=== PATIENT | male | born 1995 | race Caucasian/White ===

== ENCOUNTER 2018-12-20 16:41 | Emergency (ER) | payer OTHER, MEDICAID, SELFPAY ==
[2018-12-20 16:52] VITALS: BP 101/62; PULSE 83; RESP 12; TEMP 37.2; O2SAT 99; BMI 23.1
--- NOTE | 2018-12-20 16:54 | DI.RAD.S_ITS ---
PROCEDURE: XR KNEE RT 3V INDICATIONS: unable to bearweight/pain TECHNIQUE: 3 views of the knee were acquired. COMPARISON: [facility], , KNEE 3V LEFT, 06/03/2010, 14:36. FINDINGS: Bones: No fractures or dislocations. No suspicious bony lesions. Soft tissues: Mild to moderate joint effusion. No suspicious soft tissue calcifications. IMPRESSION: Mild to moderate effusion. No visualized acute fracture or dislocation. However, if clinical concern and/or pain persist, short interval imaging followup in 7-10 days is recommended, as occult injury cannot be definitively excluded. Dictated by: Sydnee Decker M.D. on 12/20/2018 at 17:05 Approved by: Sydnee Decker M.D. on 12/20/2018 at 17:06
[2018-12-20 17:30] VITALS: BP 101/56; PULSE 68; RESP 17; O2SAT 100
--- NOTE | 2018-12-20 18:17 | ED.LOWEXIN ---
HPI - Extremity Injury (Lower) <DAY Barney - Last Filed: 12/20/18 22:33> General Chief Complaint: Extremity Injury, Lower Stated Complaint: POSSIBLE DISLOCATION OF RIGHT KNEE Time Seen by Provider: 12/20/18 17:53 Source: patient and family Mode of arrival: ambulatory Limitations: no limitations History of Present Illness HPI Narrative: This is a 23-year-old male, nonsmoker, presents with family member with right knee pain. Patient reports he was riding a skateboard and went up on a ramp and when he came down landed funny before arriving to ED. Patient was not wearing a helmet at this time. Patient denies other injuries to head, neck, hip, ankle, or foot. Patient reports there is swelling to the affected knee and difficulty bearing weight and extend and flex his affected knee due to pain. Patient reports he can move his foot and toes without problem. Patient denies tingling/numbness to right foot and toes. Related Data Home Medications Medication Instructions Recorded Confirmed acetaminophen-codeine 1 - 2 tab PO Q6H PRN 12/20/18 12/20/18 fluoxetine 40 mg PO DAILY 12/20/18 12/20/18 trazodone 50 - 100 mg PO BEDTIME PRN 12/20/18 12/20/18 Previous Rx's Medication Instructions Recorded gabapentin 600 mg tablet 600 mg PO TID #100 tab 11/29/18 acetaminophen-codeine 1 tab PO BID PRN #7 tab 12/20/18 [Tylenol-Codeine #3] Allergies Allergy/AdvReac Type Severity Reaction Status Date / Time metoclopramide AdvReac Mild LEG Unverified 12/20/18 16:54 PROBLEMS Review of Systems <DAY Barney - Last Filed: 12/20/18 22:33> Review of Systems ROS Unobtainable: All systems reviewed & are unremarkable except as noted in HPI and below PFSH <DAY Barney - Last Filed: 12/20/18 22:33> Medical History Depression (Acute) History of frequent headaches (Acute) Insomnia (Acute) Orbital tumor (Acute) Social History Smoking Status: Never smoker Social History Smoking Status: Never smoker Exam <DAY Barney - Last Filed: 12/20/18 22:33> Narrative Exam Narrative: General appearance: well developed, well nourished, in no acute distress. Head: normocephalic, atraumatic, no scalp lesions, non-tender. Eye: pupil equal, round. EOMI. Nose: nares patent. Oral: mucosa moist. Neck/Thyroid: neck supple, full range of motion, no visible masses. Skin: no suspicious rashes, lesions over visible areas. Warm and dry. Heart: no clubbing, no cyanosis, no edema. Lungs: Breathing even and unlabored. No stridor. No accessory muscles used. Chest: normal shape and expansion. Abdomen: non-obese, non-distended. Neurologic: alert and oriented. Cognitive exam, RECTIFYING ATTENDANT and PNS grossly intact on informal exam. Psych: good eye contact, normal affect. Initial Vital Signs Initial Vital Signs: Vital Signs Temperature 98.9 F 12/20/18 16:52 Pulse Rate 83 12/20/18 16:52 Respiratory Rate 12 12/20/18 16:52 Blood Pressure 101/62 12/20/18 16:52 Pulse Oximetry 99 12/20/18 16:52 Extrem Right upper extremity: normal to inspection and full ROM Left upper extremity: normal to inspection and full ROM Right lower extremity: knee Details: tenderness, swelling Location: of the patella, abnormal ROM Details: pain with active ROM during, pain with passive ROM during and with range as follows and knee ligament exam abnormal Details: anterior drawer test normal, posterior drawer test normal, valgus stress test normal, varus stress test normal, pain with axial loading and Janet's test normal Left lower extremity: normal to inspection and full ROM <Yanick Mays DO - Last Filed: 12/21/18 00:51> Initial Vital Signs Initial Vital Signs: Vital Signs Temperature 98.9 F 12/20/18 16:52 Pulse Rate 83 12/20/18 16:52 Respiratory Rate 12 12/20/18 16:52 Blood Pressure 101/62 12/20/18 16:52 Pulse Oximetry 99 12/20/18 16:52 Procedures <DAY Barney - Last Filed: 12/20/18 22:33> Orthopedic Splinting/Casting Injury #1: Side: right Lower Extremity Injury Location: knee Lower Extremity Immobilizer: knee immobilizer Other Orthopedic Equipment: crutches Post splinting neuro exam: intact Post splinting vascular exam: intact Placed by: Nursing Course <DAY Barney - Last Filed: 12/20/18 22:33> Orders Ordered: ED Orders 12/20/18 16:54 XR knee RT 3V Stat Discontinued Medications Ibuprofen (Advil) 800 mg PO NOW ONE Stop: 12/20/18 18:17 Last Admin: 12/20/18 18:20 Dose: 800 mg Vital Signs - 8 hr 12/20/18 16:52 12/20/18 17:30 Temperature 98.9 F Pulse Rate 83 68 Respiratory Rate 12 17 Blood Pressure 101/62 Blood Pressure [Left Arm] 101/56 L Pulse Oximetry 99 100 <Yanick Mays DO - Last Filed: 12/21/18 00:51> Orders Ordered: ED Orders 12/20/18 16:54 XR knee RT 3V Stat Discontinued Medications Ibuprofen (Advil) 800 mg PO NOW ONE Stop: 12/20/18 18:17 Last Admin: 12/20/18 18:20 Dose: 800 mg Vital Signs - 8 hr 12/20/18 16:52 12/20/18 17:30 Temperature 98.9 F Pulse Rate 83 68 Respiratory Rate 12 17 Blood Pressure 101/62 Blood Pressure [Left Arm] 101/56 L Pulse Oximetry 99 100 MDM - Extremity Injury (Lower) <DAY Barney - Last Filed: 12/20/18 22:33> Differential Diagnosis Likely other (knee sprain, knee dislocation, patella fracture) Medical Records Attestation: I reviewed the patient's medical records. Imaging Data CR-Knee RT: Radiologist's impression: [address] [address] XRay Report Signed Patient: Constantin Cage LMR#: [id number] : 1995Acct:[id number] Age/Sex: 23 / MDate of Service: 12/20/18 Loc: ED Accession Number: [id number] Procedure: XR knee RT 3V Ordering Provider: Esther Wilde MD PROCEDURE: XR KNEE RT 3V INDICATIONS: unable to bearweight/pain TECHNIQUE: 3 views of the knee were acquired. COMPARISON: [facility], , KNEE 3V LEFT, 06/03/2010, 14:36. FINDINGS: Bones: No fractures or dislocations. No suspicious bony lesions. Soft tissues: Mild to moderate joint effusion. No suspicious soft tissue calcifications. IMPRESSION: Mild to moderate effusion. No visualized acute fracture or dislocation. However, if clinical concern and/or pain persist, short interval imaging followup in 7-10 days is recommended, as occult injury cannot be definitively excluded. Dictated by: Sydnee Decker M.D. on 12/20/2018 at 17:05 Approved by: Sydnee Decker M.D. on 12/20/2018 at 17:06 [facility] Narrative Medical decision making narrative: Patient reports right knee pain after he injured the knee while riding skateboard and coming down the ramp and landed funny and states that it happened so fast that he cannot remember how he landed. Distal limb neuro vascular exam was intact. Patient reports little movements on his right knee and unable to fully flex, extend his affected leg due to pain. Per x-ray test, there was mild to moderate effusion without dislocation or fracture on his right knee. Knee immobilizer was applied to right knee for comfort and we discussed RICE therapy with patient and parents for swelling and comfort. Patient provided with crutches for ambulation and pain. Discussed narcotic pain medication precautions with patient and T3 has been prescribed for the patient. Return precautions were discussed with the patient and patient agrees with treatment plan. No further questions were expressed at it this time. Discharge Plan Departure Patient Disposition: Home Clinical Impression: Knee sprain Qualifiers: Encounter type: initial encounter Involved ligament of knee: unspecified ligament Laterality: right Qualified Code(s): S83.91XA - Sprain of unspecified site of right knee, initial encounter Discharge Date/Time: 12/20/18 18:37 Interventions: ED Discharge Assessment Last Done: 12/20/18 18:37 Instructions: DI for Knee Sprain Activity Restrictions/Additional Instructions: You have been diagnosed with [right knee sprain with mild to moderate joint effusion. There is no acute fracture or dislocation were seen today per x-ray test. ]. What to do: *Take your medications as directed. Please use [id number] Tylenol and or ibuprofen as needed for pain. I am prescribing a few taps of T3 that you usually take at home. This medication can cause drowsiness so please do not drive, drink alcohol or operate heavy equipments. Also, this can cause constipation so please take precaution. You're provided with knee immobilizer and crutches for comfort. *Follow up with your primary care provider in 2-3 days, call for an appointment. Let them know you were seen in the ED and that we asked you to be seen in follow up. *Return to ED if you have any new, worsening, or concerning symptoms, such as [tingling numbness to you're lower extremity, weakness to you're leg, or any acute concerns]. Prescriptions: New acetaminophen-codeine [Tylenol-Codeine #3] 300-30 mg tablet 1 tab PO BID PRN (Reason: pain) Qty: 7 RF: 0 No Action gabapentin [Neurontin] 600 mg tablet 600 mg PO TID Qty: 100 RF: 2 fluoxetine 20 mg capsule 40 mg PO DAILY RF: 0 trazodone 50 mg tablet 50 - 100 mg PO BEDTIME PRN (Reason: Sleep) RF: 0 acetaminophen-codeine 300-30 mg tablet 1 - 2 tab PO Q6H PRN (Reason: HEADACHES) RF: 0 Referrals: Demario Eric MD [Primary Care Provider] - <Yanick Mays DO - Last Filed: 12/21/18 00:51> [facility] ED Attending Reanna Attestation: I was immediately available in the department for consultation. Documentation has been reviewed. I agree with assessment and plan.
[2018-12-20] MEDS: IBUPROFEN 400 MG TABLET 800 MG PO (18:20)
== END 2018-12-20 18:37 | disposition home or self-care (01) ==
PROVIDERS: Emergency Provider Nurse Practitioner Family; Family Provider Family Medicine; PCP Family Medicine
DX: S83.91XA Sprain of unspecified site of right knee, initial encounter (principal)
CPT/HCPCS: 29505; 29530; 73562; 99282; 99283

== ENCOUNTER 2019-01-04 16:50 | Emergency (ER) | payer OTHER, MEDICAID, SELFPAY ==
[2019-01-04 16:52] VITALS: BP 107/68; PULSE 93; RESP 15; TEMP 37.6; O2SAT 96; BMI 22.3
--- NOTE | 2019-01-04 16:57 | DI.RAD.S_ITS ---
PROCEDURE: XR FINGER LT MIN 2V INDICATIONS: POSSIBLE DISLOCATION TECHNIQUE: AP hand, 2 views of the fifth finger(s) acquired. COMPARISON: [facility], CR, FINGER RT, 09/03/2006, 15:09. FINDINGS: Bones: No fractures or dislocations. No suspicious bony lesions. Soft tissues: No suspicious soft tissue calcifications. IMPRESSION: No visualized acute fracture or dislocation. However, if clinical concern and/or pain persist, short interval imaging followup in 7-10 days is recommended, as occult injury cannot be definitively excluded. Dictated by: Sydnee Decker M.D. on 01/04/2019 at 17:19 Approved by: Sydnee Decker M.D. on 01/04/2019 at 17:20
--- NOTE | 2019-01-04 17:22 | ED.UPPEXIN ---
HPI - Extremity Injury (Upper) General Chief Complaint: Extremity Injury, Upper Stated Complaint: Possible finger dislocated Time Seen by Provider: 01/04/19 16:53 Source: patient Mode of arrival: ambulatory Limitations: no limitations History of Present Illness HPI narrative: Patient is a 23-year-old male who presents with left pinky injury. [place] [employer] [place]. He feels like it might be dislocated but he is able to bend at all joints. No gross bony deformities. He denies any numbness or tingling. He denies any other injury. Related Data Home Medications Medication Instructions Recorded Confirmed acetaminophen-codeine 1 - 2 tab PO Q6H PRN 12/20/18 01/04/19 fluoxetine 40 mg PO DAILY 12/20/18 01/04/19 trazodone 50 - 100 mg PO BEDTIME PRN 12/20/18 01/04/19 Previous Rx's Medication Instructions Recorded gabapentin 600 mg tablet 600 mg PO TID #100 tab 11/29/18 Allergies Allergy/AdvReac Type Severity Reaction Status Date / Time metoclopramide AdvReac Mild LEG Verified 01/04/19 16:52 PROBLEMS Review of Systems Review of Systems Narrative: GENERAL: Denies chills,fever HEENT: Denies throat pain RESPIRATORY: Denies dyspnea, cough, wheezing CARDIOVASCULAR: Denies chest pain, palpitations GASTROINTESTINAL: Denies nausea, vomiting MUSCULOSKELETAL: See HPI SKIN: No rash, no laceration, no pruritus NEUROLOGIC: Denies weakness, dizziness, headache, numbness 8 point review of systems is negative except for those stated above and HPI PFSH Medical History Depression (Acute) History of frequent headaches (Acute) Insomnia (Acute) Orbital tumor (Acute) Social History Smoking Status: Never smoker Social History Smoking Status: Never smoker Exam Initial Vital Signs Initial Vital Signs: Vital Signs Temperature 99.6 F 01/04/19 16:52 Pulse Rate 93 H 01/04/19 16:52 Respiratory Rate 15 01/04/19 16:52 Blood Pressure 107/68 01/04/19 16:52 Pulse Oximetry 96 01/04/19 16:52 GENERAL: Well-appearing, well-nourished and in no acute distress. CARDIOVASCULAR: peripheral pulses in tact, cap refill <2 sec RESPIRATORY: No respiratory distress, speaks in full sentences without difficulty EXTREMITIES: Normal range of motion, no clubbing or edema. Neurovascularly intact Left pinky no gross bony deformities no erythema able to flex and extend at the DIP, PIP and MCP. Sensation intact. NEUROLOGICAL: Cranial nerves II through XII grossly intact. Normal gait and speech. SKIN: Warm, dry, no petechiae, no rashes or lesions. Course Orders Ordered: ED Orders 01/04/19 16:57 XR finger LT min 2V Stat Vital Signs Vital signs: Vital Signs - 8 hr 01/04/19 16:52 Temperature 99.6 F Pulse Rate 93 H Respiratory Rate 15 Blood Pressure 107/68 Pulse Oximetry 96 MDM - Extremity Injury (Upper) Imaging Data left pinky: Radiologist's impression: PROCEDURE: XR FINGER LT MIN 2V INDICATIONS: POSSIBLE DISLOCATION TECHNIQUE: AP hand, 2 views of the fifth finger(s) acquired. COMPARISON: [facility], , FINGER RT, 09/03/2006, 15:09. FINDINGS: Bones: No fractures or dislocations. No suspicious bony lesions. Soft tissues: No suspicious soft tissue calcifications. IMPRESSION: No visualized acute fracture or dislocation. However, if clinical concern and/or pain persist, short interval imaging followup in 7-10 days is recommended, as occult injury cannot be definitively excluded. Dictated by: Sydnee Decker M.D. on 01/04/2019 at 17:19 Discharge Plan Departure Patient Disposition: Home Clinical Impression: Other sprain of left little finger, initial encounter Instructions: DI for Finger Sprain Activity Restrictions/Additional Instructions: *You have been diagnosed with left pinky sprain *What to do: X-ray is negative. Increase activity as tolerated ice elevate *Continue to take medications as directed Ibuprofen 800 mg every 8 hours if needed for pain *Follow up with your primary care provider in 2-3 days *Return to ER if you should have numbness tingling redness or any new, worsening or concerning symptoms Prescriptions: No Action gabapentin [Neurontin] 600 mg tablet 600 mg PO TID Qty: 100 RF: 2 fluoxetine 20 mg capsule 40 mg PO DAILY RF: 0 trazodone 50 mg tablet 50 - 100 mg PO BEDTIME PRN (Reason: Sleep) RF: 0 acetaminophen-codeine 300-30 mg tablet 1 - 2 tab PO Q6H PRN (Reason: HEADACHES) RF: 0 Referrals: Demario Eric MD [Primary Care Provider] -
== END 2019-01-04 17:37 | disposition home or self-care (01) ==
LOC: ED 18:03
PROVIDERS: Emergency Provider Emergency Medicine; Family Provider Family Medicine; PCP Family Medicine
DX: S63.697A Other sprain of left little finger, initial encounter (principal); W18.30XA Fall on same level, unspecified, initial encounter
CPT/HCPCS: 73140; 99282; 99283

== ENCOUNTER → 2020-01-03 15:26 | Outpatient (CLI) | payer OTHER, MEDICAID, SELFPAY ==
[2020-01-04 07:58] LABS: COVID19 Sendout Not Detected (Not Detect)
== END ==
PROVIDERS: Family Provider Family Medicine; PCP Family Medicine; Visit Provider Nurse Practitioner
DX: Z11.59 Encounter for screening for other viral diseases (principal)
CPT/HCPCS: 87635

== ENCOUNTER → 2020-03-21 14:18 | Outpatient (CLI) | payer OTHER, MEDICAID, SELFPAY ==
[2020-03-21 15:15] LABS: Alanine Aminotransferase 16 IU/L (<50); Albumin 4.3 g/dL (3.5-5.0); Albumin Globulin Ratio 1.2 (1.0-2.8); Alkaline Phosphatase 82 U/L (38-126); Aspartate Aminotransferase 31 IU/L (17-59); BUN Creatinine Ratio 14.8 (6-22); Bilirubin Total 0.8 mg/dL (0.2-1.3); Blood Urea Nitrogen 12 mg/dL (9-20); Calcium 9.4 mg/dL (8.4-10.2); Carbon Dioxide 35 mmol/L (22-32); Chloride 98 mmol/L (98-107); Cholesterol 159 mg/dL (140-199); Estimated Glomerular Filt Rate > 60.0 mL/min (>60); Globulin 3.5 g/dL (1.7-4.1); Glucose 97 mg/dL (70-100); HDL Cholesterol 50 mg/dL (40-60); HEMOLYSIS < 15 (0-50); LDL Cholesterol Calculated 95 mg/dL (<100); Potassium 4.3 mmol/L (3.4-5.1); Sodium 136 mmol/L (137-145); Total Protein 7.8 g/dL (6.3-8.2); Triglycerides 72 mg/dL (35-150)
[2020-03-21 15:51] LABS: Vitamin D 25 Hydroxy (D3) 27.9 ng/mL (30.0-100.0)
== END ==
PROVIDERS: Family Provider Family Medicine; PCP Student in an Organized Health Care Education/Training Program; Referring Provider Student in an Organized Health Care Education/Training Program; Visit Provider Student in an Organized Health Care Education/Training Program
DX: E55.9 Vitamin D deficiency, unspecified (principal); F32.9 Major depressive disorder, single episode, unspecified; F55.8 Abuse of other non-psychoactive substances; R55 Syncope and collapse; Z13.220 Encounter for screening for lipoid disorders; R51.9 Headache, unspecified
CPT/HCPCS: 36415; 80053; 80061; 82306

== ENCOUNTER 2020-04-13 22:08 | Emergency (ER) | payer OTHER, MEDICAID, SELFPAY ==
--- NOTE | 2020-04-13 22:20 | DI.RAD.S_ITS ---
PROCEDURE: XR ACUTE ABDOMEN SERIES INDICATIONS: Abdominal pain, N/V/D TECHNIQUE: One view chest and two views of the abdomen were acquired. COMPARISON: None. FINDINGS: Surgical changes and devices: None. Chest: Lungs are clear. Heart size is normal. No pleural effusions. No pneumoperitoneum. Abdomen: Bowel gas pattern is normal. No suspicious calcifications. Visualized solid organ contours appear normal. Bones: No suspicious bony lesions. IMPRESSION: No acute cardiopulmonary abnormality Comment: Final report is concordant with preliminary interpretation by [facility] Dictated by: Tyrese Kerr M.D. on 04/14/2020 at 7:36 Approved by: Tyrese Kerr M.D. on 04/14/2020 at 7:37
[2020-04-13 22:22] VITALS: PULSE 91; O2SAT 100
[2020-04-13 22:30] VITALS: PULSE 99; O2SAT 100
[2020-04-13] MEDS: PANTOPRAZOLE 40 MG VIAL IV (22:35)
[2020-04-13] MEDS: SODIUM CHLORIDE 0.9% 1,000 ML 1000 ML IV (22:36)
[2020-04-13] MEDS: ONDANSETRON 4 MG/2 ML INJ IV (22:36)
[2020-04-13 22:46] LABS: Add Manual Diff / Slide Review NO; Basophils Absolute Auto 100 /uL (0-100); Basophils Percent Auto 0.9 % (0-2); Eosinophils Absolute Auto 0 /uL (0-450); Hematocrit 46.6 % (41-53); Hemoglobin 15.4 g/dL (13.5-17.5); Lymphocytes Absolute Auto 800 /uL (1100-4500); Lymphocytes Percent Auto 5.2 % (25-40); Mean Corpuscular HGB Conc 32.9 % (30-36); Mean Corpuscular Hemoglobin 28.8 PG (26-34); Mean Corpuscular Volume 87.4 fL (80-100); Monocytes Absolute Auto 400 /uL (0-900); Monocytes Percent Auto 2.2 % (3-14); Neutrophils Absolute Auto 14400 /uL (1500-7000); Neutrophils Percent Auto 91.7 % (50-75); Platelet Count 419 X10^3/uL (150-400); Red Blood Cell Count 5.33 X10^6/uL (4.5-5.9); Red Cell Distribution Width 13.3 % (11.6-14.8); White Blood Cell Count 15.7 X10^3/uL (4.5-11.0)
[2020-04-13 22:53] LABS: Albumin 5.1 g/dL (3.5-5.0); Albumin Globulin Ratio 1.2 (1.0-2.8); Alkaline Phosphatase 133 U/L (38-126); Aspartate Aminotransferase 45 IU/L (17-59); BUN Creatinine Ratio 21.4 (6-22); Bilirubin Total 1.3 mg/dL (0.2-1.3); Blood Urea Nitrogen 15 mg/dL (9-20); Calcium 10.4 mg/dL (8.4-10.2); Carbon Dioxide 26 mmol/L (22-32); Chloride 98 mmol/L (98-107); Estimated Glomerular Filt Rate > 60.0 mL/min (>60); Globulin 4.1 g/dL (1.7-4.1); Glucose 146 mg/dL (70-100); HEMOLYSIS < 15 (0-50); Lipase 121 U/L (23-300); Potassium 4.2 mmol/L (3.4-5.1); Sodium 136 mmol/L (137-145); Total Protein 9.2 g/dL (6.3-8.2)
[2020-04-13 23:00] VITALS: PULSE 81; O2SAT 99
[2020-04-13 23:00] LABS: Alanine Aminotransferase 35 IU/L (<50)
--- NOTE | 2020-04-13 23:19 | ED.NAVMDI ---
HPI - Nausea/Vomiting/Diarrhea General Chief complaint: Nausea/Vomiting/Diarrhea Stated complaint: vomiting/diarria Time Seen by Provider: 04/13/20 22:10 Source: family Mode of arrival: Ambulatory Limitations: no limitations History of Present Illness HPI Narrative: 24M nonsmoker, daily THC user without significant medical history presents with a friend and a chief complaint of nausea, vomiting and diarrhea for the past 24 hours. He states he ate a cheeseburger that had been outside for quite a long time yesterday and it tasted a bit funny. He woke this morning with the above-stated symptoms. After multiple episodes of nausea and vomiting he started having some epigastric pain and cramping. The pain would build in intensity until he had an episode of vomiting or diarrhea at which point he would improve. He denies any radiation of the pain. He states that it is most intense it is 10/10 and currently is an 8/10. He states the pain improves with vomiting and remaining still and seems to worsen with movement. He denies any recent travel or use of antibiotics. He denies any blood in his emesis or stool. He states the nausea, vomiting and diarrhea started a few hours before the pain MD complaint: nausea, vomiting, diarrhea and abdominal pain Onset (ago): hour(s) Description of Vomiting: food contents Description of Diarrhea: watery Associated Abdominal Pain: Yes Location of pain: diffuse Severity: severe Quality: cramping and stabbing Pain Consistency: intermittent Relieving factors: vomiting and rest Exacerbating factors: movement Context: possible food poisoning Associated symptoms: denies other symptoms Related Data Previous Rx's Medication Instructions Recorded fluoxetine 20 mg capsule 60 mg PO DAILY #90 cap 03/21/20 hydroxyzine HCl 25 mg tablet 25 mg PO TID PRN #30 tab 03/21/20 trazodone 50 mg tablet 50 - 100 mg PO BEDTIME #90 tab 03/21/20 hydrocodone 7.5 mg-acetaminophen 1 tab PO Q8H PRN #42 tab 04/09/20 325 mg tablet Allergies Allergy/AdvReac Type Severity Reaction Status Date / Time metoclopramide AdvReac Mild LEG Verified 03/21/20 13:31 PROBLEMS Review of Systems Constitutional Constitutional: Denies chills, Denies fatigue, Denies fever(s), Denies frequent falls, Denies lethargy and Denies weakness Eyes Eyes: Denies change in vision, Denies eye discharge, Denies irritation and Denies loss of vision ENT Ears, Nose, Mouth, and Throat: Denies change in voice, Denies dizziness, Denies neck pain, Denies sore throat and Denies throat swelling Cardiovascular Cardiovascular: Denies chest pain, Denies irregular heart rhythm, Denies lightheadedness, Denies palpitations, Denies dyspnea, Denies dyspnea on exertion and Denies orthopnea Respiratory Respiratory: Denies cough, Denies dyspnea, Denies dyspnea on exertion and Denies wheezing Gastrointestinal Gastrointestinal: Reports abdominal pain, Denies change in bowel habits, Reports diarrhea, Reports nausea and Reports vomiting Musculoskeletal Musculoskeletal: Denies neck pain and Denies numbness Integumentary/Breasts Skin/Breast: Denies pruritus, Denies erythema, Denies rash and Denies wounds Neurologic Neurologic: Denies behavioral changes, Denies confusion, Denies dizziness, Denies frequent falls, Denies loss of vision, Denies numbness and Denies weakness Psychiatric Psychiatric: Denies anxiety, Denies behavioral changes, Denies confusion, Denies depression, Denies homicidal ideation and Denies suicidal ideation Endocrine Endocrine: Denies fatigue, Denies flushing and Denies palpitations Hematologic/Lymphatic Hematologic/Lymphatic: Denies easy bruising Allergic/Immunologic Allergic/Immunologic: Denies urticaria, Denies throat swelling and Denies wheezing Patient History Medical History Accidental overdose Depression History of frequent headaches Insomnia Orbital tumor Social History Smoking Status: Current some day smoker second hand exposure: No alcohol intake: never substance use type: marijuana (DAILY) Smoking Status: Current some day smoker alcohol intake frequency: holidays/special occasions only Substance Use Type: marijuana Exam Narrative Exam Narrative: GENERAL: [24] year old patient appears stated age. Well-nourished, well-developed patient, in obvious distress. Holding an emesis bag, rubbing his abdomen HEAD: Atraumatic. Normocephalic. EYES: Pupils equal round and reactive. Extraocular motions intact. No scleral icterus. No injection or drainage. ENT: Nose without bleeding, purulent drainage. Throat without erythema, tonsillar hypertrophy or exudate. Airway patent. NECK: Trachea midline. Non tender CARDIOVASCULAR: Regular rate and rhythm without murmurs, gallops, or rubs. RESPIRATORY: Clear to auscultation. Breath sounds equal bilaterally. No wheezes, rales, or rhonchi. GASTROINTESTINAL: Abdomen soft, generalized tenderness, nondistended. Bowel sounds present in all 4 quadrants EXTREMITIES: No edema or joint tenderness. BACK: Nontender without deformity or crepitance. No flank tenderness. NEURO: AOx3. SKIN: No rash or erythema of visible areas Initial Vital Signs Initial Vital Signs: Vital Signs Pulse Rate 91 H 04/13/20 22:22 Pulse Oximetry 100 04/13/20 22:22 Course Orders Ordered: ED Orders 04/13/20 22:20 XR acute abdomen series Stat 04/13/20 22:35 Complete Blood Count AUTO DIFF Stat Comprehensive Metabolic Panel Stat Lipase Stat Ondansetron HCl (Ondansetron 4 Mg/2 Ml Inj) 4 mg IV Q4HR PRN PRN Reason: Nausea And Vomiting Last Admin: 04/13/20 22:36 Dose: 4 mg Documented by: NELSY Discontinued Medications Sodium Chloride (Normal Saline 0.9%) 1,000 mls @ 1,000 mls/hr IV BOLUS ONE Stop: 04/13/20 23:19 Last Admin: 04/13/20 22:36 Dose: 1,000 mls/hr Documented by: NELSY Ondansetron HCl (Ondansetron 4 Mg Odt Prepack) 1 bottle MISC SEEINSTR ONE Stop: 04/13/20 23:56 Last Admin: 04/14/20 00:06 Dose: 1 bottle Documented by: Pantoprazole Sodium (Pantoprazole 40 Mg Vial) 40 mg IV NOW ONE Stop: 04/13/20 22:21 Last Admin: 04/13/20 22:35 Dose: 40 mg Documented by: NELSY Reevaluation(s) Reevaluation #1: Near complete resolution of symptoms after the above-stated therapies. Vital Signs Vital signs: Vital Signs - 8 hr 04/13/20 22:22 04/13/20 22:30 04/13/20 23:00 Pulse Rate 91 H 99 H 81 Blood Pressure Pulse Oximetry 100 100 99 04/13/20 23:30 Pulse Rate 79 Blood Pressure 121/78 Pulse Oximetry 96 MDM - Nausea/Vomiting/Diarrhea Lab Data Result diagrams: 04/13/20 22:35 04/13/20 22:35 Labs: Lab Results 04/13/20 04/13/20 Range/Units 22:35 22:35 WBC 15.7 H (4.5-11.0) X10^3/uL RBC 5.33 (4.5-5.9) X10^6/uL Hgb 15.4 (13.5-17.5) g/dL Hct 46.6 (41-53) % MCV 87.4 (80-100) fL MCH 28.8 (26-34) PG MCHC 32.9 (30-36) % RDW 13.3 (11.6-14.8) % Plt Count 419 H (150-400) X10^3/uL Neut % (Auto) 91.7 H (50-75) % Lymph % (Auto) 5.2 L (25-40) % [place] % (Auto) 2.2 L (3-14) % Eos % (Auto) 0.0 L (2-4) % Baso % (Auto) 0.9 (0-2) % Neut # (Auto) 15842 H (6069-7564) /uL Lymph # (Auto) 800 L (3080-1050) /uL [place] # (Auto) 400 (0-900) /uL Eos # (Auto) 0 (0-450) /uL Baso # (Auto) 100 (0-100) /uL Sodium 136 L (137-145) mmol/L Potassium 4.2 (3.4-5.1) mmol/L Chloride 98 (98-107) mmol/L Carbon Dioxide 26 (22-32) mmol/L BUN 15 (9-20) mg/dL Creatinine 0.70 (0.66-1.25) mg/dL Estimated GFR > 60.0 (>60) mL/min BUN/Creatinine Ratio 21.4 (6-22) Glucose 146 H (70-100) mg/dL Calcium 10.4 H (8.4-10.2) mg/dL Total Bilirubin 1.3 (0.2-1.3) mg/dL AST 45 (17-59) IU/L ALT 35 (<50) IU/L Alkaline Phosphatase 133 H (38-126) U/L Total Protein 9.2 H (6.3-8.2) g/dL Albumin 5.1 H (3.5-5.0) g/dL Globulin 4.1 (1.7-4.1) g/dL Albumin/Globulin Ratio 1.2 (1.0-2.8) Lipase 121 (23-300) U/L Imaging Data Abdominal x-ray: Attestation: I personally reviewed and interpreted this imaging study as follows: My Impression: No obstruction Radiologist's Impression: No acute findings MDM Narrative Medical decision making narrative: 24M with N/V/D and abdominal pain. Symptoms started after exposure to bad food. No recent travel or recent antibiotics. Multiple diagnoses including gastroenteritis, bowel obstruction, gallbladder disease and others. Slight bump in white blood cells likely a stress response. X-ray demonstrates no obstruction. Gallbladder and pancreatitis unlikely given lack of classic exam or laboratory findings. Significant improvement after above-stated therapies. Return precautions given and questions answered to his apparent satisfaction. Discharge Plan Departure Patient Disposition: Home Clinical Impression: Gastroenteritis Instructions: DI for Viral Gastroenteritis -- Adult Activity Restrictions/Additional Instructions: *You have been diagnosed with [ nausea, vomiting, and diarrhea likely due to expusre to bad food. Labs and Xrays are very reassuring. ] *What to do: *Take medications as directed *Follow up with your primary care provider in 2-3 days, call for an appointment. Let them know you were seen in the Emergency Department and that we ask that you be seen in follow up *Return to ER if you should have any new, worsening or concerning symptoms, such as [increased vomiting, pain, fever >101F or other bothersome symptoms 1. Drink plenty of fluids with frequent small sips. 2. For the next 24 hours a clear liquid diet is advised. After that please employ a B.R.A.T. diet which would include bananas, rice, apples, toast and other mild food items 3. Please take medications as directed. Including an over the counter antacid such as Nexium or Pepcid. Prescriptions: No Action hydrocodone-acetaminophen 7.5-325 mg tablet 1 tab PO Q8H PRN (Reason: pain) Qty: 42 RF: 0 fluoxetine 20 mg capsule 60 mg PO DAILY Qty: 90 RF: 5 hydroxyzine HCl 25 mg tablet 25 mg PO TID PRN (Reason: anxiety) Qty: 30 RF: 0 trazodone 50 mg tablet 50 - 100 mg PO BEDTIME Qty: 90 RF: 3 Referrals: Ephraim Platt MD [Primary Care Provider] -
[2020-04-13 23:30] VITALS: BP 121/78; PULSE 79; O2SAT 96
[2020-04-13 23:37] VITALS: BP 121/78; PULSE 81; O2SAT 100
[2020-04-14] VITALS: BP 120/77; PULSE 86; O2SAT 100
[2020-04-14] MEDS: ONDANSETRON 4 MG ODT PREPACK 1 BOTTLE MISC (00:06)
== END 2020-04-14 00:41 | disposition home or self-care (01) ==
PROVIDERS: Emergency Provider Emergency Medicine; Family Provider Family Medicine; PCP Student in an Organized Health Care Education/Training Program
DX: K52.9 Noninfective gastroenteritis and colitis, unspecified (principal); R10.13 Epigastric pain; R11.2 Nausea with vomiting, unspecified
CPT/HCPCS: 36415; 74022; 80053; 83690; 85025; 96361; 96374; 96375; 99283; 99284; C9113; J2405

== ENCOUNTER → 2020-04-28 10:55 | Outpatient (CLI) | payer OTHER, MEDICAID, SELFPAY ==
--- NOTE | 2020-04-28 10:56 | DI.MRI.S_ITS ---
PROCEDURE: MR HEAD/BRAIN WO CON INDICATIONS: Eyeball pain TECHNIQUE: Noncontrast axial T1 spin echo, axial T2 fast spin echo, sagittal and axial FLAIR, coronal T2 fast spin echo, axial gradient echo, axial diffusion and ADC through the brain. COMPARISON: [facility], MR, BRAIN WITHOUT CONTRAST, 01/22/2016, 17:51. FINDINGS: Image quality: Excellent. CSF Spaces: Basal cisterns are patent. No extra-axial fluid collections. Ventricles are normal in size and shape. Brain: No intracranial masses or hemorrhage. Shetty/white matter interface is normal. Brainstem appears normal. Diffusion-weighted images demonstrate no acute ischemic insult. No chronic ischemic insults. Normal intravascular flow voids are present. Skull and face: Calvarium has normal marrow signal. Orbits appear normal. Divergent gaze incidentally noted, unchanged since 01/22/16. Sinuses: Sinuses and mastoids are clear. IMPRESSION: Divergent gaze incidentally noted, unchanged since 01/22/16. Recommend correlation to ophthalmological examination findings. Overall, grossly stable examination since 01/22/16. No evidence of acute ischemia. No acute intracranial signal abnormality. Dictated by: Tripp Mccoy M.D. on 04/30/2020 at 8:21 Approved by: Tripp Mccoy M.D. on 04/30/2020 at 8:28
== END ==
PROVIDERS: Family Provider Family Medicine; PCP Student in an Organized Health Care Education/Training Program; Referring Provider Student in an Organized Health Care Education/Training Program; Visit Provider Student in an Organized Health Care Education/Training Program
DX: D49.89 Neoplasm of unspecified behavior of other specified sites (principal); H57.10 Ocular pain, unspecified eye; H51.8 Other specified disorders of binocular movement
CPT/HCPCS: 70551

== ENCOUNTER → 2020-06-13 14:16 | Outpatient (CLI) | payer OTHER, MEDICAID, SELFPAY ==
--- NOTE | 2020-06-13 14:18 | DI.RAD.S_ITS ---
PROCEDURE: XR CERVICAL SPINE 2V OR 3V INDICATIONS: Cervical spine pain TECHNIQUE: 3 view(s) of the cervical spine were acquired. COMPARISON: None. FINDINGS: Bones: No fractures or dislocations to the C7-T1 level. The lateral masses of C1 appear intact on the odontoid view. No suspicious bony lesions. There is severe disc space narrowing at C6-7. Soft tissues: No prevertebral soft tissue swelling. IMPRESSION: Severe disc space narrowing at C6-7. Dictated by: Sydnee Decker M.D. on 06/13/2020 at 16:00 Approved by: Sydnee Decker M.D. on 06/13/2020 at 16:03
--- NOTE | 2020-06-13 14:18 | DI.RAD.S_ITS ---
PROCEDURE: XR LUMBAR SPINE 2-3V INDICATIONS: Lumbar spine pain TECHNIQUE: 2 views of the lumbar spine were acquired. COMPARISON: [facility], CT, ABDOMEN/PELVIS WITH CONTRAST, 06/12/2008, 12:32. FINDINGS: Bones: 5 [id number] vertebrae are present. There is trace retrolisthesis of L3 on L4, L4 on L5, L5 on S1. Moderate foraminal narrowing is present at L5-S1No vertebral body compression fractures. No suspicious bony lesions. Soft tissues: Overlying bowel gas pattern is normal. No suspicious soft tissue calcifications. IMPRESSION: Retrolisthesis at L5-S1 with foraminal narrowing. . Dictated by: Sydnee Decker M.D. on 06/13/2020 at 15:56 Approved by: Sydnee Decker M.D. on 06/13/2020 at 16:00
== END ==
PROVIDERS: Family Provider Family Medicine; PCP Student in an Organized Health Care Education/Training Program; Referring Provider Student in an Organized Health Care Education/Training Program; Visit Provider Student in an Organized Health Care Education/Training Program
DX: M54.5 Low back pain (principal); M43.17 Spondylolisthesis, lumbosacral region; M48.07 Spinal stenosis, lumbosacral region; M54.2 Cervicalgia; M48.02 Spinal stenosis, cervical region; G89.4 Chronic pain syndrome
CPT/HCPCS: 72040; 72100

== ENCOUNTER 2020-06-17 17:44 | Emergency (ER) | payer OTHER, MEDICAID, SELFPAY ==
[2020-06-17 17:48] VITALS: BP 114/66; PULSE 93; RESP 22; O2SAT 98
--- NOTE | 2020-06-17 18:47 | ED.BACK ---
HPI - Back Pain/Injury General Chief Complaint: Back Pain/Injury Stated Complaint: neck and back pain past month or two Time Seen by Provider: 06/17/20 18:47 Source: patient and other (fiance) Mode of arrival: Ambulatory Limitations: no limitations History of Present Illness HPI Narrative: This is a 24-year-old male comes with complaint of neck pain radiates down his spine and tore his lower back. Patient has had chronic symptoms. He has had an x-ray of his cervical spine as well as lower lumbar region and showed some changes. He states that he has been seeing his primary care physician. And states that he has had increase in the pain in the last 24 hours. Patient denies radiation down his arms. He denies any numbness, tingling or weakness in his extremities. 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 Patient denies dropping any objects but states picking up heavy objects increases his pain. He denies any fevers or chills. States he had some red spots on his back earlier this week. He denies any chest pain or shortness of breath no nausea, no vomiting. No bowel or bladder incontinence. No saddle anesthesia. Patient denies any other medical issues besides anxiety. He does take medication for anxiety as well as pain control. He denies any recent surgeries. 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 He has been following with Dr. Platt he received prescription for hydrocodone 7.5/325 he states he was supposed to take 1 tablet daily but has been taking 3 tablets daily after filling his prescriptions on the for 42 tablets. He states that he has run out since then. He has also been He taking a muscle relaxer with minimal improvement which was prescribed by Dr. Platt. also states that medication is actually for his eye and not for his back. He has taken [id number] pain medicine today but nothing in addition. Patient denies any tobacco use, rare EtOH, positive for THC but no other illicit. He is accompanied by his fiancee. He comes this evening requesting medication for pain control. He states that they are setting up an MRI they were supposed to have scheduled for Thursday but have not actually schedule the MRI yet. Related Data Previous Rx's Medication Instructions Recorded fluoxetine 20 mg capsule 60 mg PO DAILY #90 cap 03/21/20 trazodone 50 mg tablet 50 - 100 mg PO BEDTIME #90 tab 03/21/20 hydroxyzine HCl 25 mg tablet 25 mg PO TID PRN #90 tab 05/15/20 hydrocodone 7.5 mg-acetaminophen 1 tab PO Q8H PRN #42 tab 06/12/20 325 mg tablet cyclobenzaprine 10 mg tablet 10 mg PO TID PRN 10 Days #30 tab 06/13/20 Allergies Allergy/AdvReac Type Severity Reaction Status Date / Time metoclopramide AdvReac Mild LEG Verified 06/13/20 13:53 PROBLEMS Review of Systems Review of Systems ROS Unobtainable: All systems reviewed & are unremarkable except as noted in HPI and below Patient History Medical History (Updated 06/17/20 @ 19:43 by Lauren Sesay DO) Accidental overdose Acetaminophen abuse Acne Anxiety associated with depression (~2006) Depression History of frequent headaches Insomnia Migraines (~2004) Orbital tumor Psoriasis Surgical History (Updated 06/15/20 @ 21:34 by Indira Hernandez) Anesthesia History of eye surgery Family History (Updated 06/15/20 @ 21:36 by Indira Hernandez) Mother Diabetes mellitus History of heart disease Hypertension Hyperlipidemia Grandfather Kidney failure Grandfather Cancer Grandmother No problems noted. Social History Smoking Status: Current some day smoker second hand exposure: No alcohol intake: never substance use type: marijuana (DAILY) Smoking Status: Current some day smoker alcohol intake frequency: holidays/special occasions only Substance Use Type: marijuana Exam Narrative Exam Narrative: GENERAL: Alert and oriented x three, well-nourished male in mild distress. HEENT: Head normocephalic, atraumatic, EOMI intact on left, patient has a rightward gaze palsy with the right eye, pupils reactive, face symmetric, moist mucous membranes NECK: Supple, full range of motion CARDIOVASCULAR: Regular rate and rhythm without murmurs, rubs or gallops. RESPIRATORY: Breath sounds equal bilaterally, no wheezes rales or rhonchi. ABDOMEN: Soft, nontender. Normoactive bowel sounds all 4 quadrants. No guarding or rebound, rigidity, no mass : No CVA tenderness BACK: Mild C6-7 cervical, no other cervical thoracic or lumbar vertebral point tenderness. Patient has normal range of motion. Patient's gait is normal. Rectal exam is deferred. Muscle strength is 5/5 in upper and lower extremities, with equal ribs bilaterally and equal push pull bilaterally, DTRs are 2/4 and upper and lower, 2+ radial pulses bilaterally. Sensation is intact in the upper and lower extremities to light touch. EXTREMITIES: Normal range of motion, no clubbing or edema. Neurovascularly intact NEUROLOGICAL: Cranial nerves II through XII grossly intact. Moving all extremities SKIN: Warm, dry, no petechiae, no rashes or lesions, no skin changes on the back. Initial Vital Signs Initial Vital Signs: Vital Signs Pulse Rate 93 H 06/17/20 17:48 Respiratory Rate 22 06/17/20 17:48 Blood Pressure 114/66 06/17/20 17:48 Pulse Oximetry 98 06/17/20 17:48 Course Orders Ordered: Discontinued Medications Hydrocodone Bitart/Acetaminophen (Hydrocodone/Acet 5/325 Prepack) 1 bottle MISC SEEINSTR ONE Stop: 06/17/20 19:44 Last Admin: 06/17/20 19:48 Dose: 1 bottle Documented by: ROBERTA Ketorolac Tromethamine (Ketorolac 60 Mg/2 Ml Vial) 30 mg IM NOW ONE Stop: 06/17/20 19:23 Last Admin: 06/17/20 19:29 Dose: 30 mg Documented by: ROBERTA Vital Signs Vital signs: Vital Signs - 8 hr 06/17/20 17:48 06/17/20 19:50 Pulse Rate 93 H 75 Respiratory Rate 22 18 Blood Pressure 114/66 111/72 Pulse Oximetry 98 97 MDM - Back Pain/Injury Imaging Data Lumbar xray: Radiologist's Impression: [address] [id number] ReportSigned Patient: Constantin Vasquez LMR#: [id number]: 1995Acct:[id number]/Sex: 24 / MDate of Service: 06/13/20Loc: RADAccession Number: [id number] Procedure: XR lumbar spine 2-3V Ordering Provider: Ephraim Platt MD PROCEDURE: XR LUMBAR SPINE 2-3V INDICATIONS: Lumbar spine pain TECHNIQUE: 2 views of the lumbar spine were acquired. COMPARISON: [facility], CT, ABDOMEN/PELVIS WITH CONTRAST, 06/12/2008, 12:32. FINDINGS: Bones: 5 [id number] vertebrae are present. There is trace retrolisthesis of L3 on L4, L4 on L5, L5 on S1. Moderate foraminal narrowing is present at L5-S1No vertebral body compression fractures. No suspicious bony lesions. Soft tissues: Overlying bowel gas pattern is normal. No suspicious soft tissue calcifications. IMPRESSION: Retrolisthesis at L5-S1 with foraminal narrowing. . Dictated by: Sydnee Decker M.D. on 06/13/2020 at 15:56 Approved by: Sydnee Decker M.D. on 06/13/2020 at 16:00 cspine xray: Radiologist's Impression: [address] [id number] ReportSigned Patient: Constantin Vasquez LMR#: [id number]: 1995Acct:[id number]/Sex: 24 / MDate of Service: 06/13/20Loc: RADAccession Number: [id number] Procedure: XR cervical spine 2V or 3V Ordering Provider: Ephraim Platt MD PROCEDURE: XR CERVICAL SPINE 2V OR 3V INDICATIONS: Cervical spine pain TECHNIQUE: 3 view(s) of the cervical spine were acquired. COMPARISON: None. FINDINGS: Bones: No fractures or dislocations to the C7-T1 level. The lateral masses of C1 appear intact on the odontoid view. No suspicious bony lesions. There is severe disc space narrowing at C6-7. Soft tissues: No prevertebral soft tissue swelling. IMPRESSION: Severe disc space narrowing at C6-7. Dictated by: Sydnee Decker M.D. on 06/13/2020 at 16:00 Approved by: Sydnee Decker M.D. on 06/13/2020 at 16:03 [facility] Narrative Medical decision making narrative: This is a 24-year-old male [place] Prescription database shows patient has filled hydrocodone/senna benefit 7.5mg/325mg # 42 tabs on June 12, May 30, May 15 and May [address] Platt. Prior to this he had no other substances filled since January 04, 2020. Patient does have changes at C6-7 which is where his majority of his discomfort is. He does not have any red flag symptoms today on evaluation and I would not repeat imaging. He also has some changes in his lower lumbar spine on imaging. Patient is in the process of scheduling an MRI he has not set up the actual date but has been approved. This seems to be an appopriate course of action with his worsening back pain. Plan for dose of pain medication here in the form of Toradol. Prepack for pain medication and asked him to follow up with his primary care tomorrow for any additional pain medicine adjustments. His [place] [employer] indicates that he filled 42 tabs on the which would have been 11 tablets in 5 days. Return precautions discussed with patient. Discharge Plan Departure Patient Disposition: Home Clinical Impression: Acute neck pain Instructions: DI for Neck Pain Activity Restrictions/Additional Instructions: Follow up with Dr. Platt tomorrow for recheck and additional pain management options. Take medication as prescribed, this medication can make you sleepy do not drive, perform hazardous activities or make any major decisions while taking it. Return to the ER for fevers, rapidly worsening symptoms, loss of sensation, new weakness or inability to use her extremities, if her dropping objects, loss of bowel or bladder control, passing out, persistent vomiting or other new or concerning symptoms. Prescriptions: No Action hydrocodone-acetaminophen 7.5-325 mg tablet 1 tab PO Q8H PRN (Reason: pain) Qty: 42 RF: 0 hydroxyzine HCl 25 mg tablet 25 mg PO TID PRN (Reason: anxiety) Qty: 90 RF: 11 cyclobenzaprine 10 mg tablet 10 mg PO TID PRN (Reason: muscle spasm) 10 Days Qty: 30 RF: 0 fluoxetine 20 mg capsule 60 mg PO DAILY Qty: 90 RF: 5 trazodone 50 mg tablet 50 - 100 mg PO BEDTIME Qty: 90 RF: 3 Referrals: Ephraim Platt MD [Primary Care Provider] -
[2020-06-17] MEDS: KETOROLAC 60 MG/2 ML VIAL 30 MG IM (19:29)
[2020-06-17] MEDS: HYDROCODONE/ACET 5/325 PREPACK 1 BOTTLE MISC (19:48)
[2020-06-17 19:50] VITALS: BP 111/72; PULSE 75; RESP 18; O2SAT 97
== END 2020-06-17 19:51 | disposition home or self-care (01) ==
PROVIDERS: Emergency Provider Emergency Medicine; Family Provider Family Medicine; PCP Student in an Organized Health Care Education/Training Program
DX: M54.2 Cervicalgia (principal); M54.5 Low back pain
CPT/HCPCS: 96372; 99281; 99283; J1885

== ENCOUNTER 2020-08-11 14:04 | Emergency (ER) | payer OTHER, MEDICAID, SELFPAY ==
[2020-08-11] VITALS (8 sets, daily range): BP systolic 114–125; BP diastolic 67–78; PULSE 61–77; RESP 16–18; TEMP 36.7; O2SAT 95–97; BMI 25.7
--- NOTE | 2020-08-11 15:46 | ED.NECK ---
HPI - Neck Pain/Injury General Chief Complaint: Neck Pain/Injury Stated Complaint: neck shoulder pain Time Seen by Provider: 08/11/20 15:07 Source: patient Mode of arrival: Ambulatory Limitations: no limitations History of Present Illness HPI Narrative: Patient is a 24-year-old male who presented with chronic ongoing neck pain. He continues to have right-sided neck pain and spasm he has been seen by his primary care provider for he has been on multiple muscle relaxers he had an x-ray but is waiting for insurance to approve an MRI. He has been going to physical therapy for 8 weeks says it helpful he is there but as soon as he leaves it spasms again. Today he is unsure why but it hurts even more he thinks he may have tweaked it. He has no numbness tingling or weakness in his right hand. He has difficulty and pain turning his head to the right. 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 MD complaint: neck pain Onset (ago): hour(s) Radiation: right lateral Duration: constant Relieving factors: none Exacerbating factors: none Related Data Previous Rx's Medication Instructions Recorded fluoxetine 20 mg capsule 60 mg PO DAILY #90 cap 03/21/20 trazodone 50 mg tablet 50 - 100 mg PO BEDTIME #90 tab 03/21/20 hydroxyzine HCl 25 mg tablet 25 mg PO TID PRN #90 tab 05/15/20 hydrocodone 7.5 mg-acetaminophen 1 tab PO Q8H PRN #42 tab 08/06/20 325 mg tablet diazepam [Valium] 5 mg PO BID PRN #10 tab 08/11/20 Allergies Allergy/AdvReac Type Severity Reaction Status Date / Time metoclopramide AdvReac Mild LEG Verified 08/11/20 14:18 PROBLEMS Review of Systems Review of Systems Narrative: GENERAL: Denies chills, fatigue, malaise, fever, sweats, travel HEENT: see HPI RESPIRATORY: Denies dyspnea, cough, wheezing, hemoptysis, sputum. CARDIOVASCULAR: Denies chest pain, palpitations, orthopnea, edema GASTROINTESTINAL: Denies nausea, vomiting, abdominal pain, diarrhea, constipation, melena. : Denies dysuria, frequency, incontinence, hematuria, urinary retention, flank pain. MUSCULOSKELETAL see HPI SKIN: No rash, no erythema, no pruritus NEUROLOGIC: Denies weakness, dizziness, headache, numbness, change in speech, confusion PSYCHIATRIC: No concerning psychosocial issues. 12 point review of systems is negative except for those stated above and HPI Patient History Medical History Accidental overdose Acetaminophen abuse Acne Anxiety associated with depression (~2006) Depression History of frequent headaches Insomnia Migraines (~2004) Orbital tumor Psoriasis Surgical History Anesthesia History of eye surgery Family History Mother Diabetes mellitus History of heart disease Hypertension Hyperlipidemia Grandfather Kidney failure Grandfather Cancer Grandmother No problems noted. Social History Smoking Status: Current some day smoker second hand exposure: No alcohol intake: never substance use type: marijuana (DAILY) Smoking Status: Current some day smoker alcohol intake frequency: holidays/special occasions only Substance Use Type: marijuana Exam Initial Vital Signs Initial Vital Signs: Vital Signs Temperature 98.0 F 08/11/20 14:18 Pulse Rate 75 08/11/20 14:18 Respiratory Rate 18 08/11/20 14:18 Blood Pressure 119/72 08/11/20 14:18 Pulse Oximetry 95 08/11/20 14:18 GENERAL: [Well-appearing, well-nourished] and in [no acute] distress. HEENT: Head atraumatic,EOMI, pupils reactive, face symmetric, [moist] mucous membranes right eye palsy NECK: No vertebral tenderness or step-offs. He does have significant pain and muscle spasm on the right lateral side. Decreased range of motion to the right. CARDIOVASCULAR: Regular rate and rhythm without murmurs, rubs or gallops. RESPIRATORY: Breath sounds equal bilaterally, no wheezes rales or rhonchi. ABDOMEN: Soft, nontender. Normoactive bowel sounds all 4 quadrants. No guarding or rebound. EXTREMITIES: Normal range of motion, no clubbing or edema. Neurovascularly intact NEUROLOGICAL: Alert and oriented x4.Normal gait and speech. Radiology Physician strength equal bilaterally SKIN: Warm, dry, no laceration, no petechiae, no rashes or lesions. Course Orders Ordered: Discontinued Medications Ketorolac Tromethamine (Ketorolac 60 Mg/2 Ml Vial) 30 mg IM NOW ONE Stop: 08/11/20 15:58 Last Admin: 08/11/20 16:02 Dose: 30 mg Documented by: MARIEL Vital Signs Vital signs: Vital Signs - 8 hr 08/11/20 14:18 08/11/20 14:37 08/11/20 15:00 Temperature 98.0 F Pulse Rate 75 72 77 Respiratory Rate 18 16 Blood Pressure 119/72 114/74 Pulse Oximetry 95 95 96 08/11/20 15:30 08/11/20 15:51 08/11/20 16:00 Temperature Pulse Rate 70 71 Respiratory Rate 16 Blood Pressure 123/67 120/69 Pulse Oximetry 96 97 08/11/20 16:07 08/11/20 16:30 Temperature Pulse Rate 61 77 Respiratory Rate Blood Pressure 125/78 Pulse Oximetry 96 95 MDM - Neck Pain/Injury MDM Narrative Medical decision making narrative: At this time patient has chronic ongoing neck pain. He has tried multiple muscle relaxers. He has an obvious muscle spasm. Known new neurologic deficits recommend outpatient MRI. He is given Toradol as says that helps some. He says that he is out of his hydrocodone states that he will need to see his PCP about this. Will try Valium as a muscle relaxer to see if it helps. Discharge Plan Departure Patient Disposition: Home Clinical Impression: Neck muscle spasm Instructions: DI for Muscle Spasm Activity Restrictions/Additional Instructions: *You have been diagnosed with right neck muscle spasm *What to do: At this time continue with physical therapy and pain medications will add Valium as a new muscle relaxer to see if it helps. You will need to continue to talk with her PCP in regards to an MRI *Continue to take medications as directed Valium 5 mg every 12 hours only if needed for muscle spasm *Follow up with your primary care provider in 2-3 days *Return to ER if you should have weakness numbness tingling or any new, worsening or concerning symptoms CONTROLLED SUBSTANCE DISCHARGE (Narcotoic/benzodiazepine/Flexeril/Phenergan) 1. You have been prescribed narcotic medications, it does have acetaminophen/Tylenol/paracetamol in it, DO NOT TAKE MORE THAN 4,00mg in 24 hours of Tylenol. TRAMADOL DOES NOT CONTAIN TYLENOL 2. Please understand that we cannot provide further refills of narcotics, benzodiazepines or controlled substances through the ED and her pain management will need to be through your provider. 3. While on these medications you cannot drive or operate heavy machinery. 4. You cannot sign legal documents or perform any duties such as this. 5. As long as you're taking opiate pain medications he should also be taking a stool softener such as Colace, Dulcolax, MiraLAX or prune juice, to help avoid constipation. Prescriptions: New diazepam [Valium] 5 mg tablet 5 mg PO BID PRN (Reason: muscle spasm) Qty: 10 RF: 0 No Action hydrocodone-acetaminophen 7.5-325 mg tablet 1 tab PO Q8H PRN (Reason: pain) Qty: 42 RF: 0 hydroxyzine HCl 25 mg tablet 25 mg PO TID PRN (Reason: anxiety) Qty: 90 RF: 11 fluoxetine 20 mg capsule 60 mg PO DAILY Qty: 90 RF: 5 trazodone 50 mg tablet 50 - 100 mg PO BEDTIME Qty: 90 RF: 3 Referrals: Ephraim Platt MD [Primary Care Provider] - Stand Alone Forms: Work Release Note
[2020-08-11] MEDS: KETOROLAC 60 MG/2 ML VIAL 30 MG IM (16:02)
== END 2020-08-11 16:39 | disposition home or self-care (01) ==
PROVIDERS: Emergency Provider Emergency Medicine; Family Provider Student in an Organized Health Care Education/Training Program; PCP Student in an Organized Health Care Education/Training Program
DX: M62.838 Other muscle spasm (principal)
CPT/HCPCS: 96372; 99283; J1885

== ENCOUNTER 2020-08-23 10:30 | Outpatient (RCR) | payer OTHER, MEDICAID, SELFPAY ==
--- NOTE | 2020-07-10 14:00 | PT.OPPOC ---
Physical, Occupational & Speech Therapy At [facility] Current Diagnoses Chronic pain syndrome (07/10/20) Cervicalgia (07/10/20) Paresthesia of skin (07/10/20) Abnormal posture (07/10/20) Visit Care Team Role Provider Type Ephraim Platt MD Attending Provider Physician Family Provider Primary Care Provider Referring Provider Specialty: Internal Medicine Address: [address] [place] [address], [address], [address] Email: [email or web address] Plan Of Care PT-OP-T Assessment and Plan Start: 07/10/20 12:59 Freq: Status: Active Protocol: Document 07/10/20 13:45 AW (Rec: 07/12/20 11:04 AW [id number]) Physical Therapy Assessment Rehab Potential Rehabilitation Potential Good Evaluation Complexity Number of Personal Factors/Comorbidities 1-2 Number of Body Systems Impaired 1-2 Clinical Presentation at Evaluation Stable Impairments Impairments Functional Activities,Pain, Posture,ROM,Sensation,Soft Tissue Mobility,Strength Goals Four Impairment no HEP Short Term Goal (STG) Pt will be independent with HEP for support of therapy services provided in clinic. STG Duration 6 weeks - 08/21/20 Three Impairment ROM Short Term Goal (STG) Pt will increase cervical ROM to 35 degrees of rotation bilaterally STG Duration 6 weeks - 08/21/20 Baker Test Goal (LTG) Pt will increase cervical ROM to at least 50 degrees flexion and 35 degrees extention. LTG Duration 3 months 10/10/20 Two Impairment Pain affecting ability to participate in the care of his son Baker Test Goal (LTG) Pt will lift his son (40 pounds) with good body mechanics and without increase in baseline pain LTG Duration 3 months 10/10/20 One Impairment Pain affecting work and recreational pursuits Short Term Goal (STG) Pt will tolerate 3 six-hour shifts per week. STG Duration 6 weeks - 08/21/20 Baker Test Goal (LTG) Pt will skateboard 15 minutes on level surface without increase in baseline pain. LTG Duration 3 months 10/10/20 Assessment Summary Assessment Norman is a 24 yo man with history of chronic back pain who was seen for PT evaluation with complaints of increasing neck pain over the past three months. 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 Pt presents with significantly limited cervical range of motion, reduced left shoulder range of motion, and increased tone of cervical paraspinals and left shoulder musculature. Postural deficits are likely predisposing and perpetuating factors. Pt will benefit from skilled PT to address posture, ROM, and strength deficits to improve his ability to participate in work, recreation, and the care of his son. Physical Therapy Plan Frequency and Duration Frequency of Treatment 2x/Week Duration of Treatment 3 months Plan of Care Start Date 07/10/20 Plan of Care End Date 10/10/20 Therapeutic Interventions Therapeutic Interventions Home Exercise Program,Joint Mobilizations,Manual Therapy, Neuromuscular Re-education, Patient/Caregiver Education, Self-Care/Home Management,Soft Tissue Mobilization,Taping, Therapeutic Activities, Therapeutic Exercises Modalities Electric Stimulation,Hot Packs Next Visit Focus/Plan Next Note Type Treatment Note Next Visit Plan STM paraspinals and shoulders, initiate postural education, ther ex for posture and cervical stability Plan of Care Dates Plan of Care Start Date 07/10/20 Plan of Care End Date 10/10/20 Electronically Signed by: Rosemary Becerra PT 07/12/20 [id number] Please Sign and Return: I have reviewed this Plan of Care and certify that the skilled therapy services above are required to meet the patient?s needs. Physician Signature Date Printed Name and Credentials Clinical Instructor Signature Printed Name and Credentials
--- NOTE | 2020-07-10 14:00 | PT.OIE ---
Current Diagnoses Chronic pain syndrome (07/10/20) Cervicalgia (07/10/20) Paresthesia of skin (07/10/20) Abnormal posture (07/10/20) Past Medical History (Last Updated 06/15/20 @ 21:34 by Indira Hernandez) Accidental overdose Acetaminophen abuse Acne Anxiety associated with depression (~2006) Depression History of frequent headaches Insomnia Migraines (~2004) Orbital tumor Psoriasis Past Surgical History (Last Updated 06/15/20 @ 21:34 by Indira Hernandez) Anesthesia History of eye surgery Visit Care Team Role Provider Type Ephraim Platt MD Attending Provider Physician Family Provider Primary Care Provider Referring Provider Specialty: Internal Medicine Address: [address] [place] [address], [address], [facility] Email: [email or web address] Physical Therapy Initial Evaluation PT-OP-A Visit Information Start: 07/10/20 12:59 Freq: Status: Active Protocol: Document 07/10/20 13:45 AW (Rec: 07/10/20 14:31 AW [email or web address]) Out-Patient Physical Therapy Visit Information Visit Information Visit Type Initial Evaluation Visit Note Pt's Asha SINGLETON, attended appointment. Visit Start Time 13:00 Visit Stop Time 13:45 Total Visit Minutes 45 Visit Number 1 Number of GASOLINE CATALYST OPERATOR Visits 0 Evaluation Information Evaluation Date 07/10/20 PT-OP-B Current Condition Start: 07/10/20 12:59 Freq: Status: Active Protocol: Document 07/10/20 13:45 AW (Rec: 07/10/20 13:19 AW [id number]) Current Condition History of Current Condition Onset Date three months Current Complaints neck pain on chronic back pain History of Current Condition Pt reports sharp electric pain up his spine from lower back. Pain is worse in the neck. Pain is constant but worse on some days. Pt normally skateboards but has been unable since April. He is able to play video games. He denies tingling/numbness BUE. No trauma. No red flag signs. 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 Prior Treatments and Tests 06/13/20 C/S x-ray: Severe disc space narrowing at C6-7. 06/13/20 L/S x-ray: Retrolisthesis at L5-S1 with foraminal narrowing. Future Testing and Treatments Planned MRI if no improvement with therapy Treatment Goals Patient/Caregiver Goals Pt would like to be able to skateboard and to work longer hours. 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 Functional Limitations- Recreation/ Has not been skateboarding Hobbies since April Functional Limitations- Other Unable to lift his son. Personal Factors Other Personal Factors That May Effect No prior PT Therapy/Recovery PT-OP-C Subjective Start: 07/10/20 12:59 Freq: Status: Active Protocol: Document 07/10/20 13:45 AW (Rec: 07/10/20 14:31 AW [email or web address]) Patient Questionnaires Quick Dash- Upper Extremity Quick Dash UE Score 30 Quick Dash UE Impairment 20 to 39% Impaired (Score 20- 39) OP-PT Pain Assessment Pain Assessment Grid Paper Pain Assessment Grid Completed Yes Location spine and B hips Pain Location Details 7-8 Scale Used Numeric (0 - 10) Frequency Daily Pain Aggravating Factors Changing Position,Bending, Lifting Home Pain Medication Use Pain Medications Used Yes Home Pain Medication Frequency hydrocodone 7.5 mg 3x/day Patient Goal reduce PT-OP-F Manual Assessment Start: 07/10/20 12:59 Freq: Status: Active Protocol: Document 07/10/20 13:45 AW (Rec: 07/10/20 14:31 AW [email or web address]) Manual Assessments Soft Tissue Assessment Soft Tissue Mobility Assessment Moderate tone bilateral upper traps. Significant tone and guarding C5-T1 with occasional spasm. PT-OP-H Neuro Start: 07/10/20 12:59 Freq: Status: Active Protocol: Document 07/10/20 13:45 AW (Rec: 07/10/20 14:40 AW [email or web address]) Sensation Evaluation Gross Sensation Gross Sensation WNL Comments Summary Comments Pt denies sensation disturbance BUE PT-OP-J Posture/Palpation/Skin Start: 07/10/20 12:59 Freq: Status: Active Protocol: Document 07/10/20 13:45 AW (Rec: 07/10/20 14:40 AW [email or web address]) Posture Evaluation Position Sitting Evaluation View Lateral Head/C-Spine Posture Extended L-Spine Posture Decreased Lordosis Shoulder Posture (L) Rounded,(R) Rounded,(L) Forward,(R) Forward Scapula Posture (L) Protracted,(R) Protracted Arm Posture (L) Internally Rotated,(R) Internally Rotated Weight Distribution Balanced PT-OP-K Range of Motion Start: 07/10/20 12:59 Freq: Status: Active Protocol: Document 07/10/20 13:45 AW (Rec: 07/12/20 11:04 AW [id number]) Cervical Spine Range of Motion Cervical Spine Active Degrees Testing Position Sitting Flexion 39 Extension 23 Rotation Left 48 Rotation Right 42 Lateral Flexion Left 24 Lateral Flexion Right 23 ROM Limitations Soft Tissue Tightness,Muscle Tone,Pain Comments Increased pain with flexion and extension but markedly worse with flexion. Positive pain with right rotation. Shoulder Goniometric Range of Motion Shoulder Left Active Testing Position Sitting Flexion 155 Abduction 155 Right Active Testing Position Sitting Flexion 165 Abduction 165 Shoulder ROM Limitations Shoulder ROM Limitations Soft Tissue Tightness,Pain PT-OP-L Special Tests Start: 07/10/20 12:59 Freq: Status: Active Protocol: Document 07/10/20 13:45 AW (Rec: 07/12/20 11:04 AW [id number]) Special Tests Cervical Spine Special Tests Spurling's Test Test Results (+) bilaterally Comments reproduces pain in the neck; no symptoms in the arms PT-OP-M Strength Start: 07/10/20 12:59 Freq: Status: Active Protocol: Document 07/10/20 13:45 AW (Rec: 07/12/20 11:04 AW [id number]) Cervical Spine Strength Cervical Spine Manual Muscle Testing Testing Position Sitting Flexion (C1-2) 4- Good- Extension 4 Good Rotation Left 4 Good Rotation Right 4 Good Lateral Flexion Left (C3) 4 Good Lateral Flexion Right (C3) 4 Good Shoulder Strength Shoulder Manual Muscle Testing Left Flexion 4 Good Extension 4+ Good+ Abduction (C5) 4 Good External Rotation 4+ Good+ Internal Rotation 4+ Good+ Right Flexion 4+ Good+ Extension 4+ Good+ Abduction (C5) 4+ Good+ External Rotation 4+ Good+ Internal Rotation 5 Normal PT-OP-T Assessment and Plan Start: 07/10/20 12:59 Freq: Status: Active Protocol: Document 07/10/20 13:45 AW (Rec: 07/12/20 11:04 AW [id number]) Physical Therapy Assessment Rehab Potential Rehabilitation Potential Good Evaluation Complexity Number of Personal Factors/Comorbidities 1-2 Number of Body Systems Impaired 1-2 Clinical Presentation at Evaluation Stable Impairments Impairments Functional Activities,Pain, Posture,ROM,Sensation,Soft Tissue Mobility,Strength Goals Four Impairment no HEP Short Term Goal (STG) Pt will be independent with HEP for support of therapy services provided in clinic. STG Duration 6 weeks - 08/21/20 Three Impairment ROM Short Term Goal (STG) Pt will increase cervical ROM to 35 degrees of rotation bilaterally STG Duration 6 weeks - 08/21/20 Fpc Goal (LTG) Pt will increase cervical ROM to at least 50 degrees flexion and 35 degrees extention. LTG Duration 3 months 10/10/20 Two Impairment Pain affecting ability to participate in the care of his son Survey Data Technician Goal (LTG) Pt will lift his son (40 pounds) with good body mechanics and without increase in baseline pain LTG Duration 3 months 10/10/20 One Impairment Pain affecting work and recreational pursuits Short Term Goal (STG) Pt will tolerate 3 six-hour shifts per week. STG Duration 6 weeks - 08/21/20 Survey Data Technician Goal (LTG) Pt will skateboard 15 minutes on level surface without increase in baseline pain. LTG Duration 3 months 10/10/20 Assessment Summary Assessment Norman is a 24 yo man with history of chronic back pain who was seen for PT evaluation with complaints of increasing neck pain over the past three months. 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 Pt presents with significantly limited cervical range of motion, reduced left shoulder range of motion, and increased tone of cervical paraspinals and left shoulder musculature. Postural deficits are likely predisposing and perpetuating factors. Pt will benefit from skilled PT to address posture, ROM, and strength deficits to improve his ability to participate in work, recreation, and the care of his son. Physical Therapy Plan Frequency and Duration Frequency of Treatment 2x/Week Duration of Treatment 3 months Plan of Care Start Date 07/10/20 Plan of Care End Date 10/10/20 Therapeutic Interventions Therapeutic Interventions Home Exercise Program,Joint Mobilizations,Manual Therapy, Neuromuscular Re-education, Patient/Caregiver Education, Self-Care/Home Management,Soft Tissue Mobilization,Taping, Therapeutic Activities, Therapeutic Exercises Modalities Electric Stimulation,Hot Packs Next Visit Focus/Plan Next Note Type Treatment Note Next Visit Plan STM paraspinals and shoulders, initiate postural education, ther ex for posture and cervical stability
--- NOTE | 2020-07-17 12:22 | PT.OTN ---
Current Diagnoses Chronic pain syndrome (07/17/20) Cervicalgia (07/17/20) Paresthesia of skin (07/17/20) Abnormal posture (07/17/20) Physical Therapy Treatment Note PT-OP-A Visit Information Start: 07/10/20 12:59 Freq: Status: Active Protocol: Document 07/17/20 11:21 AW (Rec: 07/17/20 12:20 AW [id number]) Out-Patient Physical Therapy Visit Information Visit Information Visit Type Treatment Note Visit Note Pt's Asha SINGLETON, attended appointment. Visit Start Time 11:21 Visit Stop Time 12:01 Total Visit Minutes 40 Visit Number 2 Number of MECHANICAL PRESS OPERATOR Visits 0 Evaluation Information Evaluation Date 07/10/20 PT-OP-B Current Condition Start: 07/10/20 12:59 Freq: Status: Active Protocol: Document 07/10/20 13:45 AW (Rec: 07/10/20 13:19 AW [id number]) Current Condition History of Current Condition Onset Date three months Current Complaints neck pain on chronic back pain History of Current Condition Pt reports sharp electric pain up his spine from lower back. Pain is worse in the neck. Pain is constant but worse on some days. Pt normally skateboards but has been unable since April. He is able to play video games. He denies tingling/numbness BUE. No trauma. No red flag signs. 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 Prior Treatments and Tests 06/13/20 C/S x-ray: Severe disc space narrowing at C6-7. 06/13/20 L/S x-ray: Retrolisthesis at L5-S1 with foraminal narrowing. Future Testing and Treatments Planned MRI if no improvement with therapy Treatment Goals Patient/Caregiver Goals Pt would like to be able to skateboard and to work longer hours. 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 Functional Limitations- Recreation/ Has not been skateboarding Hobbies since Lili Functional Limitations- Other Unable to lift his son. Personal Factors Other Personal Factors That May Effect No prior PT Therapy/Recovery PT-OP-C Subjective Start: 07/10/20 12:59 Freq: Status: Active Protocol: Document 07/17/20 11:21 AW (Rec: 07/17/20 12:20 AW [id number]) OP-PT Subjective Patient Comments Patient Comments I've been doing my shoulder blade squeezes when I have back pain at work and it helps . PT-OP-F Manual Assessment Start: 07/10/20 12:59 Freq: Status: Active Protocol: Document 07/10/20 13:45 AW (Rec: 07/10/20 14:31 AW [email or web address]) Manual Assessments Soft Tissue Assessment Soft Tissue Mobility Assessment Moderate tone bilateral upper traps. Significant tone and guarding C5-T1 with occasional spasm. PT-OP-H Neuro Start: 07/10/20 12:59 Freq: Status: Active Protocol: Document 07/10/20 13:45 AW (Rec: 07/10/20 14:40 AW [email or web address]) Sensation Evaluation Gross Sensation Gross Sensation WNL Comments Summary Comments Pt denies sensation disturbance BUE PT-OP-J Posture/Palpation/Skin Start: 07/10/20 12:59 Freq: Status: Active Protocol: Document 07/10/20 13:45 AW (Rec: 07/10/20 14:40 AW [email or web address]) Posture Evaluation Position Sitting Evaluation View Lateral Head/C-Spine Posture Extended L-Spine Posture Decreased Lordosis Shoulder Posture (L) Rounded,(R) Rounded,(L) Forward,(R) Forward Scapula Posture (L) Protracted,(R) Protracted Arm Posture (L) Internally Rotated,(R) Internally Rotated Weight Distribution Balanced PT-OP-K Range of Motion Start: 07/10/20 12:59 Freq: Status: Active Protocol: Document 07/10/20 13:45 AW (Rec: 07/12/20 11:04 AW [id number]) Cervical Spine Range of Motion Cervical Spine Active Degrees Testing Position Sitting Flexion 39 Extension 23 Rotation Left 48 Rotation Right 42 Lateral Flexion Left 24 Lateral Flexion Right 23 ROM Limitations Soft Tissue Tightness,Muscle Tone,Pain Comments Increased pain with flexion and extension but markedly worse with flexion. Positive pain with right rotation. Shoulder Goniometric Range of Motion Shoulder Left Active Testing Position Sitting Flexion 155 Abduction 155 Right Active Testing Position Sitting Flexion 165 Abduction 165 Shoulder ROM Limitations Shoulder ROM Limitations Soft Tissue Tightness,Pain PT-OP-L Special Tests Start: 07/10/20 12:59 Freq: Status: Active Protocol: Document 07/10/20 13:45 AW (Rec: 07/12/20 11:04 AW [id number]) Special Tests Cervical Spine Special Tests Spurling's Test Test Results (+) bilaterally Comments reproduces pain in the neck; no symptoms in the arms PT-OP-M Strength Start: 07/10/20 12:59 Freq: Status: Active Protocol: Document 07/10/20 13:45 AW (Rec: 07/12/20 11:04 AW [id number]) Cervical Spine Strength Cervical Spine Manual Muscle Testing Testing Position Sitting Flexion (C1-2) 4- Good- Extension 4 Good Rotation Left 4 Good Rotation Right 4 Good Lateral Flexion Left (C3) 4 Good Lateral Flexion Right (C3) 4 Good Shoulder Strength Shoulder Manual Muscle Testing Left Flexion 4 Good Extension 4+ Good+ Abduction (C5) 4 Good External Rotation 4+ Good+ Internal Rotation 4+ Good+ Right Flexion 4+ Good+ Extension 4+ Good+ Abduction (C5) 4+ Good+ External Rotation 4+ Good+ Internal Rotation 5 Normal PT-OP-Q Treatments Start: 07/10/20 12:59 Freq: Status: Active Protocol: Document 07/17/20 11:21 AW (Rec: 07/17/20 12:11 AW [id number]) Therapeutic Exercises Supine Exercises scap protraction Supine Exercise Name scap protraction Side bilateral Reps/Minutes x15 Sitting Exercises scap retraction Sitting Exercise Name scap retraction Side bilateral Reps/Minutes x10 Comments cued relaxed arms at sides, LT recruitment cervical SNAG Sitting Exercise Name SNAG Equipment Used pillow case Reps/Minutes x12 Comments instructed to retract chin with fabric edge at C7 AROM rotation Sitting Exercise Name AROM rotation Side bilateral Reps/Minutes x10 Comments with small range nods at end range rotation UT stretch Sitting Exercise Name UT stretch Side bilateral Resistance manual Reps/Minutes 30 SH x 3 Comments hand on head for increased stretch; cued to stay in pain free range Therapeutic Activity Therapeutic Activity sleep positioning, log roll Comments Briefly educated pt on log roll to reduce cervical strain during bed mobility and reviewed side sleeping positioning for improved cervical support. Manual Therapy Treatment Soft Tissue Mobilization neck, shoulders Body Location cervical paraspinals, subocc, UT, LS Mobilization Type Myofascial Release,Sustained Pressure,Trigger Point Release Intensity/Depth Moderate Body Position Supine Comments with contract/relax for improved cervical rotation post STM Manual Traction Cervical Body Position Hooklying Reps/Duration 30 sec x 3 Comments relieving for neck pain PT-OP-T Assessment and Plan Start: 07/10/20 12:59 Freq: Status: Active Protocol: Document 07/17/20 11:21 AW (Rec: 07/17/20 12:20 AW [id number]) Physical Therapy Assessment Goals Four Impairment no HEP Short Term Goal (STG) Pt will be independent with HEP for support of therapy services provided in clinic. STG Duration 6 weeks - 08/21/20 Three Impairment ROM Short Term Goal (STG) Pt will increase cervical ROM to 35 degrees of rotation bilaterally STG Duration 6 weeks - 08/21/20 Prison Goal (LTG) Pt will increase cervical ROM to at least 50 degrees flexion and 35 degrees extention. LTG Duration 3 months 10/10/20 Two Impairment Pain affecting ability to participate in the care of his son Prison Goal (LTG) Pt will lift his son (40 pounds) with good body mechanics and without increase in baseline pain LTG Duration 3 months 10/10/20 One Impairment Pain affecting work and recreational pursuits Short Term Goal (STG) Pt will tolerate 3 six-hour shifts per week. STG Duration 6 weeks - 08/21/20 Fig Bar Machine Operator Goal (LTG) Pt will skateboard 15 minutes on level surface without increase in baseline pain. LTG Duration 3 months 10/10/20 Assessment Summary Assessment Norman presents with cervical guarding today which improved post-STM and manual traction. He responds well to postural education and is noted to self-correct without cues today. Will plan to continue STM, postural education, and focused treatment on thoracic and cervical mobility. Physical Therapy Plan Frequency and Duration Frequency of Treatment 2x/Week Duration of Treatment 3 months Plan of Care Start Date 07/10/20 Plan of Care End Date 10/10/20 Therapeutic Interventions Therapeutic Interventions Home Exercise Program,Joint Mobilizations,Manual Therapy, Neuromuscular Re-education, Patient/Caregiver Education, Self-Care/Home Management,Soft Tissue Mobilization,Taping, Therapeutic Activities, Therapeutic Exercises Modalities Electric Stimulation,Hot Packs Next Visit Focus/Plan Next Note Type Treatment Note Next Visit Plan STM paraspinals and shoulders, continue postural education, ther ex for posture and cervical stability, thoracic mobility
--- NOTE | 2020-07-19 10:30 | PT.OTN ---
Current Diagnoses Chronic pain syndrome (07/19/20) Cervicalgia (07/19/20) Paresthesia of skin (07/19/20) Abnormal posture (07/19/20) Physical Therapy Treatment Note PT-OP-A Visit Information Start: 07/10/20 12:59 Freq: Status: Active Protocol: Document 07/19/20 09:45 SP (Rec: 07/19/20 11:44 SP [id number]) Out-Patient Physical Therapy Visit Information Visit Information Visit Type Treatment Note Visit Note Pt's Asha SINGLETON, attended appointment. Visit Start Time 09:45 Visit Stop Time 10:30 Total Visit Minutes 45 Visit Number 3 Number of RELOCATION SERVICES SPECIALIST Visits 1 PT-OP-B Current Condition Start: 07/10/20 12:59 Freq: Status: Active Protocol: Document 07/10/20 13:45 AW (Rec: 07/10/20 13:19 AW [id number]) Current Condition History of Current Condition Onset Date three months Current Complaints neck pain on chronic back pain History of Current Condition Pt reports sharp electric pain up his spine from lower back. Pain is worse in the neck. Pain is constant but worse on some days. Pt normally skateboards but has been unable since April. He is able to play video games. He denies tingling/numbness BUE. No trauma. No red flag signs. 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 Prior Treatments and Tests 06/13/20 C/S x-ray: Severe disc space narrowing at C6-7. 06/13/20 L/S x-ray: Retrolisthesis at L5-S1 with foraminal narrowing. Future Testing and Treatments Planned MRI if no improvement with therapy Treatment Goals Patient/Caregiver Goals Pt would like to be able to skateboard and to work longer hours. 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 Functional Limitations- Recreation/ Has not been skateboarding Hobbies since [place] Functional Limitations- Other Unable to lift his son. Personal Factors Other Personal Factors That May Effect No prior PT Therapy/Recovery PT-OP-C Subjective Start: 07/10/20 12:59 Freq: Status: Active Protocol: Document 07/19/20 09:45 SP (Rec: 07/19/20 11:44 SP [id number]) OP-PT Subjective Patient Comments Patient Comments Pt stated responded well to last tx, the massage helped alot lasted about 4-5 hours. Compliant with HEP given, some have trouble doing others are easier. PT-OP-F Manual Assessment Start: 07/10/20 12:59 Freq: Status: Active Protocol: Document 07/10/20 13:45 AW (Rec: 07/10/20 14:31 AW [email or web address]) Manual Assessments Soft Tissue Assessment Soft Tissue Mobility Assessment Moderate tone bilateral upper traps. Significant tone and guarding C5-T1 with occasional spasm. PT-OP-H Neuro Start: 07/10/20 12:59 Freq: Status: Active Protocol: Document 07/10/20 13:45 AW (Rec: 07/10/20 14:40 AW [email or web address]) Sensation Evaluation Gross Sensation Gross Sensation WNL Comments Summary Comments Pt denies sensation disturbance BUE PT-OP-J Posture/Palpation/Skin Start: 07/10/20 12:59 Freq: Status: Active Protocol: Document 07/10/20 13:45 AW (Rec: 07/10/20 14:40 AW [email or web address]) Posture Evaluation Position Sitting Evaluation View Lateral Head/C-Spine Posture Extended L-Spine Posture Decreased Lordosis Shoulder Posture (L) Rounded,(R) Rounded,(L) Forward,(R) Forward Scapula Posture (L) Protracted,(R) Protracted Arm Posture (L) Internally Rotated,(R) Internally Rotated Weight Distribution Balanced PT-OP-K Range of Motion Start: 07/10/20 12:59 Freq: Status: Active Protocol: Document 07/10/20 13:45 AW (Rec: 07/12/20 11:04 AW [id number]) Cervical Spine Range of Motion Cervical Spine Active Degrees Testing Position Sitting Flexion 39 Extension 23 Rotation Left 48 Rotation Right 42 Lateral Flexion Left 24 Lateral Flexion Right 23 ROM Limitations Soft Tissue Tightness,Muscle Tone,Pain Comments Increased pain with flexion and extension but markedly worse with flexion. Positive pain with right rotation. Shoulder Goniometric Range of Motion Shoulder Left Active Testing Position Sitting Flexion 155 Abduction 155 Right Active Testing Position Sitting Flexion 165 Abduction 165 Shoulder ROM Limitations Shoulder ROM Limitations Soft Tissue Tightness,Pain PT-OP-L Special Tests Start: 07/10/20 12:59 Freq: Status: Active Protocol: Document 07/10/20 13:45 AW (Rec: 07/12/20 11:04 AW [id number]) Special Tests Cervical Spine Special Tests Spurling's Test Test Results (+) bilaterally Comments reproduces pain in the neck; no symptoms in the arms PT-OP-M Strength Start: 07/10/20 12:59 Freq: Status: Active Protocol: Document 07/10/20 13:45 AW (Rec: 07/12/20 11:04 AW [id number]) Cervical Spine Strength Cervical Spine Manual Muscle Testing Testing Position Sitting Flexion (C1-2) 4- Good- Extension 4 Good Rotation Left 4 Good Rotation Right 4 Good Lateral Flexion Left (C3) 4 Good Lateral Flexion Right (C3) 4 Good Shoulder Strength Shoulder Manual Muscle Testing Left Flexion 4 Good Extension 4+ Good+ Abduction (C5) 4 Good External Rotation 4+ Good+ Internal Rotation 4+ Good+ Right Flexion 4+ Good+ Extension 4+ Good+ Abduction (C5) 4+ Good+ External Rotation 4+ Good+ Internal Rotation 5 Normal PT-OP-Q Treatments Start: 07/10/20 12:59 Freq: Status: Active Protocol: Document 07/19/20 09:45 SP (Rec: 07/19/20 11:44 SP [id number]) Therapeutic Exercises Supine Exercises scap protraction Supine Exercise Name scap protraction Side bilateral Reps/Minutes x15 Sitting Exercises TS rotation Sitting Exercise Name cradle arms front at abdomen ( added to HEP) Side bilateral Resistance AROM Reps/Minutes 3 sec hold x5 R and L Comments tall posture, no LB arch, scap depress/retract awareness then rotation R/L scap retraction Sitting Exercise Name scap retraction Side bilateral Reps/Minutes x10 Comments cued relaxed arms at sides, LT recruitment cervical SNAG Sitting Exercise Name SNAG retraction and rotation Equipment Used pillow case Reps/Minutes x12 retraction, x4 R and L rotation Comments instructed tall posture, retract chin with fabric edge at C7, then rot. AROM rotation Sitting Exercise Name AROM rotation Side bilateral Reps/Minutes x10 Comments with small range nods at end range rotation w/ tall posture / CS neutral UT stretch Sitting Exercise Name UT stretch Side bilateral Resistance manual Reps/Minutes 30 SH x 3 Comments hand on head for increased stretch; cued to stay in pain free range Standing Exercises elbow wall walking TS ext Standing Exercise Name TS mobility (added to HEP) Reps/Minutes x5 hold 3 sec Comments cued LS PPT neutral (no low back arch) Other Exercises self STMs Other Exercise Name post neck, post scap at wall/ standing Side bilateral Resistance WMW cervical rotation nods/ turns or scap ROM small range Equipment Used racquetball at wall, theracane Reps/Minutes 5 min total Manual Therapy Treatment Soft Tissue Mobilization neck, shoulders Body Location cervical paraspinals, subocc, UT, LS Mobilization Type Myofascial Release,Sustained Pressure,Trigger Point Release Intensity/Depth Moderate Body Position Supine Comments with contract/relax for improved cervical rotation post STM Manual Traction Cervical Body Position Hooklying Reps/Duration 30 sec x 3 Comments relieving for neck pain Self-Care/Home Management Treatment Education Patient Education Body Mechanics,Home Exercise Program,Pain Management, Posture Other Education Provided pt and SO education in incorporation of HEP during his day and providing cuing as showed both for tall postural alignment for carryover with both verbal understanding and improved self corrections. PT-OP-T Assessment and Plan Start: 07/10/20 12:59 Freq: Status: Active Protocol: Document 07/19/20 09:45 SP (Rec: 07/19/20 11:44 SP [id number]) Physical Therapy Assessment Goals Four Impairment no HEP Short Term Goal (STG) Pt will be independent with HEP for support of therapy services provided in clinic. STG Duration 6 weeks - 08/21/20 Three Impairment ROM Short Term Goal (STG) Pt will increase cervical ROM to 35 degrees of rotation bilaterally STG Duration 6 weeks - 08/21/20 Museum Curator Goal (LTG) Pt will increase cervical ROM to at least 50 degrees flexion and 35 degrees extention. LTG Duration 3 months 10/10/20 Two Impairment Pain affecting ability to participate in the care of his son Correction Goal (LTG) Pt will lift his son (40 pounds) with good body mechanics and without increase in baseline pain LTG Duration 3 months 10/10/20 One Impairment Pain affecting work and recreational pursuits Short Term Goal (STG) Pt will tolerate 3 six-hour shifts per week. STG Duration 6 weeks - 08/21/20 Correction Goal (LTG) Pt will skateboard 15 minutes on level surface without increase in baseline pain. LTG Duration 3 months 10/10/20 Assessment Summary Assessment Pt responded well to tx, reviewed HEP w/ cuing for postural alignment. Initiated TS ext and rotation mobility with good feedback results my mid back feels looser. 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 Pt stated didn't want hand outs for new HEP, would remember them. Physical Therapy Plan Frequency and Duration Frequency of Treatment 2x/Week Duration of Treatment 3 months Plan of Care Start Date 07/10/20 Plan of Care End Date 10/10/20 Therapeutic Interventions Therapeutic Interventions Home Exercise Program,Joint Mobilizations,Manual Therapy, Neuromuscular Re-education, Patient/Caregiver Education, Self-Care/Home Management,Soft Tissue Mobilization,Taping, Therapeutic Activities, Therapeutic Exercises Modalities Electric Stimulation,Hot Packs Next Visit Focus/Plan Next Note Type Treatment Note Next Visit Plan Assess reponse to HEP review: added TS ext & rotation, rotational SNAGS. Continue per PT POC: STM paraspinals and shoulders, continue postural education, ther ex for posture and cervical stability, thoracic mobility
--- NOTE | 2020-07-24 17:07 | PT.OTN ---
Current Diagnoses Chronic pain syndrome (07/24/20) Cervicalgia (07/24/20) Paresthesia of skin (07/24/20) Abnormal posture (07/24/20) Physical Therapy Treatment Note PT-OP-A Visit Information Start: 07/10/20 12:59 Freq: Status: Active Protocol: Document 07/24/20 13:45 AW (Rec: 07/24/20 14:31 AW [id number]) Out-Patient Physical Therapy Visit Information Visit Information Visit Type Treatment Note Visit Start Time 13:45 Visit Stop Time 14:30 Total Visit Minutes 45 Visit Number 4 Number of SPOOL MAKER Visits 0 Evaluation Information Evaluation Date 07/10/20 PT-OP-B Current Condition Start: 07/10/20 12:59 Freq: Status: Active Protocol: Document 07/10/20 13:45 AW (Rec: 07/10/20 13:19 AW [id number]) Current Condition History of Current Condition Onset Date three months Current Complaints neck pain on chronic back pain History of Current Condition Pt reports sharp electric pain up his spine from lower back. Pain is worse in the neck. Pain is constant but worse on some days. Pt normally skateboards but has been unable since April. He is able to play video games. He denies tingling/numbness BUE. No trauma. No red flag signs. 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 Prior Treatments and Tests 06/13/20 C/S x-ray: Severe disc space narrowing at C6-7. 06/13/20 L/S x-ray: Retrolisthesis at L5-S1 with foraminal narrowing. Future Testing and Treatments Planned MRI if no improvement with therapy Treatment Goals Patient/Caregiver Goals Pt would like to be able to skateboard and to work longer hours. 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 Functional Limitations- Recreation/ Has not been skateboarding Hobbies since April Functional Limitations- Other Unable to lift his son. Personal Factors Other Personal Factors That May Effect No prior PT Therapy/Recovery PT-OP-C Subjective Start: 07/10/20 12:59 Freq: Status: Active Protocol: Document 07/24/20 13:45 AW (Rec: 07/24/20 14:31 AW [id number]) OP-PT Subjective Patient Comments Patient Comments Pt had good relief again after last tx. Has been able to incorporate some exercises into home and work routines. PT-OP-F Manual Assessment Start: 07/10/20 12:59 Freq: Status: Active Protocol: Document 07/10/20 13:45 AW (Rec: 07/10/20 14:31 AW [email or web address]) Manual Assessments Soft Tissue Assessment Soft Tissue Mobility Assessment Moderate tone bilateral upper traps. Significant tone and guarding C5-T1 with occasional spasm. PT-OP-H Neuro Start: 07/10/20 12:59 Freq: Status: Active Protocol: Document 07/10/20 13:45 AW (Rec: 07/10/20 14:40 AW [email or web address]) Sensation Evaluation Gross Sensation Gross Sensation WNL Comments Summary Comments Pt denies sensation disturbance BUE PT-OP-J Posture/Palpation/Skin Start: 07/10/20 12:59 Freq: Status: Active Protocol: Document 07/10/20 13:45 AW (Rec: 07/10/20 14:40 AW [email or web address]) Posture Evaluation Position Sitting Evaluation View Lateral Head/C-Spine Posture Extended L-Spine Posture Decreased Lordosis Shoulder Posture (L) Rounded,(R) Rounded,(L) Forward,(R) Forward Scapula Posture (L) Protracted,(R) Protracted Arm Posture (L) Internally Rotated,(R) Internally Rotated Weight Distribution Balanced PT-OP-K Range of Motion Start: 07/10/20 12:59 Freq: Status: Active Protocol: Document 07/10/20 13:45 AW (Rec: 07/12/20 11:04 AW [id number]) Cervical Spine Range of Motion Cervical Spine Active Degrees Testing Position Sitting Flexion 39 Extension 23 Rotation Left 48 Rotation Right 42 Lateral Flexion Left 24 Lateral Flexion Right 23 ROM Limitations Soft Tissue Tightness,Muscle Tone,Pain Comments Increased pain with flexion and extension but markedly worse with flexion. Positive pain with right rotation. Shoulder Goniometric Range of Motion Shoulder Left Active Testing Position Sitting Flexion 155 Abduction 155 Right Active Testing Position Sitting Flexion 165 Abduction 165 Shoulder ROM Limitations Shoulder ROM Limitations Soft Tissue Tightness,Pain PT-OP-L Special Tests Start: 07/10/20 12:59 Freq: Status: Active Protocol: Document 07/10/20 13:45 AW (Rec: 07/12/20 11:04 AW [id number]) Special Tests Cervical Spine Special Tests Spurling's Test Test Results (+) bilaterally Comments reproduces pain in the neck; no symptoms in the arms PT-OP-M Strength Start: 07/10/20 12:59 Freq: Status: Active Protocol: Document 07/10/20 13:45 AW (Rec: 07/12/20 11:04 AW [id number]) Cervical Spine Strength Cervical Spine Manual Muscle Testing Testing Position Sitting Flexion (C1-2) 4- Good- Extension 4 Good Rotation Left 4 Good Rotation Right 4 Good Lateral Flexion Left (C3) 4 Good Lateral Flexion Right (C3) 4 Good Shoulder Strength Shoulder Manual Muscle Testing Left Flexion 4 Good Extension 4+ Good+ Abduction (C5) 4 Good External Rotation 4+ Good+ Internal Rotation 4+ Good+ Right Flexion 4+ Good+ Extension 4+ Good+ Abduction (C5) 4+ Good+ External Rotation 4+ Good+ Internal Rotation 5 Normal PT-OP-Q Treatments Start: 07/10/20 12:59 Freq: Status: Active Protocol: Document 07/24/20 13:45 AW (Rec: 07/24/20 14:31 AW [id number]) Therapeutic Exercises Supine Exercises pec stretch Supine Exercise Name pec stretch Side bilateral Equipment Used half foam roll Reps/Minutes 30 sh x 4 Comments ~90 degrees abduction for max stretch posture press Supine Exercise Name posture press Side bilateral Reps/Minutes x10 Comments cued less hand slide toward feet Prone Exercises prone press up Prone Exercise Name prone press up Resistance forearms on table Comments cued cervical neutral; poorly tolerated Sidelying Exercises open book Sidelying Exercise Name open book Side bilateral Reps/Minutes x8 Comments with cervical rotation to follow hand Sitting Exercises AROM rotation Sitting Exercise Name AROM rotation Side bilateral Reps/Minutes x10 Comments with small range nods at end range rotation w/ tall posture / CS neutral UT stretch Sitting Exercise Name UT stretch Side bilateral Resistance manual Reps/Minutes 30 SH x 3 Comments hand on head for increased stretch; cued to stay in pain free range Standing Exercises standing trunk flexion Standing Exercise Name standing trunk flexion at wall ; fixed hips Reps/Minutes x3 Comments focus on segmental flexion/ extension TS rotation Standing Exercise Name TS rotation Side bilateral Reps/Minutes x8 Comments arms crossed over chest Other Exercises self STMs Other Exercise Name post neck, post scap on table Side bilateral Equipment Used tennis balls Manual Therapy Treatment Soft Tissue Mobilization neck, shoulders Body Location cervical paraspinals, subocc, UT, LS Mobilization Type Myofascial Release,Sustained Pressure,Trigger Point Release Intensity/Depth Moderate Body Position Supine Comments with contract/relax for improved cervical rotation post STM Manual Traction Cervical Body Position Hooklying Reps/Duration 30 sec x 3 Comments relieving for neck pain Self-Care/Home Management Treatment Education Patient Education Pain Management,Posture PT-OP-T Assessment and Plan Start: 07/10/20 12:59 Freq: Status: Active Protocol: Document 07/24/20 13:45 AW (Rec: 07/24/20 17:06 AW [email or web address]) Physical Therapy Assessment Impairments Impairments Functional Activities,Pain, Posture,ROM,Sensation,Soft Tissue Mobility,Strength Goals Four Impairment no HEP Short Term Goal (STG) Pt will be independent with HEP for support of therapy services provided in clinic. STG Duration 6 weeks - 08/21/20 Three Impairment ROM Short Term Goal (STG) Pt will increase cervical ROM to 35 degrees of rotation bilaterally STG Duration 6 weeks - 08/21/20 Mcc Goal (LTG) Pt will increase cervical ROM to at least 50 degrees flexion and 35 degrees extention. LTG Duration 3 months 10/10/20 Two Impairment Pain affecting ability to participate in the care of his son Nutrition Aides Teacher Goal (LTG) Pt will lift his son (40 pounds) with good body mechanics and without increase in baseline pain LTG Duration 3 months 10/10/20 One Impairment Pain affecting work and recreational pursuits Short Term Goal (STG) Pt will tolerate 3 six-hour shifts per week. STG Duration 6 weeks - 08/21/20 Mcc Goal (LTG) Pt will skateboard 15 minutes on level surface without increase in baseline pain. LTG Duration 3 months 10/10/20 Assessment Summary Assessment Pt continues to require frequent cues for postural awareness. He tolerated increase in thoracic rotation in supported spine and standing. Left paraspinals and shoulder remain highly reactive with increased guarding but imrproved after STM. Physical Therapy Plan Frequency and Duration Frequency of Treatment 2x/Week Duration of Treatment 3 months Plan of Care Start Date 07/10/20 Plan of Care End Date 10/10/20 Therapeutic Interventions Therapeutic Interventions Home Exercise Program,Joint Mobilizations,Manual Therapy, Neuromuscular Re-education, Patient/Caregiver Education, Self-Care/Home Management,Soft Tissue Mobilization,Taping, Therapeutic Activities, Therapeutic Exercises Modalities Electric Stimulation,Hot Packs Next Visit Focus/Plan Next Note Type Treatment Note Next Visit Plan Continue with cervical stabilization, global postural awareness.
--- NOTE | 2020-07-26 10:30 | PT.OTN ---
Current Diagnoses Chronic pain syndrome (07/26/20) Cervicalgia (07/26/20) Paresthesia of skin (07/26/20) Abnormal posture (07/26/20) Physical Therapy Treatment Note PT-OP-A Visit Information Start: 07/10/20 12:59 Freq: Status: Active Protocol: Document 07/26/20 09:48 SP (Rec: 07/26/20 17:02 SP [id number]) Out-Patient Physical Therapy Visit Information Visit Information Visit Type Treatment Note Visit Start Time 09:48 Visit Stop Time 10:30 Total Visit Minutes 42 Visit Number 5 Number of ASSISTANT PROFESSOR OF NURSING Visits 1 Evaluation Information Evaluation Date 07/10/20 PT-OP-B Current Condition Start: 07/10/20 12:59 Freq: Status: Active Protocol: Document 07/10/20 13:45 AW (Rec: 07/10/20 13:19 AW [id number]) Current Condition History of Current Condition Onset Date three months Current Complaints neck pain on chronic back pain History of Current Condition Pt reports sharp electric pain up his spine from lower back. Pain is worse in the neck. Pain is constant but worse on some days. Pt normally skateboards but has been unable since April. He is able to play video games. He denies tingling/numbness BUE. No trauma. No red flag signs. 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 Prior Treatments and Tests 06/13/20 C/S x-ray: Severe disc space narrowing at C6-7. 06/13/20 L/S x-ray: Retrolisthesis at L5-S1 with foraminal narrowing. Future Testing and Treatments Planned MRI if no improvement with therapy Treatment Goals Patient/Caregiver Goals Pt would like to be able to skateboard and to work longer hours. 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 Functional Limitations- Recreation/ Has not been skateboarding Hobbies since April Functional Limitations- Other Unable to lift his son. Personal Factors Other Personal Factors That May Effect No prior PT Therapy/Recovery PT-OP-C Subjective Start: 07/10/20 12:59 Freq: Status: Active Protocol: Document 07/26/20 09:48 SP (Rec: 07/26/20 17:02 SP [id number]) OP-PT Subjective Patient Comments Patient Comments Pt reported R neck/ shld felt alot better after last tx but only lasts about couple hours, is good with stretching PT-OP-F Manual Assessment Start: 07/10/20 12:59 Freq: Status: Active Protocol: Document 07/10/20 13:45 AW (Rec: 07/10/20 14:31 AW [email or web address]) Manual Assessments Soft Tissue Assessment Soft Tissue Mobility Assessment Moderate tone bilateral upper traps. Significant tone and guarding C5-T1 with occasional spasm. PT-OP-H Neuro Start: 07/10/20 12:59 Freq: Status: Active Protocol: Document 07/10/20 13:45 AW (Rec: 07/10/20 14:40 AW [email or web address]) Sensation Evaluation Gross Sensation Gross Sensation WNL Comments Summary Comments Pt denies sensation disturbance BUE PT-OP-J Posture/Palpation/Skin Start: 07/10/20 12:59 Freq: Status: Active Protocol: Document 07/10/20 13:45 AW (Rec: 07/10/20 14:40 AW [id number]) Posture Evaluation Position Sitting Evaluation View Lateral Head/C-Spine Posture Extended L-Spine Posture Decreased Lordosis Shoulder Posture (L) Rounded,(R) Rounded,(L) Forward,(R) Forward Scapula Posture (L) Protracted,(R) Protracted Arm Posture (L) Internally Rotated,(R) Internally Rotated Weight Distribution Balanced PT-OP-K Range of Motion Start: 07/10/20 12:59 Freq: Status: Active Protocol: Document 07/10/20 13:45 AW (Rec: 07/12/20 11:04 AW [id number]) Cervical Spine Range of Motion Cervical Spine Active Degrees Testing Position Sitting Flexion 39 Extension 23 Rotation Left 48 Rotation Right 42 Lateral Flexion Left 24 Lateral Flexion Right 23 ROM Limitations Soft Tissue Tightness,Muscle Tone,Pain Comments Increased pain with flexion and extension but markedly worse with flexion. Positive pain with right rotation. Shoulder Goniometric Range of Motion Shoulder Left Active Testing Position Sitting Flexion 155 Abduction 155 Right Active Testing Position Sitting Flexion 165 Abduction 165 Shoulder ROM Limitations Shoulder ROM Limitations Soft Tissue Tightness,Pain PT-OP-L Special Tests Start: 07/10/20 12:59 Freq: Status: Active Protocol: Document 07/10/20 13:45 AW (Rec: 07/12/20 11:04 AW [id number]) Special Tests Cervical Spine Special Tests Spurling's Test Test Results (+) bilaterally Comments reproduces pain in the neck; no symptoms in the arms PT-OP-M Strength Start: 07/10/20 12:59 Freq: Status: Active Protocol: Document 07/10/20 13:45 AW (Rec: 07/12/20 11:04 AW [id number]) Cervical Spine Strength Cervical Spine Manual Muscle Testing Testing Position Sitting Flexion (C1-2) 4- Good- Extension 4 Good Rotation Left 4 Good Rotation Right 4 Good Lateral Flexion Left (C3) 4 Good Lateral Flexion Right (C3) 4 Good Shoulder Strength Shoulder Manual Muscle Testing Left Flexion 4 Good Extension 4+ Good+ Abduction (C5) 4 Good External Rotation 4+ Good+ Internal Rotation 4+ Good+ Right Flexion 4+ Good+ Extension 4+ Good+ Abduction (C5) 4+ Good+ External Rotation 4+ Good+ Internal Rotation 5 Normal PT-OP-Q Treatments Start: 07/10/20 12:59 Freq: Status: Active Protocol: Document 07/26/20 09:48 SP (Rec: 07/26/20 17:02 SP [id number]) Therapeutic Exercises Supine Exercises TS ext Equipment Used over towel roll Reps/Minutes 30 x3 then incorporated pec 100 deg abd with better response pec stretch Supine Exercise Name pec stretch Side bilateral Equipment Used noodle -discussed rolled towel at home Reps/Minutes 30 sec x 4 Comments ~90 degrees abduction for max stretch posture press Supine Exercise Name posture press Side bilateral Reps/Minutes x10 Comments cued less hand slide toward feet Prone Exercises prone press up Prone Exercise Name prone press up Resistance forearms on table- cued press through elbows Comments cued cervical neutral; improved form, stated tiring in shlds- pain free Sidelying Exercises open book Sidelying Exercise Name open book Side bilateral Reps/Minutes x8 Comments with cervical rotation to follow hand Sitting Exercises TS rotation Sitting Exercise Name cradle arms front at abdomen Side bilateral Resistance AROM- CS forward/ neutral alignment Reps/Minutes 3 sec hold x5 R and L Comments tall posture, no LB arch, scap depress/retract awareness then rotation R/L AROM rotation Sitting Exercise Name AROM CS rotation Side bilateral Resistance cued scap stab depress awareness Reps/Minutes x10 Comments with small range nods at end range rotation w/ tall posture / CS neutral UT stretch Sitting Exercise Name UT stretch Side bilateral Resistance manual Reps/Minutes 30 SH x 3 Comments hand on head for increased stretch; cued to stay in pain free range Standing Exercises forearm press at wall Standing Exercise Name TS ext Reps/Minutes 5 sec x3 Comments cued cc standing trunk flexion Standing Exercise Name standing trunk flexion back to wall; fixed hips Reps/Minutes x3 Comments focus on segmental flexion/ extension TS rotation Standing Exercise Name TS rotation Side bilateral Reps/Minutes x8 Comments arms crossed over chest Manual Therapy Treatment Soft Tissue Mobilization neck, shoulders Body Location cervical paraspinals, subocc, UT, Lev scap Mobilization Type Myofascial Release,Sustained Pressure,Trigger Point Release Intensity/Depth Moderate Body Position Supine Comments with contract/relax for improved cervical rotation post STM Manual Traction Cervical Body Position Hooklying Reps/Duration 30 sec x 3 Comments relieving for neck pain PT-OP-T Assessment and Plan Start: 07/10/20 12:59 Freq: Status: Active Protocol: Document 07/26/20 09:48 SP (Rec: 07/26/20 17:02 SP [id number]) Physical Therapy Assessment Goals Four Impairment no HEP Short Term Goal (STG) Pt will be independent with HEP for support of therapy services provided in clinic. STG Duration 6 weeks - 08/21/20 Three Impairment ROM Short Term Goal (STG) Pt will increase cervical ROM to 35 degrees of rotation bilaterally STG Duration 6 weeks - 08/21/20 Retirement Goal (LTG) Pt will increase cervical ROM to at least 50 degrees flexion and 35 degrees extention. LTG Duration 3 months 10/10/20 Two Impairment Pain affecting ability to participate in the care of his son Feather Edger Goal (LTG) Pt will lift his son (40 pounds) with good body mechanics and without increase in baseline pain LTG Duration 3 months 10/10/20 One Impairment Pain affecting work and recreational pursuits Short Term Goal (STG) Pt will tolerate 3 six-hour shifts per week. STG Duration 6 weeks - 08/21/20 Retirement Goal (LTG) Pt will skateboard 15 minutes on level surface without increase in baseline pain. LTG Duration 3 months 10/10/20 Assessment Summary Assessment Pt responded well to manual then HEP review with cuing for press up on floor and able to apply to wall for use at work . Recommended all these CS and TS ROM doing can apply at work for decreased post pain and allow longevity relief, may need to ask outside persons give reminders for posture if welcoming. Physical Therapy Plan Frequency and Duration Frequency of Treatment 2x/Week Duration of Treatment 3 months Plan of Care Start Date 07/10/20 Plan of Care End Date 10/10/20 Therapeutic Interventions Therapeutic Interventions Home Exercise Program,Joint Mobilizations,Manual Therapy, Neuromuscular Re-education, Patient/Caregiver Education, Self-Care/Home Management,Soft Tissue Mobilization,Taping, Therapeutic Activities, Therapeutic Exercises Modalities Electric Stimulation,Hot Packs Next Visit Focus/Plan Next Note Type Treatment Note Next Visit Plan Assess response to manual and HEP review. Continue with cervical stabilization, global postural awareness.
--- NOTE | 2020-07-31 12:58 | PT.OTN ---
Current Diagnoses Chronic pain syndrome (07/31/20) Cervicalgia (07/31/20) Paresthesia of skin (07/31/20) Abnormal posture (07/31/20) Physical Therapy Treatment Note PT-OP-A Visit Information Start: 07/10/20 12:59 Freq: Status: Active Protocol: Document 07/31/20 11:24 [facility] (Rec: 07/31/20 12:10 [facility] [id number]) Out-Patient Physical Therapy Visit Information Visit Information Visit Type Treatment Note Visit Start Time 11:21 Visit Stop Time 12:01 Total Visit Minutes 40 Visit Number 6 Number of RN MEDICAL INPATIENT SERVICES Visits 0 PT-OP-B Current Condition Start: 07/10/20 12:59 Freq: Status: Active Protocol: Document 07/10/20 13:45 AW (Rec: 07/10/20 13:19 AW [id number]) Current Condition History of Current Condition Onset Date three months Current Complaints neck pain on chronic back pain History of Current Condition Pt reports sharp electric pain up his spine from lower back. Pain is worse in the neck. Pain is constant but worse on some days. Pt normally skateboards but has been unable since April. He is able to play video games. He denies tingling/numbness BUE. No trauma. No red flag signs. 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 Prior Treatments and Tests 06/13/20 C/S x-ray: Severe disc space narrowing at C6-7. 06/13/20 L/S x-ray: Retrolisthesis at L5-S1 with foraminal narrowing. Future Testing and Treatments Planned MRI if no improvement with therapy Treatment Goals Patient/Caregiver Goals Pt would like to be able to skateboard and to work longer hours. 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 Functional Limitations- Recreation/ Has not been skateboarding Hobbies since April Functional Limitations- Other Unable to lift his son. Personal Factors Other Personal Factors That May Effect No prior PT Therapy/Recovery PT-OP-C Subjective Start: 07/10/20 12:59 Freq: Status: Active Protocol: Document 07/31/20 11:24 [facility] (Rec: 07/31/20 12:10 [facility] [id number]) OP-PT Subjective Patient Comments Patient Comments pt got a foam roll &tcane at home & have been using them PT-OP-F Manual Assessment Start: 07/10/20 12:59 Freq: Status: Active Protocol: Document 07/10/20 13:45 AW (Rec: 07/10/20 14:31 AW [id number]) Manual Assessments Soft Tissue Assessment Soft Tissue Mobility Assessment Moderate tone bilateral upper traps. Significant tone and guarding C5-T1 with occasional spasm. PT-OP-H Neuro Start: 07/10/20 12:59 Freq: Status: Active Protocol: Document 07/10/20 13:45 AW (Rec: 07/10/20 14:40 AW [email or web address]) Sensation Evaluation Gross Sensation Gross Sensation WNL Comments Summary Comments Pt denies sensation disturbance BUE PT-OP-J Posture/Palpation/Skin Start: 07/10/20 12:59 Freq: Status: Active Protocol: Document 07/10/20 13:45 AW (Rec: 07/10/20 14:40 AW [email or web address]) Posture Evaluation Position Sitting Evaluation View Lateral Head/C-Spine Posture Extended L-Spine Posture Decreased Lordosis Shoulder Posture (L) Rounded,(R) Rounded,(L) Forward,(R) Forward Scapula Posture (L) Protracted,(R) Protracted Arm Posture (L) Internally Rotated,(R) Internally Rotated Weight Distribution Balanced PT-OP-K Range of Motion Start: 07/10/20 12:59 Freq: Status: Active Protocol: Document 07/10/20 13:45 AW (Rec: 07/12/20 11:04 AW [id number]) Cervical Spine Range of Motion Cervical Spine Active Degrees Testing Position Sitting Flexion 39 Extension 23 Rotation Left 48 Rotation Right 42 Lateral Flexion Left 24 Lateral Flexion Right 23 ROM Limitations Soft Tissue Tightness,Muscle Tone,Pain Comments Increased pain with flexion and extension but markedly worse with flexion. Positive pain with right rotation. Shoulder Goniometric Range of Motion Shoulder Left Active Testing Position Sitting Flexion 155 Abduction 155 Right Active Testing Position Sitting Flexion 165 Abduction 165 Shoulder ROM Limitations Shoulder ROM Limitations Soft Tissue Tightness,Pain PT-OP-L Special Tests Start: 07/10/20 12:59 Freq: Status: Active Protocol: Document 07/10/20 13:45 AW (Rec: 07/12/20 11:04 AW [id number]) Special Tests Cervical Spine Special Tests Spurling's Test Test Results (+) bilaterally Comments reproduces pain in the neck; no symptoms in the arms PT-OP-M Strength Start: 07/10/20 12:59 Freq: Status: Active Protocol: Document 07/10/20 13:45 AW (Rec: 07/12/20 11:04 AW [id number]) Cervical Spine Strength Cervical Spine Manual Muscle Testing Testing Position Sitting Flexion (C1-2) 4- Good- Extension 4 Good Rotation Left 4 Good Rotation Right 4 Good Lateral Flexion Left (C3) 4 Good Lateral Flexion Right (C3) 4 Good Shoulder Strength Shoulder Manual Muscle Testing Left Flexion 4 Good Extension 4+ Good+ Abduction (C5) 4 Good External Rotation 4+ Good+ Internal Rotation 4+ Good+ Right Flexion 4+ Good+ Extension 4+ Good+ Abduction (C5) 4+ Good+ External Rotation 4+ Good+ Internal Rotation 5 Normal PT-OP-Q Treatments Start: 07/10/20 12:59 Freq: Status: Active Protocol: Document 07/31/20 11:24 [facility] (Rec: 07/31/20 12:10 [facility] [id number]) Therapeutic Exercises Supine Exercises foam roll Supine Exercise Name flex, Habd, abd //on roll, tspine ext over roll Side bilateral Reps/Minutes 10 ea Prone Exercises prone press up Prone Exercise Name prone press up Resistance forearms on table- cued press through elbows Comments cued cervical neutral; improved form, stated tiring in shlds- pain free Sidelying Exercises open book Sidelying Exercise Name open book Side bilateral Reps/Minutes x8 Comments with cervical rotation to follow hand Standing Exercises standing trunk flexion Standing Exercise Name standing trunk flexion back to wall; fixed hips Reps/Minutes x8 Comments focus on segmental flexion/ extension TS rotation Standing Exercise Name TS rotation Side bilateral Reps/Minutes x8 Comments arms crossed over chest Manual Therapy Treatment Soft Tissue Mobilization neck, shoulders Body Location cervical paraspinals, subocc, UT, scalenes/SCM Mobilization Type Myofascial Release,Sustained Pressure,Trigger Point Release Intensity/Depth Moderate Body Position Supine Comments w/rotations Joint Mobilizations T spine Joint T1-3 Direction PA FM & trasnverse L FM Manual Traction Cervical Body Position Hooklying Reps/Duration 30 sec x 3 Comments relieving for neck pain PT-OP-T Assessment and Plan Start: 07/10/20 12:59 Freq: Status: Active Protocol: Document 07/31/20 11:24 [facility] (Rec: 07/31/20 12:10 [facility] [id number]) Physical Therapy Assessment Goals Four Impairment no HEP Short Term Goal (STG) Pt will be independent with HEP for support of therapy services provided in clinic. STG Duration 6 weeks - 08/21/20 Three Impairment ROM Short Term Goal (STG) Pt will increase cervical ROM to 35 degrees of rotation bilaterally STG Duration 6 weeks - 08/21/20 Deposit Refund Clerk Goal (LTG) Pt will increase cervical ROM to at least 50 degrees flexion and 35 degrees extention. LTG Duration 3 months 10/10/20 Two Impairment Pain affecting ability to participate in the care of his son Deposit Refund Clerk Goal (LTG) Pt will lift his son (40 pounds) with good body mechanics and without increase in baseline pain LTG Duration 3 months 10/10/20 One Impairment Pain affecting work and recreational pursuits Short Term Goal (STG) Pt will tolerate 3 six-hour shifts per week. STG Duration 6 weeks - 08/21/20 Deposit Refund Clerk Goal (LTG) Pt will skateboard 15 minutes on level surface without increase in baseline pain. LTG Duration 3 months 10/10/20 Assessment Summary Assessment Pt required ceuing for wall roll ups and for foam roll but did well with open book w/o cuieng. Prone prop better w/ less cuieng too. Pt requires cueing for posture thoughtou session. Relief reporsted with all neck motion after manual Physical Therapy Plan Frequency and Duration Frequency of Treatment 2x/Week Duration of Treatment 3 months Plan of Care Start Date 07/10/20 Plan of Care End Date 10/10/20 Next Visit Focus/Plan Next Note Type Treatment Note Next Visit Plan Continue with cervical stabilization, global postural awareness.
--- NOTE | 2020-08-02 07:20 | PT-OP ANOTE ---
Pt's fiancee left message at 7am, pt woke up sick and unable to attend today's appt.
--- NOTE | 2020-08-07 14:25 | PT.OTN ---
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 Pain is worse in the neck. Pain is constant but worse on some days. Pt normally skateboards but has been unable since April. He is able to play video games. He denies tingling/numbness BUE. No trauma. No red flag signs. 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 Prior Treatments and Tests 06/13/20 C/S x-ray: Severe disc space narrowing at C6-7. 06/13/20 L/S x-ray: Retrolisthesis at L5-S1 with foraminal narrowing. Future Testing and Treatments Planned MRI if no improvement with therapy Treatment Goals Patient/Caregiver Goals Pt would like to be able to skateboard and to work longer hours. 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 Functional Limitations- Recreation/ Has not been skateboarding Hobbies since Lili Functional Limitations- Other Unable to lift his son. Personal Factors Other Personal Factors That May Effect No prior PT Therapy/Recovery PT-OP-C Subjective Start: 07/10/20 12:59 Freq: Status: Active Protocol: Document 08/07/20 14:25 AW (Rec: 08/07/20 14:27 AW [id number]) OP-PT Subjective Patient Comments Patient Comments I'm feeling better but the progress isn't as fast as I'd hoped. Patient Reported Progress Improving PT-OP-F Manual Assessment Start: 07/10/20 12:59 Freq: Status: Active Protocol: Document 07/10/20 13:45 AW (Rec: 07/10/20 14:31 AW [email or web address]) Manual Assessments Soft Tissue Assessment Soft Tissue Mobility Assessment Moderate tone bilateral upper traps. Significant tone and guarding C5-T1 with occasional spasm. PT-OP-H Neuro Start: 07/10/20 12:59 Freq: Status: Active Protocol: Document 07/10/20 13:45 AW (Rec: 07/10/20 14:40 AW [email or web address]) Sensation Evaluation Gross Sensation Gross Sensation WNL Comments Summary Comments Pt denies sensation disturbance BUE PT-OP-J Posture/Palpation/Skin Start: 07/10/20 12:59 Freq: Status: Active Protocol: Document 07/10/20 13:45 AW (Rec: 07/10/20 14:40 AW [email or web address]) Posture Evaluation Position Sitting Evaluation View Lateral Head/C-Spine Posture Extended L-Spine Posture Decreased Lordosis Shoulder Posture (L) Rounded,(R) Rounded,(L) Forward,(R) Forward Scapula Posture (L) Protracted,(R) Protracted Arm Posture (L) Internally Rotated,(R) Internally Rotated Weight Distribution Balanced PT-OP-K Range of Motion Start: 07/10/20 12:59 Freq: Status: Active Protocol: Document 07/10/20 13:45 AW (Rec: 07/12/20 11:04 AW [id number]) Cervical Spine Range of Motion Cervical Spine Active Degrees Testing Position Sitting Flexion 39 Extension 23 Rotation Left 48 Rotation Right 42 Lateral Flexion Left 24 Lateral Flexion Right 23 ROM Limitations Soft Tissue Tightness,Muscle Tone,Pain Comments Increased pain with flexion and extension but markedly worse with flexion. Positive pain with right rotation. Shoulder Goniometric Range of Motion Shoulder Left Active Testing Position Sitting Flexion 155 Abduction 155 Right Active Testing Position Sitting Flexion 165 Abduction 165 Shoulder ROM Limitations Shoulder ROM Limitations Soft Tissue Tightness,Pain PT-OP-L Special Tests Start: 07/10/20 12:59 Freq: Status: Active Protocol: Document 07/10/20 13:45 AW (Rec: 07/12/20 11:04 AW [id number]) Special Tests Cervical Spine Special Tests Spurling's Test Test Results (+) bilaterally Comments reproduces pain in the neck; no symptoms in the arms PT-OP-M Strength Start: 07/10/20 12:59 Freq: Status: Active Protocol: Document 07/10/20 13:45 AW (Rec: 07/12/20 11:04 AW [id number]) Cervical Spine Strength Cervical Spine Manual Muscle Testing Testing Position Sitting Flexion (C1-2) 4- Good- Extension 4 Good Rotation Left 4 Good Rotation Right 4 Good Lateral Flexion Left (C3) 4 Good Lateral Flexion Right (C3) 4 Good Shoulder Strength Shoulder Manual Muscle Testing Left Flexion 4 Good Extension 4+ Good+ Abduction (C5) 4 Good External Rotation 4+ Good+ Internal Rotation 4+ Good+ Right Flexion 4+ Good+ Extension 4+ Good+ Abduction (C5) 4+ Good+ External Rotation 4+ Good+ Internal Rotation 5 Normal PT-OP-Q Treatments Start: 07/10/20 12:59 Freq: Status: Active Protocol: Document 08/07/20 14:25 AW (Rec: 08/07/20 14:27 AW [id number]) Therapeutic Exercises Sitting Exercises isometric lat dorsi Sitting Exercise Name iso lat dorsi Side bilateral Equipment Used [employer] Reps/Minutes 3 SH x 10 Comments focus on thoracic extension pulleys Sitting Exercise Name pulleys Side bilateral Reps/Minutes 3 min Comments with active cervical rotation TS rotation Sitting Exercise Name cradle arms front at abdomen Side bilateral Resistance AROM- CS forward/ neutral alignment Reps/Minutes 3 sec hold x5 R and L Comments tall posture, no LB arch, scap depress/retract awareness then rotation R/L Standing Exercises forearm press at wall Standing Exercise Name TS ext Reps/Minutes 5 sec x3 Comments cued cc standing trunk flexion Standing Exercise Name standing trunk flexion back to wall; fixed hips Reps/Minutes x8 Comments focus on segmental flexion/ extension Manual Therapy Treatment Soft Tissue Mobilization neck, shoulders Body Location cervical paraspinals, subocc, UT, scalenes/SCM Mobilization Type Myofascial Release,Sustained Pressure,Trigger Point Release Intensity/Depth Moderate Body Position Supine Comments w/rotations Joint Mobilizations T spine Joint T1-4 Direction PA and left rotation Grade III Body Position Sitting Reps/Duration 2 min Manual Traction Cervical Body Position Hooklying Reps/Duration 30 sec x 3 Comments relieving for neck pain PT-OP-T Assessment and Plan Start: 07/10/20 12:59 Freq: Status: Active Protocol: Document 08/07/20 14:25 AW (Rec: 08/07/20 17:10 AW [email or web address]) Physical Therapy Assessment Impairments Impairments Functional Activities,Pain, Posture,ROM,Sensation,Soft Tissue Mobility,Strength Goals Four Impairment no HEP Short Term Goal (STG) Pt will be independent with HEP for support of therapy services provided in clinic. STG Duration 6 weeks - 08/21/20 Three Impairment ROM Short Term Goal (STG) Pt will increase cervical ROM to 35 degrees of rotation bilaterally STG Duration 6 weeks - 08/21/20 Polysom Tech Goal (LTG) Pt will increase cervical ROM to at least 50 degrees flexion and 35 degrees extention. LTG Duration 3 months 10/10/20 Two Impairment Pain affecting ability to participate in the care of his son Polysom Tech Goal (LTG) Pt will lift his son (40 pounds) with good body mechanics and without increase in baseline pain LTG Duration 3 months 10/10/20 One Impairment Pain affecting work and recreational pursuits Short Term Goal (STG) Pt will tolerate 3 six-hour shifts per week. STG Duration 6 weeks - 08/21/20 Group Home Goal (LTG) Pt will skateboard 15 minutes on level surface without increase in baseline pain. LTG Duration 3 months 10/10/20 Assessment Summary Assessment Pt arrives with improved uncued posture including reduced thoracic flexion, reduced forward head. Pt has been working longer hours which is irritating his symptoms. Tx focused on thoracic extension with good feedback and reduced pain end of session. Physical Therapy Plan Frequency and Duration Frequency of Treatment 2x/Week Duration of Treatment 3 months Plan of Care Start Date 07/10/20 Plan of Care End Date 10/10/20 Therapeutic Interventions Therapeutic Interventions Home Exercise Program,Joint Mobilizations,Manual Therapy, Neuromuscular Re-education, Patient/Caregiver Education, Self-Care/Home Management,Soft Tissue Mobilization,Taping, Therapeutic Activities, Therapeutic Exercises Modalities Electric Stimulation,Hot Packs Next Visit Focus/Plan Next Note Type Treatment Note Next Visit Plan Continue with cervical stabilization, global postural awareness.
--- NOTE | 2020-08-09 11:20 | PT.OTN ---
Current Diagnoses Chronic pain syndrome (08/09/20) Cervicalgia (08/09/20) Paresthesia of skin (08/09/20) Abnormal posture (08/09/20) Physical Therapy Treatment Note PT-OP-A Visit Information Start: 07/10/20 12:59 Freq: Status: Active Protocol: Document 08/09/20 10:35 SP (Rec: 08/09/20 11:31 SP [id number]) Out-Patient Physical Therapy Visit Information Visit Information Visit Type Treatment Note Visit Note Radhae attended tx, education provided for cuing posture to pt. 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 Pain is worse in the neck. Pain is constant but worse on some days. Pt normally skateboards but has been unable since April. He is able to play video games. He denies tingling/numbness BUE. No trauma. No red flag signs. 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 Prior Treatments and Tests 06/13/20 C/S x-ray: Severe disc space narrowing at C6-7. 06/13/20 L/S x-ray: Retrolisthesis at L5-S1 with foraminal narrowing. Future Testing and Treatments Planned MRI if no improvement with therapy Treatment Goals Patient/Caregiver Goals Pt would like to be able to skateboard and to work longer hours. 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 Functional Limitations- Recreation/ Has not been skateboarding Hobbies since April Functional Limitations- Other Unable to lift his son. Personal Factors Other Personal Factors That May Effect No prior PT Therapy/Recovery PT-OP-C Subjective Start: 07/10/20 12:59 Freq: Status: Active Protocol: Document 08/09/20 10:35 SP (Rec: 08/09/20 11:31 SP [id number]) OP-PT Subjective Patient Comments Patient Comments Pt stated felt alot better, did realize any pain for rest of the day after last tx. Did purchase a foam roller (little smaller than PT montes one but props up head with other things) and theracane for home self application. Today arrived 7-12/04 post R neck pain into interscapular mm's. PT-OP-F Manual Assessment Start: 07/10/20 12:59 Freq: Status: Active Protocol: Document 07/10/20 13:45 AW (Rec: 07/10/20 14:31 AW [email or web address]) Manual Assessments Soft Tissue Assessment Soft Tissue Mobility Assessment Moderate tone bilateral upper traps. Significant tone and guarding C5-T1 with occasional spasm. PT-OP-H Neuro Start: 07/10/20 12:59 Freq: Status: Active Protocol: Document 07/10/20 13:45 AW (Rec: 07/10/20 14:40 AW [email or web address]) Sensation Evaluation Gross Sensation Gross Sensation WNL Comments Summary Comments Pt denies sensation disturbance BUE PT-OP-J Posture/Palpation/Skin Start: 07/10/20 12:59 Freq: Status: Active Protocol: Document 07/10/20 13:45 AW (Rec: 07/10/20 14:40 AW [email or web address]) Posture Evaluation Position Sitting Evaluation View Lateral Head/C-Spine Posture Extended L-Spine Posture Decreased Lordosis Shoulder Posture (L) Rounded,(R) Rounded,(L) Forward,(R) Forward Scapula Posture (L) Protracted,(R) Protracted Arm Posture (L) Internally Rotated,(R) Internally Rotated Weight Distribution Balanced PT-OP-K Range of Motion Start: 07/10/20 12:59 Freq: Status: Active Protocol: Document 07/10/20 13:45 AW (Rec: 07/12/20 11:04 AW [id number]) Cervical Spine Range of Motion Cervical Spine Active Degrees Testing Position Sitting Flexion 39 Extension 23 Rotation Left 48 Rotation Right 42 Lateral Flexion Left 24 Lateral Flexion Right 23 ROM Limitations Soft Tissue Tightness,Muscle Tone,Pain Comments Increased pain with flexion and extension but markedly worse with flexion. Positive pain with right rotation. Shoulder Goniometric Range of Motion Shoulder Left Active Testing Position Sitting Flexion 155 Abduction 155 Right Active Testing Position Sitting Flexion 165 Abduction 165 Shoulder ROM Limitations Shoulder ROM Limitations Soft Tissue Tightness,Pain PT-OP-L Special Tests Start: 07/10/20 12:59 Freq: Status: Active Protocol: Document 07/10/20 13:45 AW (Rec: 07/12/20 11:04 AW [id number]) Special Tests Cervical Spine Special Tests Spurling's Test Test Results (+) bilaterally Comments reproduces pain in the neck; no symptoms in the arms PT-OP-M Strength Start: 07/10/20 12:59 Freq: Status: Active Protocol: Document 07/10/20 13:45 AW (Rec: 07/12/20 11:04 AW [id number]) Cervical Spine Strength Cervical Spine Manual Muscle Testing Testing Position Sitting Flexion (C1-2) 4- Good- Extension 4 Good Rotation Left 4 Good Rotation Right 4 Good Lateral Flexion Left (C3) 4 Good Lateral Flexion Right (C3) 4 Good Shoulder Strength Shoulder Manual Muscle Testing Left Flexion 4 Good Extension 4+ Good+ Abduction (C5) 4 Good External Rotation 4+ Good+ Internal Rotation 4+ Good+ Right Flexion 4+ Good+ Extension 4+ Good+ Abduction (C5) 4+ Good+ External Rotation 4+ Good+ Internal Rotation 5 Normal PT-OP-Q Treatments Start: 07/10/20 12:59 Freq: Status: Active Protocol: Document 08/09/20 10:35 SP (Rec: 08/09/20 11:31 SP [id number]) Therapeutic Exercises Supine Exercises foam roll Supine Exercise Name flex, Habd, abd //on roll, tspine ext over roll Side bilateral Reps/Minutes 10 ea TS ext Supine Exercise Name ext and rolling Equipment Used foam roller Comments good response pec stretch Supine Exercise Name pec stretch Side bilateral Equipment Used foam roller Reps/Minutes 30 sec x 2 Comments good response Sidelying Exercises open book Sidelying Exercise Name open book- hand on head Side bilateral Reps/Minutes x8 Comments with cervical rotation to follow hand Sitting Exercises isometric lat dorsi Sitting Exercise Name iso lat dorsi Side bilateral Equipment Used [employer] poles Reps/Minutes 3 SH x 10 Comments focus on thoracic extension TS rotation Sitting Exercise Name cradle arms front at abdomen Side bilateral Resistance AROM- CS forward/ neutral alignment Reps/Minutes 3 sec hold x5 R and L Comments tall posture, no LB arch, scap depress/retract awareness then rotation R/L Standing Exercises forearm press at wall Standing Exercise Name TS ext Reps/Minutes 5 sec x3 Comments cued CS neutral chin nod, elongation spine and neck, no LS arch Other Exercises self STMs Other Exercise Name post neck, post scap on table Side bilateral Equipment Used tennis balls, discussed theracane as well at home just purchased Reps/Minutes 2 min Manual Therapy Treatment Soft Tissue Mobilization neck, shoulders Body Location cervical paraspinals, subocc, UT, scalenes/SCM Mobilization Type Myofascial Release,Sustained Pressure,Trigger Point Release Intensity/Depth Moderate Body Position Supine Comments w/rotations Joint Mobilizations T spine Joint T1-4 Direction PA Grade II Body Position Prone Manual Traction Cervical Body Position Hooklying Reps/Duration 30 sec x 3 Comments relieving for neck pain PT-OP-T Assessment and Plan Start: 07/10/20 12:59 Freq: Status: Active Protocol: Document 08/09/20 10:35 SP (Rec: 08/09/20 11:31 SP [id number]) Physical Therapy Assessment Goals Four Impairment no HEP Short Term Goal (STG) Pt will be independent with HEP for support of therapy services provided in clinic. STG Duration 6 weeks - 08/21/20 Three Impairment ROM Short Term Goal (STG) Pt will increase cervical ROM to 35 degrees of rotation bilaterally STG Duration 6 weeks - 08/21/20 Retirement Goal (LTG) Pt will increase cervical ROM to at least 50 degrees flexion and 35 degrees extention. 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 STG Duration 6 weeks - 08/21/20 Retirement Goal (LTG) Pt will skateboard 15 minutes on level surface without increase in baseline pain. LTG Duration 3 months 10/10/20 Assessment Summary Assessment Pt arrived with elevated shlds and head off to R with report of pain on R post neck. Pt stated trrying to be more aware of posture, especially after PT tx. Pt improve neck, TS, trunk posture end of tx with no pain. Education provided for elongation posture awareness and ther ex, stretches carry over at home and even at work when can, verbalized understanding. Physical Therapy Plan Frequency and Duration Frequency of Treatment 2x/Week Duration of Treatment 3 months Plan of Care Start Date 07/10/20 Plan of Care End Date 10/10/20 Therapeutic Interventions Therapeutic Interventions Home Exercise Program,Joint Mobilizations,Manual Therapy, Neuromuscular Re-education, Patient/Caregiver Education, Self-Care/Home Management,Soft Tissue Mobilization,Taping, Therapeutic Activities, Therapeutic Exercises Modalities Electric Stimulation,Hot Packs Next Visit Focus/Plan Next Note Type Treatment Note Next Visit Plan Continue with cervical stabilization, global postural awareness.
--- NOTE | 2020-08-14 12:12 | PT.OTN ---
Current Diagnoses Chronic pain syndrome (08/14/20) Cervicalgia (08/14/20) Paresthesia of skin (08/14/20) Abnormal posture (08/14/20) Physical Therapy Treatment Note PT-OP-A Visit Information Start: 07/10/20 12:59 Freq: Status: Active Protocol: Document 08/14/20 11:15 AW (Rec: 08/14/20 12:11 AW [id number]) Out-Patient Physical Therapy Visit Information Visit Information Visit Type Treatment Note Visit Start Time 11:17 Visit Stop Time 11:50 Total Visit Minutes 33 Visit Number 9 Number of RADIO ELECTRICIAN Visits 0 Evaluation Information Evaluation Date 07/10/20 PT-OP-B Current Condition Start: 07/10/20 12:59 Freq: Status: Active Protocol: Document 07/10/20 13:45 AW (Rec: 07/10/20 13:19 AW [id number]) Current Condition History of Current Condition Onset Date three months Current Complaints neck pain on chronic back pain History of Current Condition Pt reports sharp electric pain up his spine from lower back. Pain is worse in the neck. Pain is constant but worse on some days. Pt normally skateboards but has been unable since April. He is able to play video games. He denies tingling/numbness BUE. No trauma. No red flag signs. 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 Prior Treatments and Tests 06/13/20 C/S x-ray: Severe disc space narrowing at C6-7. 06/13/20 L/S x-ray: Retrolisthesis at L5-S1 with foraminal narrowing. Future Testing and Treatments Planned MRI if no improvement with therapy Treatment Goals Patient/Caregiver Goals Pt would like to be able to skateboard and to work longer hours. 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 Functional Limitations- Recreation/ Has not been skateboarding Hobbies since April Functional Limitations- Other Unable to lift his son. Personal Factors Other Personal Factors That May Effect No prior PT Therapy/Recovery PT-OP-C Subjective Start: 07/10/20 12:59 Freq: Status: Active Protocol: Document 08/14/20 11:15 AW (Rec: 08/14/20 12:11 AW [id number]) OP-PT Subjective Patient Comments Patient Comments Went to ED two days ago due to acute right sided neck pain. Woke up after a long shift night before. Received toradol and had good relief. PT-OP-F Manual Assessment Start: 07/10/20 12:59 Freq: Status: Active Protocol: Document 07/10/20 13:45 AW (Rec: 07/10/20 14:31 AW [id number]) Manual Assessments Soft Tissue Assessment Soft Tissue Mobility Assessment Moderate tone bilateral upper traps. Significant tone and guarding C5-T1 with occasional spasm. PT-OP-H Neuro Start: 07/10/20 12:59 Freq: Status: Active Protocol: Document 07/10/20 13:45 AW (Rec: 07/10/20 14:40 AW [email or web address]) Sensation Evaluation Gross Sensation Gross Sensation WNL Comments Summary Comments Pt denies sensation disturbance BUE PT-OP-J Posture/Palpation/Skin Start: 07/10/20 12:59 Freq: Status: Active Protocol: Document 07/10/20 13:45 AW (Rec: 07/10/20 14:40 AW [id number]) Posture Evaluation Position Sitting Evaluation View Lateral Head/C-Spine Posture Extended L-Spine Posture Decreased Lordosis Shoulder Posture (L) Rounded,(R) Rounded,(L) Forward,(R) Forward Scapula Posture (L) Protracted,(R) Protracted Arm Posture (L) Internally Rotated,(R) Internally Rotated Weight Distribution Balanced PT-OP-K Range of Motion Start: 07/10/20 12:59 Freq: Status: Active Protocol: Document 07/10/20 13:45 AW (Rec: 07/12/20 11:04 AW [id number]) Cervical Spine Range of Motion Cervical Spine Active Degrees Testing Position Sitting Flexion 39 Extension 23 Rotation Left 48 Rotation Right 42 Lateral Flexion Left 24 Lateral Flexion Right 23 ROM Limitations Soft Tissue Tightness,Muscle Tone,Pain Comments Increased pain with flexion and extension but markedly worse with flexion. Positive pain with right rotation. Shoulder Goniometric Range of Motion Shoulder Left Active Testing Position Sitting Flexion 155 Abduction 155 Right Active Testing Position Sitting Flexion 165 Abduction 165 Shoulder ROM Limitations Shoulder ROM Limitations Soft Tissue Tightness,Pain PT-OP-L Special Tests Start: 07/10/20 12:59 Freq: Status: Active Protocol: Document 07/10/20 13:45 AW (Rec: 07/12/20 11:04 AW [id number]) Special Tests Cervical Spine Special Tests Spurling's Test Test Results (+) bilaterally Comments reproduces pain in the neck; no symptoms in the arms PT-OP-M Strength Start: 07/10/20 12:59 Freq: Status: Active Protocol: Document 07/10/20 13:45 AW (Rec: 07/12/20 11:04 AW [id number]) Cervical Spine Strength Cervical Spine Manual Muscle Testing Testing Position Sitting Flexion (C1-2) 4- Good- Extension 4 Good Rotation Left 4 Good Rotation Right 4 Good Lateral Flexion Left (C3) 4 Good Lateral Flexion Right (C3) 4 Good Shoulder Strength Shoulder Manual Muscle Testing Left Flexion 4 Good Extension 4+ Good+ Abduction (C5) 4 Good External Rotation 4+ Good+ Internal Rotation 4+ Good+ Right Flexion 4+ Good+ Extension 4+ Good+ Abduction (C5) 4+ Good+ External Rotation 4+ Good+ Internal Rotation 5 Normal PT-OP-Q Treatments Start: 07/10/20 12:59 Freq: Status: Active Protocol: Document 08/14/20 11:15 AW (Rec: 08/14/20 12:11 AW [id number]) Therapeutic Exercises Sidelying Exercises open book Sidelying Exercise Name open book- hand on head Side bilateral Reps/Minutes x8 Comments with cervical rotation to follow hand Standing Exercises resisted GH extension Standing Exercise Name resisted GH extension Side bilateral Resistance level 2 Equipment Used TB Reps/Minutes x10 Comments cued posture resisted rows Standing Exercise Name resisted rows Resistance level 2 Equipment Used TB Reps/Minutes x10 Comments cued posture, cervical retraction forearm press at wall Standing Exercise Name TS ext Reps/Minutes 5 sec x3 Comments cued CS neutral chin nod, elongation spine and neck, no LS arch standing trunk flexion Standing Exercise Name standing trunk flexion back to wall; fixed hips Reps/Minutes x8 Comments focus on segmental flexion/ extension TS rotation Standing Exercise Name TS rotation Side bilateral Equipment Used dowel behind back, held under arms Reps/Minutes x8 Comments arms crossed over chest Manual Therapy Treatment Soft Tissue Mobilization neck, shoulders Body Location cervical paraspinals, subocc, UT, scalenes/SCM Mobilization Type Myofascial Release,Sustained Pressure,Trigger Point Release Intensity/Depth Moderate Body Position Supine Comments w/rotations Joint Mobilizations R 1st rib Direction inferior Grade IV Body Position Hooklying Reps/Duration 2 min Comments grade III and IV to address elevated R rib T spine Joint T1-4 Direction PA and left rotation Grade III Body Position Sitting Reps/Duration 4 min Comments with resisted left rotation Manual Traction Cervical Body Position Hooklying Reps/Duration 30 sec x 3 Comments relieving for neck pain PT-OP-T Assessment and Plan Start: 07/10/20 12:59 Freq: Status: Active Protocol: Document 08/14/20 11:15 AW (Rec: 08/14/20 12:11 AW [id number]) Physical Therapy Assessment Impairments Impairments Functional Activities,Pain, Posture,ROM,Sensation,Soft Tissue Mobility,Strength Goals Four Impairment no HEP Short Term Goal (STG) Pt will be independent with HEP for support of therapy services provided in clinic. STG Duration 6 weeks - 08/21/20 Three Impairment ROM Short Term Goal (STG) Pt will increase cervical ROM to 35 degrees of rotation bilaterally STG Duration 6 weeks - 08/21/20 Strip Catcher Goal (LTG) Pt will increase cervical ROM to at least 50 degrees flexion and 35 degrees extention. LTG Duration 3 months 10/10/20 Two Impairment Pain affecting ability to participate in the care of his son Shelter Goal (LTG) Pt will lift his son (40 pounds) with good body mechanics and without increase in baseline pain LTG Duration 3 months 10/10/20 One Impairment Pain affecting work and recreational pursuits Short Term Goal (STG) Pt will tolerate 3 six-hour shifts per week. STG Duration 6 weeks - 08/21/20 Strip Catcher Goal (LTG) Pt will skateboard 15 minutes on level surface without increase in baseline pain. LTG Duration 3 months 10/10/20 Assessment Summary Assessment Pt moves neck and thorax with less guarding this date and improved with mobilization of T-spine and R 1st rib. Progress is slow but steady. ED visit 3 last weekend due to unrelieved acute R side neck pain, improved after therapy. Physical Therapy Plan Frequency and Duration Frequency of Treatment 2x/Week Duration of Treatment 3 months Plan of Care Start Date 07/10/20 Plan of Care End Date 10/10/20 Therapeutic Interventions Therapeutic Interventions Home Exercise Program,Joint Mobilizations,Manual Therapy, Neuromuscular Re-education, Patient/Caregiver Education, Self-Care/Home Management,Soft Tissue Mobilization,Taping, Therapeutic Activities, Therapeutic Exercises Modalities Electric Stimulation,Hot Packs Next Visit Focus/Plan Next Note Type Treatment Note Next Visit Plan Continue with cervical stabilization, global postural awareness.
--- NOTE | 2020-08-16 11:15 | PT.OTN ---
Current Diagnoses Chronic pain syndrome (08/16/20) Cervicalgia (08/16/20) Paresthesia of skin (08/16/20) Abnormal posture (08/16/20) Physical Therapy Treatment Note PT-OP-A Visit Information Start: 07/10/20 12:59 Freq: Status: Active Protocol: Document 08/16/20 10:34 SP (Rec: 08/16/20 12:02 SP [id number]) Out-Patient Physical Therapy Visit Information Visit Information Visit Type Treatment Note Visit Start Time 10:34 Visit Stop Time 11:15 Total Visit Minutes 41 Visit Number 10 Number of WOMEN'S STUDIES LECTURER Visits 1 Evaluation Information Evaluation Date 07/10/20 PT-OP-B Current Condition Start: 07/10/20 12:59 Freq: Status: Active Protocol: Document 07/10/20 13:45 AW (Rec: 07/10/20 13:19 AW [id number]) Current Condition History of Current Condition Onset Date three months Current Complaints neck pain on chronic back pain History of Current Condition Pt reports sharp electric pain up his spine from lower back. Pain is worse in the neck. Pain is constant but worse on some days. Pt normally skateboards but has been unable since April. He is able to play video games. He denies tingling/numbness BUE. No trauma. No red flag signs. 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 Prior Treatments and Tests 06/13/20 C/S x-ray: Severe disc space narrowing at C6-7. 06/13/20 L/S x-ray: Retrolisthesis at L5-S1 with foraminal narrowing. Future Testing and Treatments Planned MRI if no improvement with therapy Treatment Goals Patient/Caregiver Goals Pt would like to be able to skateboard and to work longer hours. 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 Functional Limitations- Recreation/ Has not been skateboarding Hobbies since April Functional Limitations- Other Unable to lift his son. Personal Factors Other Personal Factors That May Effect No prior PT Therapy/Recovery PT-OP-C Subjective Start: 07/10/20 12:59 Freq: Status: Active Protocol: Document 08/16/20 10:34 SP (Rec: 08/16/20 12:02 SP [id number]) OP-PT Subjective Patient Comments Patient Comments Pt stated felt pretty good for little while after last tx, always helps. Alot of neck tightness on R post/laterl neck into upper and out to shoulder blade. PT-OP-F Manual Assessment Start: 07/10/20 12:59 Freq: Status: Active Protocol: Document 07/10/20 13:45 AW (Rec: 07/10/20 14:31 AW [email or web address]) Manual Assessments Soft Tissue Assessment Soft Tissue Mobility Assessment Moderate tone bilateral upper traps. Significant tone and guarding C5-T1 with occasional spasm. PT-OP-H Neuro Start: 07/10/20 12:59 Freq: Status: Active Protocol: Document 07/10/20 13:45 AW (Rec: 07/10/20 14:40 AW [email or web address]) Sensation Evaluation Gross Sensation Gross Sensation WNL Comments Summary Comments Pt denies sensation disturbance BUE PT-OP-J Posture/Palpation/Skin Start: 07/10/20 12:59 Freq: Status: Active Protocol: Document 07/10/20 13:45 AW (Rec: 07/10/20 14:40 AW [email or web address]) Posture Evaluation Position Sitting Evaluation View Lateral Head/C-Spine Posture Extended L-Spine Posture Decreased Lordosis Shoulder Posture (L) Rounded,(R) Rounded,(L) Forward,(R) Forward Scapula Posture (L) Protracted,(R) Protracted Arm Posture (L) Internally Rotated,(R) Internally Rotated Weight Distribution Balanced PT-OP-K Range of Motion Start: 07/10/20 12:59 Freq: Status: Active Protocol: Document 07/10/20 13:45 AW (Rec: 07/12/20 11:04 AW [id number]) Cervical Spine Range of Motion Cervical Spine Active Degrees Testing Position Sitting Flexion 39 Extension 23 Rotation Left 48 Rotation Right 42 Lateral Flexion Left 24 Lateral Flexion Right 23 ROM Limitations Soft Tissue Tightness,Muscle Tone,Pain Comments Increased pain with flexion and extension but markedly worse with flexion. Positive pain with right rotation. Shoulder Goniometric Range of Motion Shoulder Left Active Testing Position Sitting Flexion 155 Abduction 155 Right Active Testing Position Sitting Flexion 165 Abduction 165 Shoulder ROM Limitations Shoulder ROM Limitations Soft Tissue Tightness,Pain PT-OP-L Special Tests Start: 07/10/20 12:59 Freq: Status: Active Protocol: Document 07/10/20 13:45 AW (Rec: 07/12/20 11:04 AW [id number]) Special Tests Cervical Spine Special Tests Spurling's Test Test Results (+) bilaterally Comments reproduces pain in the neck; no symptoms in the arms PT-OP-M Strength Start: 07/10/20 12:59 Freq: Status: Active Protocol: Document 07/10/20 13:45 AW (Rec: 07/12/20 11:04 AW [id number]) Cervical Spine Strength Cervical Spine Manual Muscle Testing Testing Position Sitting Flexion (C1-2) 4- Good- Extension 4 Good Rotation Left 4 Good Rotation Right 4 Good Lateral Flexion Left (C3) 4 Good Lateral Flexion Right (C3) 4 Good Shoulder Strength Shoulder Manual Muscle Testing Left Flexion 4 Good Extension 4+ Good+ Abduction (C5) 4 Good External Rotation 4+ Good+ Internal Rotation 4+ Good+ Right Flexion 4+ Good+ Extension 4+ Good+ Abduction (C5) 4+ Good+ External Rotation 4+ Good+ Internal Rotation 5 Normal PT-OP-Q Treatments Start: 07/10/20 12:59 Freq: Status: Active Protocol: Document 08/16/20 10:34 SP (Rec: 08/16/20 12:02 SP [id number]) Therapeutic Exercises Supine Exercises foam roll Supine Exercise Name forward flex, scaption Side bilateral Equipment Used foam roll Reps/Minutes x3 Comments cued scap relax posteriorly- tightness on R pinching pec stretch Supine Exercise Name pec stretch Side bilateral Equipment Used foam roller Reps/Minutes 30 sec x 2 Comments good response Sidelying Exercises open book Sidelying Exercise Name open book- hand on head Side bilateral Equipment Used improved post manual Reps/Minutes x8 Comments with cervical rotation to follow hand Sitting Exercises cervical SNAG Sitting Exercise Name SNAG retraction into ext and rotation Equipment Used pillow case Reps/Minutes x12 retraction, x4 R and L rotation Comments instructed tall posture, retract chin with fabric edge at C7, then rot. Standing Exercises resisted GH extension Standing Exercise Name resisted GH extension Side bilateral Resistance level 2 Equipment Used TB Reps/Minutes 2 sec hold x8 Comments cued posture tall posture, scap stab depressed resisted rows Standing Exercise Name resisted rows Resistance level 2 Equipment Used TB Reps/Minutes x8 Comments cued tall posture LT fac, cervical retraction Other Exercises self STMs Other Exercise Name post neck, post scap seated Side bilateral Equipment Used theracane Reps/Minutes 2 min Comments MWM UT cervical nod/ turn Manual Therapy Treatment Soft Tissue Mobilization neck, shoulders Body Location cervical paraspinals, subocc, UT, scalenes/SCM Mobilization Type Myofascial Release,Sustained Pressure,Trigger Point Release Intensity/Depth Moderate Body Position Supine Comments w/rotations Joint Mobilizations T spine Joint T1-4 Direction PA and left rotation Grade III Body Position Sitting Reps/Duration 4 min Comments with resisted left rotation PT-OP-T Assessment and Plan Start: 07/10/20 12:59 Freq: Status: Active Protocol: Document 08/16/20 10:34 SP (Rec: 08/16/20 12:02 SP [id number]) Physical Therapy Assessment Goals Four Impairment no HEP Short Term Goal (STG) Pt will be independent with HEP for support of therapy services provided in clinic. STG Duration 6 weeks - 08/21/20 Three Impairment ROM Short Term Goal (STG) Pt will increase cervical ROM to 35 degrees of rotation bilaterally STG Duration 6 weeks - 08/21/20 Director Of Psychiatry Goal (LTG) Pt will increase cervical ROM to at least 50 degrees flexion and 35 degrees extention. LTG Duration 3 months 10/10/20 Two Impairment Pain affecting ability to participate in the care of his son Group Home Goal (LTG) Pt will lift his son (40 pounds) with good body mechanics and without increase in baseline pain LTG Duration 3 months 10/10/20 One Impairment Pain affecting work and recreational pursuits Short Term Goal (STG) Pt will tolerate 3 six-hour shifts per week. STG Duration 6 weeks - 08/21/20 Director Of Psychiatry Goal (LTG) Pt will skateboard 15 minutes on level surface without increase in baseline pain. LTG Duration 3 months 10/10/20 Assessment Summary Assessment Pt moved neck and TS better after manual. Tx more focused on manual this tx due to persistant R UT, lev scap. Education importance of self STMs and HEP on own with alignment awareness at work to allow progression, pt verbalized understanding. Physical Therapy Plan Frequency and Duration Frequency of Treatment 2x/Week Duration of Treatment 3 months Plan of Care Start Date 07/10/20 Plan of Care End Date 10/10/20 Therapeutic Interventions Therapeutic Interventions Home Exercise Program,Joint Mobilizations,Manual Therapy, Neuromuscular Re-education, Patient/Caregiver Education, Self-Care/Home Management,Soft Tissue Mobilization,Taping, Therapeutic Activities, Therapeutic Exercises Modalities Electric Stimulation,Hot Packs Next Visit Focus/Plan Next Note Type Treatment Note Next Visit Plan Continue with cervical stabilization, global postural awareness.
--- NOTE | 2020-08-23 11:20 | PT.OTN ---
Current Diagnoses Chronic pain syndrome (08/23/20) Cervicalgia (08/23/20) Paresthesia of skin (08/23/20) Abnormal posture (08/23/20) Physical Therapy Treatment Note PT-OP-A Visit Information Start: 07/10/20 12:59 Freq: Status: Active Protocol: Document 08/23/20 10:33 SP (Rec: 08/23/20 11:25 SP [id number]) Out-Patient Physical Therapy Visit Information Visit Information Visit Type Treatment Note Visit Start Time 10:33 Visit Stop Time 11:20 Total Visit Minutes 47 Visit Number 11 Number of MANAGER LABOR DELIVERY Visits 1 Evaluation Information Evaluation Date 07/10/20 PT-OP-B Current Condition Start: 07/10/20 12:59 Freq: Status: Active Protocol: Document 07/10/20 13:45 AW (Rec: 07/10/20 13:19 AW [id number]) Current Condition History of Current Condition Onset Date three months Current Complaints neck pain on chronic back pain History of Current Condition Pt reports sharp electric pain up his spine from lower back. Pain is worse in the neck. Pain is constant but worse on some days. Pt normally skateboards but has been unable since April. He is able to play video games. He denies tingling/numbness BUE. No trauma. No red flag signs. 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 Prior Treatments and Tests 06/13/20 C/S x-ray: Severe disc space narrowing at C6-7. 06/13/20 L/S x-ray: Retrolisthesis at L5-S1 with foraminal narrowing. Future Testing and Treatments Planned MRI if no improvement with therapy Treatment Goals Patient/Caregiver Goals Pt would like to be able to skateboard and to work longer hours. 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 Functional Limitations- Recreation/ Has not been skateboarding Hobbies since April Functional Limitations- Other Unable to lift his son. Personal Factors Other Personal Factors That May Effect No prior PT Therapy/Recovery PT-OP-C Subjective Start: 07/10/20 12:59 Freq: Status: Active Protocol: Document 08/23/20 10:33 SP (Rec: 08/23/20 11:25 SP [id number]) OP-PT Subjective Patient Comments Patient Comments Pt stands up R neck sidebend and shld elevated guarded with report lateral neck/shld pain 12/04 not sure why. He reported losted his mom since last tx. Patient Reported Progress Worse PT-OP-F Manual Assessment Start: 07/10/20 12:59 Freq: Status: Active Protocol: Document 07/10/20 13:45 AW (Rec: 07/10/20 14:31 AW [email or web address]) Manual Assessments Soft Tissue Assessment Soft Tissue Mobility Assessment Moderate tone bilateral upper traps. Significant tone and guarding C5-T1 with occasional spasm. PT-OP-H Neuro Start: 07/10/20 12:59 Freq: Status: Active Protocol: Document 07/10/20 13:45 AW (Rec: 07/10/20 14:40 AW [email or web address]) Sensation Evaluation Gross Sensation Gross Sensation WNL Comments Summary Comments Pt denies sensation disturbance BUE PT-OP-J Posture/Palpation/Skin Start: 07/10/20 12:59 Freq: Status: Active Protocol: Document 07/10/20 13:45 AW (Rec: 07/10/20 14:40 AW [email or web address]) Posture Evaluation Position Sitting Evaluation View Lateral Head/C-Spine Posture Extended L-Spine Posture Decreased Lordosis Shoulder Posture (L) Rounded,(R) Rounded,(L) Forward,(R) Forward Scapula Posture (L) Protracted,(R) Protracted Arm Posture (L) Internally Rotated,(R) Internally Rotated Weight Distribution Balanced PT-OP-K Range of Motion Start: 07/10/20 12:59 Freq: Status: Active Protocol: Document 07/10/20 13:45 AW (Rec: 07/12/20 11:04 AW [id number]) Cervical Spine Range of Motion Cervical Spine Active Degrees Testing Position Sitting Flexion 39 Extension 23 Rotation Left 48 Rotation Right 42 Lateral Flexion Left 24 Lateral Flexion Right 23 ROM Limitations Soft Tissue Tightness,Muscle Tone,Pain Comments Increased pain with flexion and extension but markedly worse with flexion. Positive pain with right rotation. Shoulder Goniometric Range of Motion Shoulder Left Active Testing Position Sitting Flexion 155 Abduction 155 Right Active Testing Position Sitting Flexion 165 Abduction 165 Shoulder ROM Limitations Shoulder ROM Limitations Soft Tissue Tightness,Pain PT-OP-L Special Tests Start: 07/10/20 12:59 Freq: Status: Active Protocol: Document 07/10/20 13:45 AW (Rec: 07/12/20 11:04 AW [id number]) Special Tests Cervical Spine Special Tests Spurling's Test Test Results (+) bilaterally Comments reproduces pain in the neck; no symptoms in the arms PT-OP-M Strength Start: 07/10/20 12:59 Freq: Status: Active Protocol: Document 07/10/20 13:45 AW (Rec: 07/12/20 11:04 AW [id number]) Cervical Spine Strength Cervical Spine Manual Muscle Testing Testing Position Sitting Flexion (C1-2) 4- Good- Extension 4 Good Rotation Left 4 Good Rotation Right 4 Good Lateral Flexion Left (C3) 4 Good Lateral Flexion Right (C3) 4 Good Shoulder Strength Shoulder Manual Muscle Testing Left Flexion 4 Good Extension 4+ Good+ Abduction (C5) 4 Good External Rotation 4+ Good+ Internal Rotation 4+ Good+ Right Flexion 4+ Good+ Extension 4+ Good+ Abduction (C5) 4+ Good+ External Rotation 4+ Good+ Internal Rotation 5 Normal PT-OP-Q Treatments Start: 07/10/20 12:59 Freq: Status: Active Protocol: Document 08/23/20 10:33 SP (Rec: 08/23/20 11:25 SP [id number]) Therapeutic Exercises Prone Exercises prone press up Prone Exercise Name prone press up Resistance forearms on table- cued press through elbows Reps/Minutes 3 sec hold x3- stopped due to neck/ shld pain Comments cued cervical neutral; improved form, stated tiring in shlds- reported pain Sidelying Exercises open book Sidelying Exercise Name open book- hand on head Side right Reps/Minutes x5 Comments feels rough stopped, less scapular glide/ ROM guarded today Manual Therapy Treatment Soft Tissue Mobilization neck, shoulders Body Location cervical paraspinals, subocc, UT, pec minor, subclavius, prox bicep Mobilization Type Myofascial Release,Sustained Pressure,Trigger Point Release Intensity/Depth Moderate Body Position Supine Comments STMs, stretch, contract relax side bend/rotation not significant improvement in pain/ mobility Manual Traction Cervical Body Position Hooklying Reps/Duration 30 sec x 3 Comments little relief for neck pain Manual Techniques PNF R scap Type manual Body Position Sidelying Reps/Duration 2 min Comments PROM then incorporated with open book, noted UT and pec minor recruitment, not improved with verbal and manual cues. . PT-OP-R Modalities Start: 07/10/20 12:59 Freq: Status: Active Protocol: Document 08/23/20 10:33 SP (Rec: 08/23/20 11:25 SP [id number]) Electric Stimulation Electric Stimulation R upper trap Duration (Minutes) 10 Intensity 13 Target/Sweep Target Patient Position Sidelying Combined With Heat/Cold Hot Pack Comments good response PT-OP-T Assessment and Plan Start: 07/10/20 12:59 Freq: Status: Active Protocol: Document 08/23/20 10:33 SP (Rec: 08/23/20 11:25 SP [id number]) Physical Therapy Assessment Goals Four Impairment no HEP Short Term Goal (STG) Pt will be independent with HEP for support of therapy services provided in clinic. STG Duration 6 weeks - 08/21/20 Three Impairment ROM Short Term Goal (STG) Pt will increase cervical ROM to 35 degrees of rotation bilaterally STG Duration 6 weeks - 08/21/20 Studio Operations Manager Goal (LTG) Pt will increase cervical ROM to at least 50 degrees flexion and 35 degrees extention. LTG Duration 3 months 10/10/20 Two Impairment Pain affecting ability to participate in the care of his son Correction Goal (LTG) Pt will lift his son (40 pounds) with good body mechanics and without increase in baseline pain LTG Duration 3 months 10/10/20 One Impairment Pain affecting work and recreational pursuits Short Term Goal (STG) Pt will tolerate 3 six-hour shifts per week. STG Duration 6 weeks - 08/21/20 Correction Goal (LTG) Pt will skateboard 15 minutes on level surface without increase in baseline pain. LTG Duration 3 months 10/10/20 Assessment Summary Assessment Pt pain over R upper trap, suboccipitals and anterior shld today. Decreased guarding post manual then more reduction in pain post IFC/ premod to 4-5/10 from 12/04 and increased cervical rotation R and L. Educated continue awareness of posture, scap depress awareness to decrease UT recruitment. Ther ex as tolerated in same directioning . Physical Therapy Plan Frequency and Duration Frequency of Treatment 2x/Week Duration of Treatment 3 months Plan of Care Start Date 07/10/20 Plan of Care End Date 10/10/20 Therapeutic Interventions Therapeutic Interventions Home Exercise Program,Joint Mobilizations,Manual Therapy, Neuromuscular Re-education, Patient/Caregiver Education, Self-Care/Home Management,Soft Tissue Mobilization,Taping, Therapeutic Activities, Therapeutic Exercises Modalities Electric Stimulation,Hot Packs Next Visit Focus/Plan Next Note Type Treatment Note Next Visit Plan Assess reponse to last tx: manual, stretching, PNF R scap then IFC R upper trap w/ MHP for assist pain and ROM. Continue with cervical stabilization, global postural awareness.
--- NOTE | 2020-08-31 11:47 | PT-OP ANOTE ---
Pt cancelled same day appt, called into work and unable to attend afternoon tx.
--- NOTE | 2020-09-04 16:42 | PT.OPDS ---
Current Diagnoses Chronic pain syndrome (08/23/20) Cervicalgia (08/23/20) Paresthesia of skin (08/23/20) Abnormal posture (08/23/20) Visit Care Team Role Provider Type Ephraim Platt MD Attending Provider Physician Family Provider Primary Care Provider Referring Provider Specialty: Internal Medicine Address: [address] [place] [address], [address], [address] Email: [email or web address] Visit Number Visit Number 11 Discharge Summary PT-OP-B Current Condition Start: 07/10/20 12:59 Freq: Status: Active Protocol: Document 07/10/20 13:45 AW (Rec: 07/10/20 13:19 AW [id number]) Current Condition History of Current Condition Onset Date three months Current Complaints neck pain on chronic back pain History of Current Condition Pt reports sharp electric pain up his spine from lower back. Pain is worse in the neck. Pain is constant but worse on some days. Pt normally skateboards but has been unable since April. He is able to play video games. He denies tingling/numbness BUE. No trauma. No red flag signs. 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 Prior Treatments and Tests 06/13/20 C/S x-ray: Severe disc space narrowing at C6-7. 06/13/20 L/S x-ray: Retrolisthesis at L5-S1 with foraminal narrowing. Future Testing and Treatments Planned MRI if no improvement with therapy Treatment Goals Patient/Caregiver Goals Pt would like to be able to skateboard and to work longer hours. 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 Functional Limitations- Recreation/ Has not been skateboarding Hobbies since April Functional Limitations- Other Unable to lift his son. Personal Factors Other Personal Factors That May Effect No prior PT Therapy/Recovery PT-OP-C Subjective Start: 07/10/20 12:59 Freq: Status: Active Protocol: Document 08/23/20 10:33 SP (Rec: 08/23/20 11:25 SP [id number]) OP-PT Subjective Patient Comments Patient Comments Pt stands up R neck sidebend and shld elevated guarded with report lateral neck/shld pain 8/10 not sure why. He reported losted his mom since last tx. Patient Reported Progress Worse PT-OP-F Manual Assessment Start: 07/10/20 12:59 Freq: Status: Active Protocol: Document 07/10/20 13:45 AW (Rec: 07/10/20 14:31 AW [id number]) Manual Assessments Soft Tissue Assessment Soft Tissue Mobility Assessment Moderate tone bilateral upper traps. Significant tone and guarding C5-T1 with occasional spasm. PT-OP-H Neuro Start: 07/10/20 12:59 Freq: Status: Active Protocol: Document 07/10/20 13:45 AW (Rec: 07/10/20 14:40 AW [id number]) Sensation Evaluation Gross Sensation Gross Sensation WNL Comments Summary Comments Pt denies sensation disturbance BUE PT-OP-J Posture/Palpation/Skin Start: 07/10/20 12:59 Freq: Status: Active Protocol: Document 07/10/20 13:45 AW (Rec: 07/10/20 14:40 AW [id number]) Posture Evaluation Position Sitting Evaluation View Lateral Head/C-Spine Posture Extended L-Spine Posture Decreased Lordosis Shoulder Posture (L) Rounded,(R) Rounded,(L) Forward,(R) Forward Scapula Posture (L) Protracted,(R) Protracted Arm Posture (L) Internally Rotated,(R) Internally Rotated Weight Distribution Balanced PT-OP-K Range of Motion Start: 07/10/20 12:59 Freq: Status: Active Protocol: Document 07/10/20 13:45 AW (Rec: 07/12/20 11:04 AW [id number]) Cervical Spine Range of Motion Cervical Spine Active Degrees Testing Position Sitting Flexion 39 Extension 23 Rotation Left 48 Rotation Right 42 Lateral Flexion Left 24 Lateral Flexion Right 23 ROM Limitations Soft Tissue Tightness,Muscle Tone,Pain Comments Increased pain with flexion and extension but markedly worse with flexion. Positive pain with right rotation. Shoulder Goniometric Range of Motion Shoulder Left Active Testing Position Sitting Flexion 155 Abduction 155 Right Active Testing Position Sitting Flexion 165 Abduction 165 Shoulder ROM Limitations Shoulder ROM Limitations Soft Tissue Tightness,Pain PT-OP-L Special Tests Start: 07/10/20 12:59 Freq: Status: Active Protocol: Document 07/10/20 13:45 AW (Rec: 07/12/20 11:04 AW [id number]) Special Tests Cervical Spine Special Tests Spurling's Test Test Results (+) bilaterally Comments reproduces pain in the neck; no symptoms in the arms PT-OP-M Strength Start: 07/10/20 12:59 Freq: Status: Active Protocol: Document 07/10/20 13:45 AW (Rec: 07/12/20 11:04 AW [id number]) Cervical Spine Strength Cervical Spine Manual Muscle Testing Testing Position Sitting Flexion (C1-2) 4- Good- Extension 4 Good Rotation Left 4 Good Rotation Right 4 Good Lateral Flexion Left (C3) 4 Good Lateral Flexion Right (C3) 4 Good Shoulder Strength Shoulder Manual Muscle Testing Left Flexion 4 Good Extension 4+ Good+ Abduction (C5) 4 Good External Rotation 4+ Good+ Internal Rotation 4+ Good+ Right Flexion 4+ Good+ Extension 4+ Good+ Abduction (C5) 4+ Good+ External Rotation 4+ Good+ Internal Rotation 5 Normal PT-OP-T Assessment and Plan Start: 07/10/20 12:59 Freq: Status: Active Protocol: Document 09/04/20 16:39 AW (Rec: 09/04/20 16:41 AW [email or web address]) Physical Therapy Assessment Impairments Impairments Functional Activities,Pain, Posture,ROM,Sensation,Soft Tissue Mobility,Strength Goals Four Impairment no HEP Short Term Goal (STG) Pt will be independent with HEP for support of therapy services provided in clinic. STG Duration 6 weeks - 08/21/20 Three Impairment ROM Short Term Goal (STG) Pt will increase cervical ROM to 35 degrees of rotation bilaterally STG Duration 6 weeks - 08/21/20 Senior Care Goal (LTG) Pt will increase cervical ROM to at least 50 degrees flexion and 35 degrees extention. LTG Duration 3 months 10/10/20 Two Impairment Pain affecting ability to participate in the care of his son Division Chief Goal (LTG) Pt will lift his son (40 pounds) with good body mechanics and without increase in baseline pain LTG Duration 3 months 10/10/20 One Impairment Pain affecting work and recreational pursuits Short Term Goal (STG) Pt will tolerate 3 six-hour shifts per week. STG Duration 6 weeks - 08/21/20 Senior Care Goal (LTG) Pt will skateboard 15 minutes on level surface without increase in baseline pain. LTG Duration 3 months 10/10/20 Physical Therapy Plan Frequency and Duration Frequency of Treatment 2x/Week Duration of Treatment 3 months Plan of Care Start Date 07/10/20 Plan of Care End Date 10/10/20 Therapeutic Interventions Therapeutic Interventions Home Exercise Program,Joint Mobilizations,Manual Therapy, Neuromuscular Re-education, Patient/Caregiver Education, Self-Care/Home Management,Soft Tissue Mobilization,Taping, Therapeutic Activities, Therapeutic Exercises Modalities Electric Stimulation,Hot Packs Discharge Physical Therapy Discharge Reasons No Longer Attending PT Discharge Comments Pt no showed 08/28/20 appointment, same day cancelled 08/31/20, and no- showed 09/04/20. Pt has not complied with attendance policy and will be discharged from therapy. Attempted to call the pt but his voice mail is not set up.
== END 2020-09-05 09:18 | disposition home or self-care (01) ==
LOC: PHYS 10:30
PROVIDERS: Family Provider Student in an Organized Health Care Education/Training Program; PCP Student in an Organized Health Care Education/Training Program; Referring Provider Student in an Organized Health Care Education/Training Program; Visit Provider Student in an Organized Health Care Education/Training Program
DX: R20.2 Paresthesia of skin (principal); G89.4 Chronic pain syndrome; M54.2 Cervicalgia; R29.3 Abnormal posture
CPT/HCPCS: 97014; 97110; 97140; 97161; 97535; G0283

== ENCOUNTER → 2020-11-19 07:10 | Outpatient (CLI) | payer OTHER, MEDICAID, SELFPAY ==
--- NOTE | 2020-11-19 07:11 | DI.MRI.S_ITS ---
PROCEDURE: MR CERVICAL SPINE WO CON INDICATIONS: Issues/Notes: Pt states that it is not clear to him what inf TECHNIQUE: Noncontrast sagittal T1 spin echo and T2 fast spin echo, sagittal STIR, foraminal oblique sagittal T2 fast spin echo, and axial gradient echo or T2 fast spin echo through the cervical spine. COMPARISON: [facility], CR, XR CERVICAL SPINE 2V OR 3V, 06/13/2020, 14:23. FINDINGS: Image quality: Excellent. Alignment and Curvature: There is normal bony alignment. Bone Marrow: Marrow demonstrates normal overall signal. There is mild reactive signal within the endplates adjacent to the C4-C5 and C5-C6 intervertebral disc. Coalition of C6-C7. Spinal Cord: Visualized spinal cord has normal size and signal. No cerebellar tonsillar herniation. Paraspinous Soft Tissues: No paravertebral masses. Prevertebral soft tissues are normal in thickness. C2-C3: Congenital canal stenosis. Overall mild canal stenosis. No foraminal stenosis. C3-C4: Congenital canal stenosis. Mild facet and uncovertebral hypertrophy bilaterally. Overall mild canal stenosis. Mild left greater than right foraminal stenosis. C4-C5: Congenital canal stenosis. Mild facet and uncovertebral hypertrophy bilaterally. Overall mild canal stenosis and mild bilateral foraminal stenosis. C5-C6: Congenital canal stenosis. Mild disc desiccation and diffuse disc bulge. Mild facet and uncovertebral hypertrophy bilaterally. There is overall moderate canal stenosis. Severe right and mild left foraminal stenosis. Right C6 nerve root compression. C6-C7: Coalition. Congenital canal stenosis. No significant canal, or foraminal stenosis. C7-T1: Congenital canal stenosis. Mild disc desiccation and diffuse disc bulge. Mild facet and uncovertebral hypertrophy bilaterally. Mild canal stenosis. Mild left greater than right foraminal stenosis. IMPRESSION: 1. 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 2. Multilevel canal stenoses, worst at C5-C6, where there is moderate canal stenosis. 3. Multilevel foraminal stenoses, worst at C5-C6 where there is associated intraforaminal nerve root compression. Recommend correlation with clinical symptoms to ascertain relevance of this finding. Dictated by: Bhavesh Doty M.D. on 11/19/2020 at 10:05 Approved by: Bhavesh Doty M.D. on 11/19/2020 at 10:19
== END ==
PROVIDERS: Family Provider Student in an Organized Health Care Education/Training Program; PCP Student in an Organized Health Care Education/Training Program; Referring Provider Student in an Organized Health Care Education/Training Program; Visit Provider Student in an Organized Health Care Education/Training Program
DX: R20.2 Paresthesia of skin (principal); M48.02 Spinal stenosis, cervical region
CPT/HCPCS: 72141

== ENCOUNTER 2021-10-18 19:08 | Emergency (ER) | payer OTHER, MEDICAID, SELFPAY ==
[2021-10-18 19:11] VITALS: BP 138/86; PULSE 86; RESP 18; TEMP 36.7; O2SAT 98; BMI 21.6
--- NOTE | 2021-10-18 19:19 | ED_ITS ---
HPI - Back Pain/Injury General Chief Complaint: Back Pain/Injury Stated Complaint: back pain s/p fall 8 days ago Time Seen by Provider: 10/18/21 19:16 History of Present Illness HPI Narrative: 26M daily smoker with no significant or chronic medical problems presents with ongoing midline back pain since a fall about 9 days ago. He states that he was skateboarding and fell backwards 4-5 feet landing on his midline back. He denies any head or neck pain. He denies any loss of control of bowel or bladder. He denies any radiation of the pain down into his legs. He denies any numbness, tingling or weakness. He states that his pain is severe if he moves and improves with rest. Related Data Previous Rx's Medication Instructions Recorded hydroxyzine HCl 25 mg tablet 25 mg PO TID PRN anxiety #90 tabs 05/15/20 naloxone 1 mg/mL injection syringe 1 mg IM Q2M PRN opioid overdose #2 09/18/20 mL fluoxetine 20 mg capsule 60 mg PO DAILY #90 caps 01/08/21 trazodone 50 mg tablet 50 - 100 mg PO BEDTIME #90 tabs 03/05/21 hydrocodone 10 mg-acetaminophen 1 tab PO Q8H PRN pain #84 tabs 10/07/21 325 mg tablet Allergies Allergy/AdvReac Type Severity Reaction Status Date / Time metoclopramide AdvReac Mild LEG Verified 06/06/21 10:49 PROBLEMS Review of Systems Review of Systems Narrative: GENERAL: Denies chills, fatigue, malaise, fever, sweats. HEENT: Denies sinus pain, ear pain, sore throat, difficulty swallowing, dizziness. RESPIRATORY: Denies dyspnea, cough, wheezing, hemoptysis, sputum. CARDIOVASCULAR: Denies chest pain, palpitations, orthopnea, edema, GASTROINTESTINAL: Denies nausea, vomiting, abdominal pain, diarrhea, constipation, melena. : Denies dysuria, frequency, incontinence, hematuria, urinary retention. MUSCULOSKELETAL: See HPI SKIN: Denies rash, skin lesions, or other NEUROLOGIC: Denies weakness, headache, numbness, change in speech, confusion, seizures, incoordination. PSYCHIATRIC: No concerning psychosocial issues. 12 point review of systems is negative except for those stated above Patient History Medical History Accidental overdose Acetaminophen abuse Acne Anxiety associated with depression (~2006) Depression History of frequent headaches Insomnia Migraines (~2004) Orbital tumor Psoriasis Surgical History Anesthesia History of eye surgery Family History Mother Diabetes mellitus History of heart disease Hypertension Hyperlipidemia Grandfather Kidney failure Grandfather Cancer Grandmother No problems noted. Social History Smoking Status: Current some day smoker second hand exposure: No alcohol intake: never substance use type: marijuana (DAILY) Smoking Status: Current some day smoker alcohol intake frequency: holidays/special occasions only Substance Use Type: marijuana Exam Narrative Exam Narrative: GENERAL: [26] year old patient appears stated age. Well-developed patient, in mild distress. GCS 15 HEAD: Atraumatic. Normocephalic. EYES: Pupils equal round and reactive. Extraocular motions intact. No scleral icterus. No injection or drainage. ENT: Nose without bleeding, purulent drainage. Throat without erythema, tonsillar hypertrophy or exudate. Airway patent. NECK: Trachea midline. Non tender CARDIOVASCULAR: Regular rate and rhythm without murmurs, gallops, or rubs. RESPIRATORY: Clear to auscultation. Breath sounds equal bilaterally. No wheezes, rales, or rhonchi. GASTROINTESTINAL: Abdomen soft, non-tender, nondistended. EXTREMITIES: No edema or joint tenderness. BACK: Midline tenderness in the mid lumbar spine, no step-offs, crepitance or notable edema. No saddle anesthesia. Bilateral lower extremity reflexes 2+, muscle strength 5/5 NEURO: AOx3. SKIN: No rash or erythema of visible areas Initial Vital Signs Initial Vital Signs: Vital Signs Temperature 98.0 F 10/18/21 19:11 Pulse Rate 86 10/18/21 19:11 Respiratory Rate 18 10/18/21 19:11 Blood Pressure 138/86 10/18/21 19:11 Pulse Oximetry 98 10/18/21 19:11 Oxygen Delivery Method 10/18/21 19:11 Course Course Course Narrative: giving ongoing pain, and presence of hematuria will order advanced imaging Orders Ordered: ED Orders 10/18/21 19:19 XR lumbar spine 2-3V Stat 10/18/21 19:20 Ictotest Urine Stat Urine Culture Stat Urine Microscopic Stat 10/18/21 19:55 CT abdomen pelvis w con Stat 10/18/21 19:58 Basic Metabolic Panel Stat Complete Blood Count AUTO DIFF Stat Discontinued Medications Hydrocodone Bitart/Acetaminophen (Hydrocodone/Acet 5/325 Prepack) 1 bottle MISC SEEINSTR ONE Stop: 10/18/21 21:09 Last Admin: 10/18/21 21:16 Dose: 1 bottle Documented By: ERIC Ketorolac Tromethamine (Ketorolac 30 Mg/Ml Vial) 15 mg IV NOW ONE Stop: 10/18/21 20:08 Last Admin: 10/18/21 20:15 Dose: 15 mg Documented By: ISAIAS Vital Signs Vital signs: Vital Signs - 8 hr 10/18/21 19:11 10/18/21 21:16 Temperature 98.0 F Pulse Rate 86 72 Respiratory Rate 18 16 Blood Pressure 138/86 128/76 Pulse Oximetry 98 98 Oxygen Delivery Method Room Air Room Air MDM - Back Pain/Injury Lab Data Result diagrams: 10/18/21 19:58 10/18/21 19:58 Labs: Lab Results 10/18/21 10/18/21 10/18/21 Range/Units 19:20 19:20 19:58 WBC 7.7 (4.5-11.0) X10^3/uL RBC 5.24 (4.5-5.9) X10^6/uL Hgb 15.3 (13.5-17.5) g/dL Hct 45.2 (41-53) % MCV 86.3 (80-100) fL MCH 29.1 (26-34) PG MCHC 33.8 (30-36) % RDW 13.5 (11.6-14.8) % Plt Count 333 (150-400) X10^3/uL Neut % (Auto) 67.9 (50-75) % Lymph % (Auto) 23.5 L (25-40) % [place] % (Auto) 7.2 (3-14) % Eos % (Auto) 0.4 L (2-4) % Baso % (Auto) 1.0 (0-2) % Neut # (Auto) 5200 (6390-9814) /uL Lymph # (Auto) 1800 (8529-6285) /uL [place] # (Auto) 600 (0-900) /uL Eos # (Auto) 0 (0-450) /uL Baso # (Auto) 100 (0-100) /uL Sodium (137-145) mmol/L Potassium (3.4-5.1) mmol/L Chloride (98-107) mmol/L Carbon Dioxide (22-32) mmol/L BUN (9-20) mg/dL Creatinine (0.66-1.25) mg/dL Estimated GFR (>60) mL/min BUN/Creatinine Ratio (6-22) Glucose (70-100) mg/dL Calcium (8.4-10.2) mg/dL Ur Bilirubin Confirm Negative (Negative) Urine RBC 10-30/hpf H (0-5/HPF) Urine WBC 1-5/hpf (0-5/HPF) Ur Squamous Epith Cells 1-5 /hpf (0-5/HPF) Amorphous Sediment 1+ Urine Bacteria Occasional (0-1) (None) Urine Mucus 1+ H (Negative) Ur Culture Indicated? Culture not indicate 10/18/21 Range/Units 19:58 WBC (4.5-11.0) X10^3/uL RBC (4.5-5.9) X10^6/uL Hgb (13.5-17.5) g/dL Hct (41-53) % MCV (80-100) fL MCH (26-34) PG MCHC (30-36) % RDW (11.6-14.8) % Plt Count (150-400) X10^3/uL Neut % (Auto) (50-75) % Lymph % (Auto) (25-40) % [place] % (Auto) (3-14) % Eos % (Auto) (2-4) % Baso % (Auto) (0-2) % Neut # (Auto) (5604-4912) /uL Lymph # (Auto) (9884-4794) /uL [place] # (Auto) (0-900) /uL Eos # (Auto) (0-450) /uL Baso # (Auto) (0-100) /uL Sodium 139 (137-145) mmol/L Potassium 3.9 (3.4-5.1) mmol/L Chloride 98 (98-107) mmol/L Carbon Dioxide 28 (22-32) mmol/L BUN 22 H (9-20) mg/dL Creatinine 0.89 (0.66-1.25) mg/dL Estimated GFR > 60 (>60) mL/min BUN/Creatinine Ratio 24.7 H (6-22) Glucose 100 (70-100) mg/dL Calcium 9.5 (8.4-10.2) mg/dL Ur Bilirubin Confirm (Negative) Urine RBC (0-5/HPF) Urine WBC (0-5/HPF) Ur Squamous Epith Cells (0-5/HPF) Amorphous Sediment Urine Bacteria (None) Urine Mucus (Negative) Ur Culture Indicated? Urine Dip Bedside Urine Glucose Negative Bedside Urine Bilirubin ++ 2 Bedside Urine Ketone +/- 5 Urine Specific [place] 1.015 Bedside Urine Occult Blood +/- Bedside Urine pH 6.5 Bedside Urine Protein + 30 Bedside Urine Urobilinogen - Negative Bedside Urine Nitrite - Negative Bedside Urine Leukocytes - Negative Esterase Imaging Data CT scan - abdomen/pelvis: Radiologist's Impression: [address] [address] [address] Scan Report Signed Patient: Luc Fuentes Jr MR#: [id number] : 09/16/1996 Acct:[id number] Age/Sex: 25 / M Date of Service: 10/18/21 Loc: ED Accession Number: [id number] ?? Procedure: CT LE LT w con Ordering Provider: Yanick Mays D.O. PROCEDURE: CT LE LT W CON ? COMPARISON: None. ? INDICATIONS: pain, swelling redness L medial thigh. Hematoma, infection ? TECHNIQUE:? Axial CT images obtained through the left thigh.? Coronal and sa gittal reformations and soft tissue windows. ? FINDINGS: ? Bones:? Intact osseous structures.? Normal cortex without periostitis. ? Soft tissues:? There is a focal area of moderate soft tissue edema along the medial aspect of the left thigh.? There is fluid layering along the superficial fascial surface. ?No deep fascial fluid.? The underlying musculature appears normal in bulk and attenuation.? The underlying vasculature appears normal.? In the inguinal region there are mildly prominent lymph nodes.? Mildly prominent lymph nodes extend into the external iliac chain.? There are no drainable fluid collections, foreign bodies, or soft tissue gas. ? IMPRESSION: ? 1. Focal injury to the subcutaneous tissues in the medial left thigh with und erlying edema and fascial fluid.? This is most likely an organizing contusion/hematoma.? No drainable fluid collections.? No underlying muscular, vascular, or osseous abnormalities. ? 2. Mildly prominent left inguinal lymph nodes consistent with reactive adenopathy. ? 3. There is no visible overlying skin thickening to suggest significant cellulitis though infection cannot be excluded.? Dictated by: Karen Mejia M.D. on 10/18/2021 at 20:33 ? ? Approved by: Karen Mejia M.D. on 10/18/2021 at 20:38 ? L Spine: Radiologist's Impression: [address] [address] XRay Report Signed Patient: Constantin Vasquez MR#: [id number] : 1995 Acct:[id number] Age/Sex: 26 / M Date of Service: 10/18/21 Loc: ED Accession Number: [id number] ?? Procedure: XR lumbar spine 2-3V Ordering Provider: Yanick Mays D.O. PROCEDURE:? XR LUMBAR SPINE 2-3V ? INDICATIONS:? fall with midline pain ? TECHNIQUE:? 3 views of the lumbar spine were acquired.? ? COMPARISON:? [facility], CT, ABDOMEN/PELVIS WITH CONTRAST, 10/24/2011, 21:24.? [facility], CR, XR LUMBAR SPINE 2-3V, 06/13/2020, 14:23. ? FINDINGS:? ? Bones:? 5 [id number] vertebrae are present.? There is minimal retroli sthesis at L5-S1.? ? No vertebral body compression fractures.? No suspicious bony lesions.? The disc heights are well preserved. ? Soft tissues:? Overlying bowel gas pattern is normal.? No suspicious soft tissue calcifications.? ? ? IMPRESSION:? Negative for acute fracture by plain film. ? Minimal retrolisthesis is again seen at the L5-S1 level.? ? Dictated by: Daniel Regan M.D. on 10/18/2021 at 19:12 ? ? Approved by: Daniel Regan M.D. on 10/18/2021 at 19:13 ? Discharge Plan Departure Patient Disposition: Home Clinical Impression: Lumbar contusion Activity Restrictions/Additional Instructions: *You have been diagnosed with [lumbar contusion. As we discussed your x-ray and CT scans are very reassuring and there is no evidence of fracture or internal bleeding] *What to do: *Please continue to take your regular medications as directed. [ ] New medication prescriptions sent to your pharmacy: [ ] [ ] New medication written as a paper prescription [x ] No new medications given *Please follow up with your primary care provider in 2-3 days, call for an appointment. Let them know you were seen in the Emergency Department and that we ask that you be seen in follow up. We will electronically transmit a record of today's note if your PCP is in our system *If you do not have a primary care provider please contact the [facility] Resource line at [phone]. They will ask some questions about your medical history and help get you set up with a doctor in the community. *Return to Emergency Department if you should have any new, worsening or concerning symptoms, such as [fever greater than 101 F, shaking chills, worsening pain, persistent vomiting or other bothersome symptoms] Prescriptions: No Action fluoxetine 20 mg capsule 60 mg PO DAILY Qty: 90 5RF trazodone 50 mg tablet 50 - 100 mg PO BEDTIME Qty: 90 3RF hydrocodone-acetaminophen 10-325 mg tablet 1 tab PO Q8H PRN (Reason: pain) Qty: 84 0RF Rx Instructions: EXEMPT hydroxyzine HCl 25 mg tablet 25 mg PO TID PRN (Reason: anxiety) Qty: 90 11RF naloxone 1 mg/mL syringe 1 mg IM Q2M PRN (Reason: opioid overdose) Qty: 2 11RF Rx Instructions: NTExceed 10 mg total dose/episode Referrals: Ephraim Platt MD [Primary Care Provider] - Visit Report Forms: Patient Portal/API
--- NOTE | 2021-10-18 19:19 | DI.RAD.S_ITS ---
PROCEDURE: XR LUMBAR SPINE 2-3V INDICATIONS: fall with midline pain TECHNIQUE: 3 views of the lumbar spine were acquired. COMPARISON: [facility], CT, ABDOMEN/PELVIS WITH CONTRAST, 10/24/2011, 21:24. [facility], CR, XR LUMBAR SPINE 2-3V, 06/13/2020, 14:23. FINDINGS: Bones: 5 [id number] vertebrae are present. There is minimal retrolisthesis at L5-S1. No vertebral body compression fractures. No suspicious bony lesions. The disc heights are well preserved. Soft tissues: Overlying bowel gas pattern is normal. No suspicious soft tissue calcifications. IMPRESSION: Negative for acute fracture by plain film. Minimal retrolisthesis is again seen at the L5-S1 level. Dictated by: Daniel Regan M.D. on 10/18/2021 at 19:12 Approved by: Daniel Regan M.D. on 10/18/2021 at 19:13
[2021-10-18 19:43] LABS: Ictotest Urine Negative (Negative)
[2021-10-18 19:45] LABS: Amorphous Sediment Urine 1+; Bacteria Urine Occasional (0-1); Mucus Urine 1+ (Negative); RBC Urine 10-30/HPF (0-5/HPF); Squamous Epithelial Cell Urine 1-5 /HPF (0-5/HPF); WBC Urine 1-5/HPF (0-5/HPF)
--- NOTE | 2021-10-18 19:55 | DI.CT.S_ITS ---
PROCEDURE: CT ABDOMEN PELVIS W CON INDICATIONS: trauma, fall, hematuria, midline pain TECHNIQUE: After the administration of intravenous contrast, 5 mm thick sections acquired from the diaphragms to the symphysis. 2.5 mm thick coronal and sagittal reformats were acquired. Optional 10-minute delayed imaging may be performed from the kidneys to the bladder. For radiation dose reduction, the following was used: automated exposure control, adjustment of mA and/or kV according to patient size. COMPARISON: [facility], CT, ABDOMEN/PELVIS WITH CONTRAST, 10/24/2011, 21:24. [facility], CR, XR LUMBAR SPINE 2-3V, 10/18/2021, 19:09. FINDINGS: Image quality: Excellent. ABDOMEN: Lung bases: Lung bases are clear. Heart size is normal. No pericardial effusion. Inferior ribs are intact. No basal pleural effusions or pneumothorax. Solid organs: Liver is normal in size and enhancement, without lacerations. Gallbladder wall is not thickened . Biliary system is non-dilated. Pancreas enhances normally, without transection. Spleen is normal in size and enhancement, without lacerations. No adrenal hematomas. Both kidneys enhance normally, without hydronephrosis or lacerations. Peritoneum and bowel: No free fluid or air. Unenhanced bowel loops demonstrate normal wall thickness and caliber. Nodes and vessels: No retroperitoneal or mesenteric adenopathy. Aorta and inferior vena cava are normal in size and enhancement. Miscellaneous: A mild periumbilical hernia is seen, containing fat. PELVIS: Genitourinary: Bladder wall thickness is normal. Miscellaneous: No inguinal hernias or adenopathy. Bones: Pelvic ring and hip joints appear intact. No vertebral compression fractures. Mild dextroconvex scoliotic curvature is seen. IMPRESSION: Negative for fracture. No solid organ injury can be seen. No ascites or free air can be seen. Incidental note is made of: Mild dextroconvex scoliotic curvature Mild fat containing periumbilical hernia Dictated by: Daniel Regan M.D. on 10/18/2021 at 19:59 Approved by: Daniel Regan M.D. on 10/18/2021 at 20:01
[2021-10-18 20:09] LABS: Add Manual Diff / Slide Review NO; Basophils Absolute Auto 100 /uL (0-100); Eosinophils Absolute Auto 0 /uL (0-450); Eosinophils Percent Auto 0.4 % (2-4); Hematocrit 45.2 % (41-53); Hemoglobin 15.3 g/dL (13.5-17.5); Lymphocytes Absolute Auto 1800 /uL (1100-4500); Lymphocytes Percent Auto 23.5 % (25-40); Mean Corpuscular HGB Conc 33.8 % (30-36); Mean Corpuscular Hemoglobin 29.1 PG (26-34); Mean Corpuscular Volume 86.3 fL (80-100); Monocytes Absolute Auto 600 /uL (0-900); Monocytes Percent Auto 7.2 % (3-14); Neutrophils Absolute Auto 5200 /uL (1500-7000); Neutrophils Percent Auto 67.9 % (50-75); Platelet Count 333 X10^3/uL (150-400); Red Blood Cell Count 5.24 X10^6/uL (4.5-5.9); Red Cell Distribution Width 13.5 % (11.6-14.8); White Blood Cell Count 7.7 X10^3/uL (4.5-11.0)
[2021-10-18] MEDS: KETOROLAC 30 MG/ML VIAL 15 MG IV (20:15)
[2021-10-18 20:29] LABS: BUN Creatinine Ratio 24.7 (6-22); Blood Urea Nitrogen 22 mg/dL (9-20); Calcium 9.5 mg/dL (8.4-10.2); Carbon Dioxide 28 mmol/L (22-32); Chloride 98 mmol/L (98-107); Estimated Glomerular Filt Rate > 60 mL/min (>60); Glucose 100 mg/dL (70-100); HEMOLYSIS < 15 (0-50); Potassium 3.9 mmol/L (3.4-5.1); Sodium 139 mmol/L (137-145)
[2021-10-18 21:16] VITALS: BP 128/76; PULSE 72; RESP 16; O2SAT 98
[2021-10-18] MEDS: HYDROCODONE/ACET 5/325 PREPACK 1 BOTTLE MISC (21:16)
== END 2021-10-18 21:17 | disposition home or self-care (01) ==
PROVIDERS: Emergency Provider Emergency Medicine; Family Provider Student in an Organized Health Care Education/Training Program; PCP Student in an Organized Health Care Education/Training Program
DX: S30.0XXA Contusion of lower back and pelvis, initial encounter (principal); V00.131A Fall from skateboard, initial encounter
CPT/HCPCS: 36415; 72100; 74177; 80048; 81003; 81015; 85025; 87086; 96374; 99284; J1885

== ENCOUNTER 2021-11-14 11:23 | Emergency (ER) | payer OTHER, MEDICAID, SELFPAY ==
[2021-11-14 11:31] VITALS: BP 117/74; PULSE 76; RESP 14; TEMP 36.6; O2SAT 96; BMI 26.4
--- NOTE | 2021-11-14 11:35 | DI.RAD.S_ITS ---
PROCEDURE: XR WRIST RT MIN 3V INDICATIONS: wrist injury TECHNIQUE: 4 views of the wrist were acquired. COMPARISON: [facility], WRIST MINIMUM 3 VIEWS RIGHT, 05/28/2010, 13:12. [facility], WRIST MINIMUM 3 VIEWS RIGHT, 04/04/2009, 12:01. FINDINGS: Bones: No fractures or dislocations. No suspicious bony lesions. Scaphoid view: Intact. Soft tissues: No suspicious soft tissue calcifications. IMPRESSION: No acute osseous abnormality. If symptoms persist consider follow-up radiographs in 10-14 days. Dictated by: Jefferson Pollock M.D. on 11/14/2021 at 11:44 Approved by: Jefferson Pollock M.D. on 11/14/2021 at 11:46
--- NOTE | 2021-11-14 12:33 | ED.UPPEXIN ---
HPI - Extremity Injury (Upper) <DAY Jimenez - Last Filed: 11/14/21 12:44> General Chief Complaint: Extremity Injury, Upper Stated Complaint: Thinks fractured wrist Time Seen by Provider: 11/14/21 12:01 Source: patient Mode of arrival: Ambulatory History of Present Illness HPI narrative: This is a 26-year-old male who presents to the emergency department with a right wrist injury which occurred at work today. He endorses that he was holding a stack of pans by the handle when his right wrist twisted and he dropped the pans. He reports having a sharp stabbing pain in the lateral aspect of his right wrist. He is right-handed, he denies any numbness or tingling in the distal aspect of his fingertips. He denies any cold sensation or other sensation changes. He denies hearing any pops, has full range of motion of his fingertips but states that it is painful to make a tight fist. He is guarding his right wrist and denies taking any pain medication today. He denies any prior injury of this wrist, he states that he is able to flex and extend his wrist and has normal range of motion but states it is limited due to his pain. Related Data Previous Rx's Medication Instructions Recorded naloxone 1 mg/mL injection syringe 1 mg IM Q2M PRN opioid overdose #2 09/18/20 mL fluoxetine 20 mg capsule 60 mg PO DAILY #90 caps 01/08/21 trazodone 50 mg tablet 50 - 100 mg PO BEDTIME #90 tabs 03/05/21 hydrocodone 10 mg-acetaminophen 1 tab PO Q8H PRN pain #84 tabs 11/05/21 325 mg tablet doxycycline hyclate 100 mg tablet 100 mg PO BID 1 month #60 tabs 11/11/21 hydrocodone 5 mg-acetaminophen 325 1 tab PO BID PRN pain #7 tabs 11/14/21 mg tablet Allergies Allergy/AdvReac Type Severity Reaction Status Date / Time metoclopramide AdvReac Mild LEG Verified 11/14/21 11:38 PROBLEMS Review of Systems <DAY Jimenez - Last Filed: 11/14/21 12:44> Review of Systems Narrative: General: denies fever, chills, malaise, sweats, fatigue Head/Neck: denies headache, neck pain, dizziness Eyes: denies visual changes, eye pain Cardio: denies chest pain, palpitations, edema MSK: muscle weakness, endorses right wrist injury with right wrist pain and swelling, denies any other injury Skin: denies rash, itching, skin lesions or other Neuro: denies numbness, tingling Patient History <DAY Jimenez - Last Filed: 11/14/21 12:44> Medical History Accidental overdose Acetaminophen abuse Acne Anxiety associated with depression (~2006) Depression History of frequent headaches Insomnia Migraines (~2004) Orbital tumor Psoriasis Surgical History Anesthesia History of eye surgery Family History Mother Diabetes mellitus History of heart disease Hypertension Hyperlipidemia Grandfather Kidney failure Grandfather Cancer Grandmother No problems noted. Social History Smoking Status: Current some day smoker second hand exposure: No alcohol intake: never substance use type: marijuana (DAILY) Smoking Status: Current some day smoker alcohol intake frequency: 0-2 drinks per day Substance Use Type: marijuana Exam <DAY Jimenez - Last Filed: 11/14/21 12:44> Narrative Exam Narrative: Independently reviewed vitals signs and nursing notes. General: cooperative, comfortable, in no acute distress, well groomed Head: atraumatic, symmetrical facial expressions Neck: supple Eyes: equal round and reactive, EOMI, conjunctiva normal MSK: moves all extremities, neurovascularly intact, no weakness, normal tone, right wrist is mildly edematous on the ulnar aspect, radial pulses 2+, cap refill is brisk in all fingers, sensation is present in the distal fingertips and equal bilaterally, no tenderness over distal radial head or ulna, no tenderness over elbow, flexion and extension present in the right wrist without deficit. Pain is elicited with movement. No metacarpal tenderness to palpation Skin: brisk capillary refill, no rash, no erythema Neuro: normal speech and cognition, A&O x3 Psych: mental status is grossly normal, congruent mood, normal affect, pleasant and cooperative Initial Vital Signs Initial Vital Signs: Vital Signs Temperature 97.8 F 11/14/21 11:31 Pulse Rate 76 11/14/21 11:31 Respiratory Rate 14 11/14/21 11:31 Blood Pressure 117/74 11/14/21 11:31 Pulse Oximetry 96 11/14/21 11:31 Oxygen Delivery Method 11/14/21 11:31 <Lauren Sesay DO - Last Filed: 11/15/21 18:39> Initial Vital Signs Initial Vital Signs: Vital Signs Temperature 97.8 F 11/14/21 11:31 Pulse Rate 76 11/14/21 11:31 Respiratory Rate 14 11/14/21 11:31 Blood Pressure 117/74 11/14/21 11:31 Pulse Oximetry 96 11/14/21 11:31 Oxygen Delivery Method 11/14/21 11:31 Procedures <DAY Jimenez - Last Filed: 11/14/21 12:44> Orthopedic Splinting/Casting Injury #1: Side: right Upper Extremity Injury Location: wrist Upper Extremity Immobilizer: thumb spica Post splinting neuro exam: intact Post splinting vascular exam: intact Placed by: Provider Course <DAY Jimenez - Last Filed: 11/14/21 12:44> Orders Ordered: Discontinued Medications Hydrocodone Bitart/Acetaminophen (Hydrocodone/Acet 5/325 Tablet) 1 tab PO NOW ONE Stop: 11/14/21 12:30 Last Admin: 11/14/21 12:35 Dose: 1 tab Documented By: ZULMA Ketorolac Tromethamine (Ketorolac 30 Mg/Ml Vial) 15 mg IM NOW ONE Stop: 11/14/21 12:11 Last Admin: 11/14/21 12:35 Dose: 15 mg Documented By: ZULMA Vital Signs Vital signs: Vital Signs - 8 hr 11/14/21 11:31 Temperature 97.8 F Pulse Rate 76 Respiratory Rate 14 Blood Pressure 117/74 Pulse Oximetry 96 Oxygen Delivery Method Room Air <Lauren Sesay DO - Last Filed: 11/15/21 18:39> Orders Ordered: Discontinued Medications Hydrocodone Bitart/Acetaminophen (Hydrocodone/Acet 5/325 Tablet) 1 tab PO NOW ONE Stop: 11/14/21 12:30 Last Admin: 11/14/21 12:35 Dose: 1 tab Documented By: ZULMA Ketorolac Tromethamine (Ketorolac 30 Mg/Ml Vial) 15 mg IM NOW ONE Stop: 11/14/21 12:11 Last Admin: 11/14/21 12:35 Dose: 15 mg Documented By: ZULMA Vital Signs Vital signs: Vital Signs - 8 hr 11/14/21 11:31 Temperature 97.8 F Pulse Rate 76 Respiratory Rate 14 Blood Pressure 117/74 Pulse Oximetry 96 Oxygen Delivery Method Room Air MDM - Extremity Injury (Upper) <Yolande Carey [facility] - Last Filed: 11/14/21 12:44> Imaging Data Extremity x-ray #1: Radiologist's Impression: PROCEDURE:? XR WRIST RT MIN 3V ? INDICATIONS: wrist injury ? TECHNIQUE:? 4 views of the wrist were acquired.? ? COMPARISON:? [facility], WRIST MINIMUM 3 VIEWS RIGHT, 05/28/2010, 13:12.? [facility], WRIST MINIMUM 3 VIEWS RIGHT, 04/04/2009, 12:01. ? FINDINGS:? ? Bones:? No fractures or dislocations.? No suspicious bony lesions.? ? Scaphoid view:? Intact. ? Soft tissues:? No suspicious soft tissue calcifications.? ? IMPRESSION:? No acute osseous abnormality. ? ? If symptoms persist consider follow-up radiographs in 10-14 days.? ? Dictated by: Jefferson Pollock M.D. on 11/14/2021 at 11:44 ? ? Approved by: Jefferson Pollock M.D. on 11/14/2021 at 11:46 ? [facility] Narrative Medical decision making narrative: This is a 26-year-old male presents to the emergency department complaining of right wrist injury at work from a twisting injury while holding numerous pads by the handle. His right wrist x-ray is negative for osseous abnormality, on exam, he does not happened snuffbox tenderness, distal radial head tenderness, ulna tenderness, elbow pain, sensation changes, he has full range of motion but only limited due to pain. Mild edema on the ulnar aspect of his right wrist. Patient is right-handed, he was fitted in a thumb spica since he complained of pain with some movements as well. Patient was given 15 mg of IM Toradol and 5 mg of hydrocodone in the emergency department. Requests a few tabs of hydrocodone due to his prescription of hydrocodone being out. He was given seven tabs of hydrocodone 5 mg to picking tech at [place]. Patient was given contact information for [facility], encouraged to ice, elevate, rest and take the next few days off of work, follow-up with [facility] if not better in two weeks or if having limited range of motion or ongoing problems. Patient is neurovascularly intact with 2+ radial pulse and palpable ulnar pulse, cap refill is brisk. Patient is appropriate and amenable to discharge home. Vital signs are stable on repeat examination is unremarkable. Patient has been informed of results. Patient has been given strict return to ER precautions for any new or worsening symptoms. Patient understands to follow up closely with outpatient providers as instructed. Patient understands plan and agrees to discharge home. All questions and concerns answered at this time[id number]. Discharge Plan Departure Patient Disposition: Home Clinical Impression: Work related injury Right wrist sprain Qualifiers: Encounter type: initial encounter Qualified Code(s): S63.501A - Unspecified sprain of right wrist, initial encounter Instructions: DI for Wrist Sprain Activity Restrictions/Additional Instructions: *You have been diagnosed with sprain/strain of your right wrist. There are no fractures on your x-ray, this is likely inflammation and will need to rest for a couple of days. Please take the next couple of days off of work to ice, elevate, wear your splint, reduce overuse of your wrist, you can sleep in the splint as well, take ibuprofen every 6-8 hours with food and water. If you continue to have pain beyond this, add Tylenol every 6 hours. Please follow-up with [facility] if you continue to have pain or injury that limits her mobility after two weeks. If you rest, immobilize, and take good care of this sprain, it will heal faster. Do not take any ibuprofen today since you received Toradol. Remember to drink plenty of water. [id number]. *What to do: *Please continue to take your regular medications as directed. [ ] New medication prescriptions sent to your pharmacy: [ ] [ ] New medication written as a paper prescription [ x] No new medications given *Please follow up with your primary care provider in 2-3 days, call for an appointment. Let them know you were seen in the Emergency Department and that we asked that you be seen for follow-up. We will electronically transmit a record of today's note if your PCP is in our system *If you do not have a primary care provider please contact [phone] to establish care with one of the [facility] primary care providers. *Return to Emergency Department if you should have any new, worsening or concerning symptoms, such as [fever greater than 101F, chills, worsening pain, persistent vomiting or other bothersome symptoms] Prescriptions: New hydrocodone-acetaminophen 5-325 mg tablet 1 tab PO BID PRN (Reason: pain) Qty: 7 0RF No Action fluoxetine 20 mg capsule 60 mg PO DAILY Qty: 90 5RF trazodone 50 mg tablet 50 - 100 mg PO BEDTIME Qty: 90 3RF hydrocodone-acetaminophen 10-325 mg tablet 1 tab PO Q8H PRN (Reason: pain) Qty: 84 0RF Rx Instructions: EXEMPT naloxone 1 mg/mL syringe 1 mg IM Q2M PRN (Reason: opioid overdose) Qty: 2 11RF Rx Instructions: NTExceed 10 mg total dose/episode doxycycline hyclate 100 mg tablet 100 mg PO BID 30 Days Qty: 60 0RF Referrals: [facility] [Provider Group] Ephraim Platt MD [Primary Care Provider] - Stand Alone Forms: Work Release Note Visit Report Forms: Patient Portal/API <Lauren Sesay DO - Last Filed: 11/15/21 18:39> Cosign ED Attending Reanna Attestation: I was immediately available in the department for consultation. Documentation has been reviewed. Images were reviewed.
[2021-11-14] MEDS: KETOROLAC 30 MG/ML VIAL 15 MG IM (12:35)
[2021-11-14] MEDS: HYDROCODONE/ACET 5/325 TABLET 1 TAB PO (12:35)
--- NOTE | 2021-11-14 12:55 | PC.NURSE ---
Secondary assessment differed to provider assessment.
[2021-11-14 12:56] VITALS: BP 116/72; PULSE 66; RESP 20; O2SAT 97
== END 2021-11-14 12:58 | disposition home or self-care (01) ==
PROVIDERS: Emergency Provider Nurse Practitioner Critical Care Medicine; Family Provider Student in an Organized Health Care Education/Training Program; PCP Student in an Organized Health Care Education/Training Program
DX: S63.501A Unspecified sprain of right wrist, initial encounter (principal); X50.1XXA Overexertion from prolonged static or awkward postures, initial encounter; Y99.0 Civilian activity done for income or pay
CPT/HCPCS: 73110; 96372; 99283; 99284; J1885

== ENCOUNTER → 2021-12-10 16:25 | Outpatient (CLI) | payer OTHER, MEDICAID, SELFPAY ==
--- NOTE | 2021-12-10 16:28 | DI.MRI.S_ITS ---
PROCEDURE: MR THORACIC SPINE WO CON INDICATIONS: Chronic thoracic back pain not responsive to PT TECHNIQUE: Noncontrast sagittal T1 spine echo and T2 fast spin echo, sagittal STIR, and T2 fast spin echo through the thoracic spine. COMPARISON: None. FINDINGS: Image quality: Excellent. Alignment and Curvature: There is normal bony alignment. Bone Marrow: Marrow is of normal overall signal. No acute vertebral body compression fractures. Spinal Cord: Visualized spinal cord is normal in size and signal. Paraspinous Soft Tissues: No paravertebral masses. Miscellaneous: On axial images, central canal and foramina appear widely patent at all scanned levels. No significant disc pathology can be seen. IMPRESSION: No imaging explanation is found for this patient's presenting symptoms. Normal thoracic spine MRI for age, without significant central canal or neural foraminal narrowing. Dictated by: Daniel Regan M.D. on 12/11/2021 at 12:19 Approved by: Daniel Regna M.D. on 12/11/2021 at 12:21
== END ==
PROVIDERS: Family Provider Student in an Organized Health Care Education/Training Program; PCP Student in an Organized Health Care Education/Training Program; Referring Provider Student in an Organized Health Care Education/Training Program; Visit Provider Student in an Organized Health Care Education/Training Program
DX: M54.6 Pain in thoracic spine (principal); G89.29 Other chronic pain
CPT/HCPCS: 72146

== ENCOUNTER 2021-12-16 15:15 | Outpatient (RCR) | payer OTHER, MEDICAID, SELFPAY ==
--- NOTE | 2021-08-06 15:07 | PT.OIE ---
Current Diagnoses Spinal stenosis, cervical region (08/06/21) Radiculopathy, cervical region (08/06/21) Low back pain, unspecified (08/06/21) Pain in thoracic spine (08/06/21) Paresthesia of skin (08/06/21) Difficulty in walking, not elsewhere classified (08/06/21) Abnormal posture (08/06/21) Weakness (08/06/21) Past Medical History (Last Reviewed 08/11/20 @ 16:02 by Candi Can DO) Accidental overdose Acetaminophen abuse Acne Anxiety associated with depression (~2006) Depression History of eye surgery History of frequent headaches Insomnia Migraines (~2004) Orbital tumor Psoriasis Past Surgical History (Last Reviewed 08/11/20 @ 16:02 by Candi Can DO) Anesthesia History of eye surgery Visit Care Team Role Provider Type Ephraim Platt MD Attending Provider Physician Family Provider Primary Care Provider Referring Provider Specialty: Internal Medicine Address: [address] [place] [address], [address], [facility] Email: [email or web address] Physical Therapy Initial Evaluation PT-OP-A Visit Information Start: 08/05/21 17:51 Freq: Status: Active Protocol: Document 08/06/21 09:46 [facility] (Rec: 08/06/21 11:21 [facility] [id number]) Out-Patient Physical Therapy Visit Information Visit Information Visit Type Treatment Note Visit Note 24 visits per year Visit Start Time 10:38 Visit Stop Time 11:17 Total Visit Minutes 39 Visit Number 1 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 He has had chronic neck and back pain starting when he was about 15 or 16 years old and it has gotten worse over the years. Pt has seen only his computerized machine fabric cutter but has not seen any specialist. 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 He is worried about being able to dothat much work as 4 days is very exhausting. He has a lot of trouble lifting heavy crates at work. Pt did PT about 1 year ago with some relief but doesn't feel like his HEP helps enough. Unsure if doing it right. Reprots massage helps. Pt reports he skateboards to/from work but doesn't go to the [employer] because it feels like too much for him Prior Treatments and Tests PT IMPRESSION: 1. 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 2. Multilevel canal stenoses, worst at C5-C6, where there is moderate canal stenosis. 3. Multilevel foraminal stenoses, worst at C5-C6 where there is associated intraforaminal nerve root compression. Recommend correlation with clinical symptoms to ascertain relevance of this finding. IMPRESSION: Retrolisthesis at L5-S1 with foraminal narrowing. Treatment Goals Patient/Caregiver Goals Dec pain and have pain not be so bad, be able to get back to skating at [employer], be able to lift at work and be able to withstand work w/o inc pain PT-OP-C Subjective Start: 08/05/21 17:51 Freq: Status: Active Protocol: Document 08/06/21 09:46 [facility] (Rec: 08/06/21 11:21 [facility] [id number]) Patient Questionnaires Neck Disability Index NDI Score 21/50 Oswestry Low Back Index Oswestry Score 18/50 Quick Dash- Upper Extremity Quick Dash UE Score 43.18 OP-PT Pain Assessment Location low back Pain Location Details lumbar and lower thoracic Scale Used 9/10 worst, 4/10 best Description Aching,Pressure,Sharp,Stabbing Description- Other like someone squeezing Frequency Constant Variations/Patterns reprots pain in bottoms of feet does not think it is related Pain Aggravating Factors Standing,Walking,Lifting Pain Alleviating Factors Cold,Heat,Inactivity neck pain Pain Location Details post cervical & UT region Scale Used 9/10 worst; 4/10 at rest Description Aching,Sharp,Stabbing Frequency Constant Radiating Location some tingling in hands after long hard shifts that goes away a couple min a Pain Aggravating Factors Standing,Lifting Pain Alleviating Factors Cold,Heat,Inactivity,Sitting PT-OP-F Manual Assessment Start: 08/05/21 17:51 Freq: Status: Active Protocol: Document 08/06/21 09:46 [facility] (Rec: 08/06/21 11:21 [facility] [id number]) Manual Assessments Soft Tissue Assessment Soft Tissue Mobility Assessment tenderness B along spine and all ant cervical mm PT-OP-G Mobility & Gait Start: 08/05/21 17:51 Freq: Status: Active Protocol: Document 08/06/21 09:46 [facility] (Rec: 08/06/21 11:21 [facility] [id number]) OP Gait Assessment Comments Gait Comments lat lean over WB leg B, B dec shoulder ext only elbow motiion w/gait, dec push off, inc L rotation of trunk PT-OP-J Posture/Palpation/Skin Start: 08/05/21 17:51 Freq: Status: Active Protocol: Document 08/06/21 09:46 [facility] (Rec: 08/06/21 11:21 [facility] [id number]) Posture Evaluation Ashley Postural Classification System Ashley Postural Classifications Posterior/Anterior Elbow Flexion Test 1 Lumbar Protective Mechanism Left AP 0 Lumbar Protective Mechanism Right AP 0 Lumbar Protective Mechanism Left PA 1 Lumbar Protective Mechanism Right PA 0 Comments Posture Comments L>R ER of foot, inc kyphosis, very fwd head; R rotated torso PT-OP-K Range of Motion Start: 08/05/21 17:51 Freq: Status: Active Protocol: Document 08/06/21 09:46 [facility] (Rec: 08/06/21 11:21 [facility] [id number]) Cervical Spine Range of Motion Cervical Spine Active Degrees Flexion 60 Extension 35 Rotation Left 38 Rotation Right 51 Lateral Flexion Left 25 Lateral Flexion Right 29 ROM Limitations Pain Lumbar Spine Range of Motion Lumbar Spine Active Degrees Flexion 30 Extension 23 Rotation Left 46 Rotation Right 63 Lateral Flexion Left 17 Lateral Flexion Right 12 PT-OP-L Special Tests Start: 08/05/21 17:51 Freq: Status: Active Protocol: Document 08/06/21 09:46 [facility] (Rec: 08/06/21 11:21 [facility] [id number]) Special Tests Cervical Spine Special Tests Vertebral Artery Test Results mild lightheadedness initially w/movement but gets better longer in positio Comments B Alar Ligament Test Results neg Spurling's Test Test Results pain positive; traction= pressure Lumbar Spine Special Tests Straight Leg Raise Test Results 43 deg L, 51 R- HS tightness Slump Test Results b positive Neural Special Tests- Upper Body Median Nerve Tension Test Results neg B Radial Nerve Tension Test Results Neg B Ulnar Nerve Tension Test Results neg B PT-OP-M Strength Start: 08/05/21 17:51 Freq: Status: Active Protocol: Document 08/06/21 09:46 [facility] (Rec: 08/06/21 11:21 [facility] [id number]) Shoulder Strength Shoulder Manual Muscle Testing Right Flexion 3+ Fair+ Extension 4+ Good+ Abduction (C5) 3+ Fair+ External Rotation 4- Good- Internal Rotation 4- Good- Comments pain in UT (pinching) Left Flexion 3+ Fair+ Extension 4+ Good+ Abduction (C5) 3+ Fair+ External Rotation 4- Good- Internal Rotation 4- Good- Comments pain in UT (pinching) Elbow/Forearm Strength Elbow and Forearm Manual Muscle Testing Right Flexion (C6) 4- Good- Extension (C7) 4+ Good+ Left Flexion (C6) 4 Good Extension (C7) 4+ Good+ Hip Strength Hip Manual Muscle Testing Right Flexion (L2) 4- Good- Extension (S1) 3+ Fair+ Abduction 4- Good- Adduction 4- Good- External Rotation 4- Good- Internal Rotation 3+ Fair+ Left Flexion (L2) 4- Good- Extension (S1) 3+ Fair+ Abduction 4 Good Adduction 4- Good- External Rotation 4- Good- Internal Rotation 3+ Fair+ Knee Strength Knee Manual Muscle Testing Right Flexion (S2) 4 Good Extension (L3) 4 Good Left Flexion (S2) 4 Good Extension (L3) 4 Good Ankle/Foot Strength Ankle and Foot Manual Muscle Testing Right Dorsiflexion (L4) 5 Normal Plantarflexion (S1) 4+ Good+ Comments 16 heel raises Left Dorsiflexion (L4) 5 Normal Plantarflexion (S1) 4+ Good+ Comments 15 Heel raises PT-OP-T Assessment and Plan Start: 08/05/21 17:51 Freq: Status: Active Protocol: Document 08/06/21 09:46 [facility] (Rec: 08/06/21 11:21 [facility] [id number]) Physical Therapy Assessment Rehab Potential Rehabilitation Potential Good Evaluation Complexity Number of Personal Factors/Comorbidities 3 or More Number of Body Systems Impaired 4 or More Clinical Presentation at Evaluation Evolving Impairments Impairments Activity Tolerance,Balance, Functional Activities, Functional Mobility,Gait,Pain, Posture,ROM,Soft Tissue Mobility,Strength Goals MATTHEW/NDI Impairment MATTHEW 18/50; NDI 21/50 Short Term Goal (STG) Pt will improve MATTHEW score to no greater than 13/50 and NDI score to no greater than 15/50 to show improved functional ability. STG Duration 09/23/21 Outbound Telemarketer Goal (LTG) Pt will improve MATTHEW score to no greater than 8/50 and NDI score to no greater than 9/50 to show improved functional ability. LTG Duration 11/06/21 ROM Short Term Goal (STG) Pt will improve cervical flex/ ext & rotations by at least 10 deg. STG Duration 09/23/21 Outbound Telemarketer Goal (LTG) pt will have WFL ROM w/no pain w/ROM to allow pt to do all home and work activities. LTG Duration 11/05/21 posture Short Term Goal (STG) pt will be able to sit w/ improved thoracic positioning to more vertical position w/o inc pain. STG Duration 07/24/21 Outbound Telemarketer Goal (LTG) Pt will show improved posture by score of at least 3/5 on VCT to show improved postural stabiltiy in order to make standing easier for pt. LTG Duration 11/05/21 activities Short Term Goal (STG) Pt will be able to work 5 days in a row w/o pain greater 4/ 10 at end of day in neck or back. STG Duration 09/23/21 Outbound Telemarketer Goal (LTG) Pt will be able to skateboard at park and as transportation w/o inc pain greater than 3/10 . LTG Duration 11/05/21 strength Short Term Goal (STG) Pt will be indep w/HEP for cervical and core stabiltiy, UE and LE strength and flexiblity. STG Duration 09/23/21 Assisted Goal (LTG) Pt willl score at least 4+/5 on all MMT in LEs and UEs B and at least 3/5 on EFT and LPM to show improved stabiltiy in order for pt to do heavy manual job and rec activities w/o inc pain. 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 he has significantly limited ROM of spine and strength of core and UEs and LEs and imagine shows significant degeneration in cervical spine and some in lumbar spine. He has very fwd flexed posture and poor movement mechanics which likely contribute to his pain. he would benefit from skilled PT tow ork on these deficits to improve pt function and return him to a more active lifestyle w/less pain. Physical Therapy Plan Frequency and Duration Frequency of Treatment 2x/Week Duration of Treatment 3 months Plan of Care Start Date 08/06/21 Plan of Care End Date 11/05/21 Therapeutic Interventions Therapeutic Interventions Aquatic Therapy,Balance Training,Coordination Training ,Gait Training,Home Exercise Program,Joint Mobilizations, Manual Therapy,Neuromuscular Re-education,Patient/Caregiver Education,Self-Care/Home Management,Soft Tissue Mobilization,Taping, Therapeutic Activities, Therapeutic Exercises Modalities Cold Pack/Ice Massage,Electric Stimulation,Hot Packs, Infrared Therapy,Traction- Mechanical,Ultrasound Next Visit Focus/Plan Next Note Type Treatment Note Next Visit Plan open book, cat/camel, wall posture, chin tucks, child's pose & quad alt UE for HEP; STM & joint mobs to thoracic & lower cervical
--- NOTE | 2021-08-06 15:07 | PT.OPPOC ---
Physical, Occupational & Speech Therapy At [facility] Current Diagnoses Spinal stenosis, cervical region (08/06/21) Radiculopathy, cervical region (08/06/21) Low back pain, unspecified (08/06/21) Pain in thoracic spine (08/06/21) Paresthesia of skin (08/06/21) Difficulty in walking, not elsewhere classified (08/06/21) Abnormal posture (08/06/21) Weakness (08/06/21) Visit Care Team Role Provider Type Ephraim Platt MD Attending Provider Physician Family Provider Primary Care Provider Referring Provider Specialty: Internal Medicine Address: [address] [place] [address], [address], [facility] Email: [email or web address] Plan Of Care PT-OP-T Assessment and Plan Start: 08/05/21 17:51 Freq: Status: Active Protocol: Document 08/06/21 09:46 [facility] (Rec: 08/06/21 11:21 [facility] [id number]) Physical Therapy Assessment Rehab Potential Rehabilitation Potential Good Evaluation Complexity Number of Personal Factors/Comorbidities 3 or More Number of Body Systems Impaired 4 or More Clinical Presentation at Evaluation Evolving Impairments Impairments Activity Tolerance,Balance, Functional Activities, Functional Mobility,Gait,Pain, Posture,ROM,Soft Tissue Mobility,Strength Goals MATTHEW/NDI Impairment MATTHEW 18/50; NDI 21/50 Short Term Goal (STG) Pt will improve MATTHEW score to no greater than 13/50 and NDI score to no greater than 15/50 to show improved functional ability. STG Duration 09/23/21 Insurance Broker Goal (LTG) Pt will improve MATTHEW score to no greater than 8/50 and NDI score to no greater than 9/50 to show improved functional ability. LTG Duration 11/06/21 ROM Short Term Goal (STG) Pt will improve cervical flex/ ext & rotations by at least 10 deg. STG Duration 09/23/21 Insurance Broker Goal (LTG) pt will have WFL ROM w/no pain w/ROM to allow pt to do all home and work activities. LTG Duration 11/05/21 posture Short Term Goal (STG) pt will be able to sit w/ improved thoracic positioning to more vertical position w/o inc pain. STG Duration 07/24/21 Mcfp Goal (LTG) Pt will show improved posture by score of at least 3/5 on VCT to show improved postural stabiltiy in order to make standing easier for pt. LTG Duration 11/05/21 activities Short Term Goal (STG) Pt will be able to work 5 days in a row w/o pain greater 4/ 10 at end of day in neck or back. STG Duration 09/23/21 Mcfp Goal (LTG) Pt will be able to skateboard at park and as transportation w/o inc pain greater than 3/10 . LTG Duration 11/05/21 strength Short Term Goal (STG) Pt will be indep w/HEP for cervical and core stabiltiy, UE and LE strength and flexiblity. 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 he has significantly limited ROM of spine and strength of core and UEs and LEs and imagine shows significant degeneration in cervical spine and some in lumbar spine. He has very fwd flexed posture and poor movement mechanics which likely contribute to his pain. he would benefit from skilled PT tow ork on these deficits to improve pt function and return him to a more active lifestyle w/less pain. Physical Therapy Plan Frequency and Duration Frequency of Treatment 2x/Week Duration of Treatment 3 months Plan of Care Start Date 08/06/21 Plan of Care End Date 11/05/21 Therapeutic Interventions Therapeutic Interventions Aquatic Therapy,Balance Training,Coordination Training ,Gait Training,Home Exercise Program,Joint Mobilizations, Manual Therapy,Neuromuscular Re-education,Patient/Caregiver Education,Self-Care/Home Management,Soft Tissue Mobilization,Taping, Therapeutic Activities, Therapeutic Exercises Modalities Cold Pack/Ice Massage,Electric Stimulation,Hot Packs, Infrared Therapy,Traction- Mechanical,Ultrasound Next Visit Focus/Plan Next Note Type Treatment Note Next Visit Plan open book, cat/camel, wall posture, chin tucks, child's pose & quad alt UE for HEP; STM & joint mobs to thoracic & lower cervical Plan of Care Dates Plan of Care Start Date 08/06/21 Plan of Care End Date 11/05/21 Electronically Signed by: Nathaly Mancilla, PT 08/07/21 [id number] Please Sign and Return: I have reviewed this Plan of Care and certify that the skilled therapy services above are required to meet the patient?s needs. Physician Signature Date Printed Name and Credentials Clinical Instructor Signature Printed Name and Credentials
--- NOTE | 2021-08-13 14:34 | PT.OTN ---
Current Diagnoses Spinal stenosis, cervical region (08/13/21) Radiculopathy, cervical region (08/13/21) Low back pain, unspecified (08/13/21) Pain in thoracic spine (08/13/21) Paresthesia of skin (08/13/21) Difficulty in walking, not elsewhere classified (08/13/21) Abnormal posture (08/13/21) Weakness (08/13/21) Physical Therapy Treatment Note PT-OP-A Visit Information Start: 08/05/21 17:51 Freq: Status: Active Protocol: Document 08/13/21 13:55 [facility] (Rec: 08/13/21 14:34 [facility] [id number]) Out-Patient Physical Therapy Visit Information Visit Information Visit Type Treatment Note Visit Note 24 visits per year Visit Start Time 13:50 Visit Stop Time 14:30 Total Visit Minutes 40 Visit Number 2 Number of DREDGE CAPTAIN Visits 0 PT-OP-B Current Condition Start: 08/05/21 17:51 Freq: Status: Active Protocol: Document 08/06/21 09:46 [facility] (Rec: 08/06/21 11:21 [facility] [id number]) Current Condition History of Current Condition Onset Date chronic Current Complaints neck pain, back pain History of Current Condition Pt feels like his back and neck is getting worse. He has had chronic neck and back pain starting when he was about 15 or 16 years old and it has gotten worse over the years. Pt has seen only his check and transfer beader but has not seen any specialist. 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 He is worried about being able to dothat much work as 4 days is very exhausting. He has a lot of trouble lifting heavy crates at work. Pt did PT about 1 year ago with some relief but doesn't feel like his HEP helps enough. Unsure if doing it right. Reprots massage helps. Pt reports he skateboards to/from work but [place]'t go [place] [employer] [place] because it feels like too much for him Prior Treatments and Tests PT IMPRESSION: 1. 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 2. Multilevel canal stenoses, worst at C5-C6, where there is moderate canal stenosis. 3. Multilevel foraminal stenoses, worst at C5-C6 where there is associated intraforaminal nerve root compression. Recommend correlation with clinical symptoms to ascertain relevance of this finding. IMPRESSION: Retrolisthesis at L5-S1 with foraminal narrowing. Treatment Goals Patient/Caregiver Goals Dec pain and have pain not be so bad, be able to get back to skating at [employer] [place], be able to lift at work and be able to withstand work w/o inc pain PT-OP-C Subjective Start: 08/05/21 17:51 Freq: Status: Active Protocol: Document 08/13/21 13:55 [facility] (Rec: 08/13/21 14:34 [facility] [id number]) OP-PT Subjective Patient Comments Patient Comments Pt reports sore from working the 5 days a week. PT-OP-F Manual Assessment Start: 08/05/21 17:51 Freq: Status: Active Protocol: Document 08/06/21 09:46 [facility] (Rec: 08/06/21 11:21 [facility] [id number]) Manual Assessments Soft Tissue Assessment Soft Tissue Mobility Assessment tenderness B along spine and all ant cervical mm PT-OP-G Mobility & Gait Start: 08/05/21 17:51 Freq: Status: Active Protocol: Document 08/06/21 09:46 [facility] (Rec: 08/06/21 11:21 [facility] [id number]) OP Gait Assessment Comments Gait Comments lat lean over WB leg B, B dec shoulder ext only elbow motiion w/gait, dec push off, inc L rotation of trunk PT-OP-J Posture/Palpation/Skin Start: 08/05/21 17:51 Freq: Status: Active Protocol: Document 08/06/21 09:46 [facility] (Rec: 08/06/21 11:21 [facility] [id number]) Posture Evaluation Ashley Postural Classification System Ashley Postural Classifications Posterior/Anterior Elbow Flexion Test 1 Lumbar Protective Mechanism Left AP 0 Lumbar Protective Mechanism Right AP 0 Lumbar Protective Mechanism Left PA 1 Lumbar Protective Mechanism Right PA 0 Comments Posture Comments L>R ER of foot, inc kyphosis, very fwd head; R rotated torso PT-OP-K Range of Motion Start: 08/05/21 17:51 Freq: Status: Active Protocol: Document 08/06/21 09:46 [facility] (Rec: 08/06/21 11:21 [facility] [id number]) Cervical Spine Range of Motion Cervical Spine Active Degrees Flexion 60 Extension 35 Rotation Left 38 Rotation Right 51 Lateral Flexion Left 25 Lateral Flexion Right 29 ROM Limitations Pain Lumbar Spine Range of Motion Lumbar Spine Active Degrees Flexion 30 Extension 23 Rotation Left 46 Rotation Right 63 Lateral Flexion Left 17 Lateral Flexion Right 12 PT-OP-L Special Tests Start: 08/05/21 17:51 Freq: Status: Active Protocol: Document 08/06/21 09:46 [facility] (Rec: 08/06/21 11:21 [facility] [id number]) Special Tests Cervical Spine Special Tests Vertebral Artery Test Results mild lightheadedness initially w/movement but gets better longer in positio Comments B Alar Ligament Test Results neg Spurling's Test Test Results pain positive; traction= pressure Lumbar Spine Special Tests Straight Leg Raise Test Results 43 deg L, 51 R- HS tightness Slump Test Results b positive Neural Special Tests- Upper Body Median Nerve Tension Test Results neg B Radial Nerve Tension Test Results Neg B Ulnar Nerve Tension Test Results neg B PT-OP-M Strength Start: 08/05/21 17:51 Freq: Status: Active Protocol: Document 08/06/21 09:46 [facility] (Rec: 08/06/21 11:21 [facility] [id number]) Shoulder Strength Shoulder Manual Muscle Testing Right Flexion 3+ Fair+ Extension 4+ Good+ Abduction (C5) 3+ Fair+ External Rotation 4- Good- Internal Rotation 4- Good- Comments pain in UT (pinching) Left Flexion 3+ Fair+ Extension 4+ Good+ Abduction (C5) 3+ Fair+ External Rotation 4- Good- Internal Rotation 4- Good- Comments pain in UT (pinching) Elbow/Forearm Strength Elbow and Forearm Manual Muscle Testing Right Flexion (C6) 4- Good- Extension (C7) 4+ Good+ Left Flexion (C6) 4 Good Extension (C7) 4+ Good+ Hip Strength Hip Manual Muscle Testing Right Flexion (L2) 4- Good- Extension (S1) 3+ Fair+ Abduction 4- Good- Adduction 4- Good- External Rotation 4- Good- Internal Rotation 3+ Fair+ Left Flexion (L2) 4- Good- Extension (S1) 3+ Fair+ Abduction 4 Good Adduction 4- Good- External Rotation 4- Good- Internal Rotation 3+ Fair+ Knee Strength Knee Manual Muscle Testing Right Flexion (S2) 4 Good Extension (L3) 4 Good Left Flexion (S2) 4 Good Extension (L3) 4 Good Ankle/Foot Strength Ankle and Foot Manual Muscle Testing Right Dorsiflexion (L4) 5 Normal Plantarflexion (S1) 4+ Good+ Comments 16 heel raises Left Dorsiflexion (L4) 5 Normal Plantarflexion (S1) 4+ Good+ Comments 15 Heel raises PT-OP-Q Treatments Start: 08/05/21 17:51 Freq: Status: Active Protocol: Document 08/13/21 13:55 [facility] (Rec: 08/13/21 14:34 [facility] [id number]) Therapeutic Exercises Supine Exercises pelvic tilt Reps/Minutes 15 Comments tactile cues w/pelvis foam roll Supine Exercise Name 1. roll side to side 2. Habd UEs 3. UE flex 4. UE abd Side bilateral Reps/Minutes 8 min Sidelying Exercises open book Side bilateral Reps/Minutes 10 Standing Exercises wall posture Standing Exercise Name w/BUE ext to wall Side bilateral Reps/Minutes attempted but pt unable to get bakc on wall Other Exercises cat/camel Side bilateral Reps/Minutes 20 Comments max VC, demo and Tactile cues Manual Therapy Treatment Soft Tissue Mobilization cervical Body Location B UT, LS, scalenes Mobilization Type Rolling,Strumming Intensity/Depth Moderate Body Position Sitting Comments w.cervical flex paraspinals Body Location C-L Mobilization Type Rolling Intensity/Depth Moderate Body Position Sitting Comments w/fwd flex Joint Mobilizations Lumbar Joint L2 PA FM sacrum Body Position Prone Comments UPA R & caual R FM PT-OP-T Assessment and Plan Start: 08/05/21 17:51 Freq: Status: Active Protocol: Document 08/13/21 13:55 [facility] (Rec: 08/13/21 14:34 [facility] [id number]) Physical Therapy Assessment Goals MATTHEW/NDI Impairment MATTHEW 18/50; NDI 21/50 Short Term Goal (STG) Pt will improve MATTHEW score to no greater than 13/50 and NDI score to no greater than 15/50 to show improved functional ability. STG Duration 09/23/21 Gun Welder Goal (LTG) Pt will improve MATTHEW score to no greater than 8/50 and NDI score to no greater than 9/50 to show improved functional ability. LTG Duration 11/06/21 ROM Short Term Goal (STG) Pt will improve cervical flex/ ext & rotations by at least 10 deg. STG Duration 09/23/21 Fdc Goal (LTG) pt will have WFL ROM w/no pain w/ROM to allow pt to do all home and work activities. LTG Duration 11/05/21 posture Short Term Goal (STG) pt will be able to sit w/ improved thoracic positioning to more vertical position w/o inc pain. STG Duration 07/24/21 Gun Welder Goal (LTG) Pt will show improved posture by score of at least 3/5 on VCT to show improved postural stabiltiy in order to make standing easier for pt. LTG Duration 11/05/21 activities Short Term Goal (STG) Pt will be able to work 5 days in a row w/o pain greater 4/ 10 at end of day in neck or back. STG Duration 09/23/21 Fdc Goal (LTG) Pt will be able to skateboard at park and as transportation w/o inc pain greater than 3/10 . LTG Duration 11/05/21 strength Short Term Goal (STG) Pt will be indep w/HEP for cervical and core stabiltiy, UE and LE strength and flexiblity. 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 LTG Duration 11/05/21 Assessment Summary Assessment Pt required a lot of cues for body mechanics w/execises and awareness of pelvis & thoracic motion. He struggles getting into upright position and appears to lack ability to get ant pelvic tilt. Pain relief noted after manual today. Physical Therapy Plan Next Visit Focus/Plan Next Note Type Treatment Note Next Visit Plan review exercises, manual for lumbar flex, thoracic ext & cervical axial elongation
--- NOTE | 2021-08-15 11:19 | PT.OTN ---
Current Diagnoses Spinal stenosis, cervical region (08/15/21) Radiculopathy, cervical region (08/15/21) Low back pain, unspecified (08/15/21) Pain in thoracic spine (08/15/21) Paresthesia of skin (08/15/21) Difficulty in walking, not elsewhere classified (08/15/21) Abnormal posture (08/15/21) Weakness (08/15/21) Physical Therapy Treatment Note PT-OP-A Visit Information Start: 08/05/21 17:51 Freq: Status: Active Protocol: Document 08/15/21 10:37 [facility] (Rec: 08/15/21 11:19 [facility] [id number]) Out-Patient Physical Therapy Visit Information Visit Information Visit Type Treatment Note Visit Note 24 visits per year Visit Start Time 10:35 Visit Stop Time 11:15 Total Visit Minutes 40 Visit Number 3 Number of INFLATED PAD BUFFER Visits 0 PT-OP-B Current Condition Start: 08/05/21 17:51 Freq: Status: Active Protocol: Document 08/06/21 09:46 [facility] (Rec: 08/06/21 11:21 [facility] [id number]) Current Condition History of Current Condition Onset Date chronic Current Complaints neck pain, back pain History of Current Condition Pt feels like his back and neck is getting worse. He has had chronic neck and back pain starting when he was about 15 or 16 years old and it has gotten worse over the years. Pt has seen only his engineering and development director but has not seen any specialist. 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 He is worried about being able to dothat much work as 4 days is very exhausting. He has a lot of trouble lifting heavy crates at work. Pt did PT about 1 year ago with some relief but doesn't feel like his HEP helps enough. Unsure if doing it right. Reprots massage helps. Pt reports he skate[place] to/[email or web address] Prior Treatments and Tests PT IMPRESSION: 1. 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 2. Multilevel canal stenoses, worst at C5-C6, where there is moderate canal stenosis. 3. Multilevel foraminal stenoses, worst at C5-C6 where there is associated intraforaminal nerve root compression. Recommend correlation with clinical symptoms to ascertain relevance of this finding. IMPRESSION: Retrolisthesis at L5-S1 with foraminal narrowing. Treatment Goals Patient/Caregiver Goals Dec pain and have pain not be so bad, be able [place] get [place] [email or web address] [place], be able to lift at work and be able to withstand work w/o inc pain PT-OP-C Subjective Start: 08/05/21 17:51 Freq: Status: Active Protocol: Document 08/15/21 10:37 [facility] (Rec: 08/15/21 11:19 [facility] [id number]) OP-PT Subjective Patient Comments Patient Comments Pt reports feeling better after last session. NOtes it lasted a few hours. He started the open book exercise at home. PT-OP-F Manual Assessment Start: 08/05/21 17:51 Freq: Status: Active Protocol: Document 08/06/21 09:46 [facility] (Rec: 08/06/21 11:21 [facility] [id number]) Manual Assessments Soft Tissue Assessment Soft Tissue Mobility Assessment tenderness B along spine and all ant cervical mm PT-OP-G Mobility & Gait Start: 08/05/21 17:51 Freq: Status: Active Protocol: Document 08/06/21 09:46 [facility] (Rec: 08/06/21 11:21 [facility] [id number]) OP Gait Assessment Comments Gait Comments lat lean over WB leg B, B dec shoulder ext only elbow motiion w/gait, dec push off, inc L rotation of trunk PT-OP-J Posture/Palpation/Skin Start: 08/05/21 17:51 Freq: Status: Active Protocol: Document 08/06/21 09:46 [facility] (Rec: 08/06/21 11:21 [facility] [id number]) Posture Evaluation [place] Postural Classification System Ashley Postural Classifications Posterior/Anterior Elbow Flexion Test 1 Lumbar Protective Mechanism Left AP 0 Lumbar Protective Mechanism Right AP 0 Lumbar Protective Mechanism Left PA 1 Lumbar Protective Mechanism Right PA 0 Comments Posture Comments L>R ER of foot, inc kyphosis, very fwd head; R rotated torso PT-OP-K Range of Motion Start: 08/05/21 17:51 Freq: Status: Active Protocol: Document 08/06/21 09:46 [facility] (Rec: 08/06/21 11:21 [facility] [id number]) Cervical Spine Range of Motion Cervical Spine Active Degrees Flexion 60 Extension 35 Rotation Left 38 Rotation Right 51 Lateral Flexion Left 25 Lateral Flexion Right 29 ROM Limitations Pain Lumbar Spine Range of Motion Lumbar Spine Active Degrees Flexion 30 Extension 23 Rotation Left 46 Rotation Right 63 Lateral Flexion Left 17 Lateral Flexion Right 12 PT-OP-L Special Tests Start: 08/05/21 17:51 Freq: Status: Active Protocol: Document 08/06/21 09:46 [facility] (Rec: 08/06/21 11:21 [facility] [id number]) Special Tests Cervical Spine Special Tests Vertebral Artery Test Results mild lightheadedness initially w/movement but gets better longer in positio Comments B Alar Ligament Test Results neg Spurling's Test Test Results pain positive; traction= pressure Lumbar Spine Special Tests Straight Leg Raise Test Results 43 deg L, 51 R- HS tightness Slump Test Results b positive Neural Special Tests- Upper Body Median Nerve Tension Test Results neg B Radial Nerve Tension Test Results Neg B Ulnar Nerve Tension Test Results neg B PT-OP-M Strength Start: 08/05/21 17:51 Freq: Status: Active Protocol: Document 08/06/21 09:46 [facility] (Rec: 08/06/21 11:21 [facility] [id number]) Shoulder Strength Shoulder Manual Muscle Testing Right Flexion 3+ Fair+ Extension 4+ Good+ Abduction (C5) 3+ Fair+ External Rotation 4- Good- Internal Rotation 4- Good- Comments pain in UT (pinching) Left Flexion 3+ Fair+ Extension 4+ Good+ Abduction (C5) 3+ Fair+ External Rotation 4- Good- Internal Rotation 4- Good- Comments pain in UT (pinching) Elbow/Forearm Strength Elbow and Forearm Manual Muscle Testing Right Flexion (C6) 4- Good- Extension (C7) 4+ Good+ Left Flexion (C6) 4 Good Extension (C7) 4+ Good+ Hip Strength Hip Manual Muscle Testing Right Flexion (L2) 4- Good- Extension (S1) 3+ Fair+ Abduction 4- Good- Adduction 4- Good- External Rotation 4- Good- Internal Rotation 3+ Fair+ Left Flexion (L2) 4- Good- Extension (S1) 3+ Fair+ Abduction 4 Good Adduction 4- Good- External Rotation 4- Good- Internal Rotation 3+ Fair+ Knee Strength Knee Manual Muscle Testing Right Flexion (S2) 4 Good Extension (L3) 4 Good Left Flexion (S2) 4 Good Extension (L3) 4 Good Ankle/Foot Strength Ankle and Foot Manual Muscle Testing Right Dorsiflexion (L4) 5 Normal Plantarflexion (S1) 4+ Good+ Comments 16 heel raises Left Dorsiflexion (L4) 5 Normal Plantarflexion (S1) 4+ Good+ Comments 15 Heel raises PT-OP-Q Treatments Start: 08/05/21 17:51 Freq: Status: Active Protocol: Document 08/15/21 10:37 [facility] (Rec: 08/15/21 11:19 [facility] [id number]) Gym Equipment Therapeutic Ball seated Ball Size/Color green Body Position seated Reps/Duration 10 ea Comments 1. pelvic tilts 2. pelvic circles B 3. alt march w/focus on posture B Therapeutic Exercises Supine Exercises pelvic tilt Supine Exercise Name ant/post Reps/Minutes 15 Comments tactile cues w/pelvis foam roll Supine Exercise Name 1. roll side to side 2. Habd UEs 3. UE flex 4. UE abd Side bilateral Reps/Minutes 8 min Sidelying Exercises open book Side bilateral Reps/Minutes 8 Other Exercises cat/camel Side bilateral Reps/Minutes 12 Comments max VC, demo and Tactile cues Manual Therapy Treatment Soft Tissue Mobilization thigh Body Location HS & circumfential B w/active HS stretch Mobilization Type Myofascial Release,Rolling, Strumming Intensity/Depth Moderate Body Position Supine Joint Mobilizations hip Joint B Direction inf glide FM PT-OP-T Assessment and Plan Start: 08/05/21 17:51 Freq: Status: Active Protocol: Document 08/15/21 10:37 [facility] (Rec: 08/15/21 11:19 [facility] [id number]) Physical Therapy Assessment Goals MATTHEW/NDI Impairment MATTHEW 18/50; NDI 21/50 Short Term Goal (STG) Pt will improve MATTHEW score to no greater than 13/50 and NDI score to no greater than 15/50 to show improved functional ability. STG Duration 09/23/21 Usp Goal (LTG) Pt will improve MATTHEW score to no greater than 8/50 and NDI score to no greater than 9/50 to show improved functional ability. LTG Duration 11/06/21 ROM Short Term Goal (STG) Pt will improve cervical flex/ ext & rotations by at least 10 deg. STG Duration 09/23/21 [place] Measurer Goal (LTG) pt will have WFL ROM w/no pain w/ROM to allow pt to do all home and work activities. LTG Duration 11/05/21 posture Short Term Goal (STG) pt will be able to sit w/ improved thoracic positioning to more vertical position w/o inc pain. STG Duration 07/24/21 Usp Goal (LTG) Pt will show improved posture by score of at least 3/5 on VCT to show improved postural stabiltiy in order to make standing easier for pt. LTG Duration 11/05/21 activities Short Term Goal (STG) Pt will be able to work 5 days in a row w/o pain greater 4/ 10 at end of day in neck or back. STG Duration 09/23/21 [place] Measurer Goal (LTG) Pt will be able to skateboard at park and as transportation w/o inc pain greater than 3/10 . LTG Duration 11/05/21 strength Short Term Goal (STG) Pt will be indep w/HEP for cervical and core stabiltiy, UE and LE strength and flexiblity. 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 LTG Duration 11/05/21 Assessment Summary Assessment Pt did still require cues for pelvic tilts and cat/camel exercise. He did well on foam rol when talked through exercises. Pt had imrpoved ability to get into seated posture after manual and had significanlty improved comofrtable ROM hip flex and lumbar flex ROM Physical Therapy Plan Frequency and Duration Frequency of Treatment 2x/Week Duration of Treatment 3 months Plan of Care Start Date 08/06/21 Plan of Care End Date 11/05/21 Next Visit Focus/Plan Next Note Type Treatment Note Next Visit Plan review exercises as needed, manual for lumbar flex, thoracic ext & cervical axial elongation
--- NOTE | 2021-08-29 11:20 | PT.OTN ---
Current Diagnoses Spinal stenosis, cervical region (08/29/21) Radiculopathy, cervical region (08/29/21) Low back pain, unspecified (08/29/21) Pain in thoracic spine (08/29/21) Paresthesia of skin (08/29/21) Difficulty in walking, not elsewhere classified (08/29/21) Abnormal posture (08/29/21) Weakness (08/29/21) Physical Therapy Treatment Note PT-OP-A Visit Information Start: 08/05/21 17:51 Freq: Status: Active Protocol: Document 08/29/21 10:38 [facility] (Rec: 08/29/21 11:20 [facility] [id number]) Out-Patient Physical Therapy Visit Information Visit Information Visit Type Treatment Note Visit Note 24 visits per year Visit Start Time 10:37 Visit Stop Time 11:15 Total Visit Minutes 38 Visit Number 4 Number of SAS SQL DEVELOPER Visits 0 PT-OP-B Current Condition Start: 08/05/21 17:51 Freq: Status: Active Protocol: Document 08/06/21 09:46 [facility] (Rec: 08/06/21 11:21 [facility] [id number]) Current Condition History of Current Condition Onset Date chronic Current Complaints neck pain, back pain History of Current Condition Pt feels like his back and neck is getting worse. He has had chronic neck and back pain starting when he was about 15 or 16 years old and it has gotten worse over the years. Pt has seen only his web content specialist but has not seen any specialist. 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 He is worried about being able to dothat much work as 4 days is very exhausting. He has a lot of trouble lifting heavy crates at work. Pt did PT about 1 year ago with some relief but doesn't feel like his HEP helps enough. Unsure if doing it right. Reprots massage helps. Pt reports he skateboards to/from work but [place] [employer] [place] because it feels like too much for him Prior Treatments and Tests PT IMPRESSION: 1. 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 2. Multilevel canal stenoses, worst at C5-C6, where there is moderate canal stenosis. 3. Multilevel foraminal stenoses, worst at C5-C6 where there is associated intraforaminal nerve root compression. Recommend correlation with clinical symptoms to ascertain relevance of this finding. IMPRESSION: Retrolisthesis at L5-S1 with foraminal narrowing. Treatment Goals Patient/Caregiver Goals Dec pain and have pain not be so bad, be able to get back to skating [place], be able to lift at work and be able to withstand work w/o inc pain PT-OP-C Subjective Start: 08/05/21 17:51 Freq: Status: Active Protocol: Document 08/29/21 10:38 [facility] (Rec: 08/29/21 11:20 [facility] [id number]) OP-PT Subjective Patient Comments Patient Comments Pt reports he works 5 days in a row now. He has been out with [employer]. He was unable to do his exercises since last session much. PT-OP-F Manual Assessment Start: 08/05/21 17:51 Freq: Status: Active Protocol: Document 08/06/21 09:46 [facility] (Rec: 08/06/21 11:21 [facility] [id number]) Manual Assessments Soft Tissue Assessment Soft Tissue Mobility Assessment tenderness B along spine and all ant cervical mm PT-OP-G Mobility & Gait Start: 08/05/21 17:51 Freq: Status: Active Protocol: Document 08/06/21 09:46 [facility] (Rec: 08/06/21 11:21 [facility] [id number]) OP Gait Assessment Comments Gait Comments lat lean over WB leg B, B dec shoulder ext only elbow motiion w/gait, dec push off, inc L rotation of trunk PT-OP-J Posture/Palpation/Skin Start: 08/05/21 17:51 Freq: Status: Active Protocol: Document 08/06/21 09:46 [facility] (Rec: 08/06/21 11:21 [facility] [id number]) Posture Evaluation Ashley Postural Classification System Ashley Postural Classifications Posterior/Anterior Elbow Flexion Test 1 Lumbar Protective Mechanism Left AP 0 Lumbar Protective Mechanism Right AP 0 Lumbar Protective Mechanism Left PA 1 Lumbar Protective Mechanism Right PA 0 Comments Posture Comments L>R ER of foot, inc kyphosis, very fwd head; R rotated torso PT-OP-K Range of Motion Start: 08/05/21 17:51 Freq: Status: Active Protocol: Document 08/06/21 09:46 [facility] (Rec: 08/06/21 11:21 [facility] [id number]) Cervical Spine Range of Motion Cervical Spine Active Degrees Flexion 60 Extension 35 Rotation Left 38 Rotation Right 51 Lateral Flexion Left 25 Lateral Flexion Right 29 ROM Limitations Pain Lumbar Spine Range of Motion Lumbar Spine Active Degrees Flexion 30 Extension 23 Rotation Left 46 Rotation Right 63 Lateral Flexion Left 17 Lateral Flexion Right 12 PT-OP-L Special Tests Start: 08/05/21 17:51 Freq: Status: Active Protocol: Document 08/06/21 09:46 [facility] (Rec: 08/06/21 11:21 [facility] [id number]) Special Tests Cervical Spine Special Tests Vertebral Artery Test Results mild lightheadedness initially w/movement but gets better longer in positio Comments B Alar Ligament Test Results neg Spurling's Test Test Results pain positive; traction= pressure Lumbar Spine Special Tests Straight Leg Raise Test Results 43 deg L, 51 R- HS tightness Slump Test Results b positive Neural Special Tests- Upper Body Median Nerve Tension Test Results neg B Radial Nerve Tension Test Results Neg B Ulnar Nerve Tension Test Results neg B PT-OP-M Strength Start: 08/05/21 17:51 Freq: Status: Active Protocol: Document 08/06/21 09:46 [facility] (Rec: 08/06/21 11:21 [facility] [id number]) Shoulder Strength Shoulder Manual Muscle Testing Right Flexion 3+ Fair+ Extension 4+ Good+ Abduction (C5) 3+ Fair+ External Rotation 4- Good- Internal Rotation 4- Good- Comments pain in UT (pinching) Left Flexion 3+ Fair+ Extension 4+ Good+ Abduction (C5) 3+ Fair+ External Rotation 4- Good- Internal Rotation 4- Good- Comments pain in UT (pinching) Elbow/Forearm Strength Elbow and Forearm Manual Muscle Testing Right Flexion (C6) 4- Good- Extension (C7) 4+ Good+ Left Flexion (C6) 4 Good Extension (C7) 4+ Good+ Hip Strength Hip Manual Muscle Testing Right Flexion (L2) 4- Good- Extension (S1) 3+ Fair+ Abduction 4- Good- Adduction 4- Good- External Rotation 4- Good- Internal Rotation 3+ Fair+ Left Flexion (L2) 4- Good- Extension (S1) 3+ Fair+ Abduction 4 Good Adduction 4- Good- External Rotation 4- Good- Internal Rotation 3+ Fair+ Knee Strength Knee Manual Muscle Testing Right Flexion (S2) 4 Good Extension (L3) 4 Good Left Flexion (S2) 4 Good Extension (L3) 4 Good Ankle/Foot Strength Ankle and Foot Manual Muscle Testing Right Dorsiflexion (L4) 5 Normal Plantarflexion (S1) 4+ Good+ Comments 16 heel raises Left Dorsiflexion (L4) 5 Normal Plantarflexion (S1) 4+ Good+ Comments 15 Heel raises PT-OP-Q Treatments Start: 08/05/21 17:51 Freq: Status: Active Protocol: Document 08/29/21 10:38 [facility] (Rec: 08/29/21 11:20 [facility] [id number]) Therapeutic Exercises Supine Exercises pelvic tilt Supine Exercise Name ant/post Reps/Minutes 15 Comments tactile cues w/pelvis foam roll Supine Exercise Name 1. roll side to side 2. Habd UEs 3. UE flex 4. UE abd Side bilateral Reps/Minutes 5 min Prone Exercises plank Side bilateral Reps/Minutes 2x15 sec Comments cues for back, neck and scap position Sidelying Exercises open book Side bilateral Reps/Minutes 8 Sitting Exercises chin tuck Side bilateral Reps/Minutes 10 Other Exercises quadruped Other Exercise Name alt hip ext Side bilateral Reps/Minutes 10 Comments cues for neck position cat/camel Side bilateral Reps/Minutes 15 Comments max VC, demo and Tactile cues Manual Therapy Treatment Soft Tissue Mobilization cervical Body Location B UT, LS, scalenes Mobilization Type Rolling,Strumming Intensity/Depth Moderate Body Position Sitting Comments w.cervical chin tuck Joint Mobilizations rib Comments R 1st inf FM thoracic Comments R T1 transverse FM L T2 & T3 transverse FM cervical Comments L AP FM C7 Transverse C2 R FM Trasverse C4 L FM PT-OP-T Assessment and Plan Start: 08/05/21 17:51 Freq: Status: Active Protocol: Document 08/29/21 10:38 [facility] (Rec: 08/29/21 11:20 [facility] [id number]) Physical Therapy Assessment Goals MATTHEW/NDI Impairment MATTHEW 18/50; NDI 21/50 Short Term Goal (STG) Pt will improve MATTHEW score to no greater than 13/50 and NDI score to no greater than 15/50 to show improved functional ability. STG Duration 09/23/21 Pipe Supervisor Goal (LTG) Pt will improve MATTHEW score to no greater than 8/50 and NDI score to no greater than 9/50 to show improved functional ability. LTG Duration 11/06/21 ROM Short Term Goal (STG) Pt will improve cervical flex/ ext & rotations by at least 10 deg. STG Duration 09/23/21 Jail Goal (LTG) pt will have WFL ROM w/no pain w/ROM to allow pt to do all home and work activities. LTG Duration 11/05/21 posture Short Term Goal (STG) pt will be able to sit w/ improved thoracic positioning to more vertical position w/o inc pain. STG Duration 07/24/21 Pipe Supervisor Goal (LTG) Pt will show improved posture by score of at least 3/5 on VCT to show improved postural stabiltiy in order to make standing easier for pt. LTG Duration 11/05/21 activities Short Term Goal (STG) Pt will be able to work 5 days in a row w/o pain greater 4/ 10 at end of day in neck or back. STG Duration 09/23/21 Jail Goal (LTG) Pt will be able to skateboard at park and as transportation w/o inc pain greater than 3/10 . LTG Duration 11/05/21 strength Short Term Goal (STG) Pt will be indep w/HEP for cervical and core stabiltiy, UE and LE strength and flexiblity. 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 LTG Duration 11/05/21 Assessment Summary Assessment Pt did still require some cueing with exercises today likely d/t not being able to do much since getting sick. Pt had significant improvement in cervical rotation and SB after manual treatment and notes feeling better. Edu on importance of working on posture to maintain the changes made. Physical Therapy Plan Frequency and Duration Frequency of Treatment 2x/Week Duration of Treatment 3 months Plan of Care Start Date 08/06/21 Plan of Care End Date 11/05/21 Next Visit Focus/Plan Next Note Type Treatment Note Next Visit Plan review exercises as needed, advance core, manual for lumbar flex, thoracic ext & cervical axial elongation
--- NOTE | 2021-09-03 12:15 | PT.OTN ---
Current Diagnoses Spinal stenosis, cervical region (09/03/21) Radiculopathy, cervical region (09/03/21) Low back pain, unspecified (09/03/21) Pain in thoracic spine (09/03/21) Paresthesia of skin (09/03/21) Difficulty in walking, not elsewhere classified (09/03/21) Abnormal posture (09/03/21) Weakness (09/03/21) Physical Therapy Treatment Note PT-OP-A Visit Information Start: 08/05/21 17:51 Freq: Status: Active Protocol: Document 09/03/21 11:25 [facility] (Rec: 09/03/21 12:15 [facility] [id number]) Out-Patient Physical Therapy Visit Information Visit Information Visit Type Treatment Note Visit Note 24 visits per year Visit Start Time 11:21 Visit Stop Time 12:01 Total Visit Minutes 40 Visit Number 5 Number of PRINCIPAL STATISTICAL SCIENTIST Visits 0 PT-OP-B Current Condition Start: 08/05/21 17:51 Freq: Status: Active Protocol: Document 08/06/21 09:46 [facility] (Rec: 08/06/21 11:21 [facility] [id number]) Current Condition History of Current Condition Onset Date chronic Current Complaints neck pain, back pain History of Current Condition Pt feels like his back and neck is getting worse. He has had chronic neck and back pain starting when he was about 15 or 16 years old and it has gotten worse over the years. Pt has seen only his fleet director but has not seen any specialist. 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 He is worried about being able to dothat much work as 4 days is very exhausting. He has a lot of trouble lifting heavy crates at work. Pt did PT about 1 year ago with some relief but doesn't feel like his HEP helps enough. Unsure if doing it right. Reprots massage helps. Pt reports he skateboards to/from work but doesn't go to the [employer] [place] because it feels like too much for him Prior Treatments and Tests PT IMPRESSION: 1. 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 2. Multilevel canal stenoses, worst at C5-C6, where there is moderate canal stenosis. 3. Multilevel foraminal stenoses, worst at C5-C6 where there is associated intraforaminal nerve root compression. Recommend correlation with clinical symptoms to ascertain relevance of this finding. IMPRESSION: Retrolisthesis at L5-S1 with foraminal narrowing. Treatment Goals Patient/Caregiver Goals Dec pain and have pain not be so bad, be able to get back to skating at [email or web address] park, be able to lift at work and be able to withstand work w/o inc pain PT-OP-C Subjective Start: 08/05/21 17:51 Freq: Status: Active Protocol: Document 09/03/21 11:25 [facility] (Rec: 09/03/21 12:15 [facility] [id number]) OP-PT Subjective Patient Comments Patient Comments Pt reports he has been working on his posture and he thinks that does help some. He has been doing his open books and foam roll exercises. PT-OP-F Manual Assessment Start: 08/05/21 17:51 Freq: Status: Active Protocol: Document 08/06/21 09:46 [facility] (Rec: 08/06/21 11:21 [facility] [id number]) Manual Assessments Soft Tissue Assessment Soft Tissue Mobility Assessment tenderness B along spine and all ant cervical mm PT-OP-G Mobility & Gait Start: 08/05/21 17:51 Freq: Status: Active Protocol: Document 08/06/21 09:46 [facility] (Rec: 08/06/21 11:21 [facility] [id number]) OP Gait Assessment Comments Gait Comments lat lean over WB leg B, B dec shoulder ext only elbow motiion w/gait, dec push off, inc L rotation of trunk PT-OP-J Posture/Palpation/Skin Start: 08/05/21 17:51 Freq: Status: Active Protocol: Document 08/06/21 09:46 [facility] (Rec: 08/06/21 11:21 [facility] [id number]) Posture Evaluation Ashley Postural Classification System Ashely Postural Classifications Posterior/Anterior Elbow Flexion Test 1 Lumbar Protective Mechanism Left AP 0 Lumbar Protective Mechanism Right AP 0 Lumbar Protective Mechanism Left PA 1 Lumbar Protective Mechanism Right PA 0 Comments Posture Comments L>R ER of foot, inc kyphosis, very fwd head; R rotated torso PT-OP-K Range of Motion Start: 08/05/21 17:51 Freq: Status: Active Protocol: Document 08/06/21 09:46 [facility] (Rec: 08/06/21 11:21 [facility] [id number]) Cervical Spine Range of Motion Cervical Spine Active Degrees Flexion 60 Extension 35 Rotation Left 38 Rotation Right 51 Lateral Flexion Left 25 Lateral Flexion Right 29 ROM Limitations Pain Lumbar Spine Range of Motion Lumbar Spine Active Degrees Flexion 30 Extension 23 Rotation Left 46 Rotation Right 63 Lateral Flexion Left 17 Lateral Flexion Right 12 PT-OP-L Special Tests Start: 08/05/21 17:51 Freq: Status: Active Protocol: Document 08/06/21 09:46 [facility] (Rec: 08/06/21 11:21 [facility] [id number]) Special Tests Cervical Spine Special Tests Vertebral Artery Test Results mild lightheadedness initially w/movement but gets better longer in positio Comments B Alar Ligament Test Results neg Spurling's Test Test Results pain positive; traction= pressure Lumbar Spine Special Tests Straight Leg Raise Test Results 43 deg L, 51 R- HS tightness Slump Test Results b positive Neural Special Tests- Upper Body Median Nerve Tension Test Results neg B Radial Nerve Tension Test Results Neg B Ulnar Nerve Tension Test Results neg B PT-OP-M Strength Start: 08/05/21 17:51 Freq: Status: Active Protocol: Document 08/06/21 09:46 [facility] (Rec: 08/06/21 11:21 [facility] [id number]) Shoulder Strength Shoulder Manual Muscle Testing Right Flexion 3+ Fair+ Extension 4+ Good+ Abduction (C5) 3+ Fair+ External Rotation 4- Good- Internal Rotation 4- Good- Comments pain in UT (pinching) Left Flexion 3+ Fair+ Extension 4+ Good+ Abduction (C5) 3+ Fair+ External Rotation 4- Good- Internal Rotation 4- Good- Comments pain in UT (pinching) Elbow/Forearm Strength Elbow and Forearm Manual Muscle Testing Right Flexion (C6) 4- Good- Extension (C7) 4+ Good+ Left Flexion (C6) 4 Good Extension (C7) 4+ Good+ Hip Strength Hip Manual Muscle Testing Right Flexion (L2) 4- Good- Extension (S1) 3+ Fair+ Abduction 4- Good- Adduction 4- Good- External Rotation 4- Good- Internal Rotation 3+ Fair+ Left Flexion (L2) 4- Good- Extension (S1) 3+ Fair+ Abduction 4 Good Adduction 4- Good- External Rotation 4- Good- Internal Rotation 3+ Fair+ Knee Strength Knee Manual Muscle Testing Right Flexion (S2) 4 Good Extension (L3) 4 Good Left Flexion (S2) 4 Good Extension (L3) 4 Good Ankle/Foot Strength Ankle and Foot Manual Muscle Testing Right Dorsiflexion (L4) 5 Normal Plantarflexion (S1) 4+ Good+ Comments 16 heel raises Left Dorsiflexion (L4) 5 Normal Plantarflexion (S1) 4+ Good+ Comments 15 Heel raises PT-OP-Q Treatments Start: 08/05/21 17:51 Freq: Status: Active Protocol: Document 09/03/21 11:25 [facility] (Rec: 09/03/21 12:15 [facility] [id number]) Therapeutic Exercises Prone Exercises plank Side bilateral Reps/Minutes 2x20 sec Comments cues for back, neck and scap position Sitting Exercises chin tuck Side bilateral Reps/Minutes 10 Standing Exercises wall posture Standing Exercise Name w/BUE ext to wall Side bilateral Reps/Minutes 1 min Other Exercises quadruped Other Exercise Name alt hip ext Side bilateral Reps/Minutes 12 Comments cues for neck position cat/camel Side bilateral Reps/Minutes 15 Comments mod cues Therapeutic Activity Therapeutic Activity sleep position Comments 1. s/l and partial prone propping-train to prop arms , legs and torso w/pillows and towels (JOB format) posture Comments 1, standing in mirror working on neutral spine 2. seated at edge of plinth w/ cues for posture 3. hip hinging at plinth w/ yard stick x15 4. Kurtis position(pt sat w/ hip hinge w/arms on pillows) Manual Therapy Treatment Soft Tissue Mobilization cervical Body Location B UT, LS, scalenes Mobilization Type Rolling,Strumming Intensity/Depth Moderate Body Position Sitting Comments w.cervical chin tuck & rot Joint Mobilizations thoracic Joint w/cover position Comments L T1 transverse FM L T2 & T3 & T4 & 5 transverse FM PT-OP-T Assessment and Plan Start: 08/05/21 17:51 Freq: Status: Active Protocol: Document 09/03/21 11:25 [facility] (Rec: 09/03/21 12:15 [facility] [id number]) Physical Therapy Assessment Goals MATTHEW/NDI Impairment MATTHEW 18/50; NDI 21/50 Short Term Goal (STG) Pt will improve MATTHEW score to no greater than 13/50 and NDI score to no greater than 15/50 to show improved functional ability. STG Duration 5/30/22 An/Ssn 2 4 Operator Goal (LTG) Pt will improve MATTHEW score to no greater than 8/50 and NDI score to no greater than 9/50 to show improved functional ability. LTG Duration 11/06/21 ROM Short Term Goal (STG) Pt will improve cervical flex/ ext & rotations by at least 10 deg. STG Duration 09/23/21 An/Ssn 2 4 Operator Goal (LTG) pt will have WFL ROM w/no pain w/ROM to allow pt to do all home and work activities. LTG Duration 11/05/21 posture Short Term Goal (STG) pt will be able to sit w/ improved thoracic positioning to more vertical position w/o inc pain. STG Duration 07/24/21 An/Ssn 2 4 Operator Goal (LTG) Pt will show improved posture by score of at least 3/5 on VCT to show improved postural stabiltiy in order to make standing easier for pt. LTG Duration 11/05/21 activities Short Term Goal (STG) Pt will be able to work 5 days in a row w/o pain greater 4/ 10 at end of day in neck or back. STG Duration 09/23/21 Snf Goal (LTG) Pt will be able to skateboard at park and as transportation w/o inc pain greater than 3/10 . LTG Duration 11/05/21 strength Short Term Goal (STG) Pt will be indep w/HEP for cervical and core stabiltiy, UE and LE strength and flexiblity. STG Duration 09/23/21 An/Ssn 2 4 Operator Goal (LTG) Pt willl score at least 4+/5 on all MMT in LEs and UEs B and at least 3/5 on EFT and LPM to show improved stabiltiy in order for pt to do heavy manual job and rec activities w/o inc pain. LTG Duration 11/05/21 Assessment Summary Assessment Pt demonstrated better performance w/exercises but did still have difficulty w/ cat/camel and quadruped for form but w/cues improved. Pt improved L cervical rotaiton after manual from about 40% to about 60%. He had imrpoved cervical posture after manual w/greater ease to get into position. Physical Therapy Plan Frequency and Duration Frequency of Treatment 2x/Week Duration of Treatment 3 months Plan of Care Start Date 08/06/21 Plan of Care End Date 11/05/21 Next Visit Focus/Plan Next Note Type Treatment Note Next Visit Plan review exercises as needed, advance core, manual for lumbar flex, thoracic ext & cervical axial elongation
--- NOTE | 2021-09-05 12:11 | PT.OTN ---
Current Diagnoses Spinal stenosis, cervical region (09/05/21) Radiculopathy, cervical region (09/05/21) Low back pain, unspecified (09/05/21) Pain in thoracic spine (09/05/21) Paresthesia of skin (09/05/21) Difficulty in walking, not elsewhere classified (09/05/21) Abnormal posture (09/05/21) Weakness (09/05/21) Physical Therapy Treatment Note PT-OP-A Visit Information Start: 08/05/21 17:51 Freq: Status: Active Protocol: Document 09/05/21 09:38 [facility] (Rec: 09/05/21 12:11 [facility] [id number]) Out-Patient Physical Therapy Visit Information Visit Information Visit Type Treatment Note Visit Note 24 visits per year Visit Start Time 11:21 Visit Stop Time 12:02 Total Visit Minutes 41 Visit Number 6 Number of OPHTHALMIC SURGICAL ASSISTANT Visits 0 PT-OP-B Current Condition Start: 08/05/21 17:51 Freq: Status: Active Protocol: Document 08/06/21 09:46 [facility] (Rec: 08/06/21 11:21 [facility] [id number]) Current Condition History of Current Condition Onset Date chronic Current Complaints neck pain, back pain History of Current Condition Pt feels like his back and neck is getting worse. He has had chronic neck and back pain starting when he was about 15 or 16 years old and it has gotten worse over the years. Pt has seen only his hand tennis ball coverer but has not seen any specialist. 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 He is worried about being able to dothat much work as 4 days is very exhausting. He has a lot of trouble lifting heavy crates at work. Pt did PT about 1 year ago with some relief but doesn't feel like his HEP helps enough. Unsure if doing it right. Reprots massage helps. Pt reports he skateboards to/from work but [place] go [place] [email or web address] [place] because it feels like too much for him Prior Treatments and Tests PT IMPRESSION: 1. 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 2. Multilevel canal stenoses, worst at C5-C6, where there is moderate canal stenosis. 3. Multilevel foraminal stenoses, worst at C5-C6 where there is associated intraforaminal nerve root compression. Recommend correlation with clinical symptoms to ascertain relevance of this finding. IMPRESSION: Retrolisthesis at L5-S1 with foraminal narrowing. Treatment Goals Patient/Caregiver Goals Dec pain and have pain not be so bad, be able to get back to skating [place] [email or web address] [place], be able to lift at work and be able to withstand work w/o inc pain PT-OP-C Subjective Start: 08/05/21 17:51 Freq: Status: Active Protocol: Document 09/05/21 09:38 [facility] (Rec: 09/05/21 12:11 [facility] [id number]) OP-PT Subjective Patient Comments Patient Comments Pt reports tired but he feels like he is less stiff now. he works on his posture Patient Reported Progress Improving PT-OP-F Manual Assessment Start: 08/05/21 17:51 Freq: Status: Active Protocol: Document 08/06/21 09:46 [facility] (Rec: 08/06/21 11:21 [facility] [id number]) Manual Assessments Soft Tissue Assessment Soft Tissue Mobility Assessment tenderness B along spine and all ant cervical mm PT-OP-G Mobility & Gait Start: 08/05/21 17:51 Freq: Status: Active Protocol: Document 08/06/21 09:46 [facility] (Rec: 08/06/21 11:21 [facility] [id number]) OP Gait Assessment Comments Gait Comments lat lean over WB leg B, B dec shoulder ext only elbow motiion w/gait, dec push off, inc L rotation of trunk PT-OP-J Posture/Palpation/Skin Start: 08/05/21 17:51 Freq: Status: Active Protocol: Document 08/06/21 09:46 [facility] (Rec: 08/06/21 11:21 [facility] [id number]) Posture Evaluation Ashley Postural Classification System Ashley Postural Classifications Posterior/Anterior Elbow Flexion Test 1 Lumbar Protective Mechanism Left AP 0 Lumbar Protective Mechanism Right AP 0 Lumbar Protective Mechanism Left PA 1 Lumbar Protective Mechanism Right PA 0 Comments Posture Comments L>R ER of foot, inc kyphosis, very fwd head; R rotated torso PT-OP-K Range of Motion Start: 08/05/21 17:51 Freq: Status: Active Protocol: Document 08/06/21 09:46 [facility] (Rec: 08/06/21 11:21 [facility] [id number]) Cervical Spine Range of Motion Cervical Spine Active Degrees Flexion 60 Extension 35 Rotation Left 38 Rotation Right 51 Lateral Flexion Left 25 Lateral Flexion Right 29 ROM Limitations Pain Lumbar Spine Range of Motion Lumbar Spine Active Degrees Flexion 30 Extension 23 Rotation Left 46 Rotation Right 63 Lateral Flexion Left 17 Lateral Flexion Right 12 PT-OP-L Special Tests Start: 08/05/21 17:51 Freq: Status: Active Protocol: Document 08/06/21 09:46 [facility] (Rec: 08/06/21 11:21 [facility] [id number]) Special Tests Cervical Spine Special Tests Vertebral Artery Test Results mild lightheadedness initially w/movement but gets better longer in positio Comments B Alar Ligament Test Results neg Spurling's Test Test Results pain positive; traction= pressure Lumbar Spine Special Tests Straight Leg Raise Test Results 43 deg L, 51 R- HS tightness Slump Test Results b positive Neural Special Tests- Upper Body Median Nerve Tension Test Results neg B Radial Nerve Tension Test Results Neg B Ulnar Nerve Tension Test Results neg B PT-OP-M Strength Start: 08/05/21 17:51 Freq: Status: Active Protocol: Document 08/06/21 09:46 [facility] (Rec: 08/06/21 11:21 [facility] [id number]) Shoulder Strength Shoulder Manual Muscle Testing Right Flexion 3+ Fair+ Extension 4+ Good+ Abduction (C5) 3+ Fair+ External Rotation 4- Good- Internal Rotation 4- Good- Comments pain in UT (pinching) Left Flexion 3+ Fair+ Extension 4+ Good+ Abduction (C5) 3+ Fair+ External Rotation 4- Good- Internal Rotation 4- Good- Comments pain in UT (pinching) Elbow/Forearm Strength Elbow and Forearm Manual Muscle Testing Right Flexion (C6) 4- Good- Extension (C7) 4+ Good+ Left Flexion (C6) 4 Good Extension (C7) 4+ Good+ Hip Strength Hip Manual Muscle Testing Right Flexion (L2) 4- Good- Extension (S1) 3+ Fair+ Abduction 4- Good- Adduction 4- Good- External Rotation 4- Good- Internal Rotation 3+ Fair+ Left Flexion (L2) 4- Good- Extension (S1) 3+ Fair+ Abduction 4 Good Adduction 4- Good- External Rotation 4- Good- Internal Rotation 3+ Fair+ Knee Strength Knee Manual Muscle Testing Right Flexion (S2) 4 Good Extension (L3) 4 Good Left Flexion (S2) 4 Good Extension (L3) 4 Good Ankle/Foot Strength Ankle and Foot Manual Muscle Testing Right Dorsiflexion (L4) 5 Normal Plantarflexion (S1) 4+ Good+ Comments 16 heel raises Left Dorsiflexion (L4) 5 Normal Plantarflexion (S1) 4+ Good+ Comments 15 Heel raises PT-OP-Q Treatments Start: 08/05/21 17:51 Freq: Status: Active Protocol: Document 09/05/21 09:38 [facility] (Rec: 09/05/21 12:11 [facility] [id number]) Therapeutic Exercises Prone Exercises plank Side bilateral Reps/Minutes 2x20 sec Comments cues for back, neck and scap position Sidelying Exercises side plank Side bilateral Reps/Minutes 15 secx2 ea Sitting Exercises chin tuck Side bilateral Reps/Minutes 10 Standing Exercises wall posture Standing Exercise Name w/BUE ext to wall Side bilateral Reps/Minutes 1 min Other Exercises quadruped Other Exercise Name alt hip ext Side bilateral Reps/Minutes 12 Comments cues for neck position cat/camel Side bilateral Reps/Minutes 10 Manual Therapy Treatment Soft Tissue Mobilization cervical Body Location B UT, LS, scalenes Mobilization Type Rolling,Strumming Intensity/Depth Moderate Body Position Sitting Comments w.cervical chin tuck & rot Joint Mobilizations AC Joint R Direction gapping FM rib Comments R 1st inf FM R 2-4 rib AP R ribcage cadual FM general PT-OP-T Assessment and Plan Start: 08/05/21 17:51 Freq: Status: Active Protocol: Document 09/05/21 09:38 [facility] (Rec: 09/05/21 12:11 [facility] [id number]) Physical Therapy Assessment Goals MATTHEW/NDI Impairment MATTHEW 18/50; NDI 21/50 Short Term Goal (STG) Pt will improve MATTHEW score to no greater than 13/50 and NDI score to no greater than 15/50 to show improved functional ability. STG Duration 09/23/21 Care Home Goal (LTG) Pt will improve MATTHEW score to no greater than 8/50 and NDI score to no greater than 9/50 to show improved functional ability. LTG Duration 11/06/21 ROM Short Term Goal (STG) Pt will improve cervical flex/ ext & rotations by at least 10 deg. STG Duration 09/23/21 Grooming Assistant Goal (LTG) pt will have WFL ROM w/no pain w/ROM to allow pt to do all home and work activities. LTG Duration 11/05/21 posture Short Term Goal (STG) pt will be able to sit w/ improved thoracic positioning to more vertical position w/o inc pain. STG Duration 07/24/21 Care Home Goal (LTG) Pt will show improved posture by score of at least 3/5 on VCT to show improved postural stabiltiy in order to make standing easier for pt. LTG Duration 11/05/21 activities Short Term Goal (STG) Pt will be able to work 5 days in a row w/o pain greater 4/ 10 at end of day in neck or back. STG Duration 09/23/21 Care Home Goal (LTG) Pt will be able to skateboard at park and as transportation w/o inc pain greater than 3/10 . LTG Duration 11/05/21 strength Short Term Goal (STG) Pt will be indep w/HEP for cervical and core stabiltiy, UE and LE strength and flexiblity. STG Duration 09/23/21 Care Home Goal (LTG) Pt willl score at least 4+/5 on all MMT in LEs and UEs B and at least 3/5 on EFT and LPM to show improved stabiltiy in order for pt to do heavy manual job and rec activities w/o inc pain. LTG Duration 11/05/21 Assessment Summary Assessment Pt had imrpoved R cervical rotation after manual treatment and improved scap depression & pec stretch testing. he improved w/ exercise performance today. Physical Therapy Plan Frequency and Duration Frequency of Treatment 2x/Week Duration of Treatment 3 months Plan of Care Start Date 08/06/21 Plan of Care End Date 11/05/21 Next Visit Focus/Plan Next Note Type Treatment Note Next Visit Plan review exercises as needed, advance core, manual for lumbar flex, thoracic ext & cervical axial elongation
--- NOTE | 2021-09-10 13:45 | PT.OTN ---
Current Diagnoses Spinal stenosis, cervical region (09/10/21) Radiculopathy, cervical region (09/10/21) Low back pain, unspecified (09/10/21) Pain in thoracic spine (09/10/21) Paresthesia of skin (09/10/21) Difficulty in walking, not elsewhere classified (09/10/21) Abnormal posture (09/10/21) Weakness (09/10/21) Physical Therapy Treatment Note PT-OP-A Visit Information Start: 08/05/21 17:51 Freq: Status: Active Protocol: Document 09/10/21 13:05 SP (Rec: 09/10/21 13:48 SP [id number]) Out-Patient Physical Therapy Visit Information Visit Information Visit Type Treatment Note Visit Note 24 visits per year Visit Start Time 13:03 Visit Stop Time 13:45 Total Visit Minutes 42 Visit Number 7 Number of HIP HOP PERFORMERS Visits 1 PT-OP-B Current Condition Start: 08/05/21 17:51 Freq: Status: Active Protocol: Document 08/06/21 09:46 [facility] (Rec: 08/06/21 11:21 [facility] [id number]) Current Condition History of Current Condition Onset Date chronic Current Complaints neck pain, back pain History of Current Condition Pt feels like his back and neck is getting worse. He has had chronic neck and back pain starting when he was about 15 or 16 years old and it has gotten worse over the years. Pt has seen only his news videotape editor but has not seen any specialist. 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 He is worried about being able to dothat much work as 4 days is very exhausting. He has a lot of trouble lifting heavy crates at work. Pt did PT about 1 year ago with some relief but doesn't feel like his HEP helps enough. Unsure if doing it right. Reprots massage helps. Pt reports he skateboards to/from work but [place]'t go [place] [employer] [place] because it feels like too much for him Prior Treatments and Tests PT IMPRESSION: 1. 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 2. Multilevel canal stenoses, worst at C5-C6, where there is moderate canal stenosis. 3. Multilevel foraminal stenoses, worst at C5-C6 where there is associated intraforaminal nerve root compression. Recommend correlation with clinical symptoms to ascertain relevance of this finding. IMPRESSION: Retrolisthesis at L5-S1 with foraminal narrowing. Treatment Goals Patient/Caregiver Goals Dec pain and have pain not be so bad, be able to get back to skating [place] [employer] [place], be able to lift at work and be able to withstand work w/o inc pain PT-OP-C Subjective Start: 08/05/21 17:51 Freq: Status: Active Protocol: Document 09/10/21 13:05 SP (Rec: 09/10/21 13:48 SP [id number]) OP-PT Subjective Patient Comments Patient Comments Pt stated felt good after last tx. Pt states busy at work but trying to get in his HEP. Patient Reported Progress Improving PT-OP-F Manual Assessment Start: 08/05/21 17:51 Freq: Status: Active Protocol: Document 08/06/21 09:46 [facility] (Rec: 08/06/21 11:21 [facility] [id number]) Manual Assessments Soft Tissue Assessment Soft Tissue Mobility Assessment tenderness B along spine and all ant cervical mm PT-OP-G Mobility & Gait Start: 08/05/21 17:51 Freq: Status: Active Protocol: Document 08/06/21 09:46 [facility] (Rec: 08/06/21 11:21 [facility] [id number]) OP Gait Assessment Comments Gait Comments lat lean over WB leg B, B dec shoulder ext only elbow motiion w/gait, dec push off, inc L rotation of trunk PT-OP-J Posture/Palpation/Skin Start: 08/05/21 17:51 Freq: Status: Active Protocol: Document 08/06/21 09:46 [facility] (Rec: 08/06/21 11:21 [facility] [id number]) Posture Evaluation Ashley Postural Classification System Ashley Postural Classifications Posterior/Anterior Elbow Flexion Test 1 Lumbar Protective Mechanism Left AP 0 Lumbar Protective Mechanism Right AP 0 Lumbar Protective Mechanism Left PA 1 Lumbar Protective Mechanism Right PA 0 Comments Posture Comments L>R ER of foot, inc kyphosis, very fwd head; R rotated torso PT-OP-K Range of Motion Start: 08/05/21 17:51 Freq: Status: Active Protocol: Document 08/06/21 09:46 [facility] (Rec: 08/06/21 11:21 [facility] [id number]) Cervical Spine Range of Motion Cervical Spine Active Degrees Flexion 60 Extension 35 Rotation Left 38 Rotation Right 51 Lateral Flexion Left 25 Lateral Flexion Right 29 ROM Limitations Pain Lumbar Spine Range of Motion Lumbar Spine Active Degrees Flexion 30 Extension 23 Rotation Left 46 Rotation Right 63 Lateral Flexion Left 17 Lateral Flexion Right 12 PT-OP-L Special Tests Start: 08/05/21 17:51 Freq: Status: Active Protocol: Document 08/06/21 09:46 [facility] (Rec: 08/06/21 11:21 [facility] [id number]) Special Tests Cervical Spine Special Tests Vertebral Artery Test Results mild lightheadedness initially w/movement but gets better longer in positio Comments B Alar Ligament Test Results neg Spurling's Test Test Results pain positive; traction= pressure Lumbar Spine Special Tests Straight Leg Raise Test Results 43 deg L, 51 R- HS tightness Slump Test Results b positive Neural Special Tests- Upper Body Median Nerve Tension Test Results neg B Radial Nerve Tension Test Results Neg B Ulnar Nerve Tension Test Results neg B PT-OP-M Strength Start: 08/05/21 17:51 Freq: Status: Active Protocol: Document 08/06/21 09:46 [facility] (Rec: 08/06/21 11:21 [facility] [id number]) Shoulder Strength Shoulder Manual Muscle Testing Right Flexion 3+ Fair+ Extension 4+ Good+ Abduction (C5) 3+ Fair+ External Rotation 4- Good- Internal Rotation 4- Good- Comments pain in UT (pinching) Left Flexion 3+ Fair+ Extension 4+ Good+ Abduction (C5) 3+ Fair+ External Rotation 4- Good- Internal Rotation 4- Good- Comments pain in UT (pinching) Elbow/Forearm Strength Elbow and Forearm Manual Muscle Testing Right Flexion (C6) 4- Good- Extension (C7) 4+ Good+ Left Flexion (C6) 4 Good Extension (C7) 4+ Good+ Hip Strength Hip Manual Muscle Testing Right Flexion (L2) 4- Good- Extension (S1) 3+ Fair+ Abduction 4- Good- Adduction 4- Good- External Rotation 4- Good- Internal Rotation 3+ Fair+ Left Flexion (L2) 4- Good- Extension (S1) 3+ Fair+ Abduction 4 Good Adduction 4- Good- External Rotation 4- Good- Internal Rotation 3+ Fair+ Knee Strength Knee Manual Muscle Testing Right Flexion (S2) 4 Good Extension (L3) 4 Good Left Flexion (S2) 4 Good Extension (L3) 4 Good Ankle/Foot Strength Ankle and Foot Manual Muscle Testing Right Dorsiflexion (L4) 5 Normal Plantarflexion (S1) 4+ Good+ Comments 16 heel raises Left Dorsiflexion (L4) 5 Normal Plantarflexion (S1) 4+ Good+ Comments 15 Heel raises PT-OP-Q Treatments Start: 08/05/21 17:51 Freq: Status: Active Protocol: Document 09/10/21 13:05 SP (Rec: 09/10/21 13:48 SP [id number]) Therapeutic Exercises Supine Exercises foam roll Supine Exercise Name 1. (horizontal pos) TS ext/ roll 2. Habd UEs 3. UE flex 4. UE abd snow kaylin Side bilateral Reps/Minutes 5 min Comments good form vertical HABD/ FF, ABD. Good response TS ext/Roll relax TS. Prone Exercises plank Prone Exercise Name elbow plank off knees Side bilateral Reps/Minutes 1 rep x 50 sec Comments cues for back lift neutral, neck chin tuck w/ CS ext neutral, scap position Sidelying Exercises side plank Sidelying Exercise Name off feet Side bilateral Reps/Minutes 25 sec R, 50 sec L Comments cued pelvic lift straight trunk open book Sidelying Exercise Name HEP reviewed Side bilateral Reps/Minutes x8, cued 2 breath end range Comments good increase stretch with hold/ ROM Sitting Exercises chin tuck Side bilateral Reps/Minutes 10 Comments good form, states trying be more conscious of posture playing games/ work Standing Exercises Ys off wall Standing Exercise Name trialed Y off wall Reps/Minutes x3 Comments challenging alignment facing wall and recruits LS- stopped wall posture Standing Exercise Name w/BUE ext elbows bent toward wall Side bilateral Reps/Minutes 1 min Comments cued TA LS toward wall, scap retract/ depress/ chin tuck Other Exercises quadruped Other Exercise Name alt hip ext Side bilateral Reps/Minutes 12 Comments cues for neck position, RLE hip abd/ LLE return no hip hike cat/camel Side bilateral Reps/Minutes 10 Comments cued slow ROM better form controlled Manual Therapy Treatment Soft Tissue Mobilization cervical Body Location B UT, LS, scalenes Mobilization Type Rolling,Strumming Intensity/Depth Moderate Body Position Hooklying paraspinals Body Location C-L Mobilization Type Strumming Intensity/Depth Moderate Body Position Prone PT-OP-T Assessment and Plan Start: 08/05/21 17:51 Freq: Status: Active Protocol: Document 09/10/21 13:05 SP (Rec: 09/10/21 13:48 SP [id number]) Physical Therapy Assessment Goals MATTHEW/NDI Impairment MATTHEW 18/50; NDI 21/50 Short Term Goal (STG) Pt will improve MATTHEW score to no greater than 13/50 and NDI score to no greater than 15/50 to show improved functional ability. STG Duration 09/23/21 Patient Care Technician Goal (LTG) Pt will improve MATTHEW score to no greater than 8/50 and NDI score to no greater than 9/50 to show improved functional ability. LTG Duration 11/06/21 ROM Short Term Goal (STG) Pt will improve cervical flex/ ext & rotations by at least 10 deg. STG Duration 09/23/21 Patient Care Technician Goal (LTG) pt will have WFL ROM w/no pain w/ROM to allow pt to do all home and work activities. LTG Duration 11/05/21 posture Short Term Goal (STG) pt will be able to sit w/ improved thoracic positioning to more vertical position w/o inc pain. STG Duration 07/24/21 [facility] Goal (LTG) Pt will show improved posture by score of at least 3/5 on VCT to show improved postural stabiltiy in order to make standing easier for pt. LTG Duration 11/05/21 activities Short Term Goal (STG) Pt will be able to work 5 days in a row w/o pain greater 4/ 10 at end of day in neck or back. STG Duration 09/23/21 Patient Care Technician Goal (LTG) Pt will be able to skateboard at park and as transportation w/o inc pain greater than 3/10 . LTG Duration 11/05/21 strength Short Term Goal (STG) Pt will be indep w/HEP for cervical and core stabiltiy, UE and LE strength and flexiblity. 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 LTG Duration 11/05/21 Assessment Summary Assessment Pt improved decrease UT and paraspinal tightness post manual, rolling, ROM, and able to make self corrections wall roll up w /TA fac posture, elbows bent shld ext improved scapular positioning found better TA and neutral spine alignment. Pt able to increase time on planks today painfree , just tiring. Physical Therapy Plan Frequency and Duration Frequency of Treatment 2x/Week Duration of Treatment 3 months Plan of Care Start Date 08/06/21 Plan of Care End Date 11/05/21 Therapeutic Interventions Therapeutic Interventions Aquatic Therapy,Balance Training,Coordination Training ,Gait Training,Home Exercise Program,Joint Mobilizations, Manual Therapy,Neuromuscular Re-education,Patient/Caregiver Education,Self-Care/Home Management,Soft Tissue Mobilization,Taping, Therapeutic Activities, Therapeutic Exercises Modalities Cold Pack/Ice Massage,Electric Stimulation,Hot Packs, Infrared Therapy,Traction- Mechanical,Ultrasound Next Visit Focus/Plan Next Note Type Treatment Note Next Visit Plan Continue review wall posture and exercises as needed, advance core, manual for lumbar flex, thoracic ext & cervical axial elongation
--- NOTE | 2021-09-13 10:35 | PT.OTN ---
Current Diagnoses Spinal stenosis, cervical region (09/13/21) Radiculopathy, cervical region (09/13/21) Low back pain, unspecified (09/13/21) Pain in thoracic spine (09/13/21) Paresthesia of skin (09/13/21) Difficulty in walking, not elsewhere classified (09/13/21) Abnormal posture (09/13/21) Weakness (09/13/21) Physical Therapy Treatment Note PT-OP-A Visit Information Start: 08/05/21 17:51 Freq: Status: Active Protocol: Document 09/13/21 09:52 SP (Rec: 09/13/21 10:59 SP [id number]) Out-Patient Physical Therapy Visit Information Visit Information Visit Type Treatment Note Visit Note 24 visits per year Visit Start Time 09:50 Visit Stop Time 10:35 Total Visit Minutes 45 Visit Number 8 Number of STRAPPER OPERATOR Visits 2 PT-OP-B Current Condition Start: 08/05/21 17:51 Freq: Status: Active Protocol: Document 08/06/21 09:46 [facility] (Rec: 08/06/21 11:21 [facility] [id number]) Current Condition History of Current Condition Onset Date chronic Current Complaints neck pain, back pain History of Current Condition Pt feels like his back and neck is getting worse. He has had chronic neck and back pain starting when he was about 15 or 16 years old and it has gotten worse over the years. Pt has seen only his phlebotomy program coordinator but has not seen any specialist. 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 He is worried about being able to dothat much work as 4 days is very exhausting. He has a lot of trouble lifting heavy crates at work. Pt did PT about 1 year ago with some relief but doesn't feel like his HEP helps enough. Unsure if doing it right. Reprots massage helps. Pt reports he skateboards to/from work but [place] go [place] [employer] [place] because it feels like too much for him Prior Treatments and Tests PT IMPRESSION: 1. 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 2. Multilevel canal stenoses, worst at C5-C6, where there is moderate canal stenosis. 3. Multilevel foraminal stenoses, worst at C5-C6 where there is associated intraforaminal nerve root compression. Recommend correlation with clinical symptoms to ascertain relevance of this finding. IMPRESSION: Retrolisthesis at L5-S1 with foraminal narrowing. 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 PT-OP-F Manual Assessment Start: 08/05/21 17:51 Freq: Status: Active Protocol: Document 08/06/21 09:46 [facility] (Rec: 08/06/21 11:21 [facility] [id number]) Manual Assessments Soft Tissue Assessment Soft Tissue Mobility Assessment tenderness B along spine and all ant cervical mm PT-OP-G Mobility & Gait Start: 08/05/21 17:51 Freq: Status: Active Protocol: Document 08/06/21 09:46 [facility] (Rec: 08/06/21 11:21 [facility] [id number]) OP Gait Assessment Comments Gait Comments lat lean over WB leg B, B dec shoulder ext only elbow motiion w/gait, dec push off, inc L rotation of trunk PT-OP-J Posture/Palpation/Skin Start: 08/05/21 17:51 Freq: Status: Active Protocol: Document 08/06/21 09:46 [facility] (Rec: 08/06/21 11:21 [facility] [id number]) Posture Evaluation Ashley Postural Classification System Ashley Postural Classifications Posterior/Anterior Elbow Flexion Test 1 Lumbar Protective Mechanism Left AP 0 Lumbar Protective Mechanism Right AP 0 Lumbar Protective Mechanism Left PA 1 Lumbar Protective Mechanism Right PA 0 Comments Posture Comments L>R ER of foot, inc kyphosis, very fwd head; R rotated torso PT-OP-K Range of Motion Start: 08/05/21 17:51 Freq: Status: Active Protocol: Document 08/06/21 09:46 [facility] (Rec: 08/06/21 11:21 [facility] [id number]) Cervical Spine Range of Motion Cervical Spine Active Degrees Flexion 60 Extension 35 Rotation Left 38 Rotation Right 51 Lateral Flexion Left 25 Lateral Flexion Right 29 ROM Limitations Pain Lumbar Spine Range of Motion Lumbar Spine Active Degrees Flexion 30 Extension 23 Rotation Left 46 Rotation Right 63 Lateral Flexion Left 17 Lateral Flexion Right 12 PT-OP-L Special Tests Start: 08/05/21 17:51 Freq: Status: Active Protocol: Document 08/06/21 09:46 [facility] (Rec: 08/06/21 11:21 [facility] [id number]) Special Tests Cervical Spine Special Tests Vertebral Artery Test Results mild lightheadedness initially w/movement but gets better longer in positio Comments B Alar Ligament Test Results neg Spurling's Test Test Results pain positive; traction= pressure Lumbar Spine Special Tests Straight Leg Raise Test Results 43 deg L, 51 R- HS tightness Slump Test Results b positive Neural Special Tests- Upper Body Median Nerve Tension Test Results neg B Radial Nerve Tension Test Results Neg B Ulnar Nerve Tension Test Results neg B PT-OP-M Strength Start: 08/05/21 17:51 Freq: Status: Active Protocol: Document 08/06/21 09:46 [facility] (Rec: 08/06/21 11:21 [facility] [id number]) Shoulder Strength Shoulder Manual Muscle Testing Right Flexion 3+ Fair+ Extension 4+ Good+ Abduction (C5) 3+ Fair+ External Rotation 4- Good- Internal Rotation 4- Good- Comments pain in UT (pinching) Left Flexion 3+ Fair+ Extension 4+ Good+ Abduction (C5) 3+ Fair+ External Rotation 4- Good- Internal Rotation 4- Good- Comments pain in UT (pinching) Elbow/Forearm Strength Elbow and Forearm Manual Muscle Testing Right Flexion (C6) 4- Good- Extension (C7) 4+ Good+ Left Flexion (C6) 4 Good Extension (C7) 4+ Good+ Hip Strength Hip Manual Muscle Testing Right Flexion (L2) 4- Good- Extension (S1) 3+ Fair+ Abduction 4- Good- Adduction 4- Good- External Rotation 4- Good- Internal Rotation 3+ Fair+ Left Flexion (L2) 4- Good- Extension (S1) 3+ Fair+ Abduction 4 Good Adduction 4- Good- External Rotation 4- Good- Internal Rotation 3+ Fair+ Knee Strength Knee Manual Muscle Testing Right Flexion (S2) 4 Good Extension (L3) 4 Good Left Flexion (S2) 4 Good Extension (L3) 4 Good Ankle/Foot Strength Ankle and Foot Manual Muscle Testing Right Dorsiflexion (L4) 5 Normal Plantarflexion (S1) 4+ Good+ Comments 16 heel raises Left Dorsiflexion (L4) 5 Normal Plantarflexion (S1) 4+ Good+ Comments 15 Heel raises PT-OP-Q Treatments Start: 08/05/21 17:51 Freq: Status: Active Protocol: Document 09/13/21 09:52 SP (Rec: 09/13/21 10:59 SP [id number]) Therapeutic Exercises Prone Exercises plank Prone Exercise Name elbow plank off feet Side bilateral Reps/Minutes 2x30 Comments cues for back lift neutral, neck chin tuck CS ext neutral, scap protraction Sidelying Exercises side plank Sidelying Exercise Name off feet Side bilateral Reps/Minutes 22s, 25s sec L, 35 sec R Comments cued pelvic lift straight trunk, serratus press, CS neutral open book Sidelying Exercise Name HEP reviewed Side bilateral Reps/Minutes x8, cued 2 breathes end range Comments good increase stretch with hold/ ROM Sitting Exercises chin tuck Side bilateral Reps/Minutes 10 Comments good form, states trying be more conscious of posture playing games/ work Standing Exercises UT, Lev scap stretch Standing Exercise Name reviewed past HEP Side bilateral Resistance little over pressure stretch Reps/Minutes 30 x2 each Comments cued CS back neutral then SB and little rotation stretch- good response shld ext w/ head turn nods Standing Exercise Name added to HEP Resistance AROM ( work) and TB #1( home) Reps/Minutes x3 turn, 5 head nods Comments good form and response stretch opposite neck Other Exercises quadruped Other Exercise Name alt UE/ LE ext together Side bilateral Reps/Minutes x5 LE only, good form, added UE x8 reps alternating B UE w/ LE Comments cues for neck position awareness cat/camel Side bilateral Reps/Minutes 10 Comments cued slow ROM better form controlled Manual Therapy Treatment Soft Tissue Mobilization cervical Body Location B UT, LS, scalenes, suboccipitals Mobilization Type Rolling,Strumming Intensity/Depth Moderate Body Position Hooklying paraspinals Body Location CS paraspinals only today Mobilization Type Strumming Intensity/Depth Moderate Body Position Hooklying Comments good feedback Manual Traction CS Body Position Hooklying Reps/Duration 2 min Comments manual Manual Techniques Stretching Type PROM CS rotation: UT, lev scap Reps/Duration 3 min Comments R>L Manual and ed self during shift at work PT-OP-T Assessment and Plan Start: 08/05/21 17:51 Freq: Status: Active Protocol: Document 09/13/21 09:52 SP (Rec: 09/13/21 10:59 SP [id number]) Physical Therapy Assessment Goals MATTHEW/NDI Impairment MATTHEW 18/50; NDI 21/50 Short Term Goal (STG) Pt will improve MATTHEW score to no greater than 13/50 and NDI score to no greater than 15/50 to show improved functional ability. STG Duration 09/23/21 Director Automotive Goal (LTG) Pt will improve MATTHEW score to no greater than 8/50 and NDI score to no greater than 9/50 to show improved functional ability. LTG Duration 11/06/21 ROM Short Term Goal (STG) Pt will improve cervical flex/ ext & rotations by at least 10 deg. STG Duration 09/23/21 Director Automotive Goal (LTG) pt will have WFL ROM w/no pain w/ROM to allow pt to do all home and work activities. LTG Duration 11/05/21 posture Short Term Goal (STG) pt will be able to sit w/ improved thoracic positioning to more vertical position w/o inc pain. STG Duration 07/24/21 Director Automotive Goal (LTG) Pt will show improved posture by score of at least 3/5 on VCT to show improved postural stabiltiy in order to make standing easier for pt. LTG Duration 11/05/21 activities Short Term Goal (STG) Pt will be able to work 5 days in a row w/o pain greater 4/ 10 at end of day in neck or back. STG Duration 09/23/21 [facility] Goal (LTG) Pt will be able to skateboard at park and as transportation w/o inc pain greater than 3/10 . LTG Duration 11/05/21 strength Short Term Goal (STG) Pt will be indep w/HEP for cervical and core stabiltiy, UE and LE strength and flexiblity. 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 LTG Duration 11/05/21 Assessment Summary Assessment Pt improved cervical ROM post manual, improved only occasional cues for CS ext neutral during quadruped and planks. Cued scap retraction awareness during planks to allow LT recruitment and carryover to added shld extension w/ TB and education while at work for decrease posterior chain pain. Added chin nods to cervical rotation ROM x5 reps with scap retraction for work and usign TB at home, responded can feel a good stretch on opposite side of neck. Pt reports neck feels alot better and can turn head better when leaving. Recommended try be more conscious of chest lift/ scap retracted posture for back and neck health throughout today, pt in agreement. Physical Therapy Plan Frequency and Duration Frequency of Treatment 2x/Week Duration of Treatment 3 months Plan of Care Start Date 08/06/21 Plan of Care End Date 11/05/21 Therapeutic Interventions Therapeutic Interventions Aquatic Therapy,Balance Training,Coordination Training ,Gait Training,Home Exercise Program,Joint Mobilizations, Manual Therapy,Neuromuscular Re-education,Patient/Caregiver Education,Self-Care/Home Management,Soft Tissue Mobilization,Taping, Therapeutic Activities, Therapeutic Exercises Modalities Cold Pack/Ice Massage,Electric Stimulation,Hot Packs, Infrared Therapy,Traction- Mechanical,Ultrasound Next Visit Focus/Plan Next Note Type Treatment Note Next Visit Plan Continue review scap retraction w/ chin nods, shld ext TB, wall posture and exercises as needed, advance core, manual for lumbar flex, thoracic ext & cervical axial elongation
--- NOTE | 2021-09-17 11:16 | PT.OTN ---
Current Diagnoses Spinal stenosis, cervical region (09/17/21) Radiculopathy, cervical region (09/17/21) Low back pain, unspecified (09/17/21) Pain in thoracic spine (09/17/21) Paresthesia of skin (09/17/21) Difficulty in walking, not elsewhere classified (09/17/21) Abnormal posture (09/17/21) Weakness (09/17/21) Physical Therapy Treatment Note PT-OP-A Visit Information Start: 08/05/21 17:51 Freq: Status: Active Protocol: Document 09/17/21 10:36 SP (Rec: 09/17/21 11:27 SP [id number]) Out-Patient Physical Therapy Visit Information Visit Information Visit Type Treatment Note Visit Note 24 visits per year Next tx will only be able to do 30 min [id number], due to need get back work. Visit Start Time 10:36 Visit Stop Time 11:16 Total Visit Minutes 40 Visit Number 9 Number of GENERAL SALES MANAGER Visits 3 PT-OP-B Current Condition Start: 08/05/21 17:51 Freq: Status: Active Protocol: Document 08/06/21 09:46 [facility] (Rec: 08/06/21 11:21 [facility] [id number]) Current Condition History of Current Condition Onset Date chronic Current Complaints neck pain, back pain History of Current Condition Pt feels like his back and neck is getting worse. He has had chronic neck and back pain starting when he was about 15 or 16 years old and it has gotten worse over the years. Pt has seen only his home health care coordinator but has not seen any specialist. 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 He is worried about being able to dothat much work as 4 days is very exhausting. He has a lot of trouble lifting heavy crates at work. Pt did PT about 1 year ago with some relief but doesn't feel like his HEP helps enough. Unsure if doing it right. Reprots massage helps. Pt reports he skateboards to/from work but doesn't go to the skate park because it feels like too much for him Prior Treatments and Tests PT IMPRESSION: 1. 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 2. Multilevel canal stenoses, worst at C5-C6, where there is moderate canal stenosis. 3. Multilevel foraminal stenoses, worst at C5-C6 where there is associated intraforaminal nerve root compression. Recommend correlation with clinical symptoms to ascertain relevance of this finding. IMPRESSION: Retrolisthesis at L5-S1 with foraminal narrowing. 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 Stated didn't have alot time to do HEP but tries to do cat/camel, open book helps alot and girlfriend helps massage neck for comfort. Pt states getting new staff combination window installer so hopefully not work as long/day in row. He will be training soon on cooking so less stress on body . PT-OP-F Manual Assessment Start: 08/05/21 17:51 Freq: Status: Active Protocol: Document 08/06/21 09:46 [facility] (Rec: 08/06/21 11:21 [facility] [id number]) Manual Assessments Soft Tissue Assessment Soft Tissue Mobility Assessment tenderness B along spine and all ant cervical mm PT-OP-G Mobility & Gait Start: 08/05/21 17:51 Freq: Status: Active Protocol: Document 08/06/21 09:46 [facility] (Rec: 08/06/21 11:21 [facility] [id number]) OP Gait Assessment Comments Gait Comments lat lean over WB leg B, B dec shoulder ext only elbow motiion w/gait, dec push off, inc L rotation of trunk PT-OP-J Posture/Palpation/Skin Start: 08/05/21 17:51 Freq: Status: Active Protocol: Document 08/06/21 09:46 [facility] (Rec: 08/06/21 11:21 [facility] [id number]) Posture Evaluation [facility] Postural Classification System Ashley Postural Classifications Posterior/Anterior Elbow Flexion Test 1 Lumbar Protective Mechanism Left AP 0 Lumbar Protective Mechanism Right AP 0 Lumbar Protective Mechanism Left PA 1 Lumbar Protective Mechanism Right PA 0 Comments Posture Comments L>R ER of foot, inc kyphosis, very fwd head; R rotated torso PT-OP-K Range of Motion Start: 08/05/21 17:51 Freq: Status: Active Protocol: Document 08/06/21 09:46 [facility] (Rec: 08/06/21 11:21 [facility] [id number]) Cervical Spine Range of Motion Cervical Spine Active Degrees Flexion 60 Extension 35 Rotation Left 38 Rotation Right 51 Lateral Flexion Left 25 Lateral Flexion Right 29 ROM Limitations Pain Lumbar Spine Range of Motion Lumbar Spine Active Degrees Flexion 30 Extension 23 Rotation Left 46 Rotation Right 63 Lateral Flexion Left 17 Lateral Flexion Right 12 PT-OP-L Special Tests Start: 08/05/21 17:51 Freq: Status: Active Protocol: Document 08/06/21 09:46 [facility] (Rec: 08/06/21 11:21 [facility] [id number]) Special Tests Cervical Spine Special Tests Vertebral Artery Test Results mild lightheadedness initially w/movement but gets better longer in positio Comments B Alar Ligament Test Results neg Spurling's Test Test Results pain positive; traction= pressure Lumbar Spine Special Tests Straight Leg Raise Test Results 43 deg L, 51 R- HS tightness Slump Test Results b positive Neural Special Tests- Upper Body Median Nerve Tension Test Results neg B Radial Nerve Tension Test Results Neg B Ulnar Nerve Tension Test Results neg B PT-OP-M Strength Start: 08/05/21 17:51 Freq: Status: Active Protocol: Document 08/06/21 09:46 [facility] (Rec: 08/06/21 11:21 [facility] [id number]) Shoulder Strength Shoulder Manual Muscle Testing Right Flexion 3+ Fair+ Extension 4+ Good+ Abduction (C5) 3+ Fair+ External Rotation 4- Good- Internal Rotation 4- Good- Comments pain in UT (pinching) Left Flexion 3+ Fair+ Extension 4+ Good+ Abduction (C5) 3+ Fair+ External Rotation 4- Good- Internal Rotation 4- Good- Comments pain in UT (pinching) Elbow/Forearm Strength Elbow and Forearm Manual Muscle Testing Right Flexion (C6) 4- Good- Extension (C7) 4+ Good+ Left Flexion (C6) 4 Good Extension (C7) 4+ Good+ Hip Strength Hip Manual Muscle Testing Right Flexion (L2) 4- Good- Extension (S1) 3+ Fair+ Abduction 4- Good- Adduction 4- Good- External Rotation 4- Good- Internal Rotation 3+ Fair+ Left Flexion (L2) 4- Good- Extension (S1) 3+ Fair+ Abduction 4 Good Adduction 4- Good- External Rotation 4- Good- Internal Rotation 3+ Fair+ Knee Strength Knee Manual Muscle Testing Right Flexion (S2) 4 Good Extension (L3) 4 Good Left Flexion (S2) 4 Good Extension (L3) 4 Good Ankle/Foot Strength Ankle and Foot Manual Muscle Testing Right Dorsiflexion (L4) 5 Normal Plantarflexion (S1) 4+ Good+ Comments 16 heel raises Left Dorsiflexion (L4) 5 Normal Plantarflexion (S1) 4+ Good+ Comments 15 Heel raises PT-OP-Q Treatments Start: 08/05/21 17:51 Freq: Status: Active Protocol: Document 09/17/21 10:36 SP (Rec: 09/17/21 11:27 SP [id number]) Gym Equipment Therapeutic Ball Ys prone 65cm ball Ball Size/Color 65cm Body Position Prone Reps/Duration x5 Comments feet into wall/floor, space bwtn, knee extension, glut squeeze, CS ext neutral, lift 2x5 reps- good form and TS ext and core response. Painfree Therapeutic Exercises Supine Exercises foam roll Supine Exercise Name 1. (horizontal pos) TS ext/ roll 2. UE flex Side bilateral Reps/Minutes 3 min Comments Good response TS ext/Roll then TS ext OH- feels good need do that more. Prone Exercises plank Prone Exercise Name elbow plank off feet Side bilateral Reps/Minutes 2x30 Comments cues for back lift neutral, neck chin tuck CS ext neutral, scap protraction Sidelying Exercises side plank Sidelying Exercise Name off feet Side bilateral Reps/Minutes 54sec L, 60 sec R Comments improved form, self corrections Standing Exercises LS ext stretch Standing Exercise Name added to HEP- hands on hip trunk ext Reps/Minutes 2x10 sec Comments good form and response- encouraged do at work chops Standing Exercise Name trialed, challenged chest lift and rotation Side bilateral Equipment Used x5 reps Reps/Minutes in PTonly UT, Lev scap stretch Standing Exercise Name reviewed HEP Side bilateral Resistance opp UE little over pressure stretch Reps/Minutes 30 x2 each Comments good response- states does do work, forgot UE help shld ext w/ head turn nods Standing Exercise Name reviewed HEP Resistance AROM ( work) and TB #1( home) Reps/Minutes x3-5 turn, 5 head nods Comments good form and response stretch opposite neck Other Exercises quadruped Other Exercise Name alt UE/ LE ext together Side bilateral Reps/Minutes 2x5 reps alternating B UE w/ LE Comments good form Manual Therapy Treatment Manual Traction CS Details UT, Lev scap, SOR Body Position Hooklying Reps/Duration 8 min Comments manual Manual Techniques Stretching Type PROM CS rotation: UT, lev scap Reps/Duration 2 min Comments R>L Manual and ed self during shift at work PT-OP-T Assessment and Plan Start: 08/05/21 17:51 Freq: Status: Active Protocol: Document 09/17/21 10:36 SP (Rec: 09/17/21 11:27 SP [id number]) Physical Therapy Assessment Goals MATTHEW/NDI Impairment MATTHEW 18/50; NDI 21/50 Short Term Goal (STG) Pt will improve MATTHEW score to no greater than 13/50 and NDI score to no greater than 15/50 to show improved functional ability. STG Duration 09/23/21 [facility] Goal (LTG) Pt will improve MATTHEW score to no greater than 8/50 and NDI score to no greater than 9/50 to show improved functional ability. LTG Duration 11/06/21 ROM Short Term Goal (STG) Pt will improve cervical flex/ ext & rotations by at least 10 deg. STG Duration 09/23/21 Sewing Line Baler Goal (LTG) pt will have WFL ROM w/no pain w/ROM to allow pt to do all home and work activities. LTG Duration 11/05/21 posture Short Term Goal (STG) pt will be able to sit w/ improved thoracic positioning to more vertical position w/o inc pain. STG Duration 07/24/21 [facility] Goal (LTG) Pt will show improved posture by score of at least 3/5 on VCT to show improved postural stabiltiy in order to make standing easier for pt. LTG Duration 11/05/21 activities Short Term Goal (STG) Pt will be able to work 5 days in a row w/o pain greater 4/ 10 at end of day in neck or back. STG Duration 09/23/21 [facility] Goal (LTG) Pt will be able to skateboard at park and as transportation w/o inc pain greater than 3/10 . LTG Duration 11/05/21 strength Short Term Goal (STG) Pt will be indep w/HEP for cervical and core stabiltiy, UE and LE strength and flexiblity. 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 LTG Duration 11/05/21 Assessment Summary Assessment Pt good response to manual, reviewed self stretch and scap retraction with CS rotation/ nods WMW incorporate during work to assist limit back/neck pain during long shift at work. Pt improved effort in all ther ex, ableto perform plank off ball Ys today without pain. Pt stated feels alot better end tx leaving. GENERAL SALES MANAGER encouraged to perform HEP did during tx at work and others at home, verbalized, yes need to do more, it helped . Physical Therapy Plan Frequency and Duration Frequency of Treatment 2x/Week Duration of Treatment 3 months Plan of Care Start Date 08/06/21 Plan of Care End Date 11/05/21 Therapeutic Interventions Therapeutic Interventions Aquatic Therapy,Balance Training,Coordination Training ,Gait Training,Home Exercise Program,Joint Mobilizations, Manual Therapy,Neuromuscular Re-education,Patient/Caregiver Education,Self-Care/Home Management,Soft Tissue Mobilization,Taping, Therapeutic Activities, Therapeutic Exercises Modalities Cold Pack/Ice Massage,Electric Stimulation,Hot Packs, Infrared Therapy,Traction- Mechanical,Ultrasound Next Visit Focus/Plan Next Note Type Treatment Note Next Visit Plan Continue review scap retraction w/ chin nods with shld ext TB, foam rolling, prone over ball/planks. POC: advance core, manual for lumbar flex, thoracic ext & cervical axial elongation
--- NOTE | 2021-09-19 13:32 | PT.OTN ---
Current Diagnoses Spinal stenosis, cervical region (09/19/21) Radiculopathy, cervical region (09/19/21) Low back pain, unspecified (09/19/21) Pain in thoracic spine (09/19/21) Paresthesia of skin (09/19/21) Difficulty in walking, not elsewhere classified (09/19/21) Abnormal posture (09/19/21) Weakness (09/19/21) Physical Therapy Treatment Note PT-OP-A Visit Information Start: 08/05/21 17:51 Freq: Status: Active Protocol: Document 09/19/21 12:58 SP (Rec: 09/19/21 13:40 SP [id number]) Out-Patient Physical Therapy Visit Information Visit Information Visit Type Treatment Note Visit Note 24 visits per year Next tx will only be able to do 30 min [id number], due to need get back work. Visit Start Time 12:58 Visit Stop Time 13:32 Total Visit Minutes 34 Visit Number 10 Number of ELECTRICAL HELPER Visits 4 PT-OP-B Current Condition Start: 08/05/21 17:51 Freq: Status: Active Protocol: Document 08/06/21 09:46 [facility] (Rec: 08/06/21 11:21 [facility] [id number]) Current Condition History of Current Condition Onset Date chronic Current Complaints neck pain, back pain History of Current Condition Pt feels like his back and neck is getting worse. He has had chronic neck and back pain starting when he was about 15 or 16 years old and it has gotten worse over the years. Pt has seen only his primary substance abuse counselor but has not seen any specialist. 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 He is worried about being able to dothat much work as 4 days is very exhausting. He has a lot of trouble lifting heavy crates at work. Pt did PT about 1 year ago with some relief but doesn't feel like his HEP helps enough. Unsure if doing it right. Reprots massage helps. Pt reports he skateboards to/from work but doesn't go to the skate park because it feels like too much for him Prior Treatments and Tests PT IMPRESSION: 1. 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 2. Multilevel canal stenoses, worst at C5-C6, where there is moderate canal stenosis. 3. Multilevel foraminal stenoses, worst at C5-C6 where there is associated intraforaminal nerve root compression. Recommend correlation with clinical symptoms to ascertain relevance of this finding. IMPRESSION: Retrolisthesis at L5-S1 with foraminal narrowing. Treatment Goals Patient/Caregiver Goals Dec pain and have pain not be so bad, be able to get back to [place] [employer] [place], be able to lift at work and be able to withstand work w/o inc pain PT-OP-C Subjective Start: 08/05/21 17:51 Freq: Status: Active Protocol: Document 09/19/21 12:58 SP (Rec: 09/19/21 13:40 SP [id number]) OP-PT Subjective Patient Comments Patient Comments Pt reported neck better only 4 /10 neck pain, didn't work past 2 days but only did open book and some stretching and chin tucks, didn't do rest, just to tired. Patient Reported Progress Improving PT-OP-F Manual Assessment Start: 08/05/21 17:51 Freq: Status: Active Protocol: Document 08/06/21 09:46 [facility] (Rec: 08/06/21 11:21 [facility] [id number]) Manual Assessments Soft Tissue Assessment Soft Tissue Mobility Assessment tenderness B along spine and all ant cervical mm PT-OP-G Mobility & Gait Start: 08/05/21 17:51 Freq: Status: Active Protocol: Document 08/06/21 09:46 [facility] (Rec: 08/06/21 11:21 [facility] [id number]) OP Gait Assessment Comments Gait Comments lat lean over WB leg B, B dec shoulder ext only elbow motiion w/gait, dec push off, inc L rotation of trunk PT-OP-J Posture/Palpation/Skin Start: 08/05/21 17:51 Freq: Status: Active Protocol: Document 08/06/21 09:46 [facility] (Rec: 08/06/21 11:21 [facility] [id number]) Posture Evaluation Ashley Postural Classification System Ashley Postural Classifications Posterior/Anterior Elbow Flexion Test 1 Lumbar Protective Mechanism Left AP 0 Lumbar Protective Mechanism Right AP 0 Lumbar Protective Mechanism Left PA 1 Lumbar Protective Mechanism Right PA 0 Comments Posture Comments L>R ER of foot, inc kyphosis, very fwd head; R rotated torso PT-OP-K Range of Motion Start: 08/05/21 17:51 Freq: Status: Active Protocol: Document 08/06/21 09:46 [facility] (Rec: 08/06/21 11:21 [facility] [id number]) Cervical Spine Range of Motion Cervical Spine Active Degrees Flexion 60 Extension 35 Rotation Left 38 Rotation Right 51 Lateral Flexion Left 25 Lateral Flexion Right 29 ROM Limitations Pain Lumbar Spine Range of Motion Lumbar Spine Active Degrees Flexion 30 Extension 23 Rotation Left 46 Rotation Right 63 Lateral Flexion Left 17 Lateral Flexion Right 12 PT-OP-L Special Tests Start: 08/05/21 17:51 Freq: Status: Active Protocol: Document 08/06/21 09:46 [facility] (Rec: 08/06/21 11:21 [facility] [id number]) Special Tests Cervical Spine Special Tests Vertebral Artery Test Results mild lightheadedness initially w/movement but gets better longer in positio Comments B Alar Ligament Test Results neg Spurling's Test Test Results pain positive; traction= pressure Lumbar Spine Special Tests Straight Leg Raise Test Results 43 deg L, 51 R- HS tightness Slump Test Results b positive Neural Special Tests- Upper Body Median Nerve Tension Test Results neg B Radial Nerve Tension Test Results Neg B Ulnar Nerve Tension Test Results neg B PT-OP-M Strength Start: 08/05/21 17:51 Freq: Status: Active Protocol: Document 08/06/21 09:46 [facility] (Rec: 08/06/21 11:21 [facility] [id number]) Shoulder Strength Shoulder Manual Muscle Testing Right Flexion 3+ Fair+ Extension 4+ Good+ Abduction (C5) 3+ Fair+ External Rotation 4- Good- Internal Rotation 4- Good- Comments pain in UT (pinching) Left Flexion 3+ Fair+ Extension 4+ Good+ Abduction (C5) 3+ Fair+ External Rotation 4- Good- Internal Rotation 4- Good- Comments pain in UT (pinching) Elbow/Forearm Strength Elbow and Forearm Manual Muscle Testing Right Flexion (C6) 4- Good- Extension (C7) 4+ Good+ Left Flexion (C6) 4 Good Extension (C7) 4+ Good+ Hip Strength Hip Manual Muscle Testing Right Flexion (L2) 4- Good- Extension (S1) 3+ Fair+ Abduction 4- Good- Adduction 4- Good- External Rotation 4- Good- Internal Rotation 3+ Fair+ Left Flexion (L2) 4- Good- Extension (S1) 3+ Fair+ Abduction 4 Good Adduction 4- Good- External Rotation 4- Good- Internal Rotation 3+ Fair+ Knee Strength Knee Manual Muscle Testing Right Flexion (S2) 4 Good Extension (L3) 4 Good Left Flexion (S2) 4 Good Extension (L3) 4 Good Ankle/Foot Strength Ankle and Foot Manual Muscle Testing Right Dorsiflexion (L4) 5 Normal Plantarflexion (S1) 4+ Good+ Comments 16 heel raises Left Dorsiflexion (L4) 5 Normal Plantarflexion (S1) 4+ Good+ Comments 15 Heel raises PT-OP-Q Treatments Start: 08/05/21 17:51 Freq: Status: Active Protocol: Document 09/19/21 12:58 SP (Rec: 09/19/21 13:40 SP [id number]) Gym Equipment Cable Column (Body Solid) squat rows Details cued CS back neutral Resistance #20 Reps/Time 2x10 Therapeutic Ball Ys prone 65cm ball Exercise Details Ys AROM 2x12, Ts 2.2# yellow ball> 3# DB 2x12 Ball Size/Color 65cm Body Position Prone Reps/Duration 2x12 each Comments good form: feet into wall/ floor, space bwtn, knee extension, glut squeeze, CS ext neutral, lift with, TS ext and core response. Painfree Therapeutic Exercises Prone Exercises plank Prone Exercise Name elbow plank off feet Side bilateral Reps/Minutes 60s, Comments cues for back lift neutral, neck chin tuck CS ext neutral, scap protraction Sidelying Exercises side plank Sidelying Exercise Name off feet Side bilateral Reps/Minutes 60sec L, 60 sec R Comments improved form, self corrections open book Sidelying Exercise Name HEP reviewed Side bilateral Reps/Minutes x10 w/2 breathes end range stretch Comments good increase stretch Standing Exercises lifting mechanics Standing Exercise Name reviewed lifting weighted box off floor and kaitlin step pivot, CS ext tuck Resistance 2x10# DBs in box Reps/Minutes x6 reps Comments cued hip hinge, scap retraction chest lift, CS ext neutral w/ tuck Manual Therapy Treatment Soft Tissue Mobilization cervical Body Location B UT, LS, scalenes, suboccipitals Mobilization Type Rolling,Strumming Intensity/Depth Moderate Body Position Hooklying paraspinals Body Location CS paraspinals Mobilization Type Strumming Intensity/Depth Moderate Body Position Hooklying Comments good feedback Manual Traction CS Body Position Hooklying Reps/Duration 8 min Comments manual Manual Techniques Stretching Type PROM CS L rotation: RUT, lev scap stretch Reps/Duration 2 min Comments R>L Manual and ed self during shift at work PT-OP-T Assessment and Plan Start: 08/05/21 17:51 Freq: Status: Active Protocol: Document 09/19/21 12:58 SP (Rec: 09/19/21 13:40 SP [id number]) Physical Therapy Assessment Goals MATTHEW/NDI Impairment MATTHEW 18/50; NDI 21/50 Short Term Goal (STG) Pt will improve MATTHEW score to no greater than 13/50 and NDI score to no greater than 15/50 to show improved functional ability. STG Duration 09/23/21 Accredited Legal Secretary Goal (LTG) Pt will improve MATTHEW score to no greater than 8/50 and NDI score to no greater than 9/50 to show improved functional ability. LTG Duration 11/06/21 ROM Short Term Goal (STG) Pt will improve cervical flex/ ext & rotations by at least 10 deg. STG Duration 09/23/21 Accredited Legal Secretary Goal (LTG) pt will have WFL ROM w/no pain w/ROM to allow pt to do all home and work activities. LTG Duration 11/05/21 posture Short Term Goal (STG) pt will be able to sit w/ improved thoracic positioning to more vertical position w/o inc pain. STG Duration 07/24/21 Accredited Legal Secretary Goal (LTG) Pt will show improved posture by score of at least 3/5 on VCT to show improved postural stabiltiy in order to make standing easier for pt. LTG Duration 11/05/21 activities Short Term Goal (STG) Pt will be able to work 5 days in a row w/o pain greater 4/ 10 at end of day in neck or back. STG Duration 09/23/21 Long-Term Goal (LTG) Pt will be able to skateboard at park and as transportation w/o inc pain greater than 3/10 . LTG Duration 11/05/21 strength Short Term Goal (STG) Pt will be indep w/HEP for cervical and core stabiltiy, UE and LE strength and flexiblity. 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 LTG Duration 11/05/21 Assessment Summary Assessment Pt improved mechanics lifting post demo, mod cues for set up /form, good response not feeling neck/back stress and more legs muscle working. Pt responded well to manual and encouraged to self perform and stretch/ROM at work with good postural alignment for back/ neck health. Less neck pain reported 1-2/10 leaving. Physical Therapy Plan Frequency and Duration Frequency of Treatment 2x/Week Duration of Treatment 3 months Plan of Care Start Date 08/06/21 Plan of Care End Date 11/05/21 Therapeutic Interventions Therapeutic Interventions Aquatic Therapy,Balance Training,Coordination Training ,Gait Training,Home Exercise Program,Joint Mobilizations, Manual Therapy,Neuromuscular Re-education,Patient/Caregiver Education,Self-Care/Home Management,Soft Tissue Mobilization,Taping, Therapeutic Activities, Therapeutic Exercises Modalities Cold Pack/Ice Massage,Electric Stimulation,Hot Packs, Infrared Therapy,Traction- Mechanical,Ultrasound Next Visit Focus/Plan Next Note Type Treatment Note Next Visit Plan Continue prone over ball/ planks, squat rows add home w/ TB, review lifting mechanics. POC: advance core, manual for lumbar flex, thoracic ext & cervical axial elongation
--- NOTE | 2021-09-25 13:15 | PT-OP ANOTE ---
Pt called re: no show and very apologetic. He forgot and had to care for his son. pt informed of next scheduled appt and asked pt to call if unable to make it.
--- NOTE | 2021-10-01 18:38 | PT.OTN ---
Current Diagnoses Spinal stenosis, cervical region (10/01/21) Radiculopathy, cervical region (10/01/21) Low back pain, unspecified (10/01/21) Pain in thoracic spine (10/01/21) Paresthesia of skin (10/01/21) Difficulty in walking, not elsewhere classified (10/01/21) Abnormal posture (10/01/21) Weakness (10/01/21) Physical Therapy Treatment Note PT-OP-A Visit Information Start: 08/05/21 17:51 Freq: Status: Active Protocol: Document 10/01/21 18:31 [facility] (Rec: 10/01/21 18:38 [facility] [id number]) Out-Patient Physical Therapy Visit Information Visit Information Visit Type Treatment Note Visit Note 24 visits per year Visit Start Time 15:20 Visit Stop Time 16:00 Total Visit Minutes 40 Visit Number 11 Number of SENIOR RESEARCH SCIENTIST Visits 0 PT-OP-B Current Condition Start: 08/05/21 17:51 Freq: Status: Active Protocol: Document 08/06/21 09:46 [facility] (Rec: 08/06/21 11:21 [facility] [id number]) Current Condition History of Current Condition Onset Date chronic Current Complaints neck pain, back pain History of Current Condition Pt feels like his back and neck is getting worse. He has had chronic neck and back pain starting when he was about 15 or 16 years old and it has gotten worse over the years. Pt has seen only his metal tile setter but has not seen any specialist. 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 He is worried about being able to dothat much work as 4 days is very exhausting. He has a lot of trouble lifting heavy crates at work. Pt did PT about 1 year ago with some relief but doesn't feel like his HEP helps enough. Unsure if doing it right. Reprots massage helps. Pt reports he skateboards to/from work [place] [employer] [place] because it feels like too much for him Prior Treatments and Tests PT IMPRESSION: 1. 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 2. Multilevel canal stenoses, worst at C5-C6, where there is moderate canal stenosis. 3. Multilevel foraminal stenoses, worst at C5-C6 where there is associated intraforaminal nerve root compression. Recommend correlation with clinical symptoms to ascertain relevance of this finding. IMPRESSION: Retrolisthesis at L5-S1 with foraminal narrowing. Treatment Goals Patient/Caregiver Goals Dec pain and have pain not be so bad, be able to get [place] [employer] [place], be able to lift at work and be able to withstand work w/o inc pain PT-OP-C Subjective Start: 08/05/21 17:51 Freq: Status: Active Protocol: Document 10/01/21 18:31 [facility] (Rec: 10/01/21 18:38 [facility] [id number]) OP-PT Subjective Patient Comments Patient Comments Pt reports he feels like it was really tough missing his last appts. He did his stretches but work was really tough d/t it being so busy PT-OP-F Manual Assessment Start: 08/05/21 17:51 Freq: Status: Active Protocol: Document 08/06/21 09:46 [facility] (Rec: 08/06/21 11:21 [facility] [id number]) Manual Assessments Soft Tissue Assessment Soft Tissue Mobility Assessment tenderness B along spine and all ant cervical mm PT-OP-G Mobility & Gait Start: 08/05/21 17:51 Freq: Status: Active Protocol: Document 08/06/21 09:46 [facility] (Rec: 08/06/21 11:21 [facility] [id number]) OP Gait Assessment Comments Gait Comments lat lean over WB leg B, B dec shoulder ext only elbow motiion w/gait, dec push off, inc L rotation of trunk PT-OP-J Posture/Palpation/Skin Start: 08/05/21 17:51 Freq: Status: Active Protocol: Document 08/06/21 09:46 [facility] (Rec: 08/06/21 11:21 [facility] [id number]) Posture Evaluation Ashley Postural Classification System Ashley Postural Classifications Posterior/Anterior Elbow Flexion Test 1 Lumbar Protective Mechanism Left AP 0 Lumbar Protective Mechanism Right AP 0 Lumbar Protective Mechanism Left PA 1 Lumbar Protective Mechanism Right PA 0 Comments Posture Comments L>R ER of foot, inc kyphosis, very fwd head; R rotated torso PT-OP-K Range of Motion Start: 08/05/21 17:51 Freq: Status: Active Protocol: Document 08/06/21 09:46 [facility] (Rec: 08/06/21 11:21 [facility] [id number]) Cervical Spine Range of Motion Cervical Spine Active Degrees Flexion 60 Extension 35 Rotation Left 38 Rotation Right 51 Lateral Flexion Left 25 Lateral Flexion Right 29 ROM Limitations Pain Lumbar Spine Range of Motion Lumbar Spine Active Degrees Flexion 30 Extension 23 Rotation Left 46 Rotation Right 63 Lateral Flexion Left 17 Lateral Flexion Right 12 PT-OP-L Special Tests Start: 08/05/21 17:51 Freq: Status: Active Protocol: Document 08/06/21 09:46 [facility] (Rec: 08/06/21 11:21 [facility] [id number]) Special Tests Cervical Spine Special Tests Vertebral Artery Test Results mild lightheadedness initially w/movement but gets better longer in positio Comments B Alar Ligament Test Results neg Spurling's Test Test Results pain positive; traction= pressure Lumbar Spine Special Tests Straight Leg Raise Test Results 43 deg L, 51 R- HS tightness Slump Test Results b positive Neural Special Tests- Upper Body Median Nerve Tension Test Results neg B Radial Nerve Tension Test Results Neg B Ulnar Nerve Tension Test Results neg B PT-OP-M Strength Start: 08/05/21 17:51 Freq: Status: Active Protocol: Document 08/06/21 09:46 [facility] (Rec: 08/06/21 11:21 [facility] [id number]) Shoulder Strength Shoulder Manual Muscle Testing Right Flexion 3+ Fair+ Extension 4+ Good+ Abduction (C5) 3+ Fair+ External Rotation 4- Good- Internal Rotation 4- Good- Comments pain in UT (pinching) Left Flexion 3+ Fair+ Extension 4+ Good+ Abduction (C5) 3+ Fair+ External Rotation 4- Good- Internal Rotation 4- Good- Comments pain in UT (pinching) Elbow/Forearm Strength Elbow and Forearm Manual Muscle Testing Right Flexion (C6) 4- Good- Extension (C7) 4+ Good+ Left Flexion (C6) 4 Good Extension (C7) 4+ Good+ Hip Strength Hip Manual Muscle Testing Right Flexion (L2) 4- Good- Extension (S1) 3+ Fair+ Abduction 4- Good- Adduction 4- Good- External Rotation 4- Good- Internal Rotation 3+ Fair+ Left Flexion (L2) 4- Good- Extension (S1) 3+ Fair+ Abduction 4 Good Adduction 4- Good- External Rotation 4- Good- Internal Rotation 3+ Fair+ Knee Strength Knee Manual Muscle Testing Right Flexion (S2) 4 Good Extension (L3) 4 Good Left Flexion (S2) 4 Good Extension (L3) 4 Good Ankle/Foot Strength Ankle and Foot Manual Muscle Testing Right Dorsiflexion (L4) 5 Normal Plantarflexion (S1) 4+ Good+ Comments 16 heel raises Left Dorsiflexion (L4) 5 Normal Plantarflexion (S1) 4+ Good+ Comments 15 Heel raises PT-OP-Q Treatments Start: 08/05/21 17:51 Freq: Status: Active Protocol: Document 10/01/21 18:31 [facility] (Rec: 10/01/21 18:38 [facility] [id number]) Therapeutic Activity Therapeutic Activity posture Comments seated posture working on unsupported sitting alignment 2. standing working on improved alignment Manual Therapy Treatment Soft Tissue Mobilization cervical Body Location R UT, LS, scalnes Mobilization Type Rolling,Strumming Intensity/Depth Moderate Body Position Hooklying Joint Mobilizations sternum Comments R AP manubrium and mid sternum FM innominate Joint R Direction ext FM AC Joint R Direction gapping FM rib Comments 1. rib 1-2 distraction & ap FM 2. rib 1 caudal FM thoracic Comments 1. PA 1-3 FM & R UPA FM Lumbar Joint L3-5 UPA R sacrum Joint R UPA FM PT-OP-T Assessment and Plan Start: 08/05/21 17:51 Freq: Status: Active Protocol: Document 10/01/21 18:31 [facility] (Rec: 10/01/21 18:38 [facility] [id number]) Physical Therapy Assessment Goals MATTHEW/NDI Impairment MATTHEW 18/50; NDI 21/50 Short Term Goal (STG) Pt will improve MATTHEW score to no greater than 13/50 and NDI score to no greater than 15/50 to show improved functional ability. STG Duration 09/23/21 Outdoor Advertising Leasing Agent Goal (LTG) Pt will improve MATTHEW score to no greater than 8/50 and NDI score to no greater than 9/50 to show improved functional ability. LTG Duration 11/06/21 ROM Short Term Goal (STG) Pt will improve cervical flex/ ext & rotations by at least 10 deg. STG Duration 09/23/21 Outdoor Advertising Leasing Agent Goal (LTG) pt will have WFL ROM w/no pain w/ROM to allow pt to do all home and work activities. LTG Duration 11/05/21 posture Short Term Goal (STG) pt will be able to sit w/ improved thoracic positioning to more vertical position w/o inc pain. STG Duration 07/24/21 Outdoor Advertising Leasing Agent Goal (LTG) Pt will show improved posture by score of at least 3/5 on VCT to show improved postural stabiltiy in order to make standing easier for pt. LTG Duration 11/05/21 activities Short Term Goal (STG) Pt will be able to work 5 days in a row w/o pain greater 4/ 10 at end of day in neck or back. STG Duration 09/23/21 [facility] Goal (LTG) Pt will be able to skateboard at park and as transportation w/o inc pain greater than 3/10 . LTG Duration 11/05/21 strength Short Term Goal (STG) Pt will be indep w/HEP for cervical and core stabiltiy, UE and LE strength and flexiblity. 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 LTG Duration 11/05/21 Assessment Summary Assessment Pt had difficulty w/getting into good posture today d/t pain in back and neck but after manual treatment, pt was able to achieve good postural position. He was educated on working on maintaining good posture to keep changes Physical Therapy Plan Frequency and Duration Frequency of Treatment 2x/Week Duration of Treatment 3 months Plan of Care Start Date 08/06/21 Plan of Care End Date 11/05/21 Next Visit Focus/Plan Next Note Type Treatment Note Next Visit Plan Continue prone over ball/ planks, squat rows add home w/ TB, review lifting mechanics. POC: advance core, manual for lumbar flex, thoracic ext & cervical axial elongation
--- NOTE | 2021-10-07 15:59 | PT.OTN ---
Current Diagnoses Spinal stenosis, cervical region (10/07/21) Radiculopathy, cervical region (10/07/21) Low back pain, unspecified (10/07/21) Pain in thoracic spine (10/07/21) Paresthesia of skin (10/07/21) Difficulty in walking, not elsewhere classified (10/07/21) Abnormal posture (10/07/21) Weakness (10/07/21) Physical Therapy Treatment Note PT-OP-A Visit Information Start: 08/05/21 17:51 Freq: Status: Active Protocol: Document 10/07/21 14:40 NBM (Rec: 10/07/21 15:59 NBM [id number]) Out-Patient Physical Therapy Visit Information Visit Information Visit Type Treatment Note Visit Note 24 visits per year Visit Start Time 14:39 Visit Stop Time 15:17 Total Visit Minutes 38 Visit Number 12 Number of RUBBER ROLLER GRINDER Visits 1 PT-OP-B Current Condition Start: 08/05/21 17:51 Freq: Status: Active Protocol: Document 08/06/21 09:46 [facility] (Rec: 08/06/21 11:21 [facility] [id number]) Current Condition History of Current Condition Onset Date chronic Current Complaints neck pain, back pain History of Current Condition Pt feels like his back and neck is getting worse. He has had chronic neck and back pain starting when he was about 15 or 16 years old and it has gotten worse over the years. Pt has seen only his first calender worker but has not seen any specialist. 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 He is worried about being able to dothat much work as 4 days is very exhausting. He has a lot of trouble lifting heavy crates at work. Pt did PT about 1 year ago with some relief but doesn't feel like his HEP helps enough. Unsure if doing it right. Reprots massage helps. Pt reports he skateboards to/from work [place] like [place] for him Prior Treatments and Tests PT IMPRESSION: 1. 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 2. Multilevel canal stenoses, worst at C5-C6, where there is moderate canal stenosis. 3. Multilevel foraminal stenoses, worst at C5-C6 where there is associated intraforaminal nerve root compression. Recommend correlation with clinical symptoms to ascertain relevance of this finding. IMPRESSION: Retrolisthesis at L5-S1 with foraminal narrowing. Treatment Goals Patient/Caregiver Goals Dec pain and have pain not be so bad, be able to get back to skating at [employer] park, be able to lift at work and be able to withstand work w/o inc pain PT-OP-C Subjective Start: 08/05/21 17:51 Freq: Status: Active Protocol: Document 10/07/21 14:40 NBM (Rec: 10/07/21 15:59 NBM [id number]) OP-PT Subjective Patient Comments Patient Comments Pt reports a nagging kind of pain in his neck today. He had to miss a day of work due to a cold and that was a nice break for his body. He did the book end stretches and cat/ camel at home and has been trying to keep his posture better. When his neck bothers him at work he tucks his chin and finds relief. PT-OP-F Manual Assessment Start: 08/05/21 17:51 Freq: Status: Active Protocol: Document 08/06/21 09:46 [facility] (Rec: 08/06/21 11:21 [facility] [id number]) Manual Assessments Soft Tissue Assessment Soft Tissue Mobility Assessment tenderness B along spine and all ant cervical mm PT-OP-G Mobility & Gait Start: 08/05/21 17:51 Freq: Status: Active Protocol: Document 08/06/21 09:46 [facility] (Rec: 08/06/21 11:21 [facility] [id number]) OP Gait Assessment Comments Gait Comments lat lean over WB leg B, B dec shoulder ext only elbow motiion w/gait, dec push off, inc L rotation of trunk PT-OP-J Posture/Palpation/Skin Start: 08/05/21 17:51 Freq: Status: Active Protocol: Document 08/06/21 09:46 [facility] (Rec: 08/06/21 11:21 [facility] [id number]) Posture Evaluation Ashley Postural Classification System Ashley Postural Classifications Posterior/Anterior Elbow Flexion Test 1 Lumbar Protective Mechanism Left AP 0 Lumbar Protective Mechanism Right AP 0 Lumbar Protective Mechanism Left PA 1 Lumbar Protective Mechanism Right PA 0 Comments Posture Comments L>R ER of foot, inc kyphosis, very fwd head; R rotated torso PT-OP-K Range of Motion Start: 08/05/21 17:51 Freq: Status: Active Protocol: Document 08/06/21 09:46 [facility] (Rec: 08/06/21 11:21 [facility] [id number]) Cervical Spine Range of Motion Cervical Spine Active Degrees Flexion 60 Extension 35 Rotation Left 38 Rotation Right 51 Lateral Flexion Left 25 Lateral Flexion Right 29 ROM Limitations Pain Lumbar Spine Range of Motion Lumbar Spine Active Degrees Flexion 30 Extension 23 Rotation Left 46 Rotation Right 63 Lateral Flexion Left 17 Lateral Flexion Right 12 PT-OP-L Special Tests Start: 08/05/21 17:51 Freq: Status: Active Protocol: Document 08/06/21 09:46 [facility] (Rec: 08/06/21 11:21 [facility] [id number]) Special Tests Cervical Spine Special Tests Vertebral Artery Test Results mild lightheadedness initially w/movement but gets better longer in positio Comments B Alar Ligament Test Results neg Spurling's Test Test Results pain positive; traction= pressure Lumbar Spine Special Tests Straight Leg Raise Test Results 43 deg L, 51 R- HS tightness Slump Test Results b positive Neural Special Tests- Upper Body Median Nerve Tension Test Results neg B Radial Nerve Tension Test Results Neg B Ulnar Nerve Tension Test Results neg B PT-OP-M Strength Start: 08/05/21 17:51 Freq: Status: Active Protocol: Document 08/06/21 09:46 [facility] (Rec: 08/06/21 11:21 [facility] [id number]) Shoulder Strength Shoulder Manual Muscle Testing Right Flexion 3+ Fair+ Extension 4+ Good+ Abduction (C5) 3+ Fair+ External Rotation 4- Good- Internal Rotation 4- Good- Comments pain in UT (pinching) Left Flexion 3+ Fair+ Extension 4+ Good+ Abduction (C5) 3+ Fair+ External Rotation 4- Good- Internal Rotation 4- Good- Comments pain in UT (pinching) Elbow/Forearm Strength Elbow and Forearm Manual Muscle Testing Right Flexion (C6) 4- Good- Extension (C7) 4+ Good+ Left Flexion (C6) 4 Good Extension (C7) 4+ Good+ Hip Strength Hip Manual Muscle Testing Right Flexion (L2) 4- Good- Extension (S1) 3+ Fair+ Abduction 4- Good- Adduction 4- Good- External Rotation 4- Good- Internal Rotation 3+ Fair+ Left Flexion (L2) 4- Good- Extension (S1) 3+ Fair+ Abduction 4 Good Adduction 4- Good- External Rotation 4- Good- Internal Rotation 3+ Fair+ Knee Strength Knee Manual Muscle Testing Right Flexion (S2) 4 Good Extension (L3) 4 Good Left Flexion (S2) 4 Good Extension (L3) 4 Good Ankle/Foot Strength Ankle and Foot Manual Muscle Testing Right Dorsiflexion (L4) 5 Normal Plantarflexion (S1) 4+ Good+ Comments 16 heel raises Left Dorsiflexion (L4) 5 Normal Plantarflexion (S1) 4+ Good+ Comments 15 Heel raises PT-OP-Q Treatments Start: 08/05/21 17:51 Freq: Status: Active Protocol: Document 10/07/21 14:40 NBM (Rec: 10/07/21 15:59 [facility] [id number]) Therapeutic Exercises Standing Exercises Ys off wall Standing Exercise Name Y on wall Reps/Minutes x3 Comments facing wall - verbal cues for scap retract/depress, chin tuck, relief noted wall posture Standing Exercise Name w/BUE ext elbows bent toward wall Side bilateral Reps/Minutes 1 min Comments cued TA LS toward wall, scap retract/depress, chin tuck Manual Therapy Treatment Soft Tissue Mobilization cervical Body Location B UT, LS, R scalenes, suboccipitals Mobilization Type Rolling,Strumming,Sustained Pressure Intensity/Depth Moderate Body Position Hooklying Comments Pt reported relief after STM. paraspinals Body Location CS paraspinals Mobilization Type Strumming Intensity/Depth Moderate Body Position Hooklying Comments Pt reported relief after STM. Self-Care/Home Management Treatment Education Patient Education Home Exercise Program,Pain Management,Posture Other Education Reviewed posture: scapular retraction vc: holding a pencil between shoulder blades , scap depression: tucking shoulder blades into back pockets. Pt can try doing HEP w/ son in order to perform at home. PT-OP-T Assessment and Plan Start: 08/05/21 17:51 Freq: Status: Active Protocol: Document 10/07/21 14:40 NBM (Rec: 10/07/21 15:59 [facility] [id number]) Physical Therapy Assessment Goals MATTHEW/NDI Impairment MATTHEW 18/50; NDI 21/50 Short Term Goal (STG) Pt will improve MATTHEW score to no greater than 13/50 and NDI score to no greater than 15/50 to show improved functional ability. STG Duration 09/23/21 [facility] Goal (LTG) Pt will improve MATTHEW score to no greater than 8/50 and NDI score to no greater than 9/50 to show improved functional ability. LTG Duration 11/06/21 ROM Short Term Goal (STG) Pt will improve cervical flex/ ext & rotations by at least 10 deg. STG Duration 09/23/21 Turnstile Collector Goal (LTG) pt will have WFL ROM w/no pain w/ROM to allow pt to do all home and work activities. LTG Duration 11/05/21 posture Short Term Goal (STG) pt will be able to sit w/ improved thoracic positioning to more vertical position w/o inc pain. STG Duration 07/24/21 Turnstile Collector Goal (LTG) Pt will show improved posture by score of at least 3/5 on VCT to show improved postural stabiltiy in order to make standing easier for pt. LTG Duration 11/05/21 activities Short Term Goal (STG) Pt will be able to work 5 days in a row w/o pain greater 4/ 10 at end of day in neck or back. STG Duration 09/23/21 Turnstile Collector Goal (LTG) Pt will be able to skateboard at park and as transportation w/o inc pain greater than 3/10 . LTG Duration 11/05/21 strength Short Term Goal (STG) Pt will be indep w/HEP for cervical and core stabiltiy, UE and LE strength and flexiblity. 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 LTG Duration 11/05/21 Assessment Summary Assessment Pt arrived with cervical and upper thoracic pain today and reported relief after manual treatment. He requires moderate postural cues w/ standing exercises reviewed today, and responds to cues well. Physical Therapy Plan Next Visit Focus/Plan Next Note Type Treatment Note Next Visit Plan Continue prone over ball/ planks, squat rows add home w/ TB, review lifting mechanics. POC: advance core, manual for lumbar flex, thoracic ext & cervical axial elongation Check Ys facing wall for form.
--- NOTE | 2021-10-15 18:15 | PT.OTN ---
Current Diagnoses Spinal stenosis, cervical region (10/15/21) Radiculopathy, cervical region (10/15/21) Low back pain, unspecified (10/15/21) Pain in thoracic spine (10/15/21) Paresthesia of skin (10/15/21) Difficulty in walking, not elsewhere classified (10/15/21) Abnormal posture (10/15/21) Weakness (10/15/21) Physical Therapy Treatment Note PT-OP-A Visit Information Start: 08/05/21 17:51 Freq: Status: Active Protocol: Document 10/15/21 15:51 [facility] (Rec: 10/15/21 18:15 [facility] [id number]) Out-Patient Physical Therapy Visit Information Visit Information Visit Type Progress Note Visit Note 24 visits per year Visit Start Time 15:20 Visit Stop Time 16:00 Total Visit Minutes 40 Visit Number 13 Number of 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 He has had chronic neck and back pain starting when he was about 15 or 16 years old and it has gotten worse over the years. Pt has seen only his primary care physician but has not seen any specialist. 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 He is worried about being able to dothat much work as 4 days is very exhausting. He has a lot of trouble lifting heavy crates at work. Pt did PT about 1 year ago with some relief but doesn't feel like his HEP helps enough. Unsure if doing it right. Reprots massage helps. Pt reports he skateboards to/from work [place] [employer] [place] because [place] feels like too much for him Prior Treatments and Tests PT IMPRESSION: 1. 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 2. Multilevel canal stenoses, worst at C5-C6, where there is moderate canal stenosis. 3. Multilevel foraminal stenoses, worst at C5-C6 where there is associated intraforaminal nerve root compression. Recommend correlation with clinical symptoms to ascertain relevance of this finding. IMPRESSION: Retrolisthesis at L5-S1 with foraminal narrowing. Treatment Goals Patient/Caregiver Goals Dec pain and have pain not be so bad, be able to get back to [place] [employer] [place], be able to lift at work and be able to withstand work w/o inc pain PT-OP-C Subjective Start: 08/05/21 17:51 Freq: Status: Active Protocol: Document 10/15/21 15:51 [facility] (Rec: 10/15/21 18:15 [facility] [id number]) OP-PT Subjective Patient Comments Patient Comments [place] LB and R shoulder on . he fell back and he thinks he may have hit his head. Pt denies nausea, dizziness, difficulty concentrating or change in mood, or BEDOYA. Partner said that when he came home, he was slurring his words some , but he often does that when taking meds. He started a new antibiotic for acne a few weeks ago and that has made him have to vomit. Pt reports no improvement since fall PT-OP-F Manual Assessment Start: 08/05/21 17:51 Freq: Status: Active Protocol: Document 08/06/21 09:46 [facility] (Rec: 08/06/21 11:21 [facility] [id number]) Manual Assessments Soft Tissue Assessment Soft Tissue Mobility Assessment tenderness B along spine and all ant cervical mm PT-OP-G Mobility & Gait Start: 08/05/21 17:51 Freq: Status: Active Protocol: Document 08/06/21 09:46 [facility] (Rec: 08/06/21 11:21 [facility] [id number]) OP Gait Assessment Comments Gait Comments lat lean over WB leg B, B dec shoulder ext only elbow motiion w/gait, dec push off, inc L rotation of trunk PT-OP-J Posture/Palpation/Skin Start: 08/05/21 17:51 Freq: Status: Active Protocol: Document 10/15/21 15:51 [facility] (Rec: 10/15/21 18:15 [facility] [id number]) Posture Evaluation Ashley Postural Classification System Elbow Flexion Test 2 PT-OP-K Range of Motion Start: 08/05/21 17:51 Freq: Status: Active Protocol: Document 10/15/21 15:51 [facility] (Rec: 10/15/21 18:15 [facility] [id number]) Cervical Spine Range of Motion Cervical Spine Active Degrees Flexion 65 Extension 61 Rotation Left 60 Rotation Right 62 Lateral Flexion Left 42 Lateral Flexion Right 49 ROM Limitations Pain Comments tested after manual PT-OP-L Special Tests Start: 08/05/21 17:51 Freq: Status: Active Protocol: Document 08/06/21 09:46 [facility] (Rec: 08/06/21 11:21 [facility] [id number]) Special Tests Cervical Spine Special Tests Vertebral Artery Test Results mild lightheadedness initially w/movement but gets better longer in positio Comments B Alar Ligament Test Results neg Spurling's Test Test Results pain positive; traction= pressure Lumbar Spine Special Tests Straight Leg Raise Test Results 43 deg L, 51 R- HS tightness Slump Test Results b positive Neural Special Tests- Upper Body Median Nerve Tension Test Results neg B Radial Nerve Tension Test Results Neg B Ulnar Nerve Tension Test Results neg B PT-OP-M Strength Start: 08/05/21 17:51 Freq: Status: Active Protocol: Document 10/15/21 15:51 [facility] (Rec: 10/15/21 18:15 [facility] [id number]) Shoulder Strength Shoulder Manual Muscle Testing Right Flexion 4+ Good+ Extension 5 Normal Abduction (C5) 5 Normal External Rotation 4+ Good+ Internal Rotation 4+ Good+ Comments some slight neck pain Left Flexion 4+ Good+ Extension 5 Normal Abduction (C5) 5 Normal External Rotation 4+ Good+ Internal Rotation 4+ Good+ Comments some slight neck pain Hip Strength Hip Manual Muscle Testing Right Flexion (L2) 5 Normal Extension (S1) 4+ Good+ Abduction 4+ Good+ Adduction 5 Normal External Rotation 4 Good Internal Rotation 5 Normal Left Flexion (L2) 5 Normal Extension (S1) 4+ Good+ Abduction 5 Normal Adduction 5 Normal External Rotation 4 Good Internal Rotation 5 Normal Comments some pain in LB w/MMT B Knee Strength Knee Manual Muscle Testing Right Flexion (S2) 5 Normal Extension (L3) 5 Normal Left Flexion (S2) 5 Normal Extension (L3) 5 Normal Ankle/Foot Strength Ankle and Foot Manual Muscle Testing Right Dorsiflexion (L4) 5 Normal Plantarflexion (S1) 5 Normal Comments 20 heel raises Left Dorsiflexion (L4) 5 Normal Plantarflexion (S1) 5 Normal Comments 20 Heel raises PT-OP-Q Treatments Start: 08/05/21 17:51 Freq: Status: Active Protocol: Document 10/15/21 15:51 [facility] (Rec: 10/15/21 18:15 [facility] [id number]) Manual Therapy Treatment Soft Tissue Mobilization cervical Body Location B UT, LS, R scalenes, suboccipitals Mobilization Type Rolling,Strumming,Sustained Pressure Intensity/Depth Moderate Body Position Hooklying Comments Pt reported relief after STM. Self-Care/Home Management Treatment Education Patient Education Home Exercise Program,Pain Management,Posture Other Education discussion w/pt and partner re ; importance of doing stretches to help w/pain management. Edu partner how to help cue pt w/posture and worked on pt's seated adn standing posture to improe more efficient positioning. Edu for working on maintaining gains after PT sessions w/ exercises and posture. Edu re: Dr. Cano (sports/spine speciailist), Dr. Bey ( medical acupuncture) and Dr. Suleiman ARTEAGA for other options of treatment to discuss w/MD and find out if covered by insurance. PT-OP-T Assessment and Plan Start: 08/05/21 17:51 Freq: Status: Active Protocol: Document 10/15/21 15:51 [facility] (Rec: 10/15/21 18:15 [facility] [id number]) Physical Therapy Assessment Goals MATTHEW/NDI Impairment MATTHEW 18/50; NDI 21/50 Short Term Goal (STG) Pt will improve MATTHEW score to no greater than 13/50 and NDI score to no greater than 15/50 to show improved functional ability. 10/15-n/t STG Duration 11/14 [facility] Goal (LTG) Pt will improve MATTHEW score to no greater than 8/50 and NDI score to no greater than 9/50 to show improved functional ability. LTG Duration 12/15 ROM Short Term Goal (STG) Pt will improve cervical flex/ ext & rotations by at least 10 deg. STG Duration achieved 10/15 Hydrochloric Manufacturing Supervisor Goal (LTG) pt will have WFL ROM w/no pain w/ROM to allow pt to do all home and work activities. 10/15-still discomfort at end ranges but imporved range LTG Duration 12/15/21 posture Short Term Goal (STG) pt will be able to sit w/ improved thoracic positioning to more vertical position w/o inc pain. STG Duration achieved w/cues Hydrochloric Manufacturing Supervisor Goal (LTG) Pt will show improved posture by score of at least 3/5 on VCT to show improved postural stabiltiy in order to make standing easier for pt. 10/15-2/5 LTG Duration 12/15/21 activities Short Term Goal (STG) Pt will be able to work 5 days in a row w/o pain greater 4/ 10 at end of day in neck or back. 10/15-still 10/10 per pt STG Duration 11/14/21 Hydrochloric Manufacturing Supervisor Goal (LTG) Pt will be able to skateboard at park and as transportation w/o inc pain greater than 3/10 . 10/15-has been skateboarding as transport okay but did fall at park causing inc pain LTG Duration 12/15/21 strength Short Term Goal (STG) Pt will be indep w/HEP for cervical and core stabiltiy, UE and LE strength and flexiblity. 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 -MMT achieved, dec scap stability w/2/5 EFT LTG Duration 12/15 Assessment Summary Assessment Pt had relief w/manual today but PT only performed STM d/t pt having pain that had not improved after an about 6 [place] [employer] [place]. he did report relief w/session. He has made improvements w/ strength, ROM, but is still reporting high levels of pain. He was encouraged to see his provider re: this and consider other options for treatments, but cont PT to cont to improve functional ability. Physical Therapy Plan Frequency and Duration Frequency of Treatment 1xweek Duration of Treatment 2 months Plan of Care Start Date 10/15/21 Plan of Care End Date 12/15/21 Therapeutic Interventions Therapeutic Interventions Aquatic Therapy,Balance Training,Coordination Training ,Gait Training,Home Exercise Program,Joint Mobilizations, Manual Therapy,Neuromuscular Re-education,Patient/Caregiver Education,Self-Care/Home Management,Soft Tissue Mobilization,Taping, Therapeutic Activities, Therapeutic Exercises Modalities Cold Pack/Ice Massage,Electric Stimulation,Hot Packs, Infrared Therapy,Traction- Mechanical,Ultrasound Next Visit Focus/Plan Next Note Type Treatment Note Next Visit Plan Continue prone over ball/ planks, squat rows add home w/ TB, review lifting mechanics. POC: advance core, manual for lumbar flex, thoracic ext & cervical axial elongation Check Ys facing wall for form.
--- NOTE | 2021-10-15 18:16 | PT.OPPOC ---
Physical, Occupational & Speech Therapy At [facility] Current Diagnoses Spinal stenosis, cervical region (10/15/21) Radiculopathy, cervical region (10/15/21) Low back pain, unspecified (10/15/21) Pain in thoracic spine (10/15/21) Paresthesia of skin (10/15/21) Difficulty in walking, not elsewhere classified (10/15/21) Abnormal posture (10/15/21) Weakness (10/15/21) Visit Care Team Role Provider Type Ephraim Platt MD Attending Provider Physician Family Provider Primary Care Provider Referring Provider Specialty: Internal Medicine Address: [address] [place] [address], [address], [address] Email: [email or web address] Plan Of Care PT-OP-T Assessment and Plan Start: 08/05/21 17:51 Freq: Status: Active Protocol: Document 10/15/21 15:51 [facility] (Rec: 10/15/21 18:15 [facility] [id number]) Physical Therapy Assessment Goals MATTHEW/NDI Impairment MATTHEW 18/50; NDI 21/50 Short Term Goal (STG) Pt will improve MATTHEW score to no greater than 13/50 and NDI score to no greater than 15/50 to show improved functional ability. 10/15-n/t STG Duration 11/14 Group Home Goal (LTG) Pt will improve MATTHEW score to no greater than 8/50 and NDI score to no greater than 9/50 to show improved functional ability. LTG Duration 12/15 ROM Short Term Goal (STG) Pt will improve cervical flex/ ext & rotations by at least 10 deg. STG Duration achieved 10/15 Group Home Goal (LTG) pt will have WFL ROM w/no pain w/ROM to allow pt to do all home and work activities. 10/15-still discomfort at end ranges but imporved range LTG Duration 12/15/21 posture Short Term Goal (STG) pt will be able to sit w/ improved thoracic positioning to more vertical position w/o inc pain. STG Duration achieved w/cues Medical Assistant Prn Goal (LTG) Pt will show improved posture by score of at least 3/5 on VCT to show improved postural stabiltiy in order to make standing easier for pt. 10/15-2/5 LTG Duration 12/15/21 activities Short Term Goal (STG) Pt will be able to work 5 days in a row w/o pain greater 4/ 10 at end of day in neck or back. 10/15-still 10/10 per pt STG Duration 11/14/21 Group Home Goal (LTG) Pt will be able to skateboard at park and as transportation w/o inc pain greater than 3/10 . 10/15-has been skateboarding as transport okay but did fall at park causing inc pain LTG Duration 12/15/21 strength Short Term Goal (STG) Pt will be indep w/HEP for cervical and core stabiltiy, UE and LE strength and flexiblity. 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 -MMT achieved, dec scap stability w/2/5 EFT LTG Duration 12/15 Assessment Summary Assessment Pt had relief w/manual today but PT only performed STM d/t pt having pain that had not improved after an about 6 ft [place] the skate park. he did report relief w/session. He has made improvements w/ strength, ROM, but is still reporting high levels of pain. He was encouraged to see his provider re: this and consider other options for treatments, but cont PT to cont to improve functional ability. Physical Therapy Plan Frequency and Duration Frequency of Treatment 1xweek Duration of Treatment 2 months Plan of Care Start Date 10/15/21 Plan of Care End Date 12/15/21 Therapeutic Interventions Therapeutic Interventions Aquatic Therapy,Balance Training,Coordination Training ,Gait Training,Home Exercise Program,Joint Mobilizations, Manual Therapy,Neuromuscular Re-education,Patient/Caregiver Education,Self-Care/Home Management,Soft Tissue Mobilization,Taping, Therapeutic Activities, Therapeutic Exercises Modalities Cold Pack/Ice Massage,Electric Stimulation,Hot Packs, Infrared Therapy,Traction- Mechanical,Ultrasound Next Visit Focus/Plan Next Note Type Treatment Note Next Visit Plan Continue prone over ball/ planks, squat rows add home w/ TB, review lifting mechanics. POC: advance core, manual for lumbar flex, thoracic ext & cervical axial elongation Check Ys facing wall for form. Plan of Care Dates Plan of Care Start Date 10/15/21 Plan of Care End Date 12/15/21 Electronically Signed by: Nathaly Mancilla, PT 10/15/21 [id number] If you are in agreement with this Plan of Care, please return a signed and dated copy. I have reviewed this Plan of Care and certify that the skilled therapy services above are required to meet the patient?s needs. Physician Signature Date Printed Name and Credentials Clinical Instructor Signature Printed Name and Credentials
--- NOTE | 2021-10-22 11:42 | PT-OP ANOTE ---
Pt cancelled today feeling sick and unable to attend PT.
--- NOTE | 2021-11-05 19:00 | PT.OTN ---
Current Diagnoses Spinal stenosis, cervical region (11/05/21) Radiculopathy, cervical region (11/05/21) Low back pain, unspecified (11/05/21) Pain in thoracic spine (11/05/21) Paresthesia of skin (11/05/21) Difficulty in walking, not elsewhere classified (11/05/21) Abnormal posture (11/05/21) Weakness (11/05/21) Physical Therapy Treatment Note PT-OP-A Visit Information Start: 08/05/21 17:51 Freq: Status: Active Protocol: Document 11/05/21 15:21 NB (Rec: 11/05/21 19:00 NB [id number]) Out-Patient Physical Therapy Visit Information Visit Information Visit Type Progress Note Visit Note 24 visits per year Visit Start Time 15:16 Visit Stop Time 16:03 Total Visit Minutes 47 Visit Number 14 Number of OTORHINOLARYNGOLOGIST Visits 1 PT-OP-B Current Condition Start: 08/05/21 17:51 Freq: Status: Active Protocol: Document 08/06/21 09:46 [facility] (Rec: 08/06/21 11:21 [facility] [id number]) Current Condition History of Current Condition Onset Date chronic Current Complaints neck pain, back pain History of Current Condition Pt feels like his back and neck is getting worse. He has had chronic neck and back pain starting when he was about 15 or 16 years old and it has gotten worse over the years. Pt has seen only his kiln loader but has not seen any specialist. 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 He is worried about being able to dothat much work as 4 days is very exhausting. He has a lot of trouble lifting heavy crates at work. Pt did PT about 1 year ago with some relief but doesn't feel like his HEP helps enough. Unsure if doing it right. Reprots massage helps. Pt reports he skateboards to/from work but [place] because [place] feels like too much for him Prior Treatments and Tests PT IMPRESSION: 1. 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 2. Multilevel canal stenoses, worst at C5-C6, where there is moderate canal stenosis. 3. Multilevel foraminal stenoses, worst at C5-C6 where there is associated intraforaminal nerve root compression. Recommend correlation with clinical symptoms to ascertain relevance of this finding. IMPRESSION: Retrolisthesis at L5-S1 with foraminal narrowing. Treatment Goals Patient/Caregiver Goals Dec pain and have pain not be so bad, be able to get back to skating at [place], be able to lift at work and be able to withstand work w/o inc pain PT-OP-C Subjective Start: 08/05/21 17:51 Freq: Status: Active Protocol: Document 11/05/21 15:21 [facility] (Rec: 11/05/21 19:00 [facility] [id number]) OP-PT Subjective Patient Comments Patient Comments Pt arrives with pain 01/04 due to falling 6ft onto his back at [facility] 10/10 and has not been able to do exercises. He went to the ER d/t the pain and was diagnosed with a lumbar contusion. He has been focusing on his posture. He picked up pain medication today and feels like he can do exercise today. Pt will see his Dr on 11/11 and will discuss specialist options discussed at last PT visit. PT-OP-F Manual Assessment Start: 08/05/21 17:51 Freq: Status: Active Protocol: Document 08/06/21 09:46 [facility] (Rec: 08/06/21 11:21 [facility] [id number]) Manual Assessments Soft Tissue Assessment Soft Tissue Mobility Assessment tenderness B along spine and all ant cervical mm PT-OP-G Mobility & Gait Start: 08/05/21 17:51 Freq: Status: Active Protocol: Document 08/06/21 09:46 [facility] (Rec: 08/06/21 11:21 [facility] [id number]) OP Gait Assessment Comments Gait Comments lat lean over WB leg B, B dec shoulder ext only elbow motiion w/gait, dec push off, inc L rotation of trunk PT-OP-J Posture/Palpation/Skin Start: 08/05/21 17:51 Freq: Status: Active Protocol: Document 10/15/21 15:51 [facility] (Rec: 10/15/21 18:15 [facility] [id number]) Posture Evaluation Ashley Postural Classification System Elbow Flexion Test 2 PT-OP-K Range of Motion Start: 04/11/22 17:51 Freq: Status: Active Protocol: Document 10/15/21 15:51 [facility] (Rec: 10/15/21 18:15 [facility] [id number]) Cervical Spine Range of Motion Cervical Spine Active Degrees Flexion 65 Extension 61 Rotation Left 60 Rotation Right 62 Lateral Flexion Left 42 Lateral Flexion Right 49 ROM Limitations Pain Comments tested after manual PT-OP-L Special Tests Start: 08/05/21 17:51 Freq: Status: Active Protocol: Document 08/06/21 09:46 [facility] (Rec: 08/06/21 11:21 [facility] [id number]) Special Tests Cervical Spine Special Tests Vertebral Artery Test Results mild lightheadedness initially w/movement but gets better longer in positio Comments B Alar Ligament Test Results neg Spurling's Test Test Results pain positive; traction= pressure Lumbar Spine Special Tests Straight Leg Raise Test Results 43 deg L, 51 R- HS tightness Slump Test Results b positive Neural Special Tests- Upper Body Median Nerve Tension Test Results neg B Radial Nerve Tension Test Results Neg B Ulnar Nerve Tension Test Results neg B PT-OP-M Strength Start: 08/05/21 17:51 Freq: Status: Active Protocol: Document 10/15/21 15:51 [facility] (Rec: 10/15/21 18:15 [facility] [id number]) Shoulder Strength Shoulder Manual Muscle Testing Right Flexion 4+ Good+ Extension 5 Normal Abduction (C5) 5 Normal External Rotation 4+ Good+ Internal Rotation 4+ Good+ Comments some slight neck pain Left Flexion 4+ Good+ Extension 5 Normal Abduction (C5) 5 Normal External Rotation 4+ Good+ Internal Rotation 4+ Good+ Comments some slight neck pain Hip Strength Hip Manual Muscle Testing Right Flexion (L2) 5 Normal Extension (S1) 4+ Good+ Abduction 4+ Good+ Adduction 5 Normal External Rotation 4 Good Internal Rotation 5 Normal Left Flexion (L2) 5 Normal Extension (S1) 4+ Good+ Abduction 5 Normal Adduction 5 Normal External Rotation 4 Good Internal Rotation 5 Normal Comments some pain in LB w/MMT B Knee Strength Knee Manual Muscle Testing Right Flexion (S2) 5 Normal Extension (L3) 5 Normal Left Flexion (S2) 5 Normal Extension (L3) 5 Normal Ankle/Foot Strength Ankle and Foot Manual Muscle Testing Right Dorsiflexion (L4) 5 Normal Plantarflexion (S1) 5 Normal Comments 20 heel raises Left Dorsiflexion (L4) 5 Normal Plantarflexion (S1) 5 Normal Comments 20 Heel raises PT-OP-Q Treatments Start: 08/05/21 17:51 Freq: Status: Active Protocol: Document 11/05/21 15:21 [facility] (Rec: 11/05/21 19:00 [facility] [id number]) Therapeutic Exercises Prone Exercises plank Prone Exercise Name elbow plank off feet Side bilateral Reps/Minutes 2 x 30 s (mod from 60s due to neck/back pain w/ longer hold) Comments cues for back lift neutral, neck chin tuck CS ext neutral, scap protraction Sidelying Exercises side plank Sidelying Exercise Name off feet - modified to knees d /t pain from feet today Side bilateral Reps/Minutes 2x30 s ea Comments improved form, self corrections open book Sidelying Exercise Name HEP reviewed Side bilateral Reps/Minutes x10 w/2 breathes end range stretch Comments Pain relief reported Sitting Exercises Trunk rotation Sitting Exercise Name arms crossed over chest Side bilateral Reps/Minutes 1 x 10 ea Comments vc for cervical alignment, chin tuck, good response Shoulder Rolls Reps/Minutes 60 s Comments UT relaxation reported by pt and observed by OTORHINOLARYNGOLOGIST. chin tuck Side bilateral Reps/Minutes 1 x 5 rep, 5 x 5SH Comments good form, states trying be more conscious of posture Standing Exercises UT, Lev scap stretch Standing Exercise Name reviewed HEP Side bilateral Resistance opp UE little over pressure stretch Reps/Minutes 30 x2 each Comments performed seated today: cue for UE help, stay in pain-free range shld ext w/ head turn nods Standing Exercise Name reviewed HEP Resistance AROM ( work) and TB #1( home) Reps/Minutes x3-5 turn, 5 head nods Comments performed seated today: AROM only w/cue to stay in pain- free range Therapeutic Activity Therapeutic Activity posture Comments seated posture working on unsupported sitting alignment - cues for scap retraction, chin tuck 2. standing working on improved alignment - not done today Manual Therapy Treatment Soft Tissue Mobilization cervical Body Location B UT, LS, R scalenes, suboccipitals Mobilization Type Rolling,Strumming,Sustained Pressure Intensity/Depth Moderate Body Position Hooklying Comments Pt reported relief after STM. paraspinals Body Location CS paraspinals Mobilization Type Strumming Intensity/Depth Moderate Body Position Hooklying Comments Pt reported relief after STM. Manual Techniques Stretching Type PROM CS L rotation: RUT, lev scap stretch Reps/Duration 2 min Comments R>L PT-OP-T Assessment and Plan Start: 08/05/21 17:51 Freq: Status: Active Protocol: Document 11/05/21 15:21 [facility] (Rec: 11/05/21 19:00 [facility] [id number]) Physical Therapy Assessment Goals MATTHEW/NDI Impairment MATTHEW 18/50; NDI 21/50 Short Term Goal (STG) Pt will improve MATTHEW score to no greater than 13/50 and NDI score to no greater than 15/50 to show improved functional ability. 10/15-n/t STG Duration 11/14 Half-Way Goal (LTG) Pt will improve MATTHEW score to no greater than 8/50 and NDI score to no greater than 9/50 to show improved functional ability. LTG Duration 12/15 ROM Short Term Goal (STG) Pt will improve cervical flex/ ext & rotations by at least 10 deg. STG Duration achieved 10/15 Stripe Marker Goal (LTG) pt will have WFL ROM w/no pain w/ROM to allow pt to do all home and work activities. 10/15-still discomfort at end ranges but imporved range LTG Duration 12/15/21 posture Short Term Goal (STG) pt will be able to sit w/ improved thoracic positioning to more vertical position w/o inc pain. STG Duration achieved w/cues Stripe Marker Goal (LTG) Pt will show improved posture by score of at least 3/5 on VCT to show improved postural stabiltiy in order to make standing easier for pt. 10/15-2/5 LTG Duration 12/15/21 activities Short Term Goal (STG) Pt will be able to work 5 days in a row w/o pain greater 4/ 10 at end of day in neck or back. 10/15-still 10/10 per pt STG Duration 11/14/21 Stripe Marker Goal (LTG) Pt will be able to skateboard at park and as transportation w/o inc pain greater than 3/10 . 10/15-has been skateboarding as transport okay but did fall at park causing inc pain LTG Duration 12/15/21 strength Short Term Goal (STG) Pt will be indep w/HEP for cervical and core stabiltiy, UE and LE strength and flexiblity. 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 -MMT achieved, dec scap stability w/2/5 EFT LTG Duration 12/15 Assessment Summary Assessment Pt has performed some stretches but not exercises until today's treatment due to pain from 6ft fall and requires moderate cues for staying in pain-free range. Prone planks were modified from 60s to 30s and side planks modified from feet to knees due to pain - pt tolerated modifications. Cervical AROM today is also limited due to pain and pt requires consistent cues for chin tuck throughout session. Pain is relieved with stretching and STM today. Pt's report of pain improved from 9/10 upon arrival to 5/10 end of session. Physical Therapy Plan Next Visit Focus/Plan Next Note Type Treatment Note Next Visit Plan As tolerated: Continue prone over ball/planks, squat rows add home w/ TB, review lifting mechanics. POC: advance core, manual for lumbar flex, thoracic ext & cervical axial elongation Check Ys facing wall for form.
--- NOTE | 2021-11-19 10:30 | PT.OTN ---
Current Diagnoses Spinal stenosis, cervical region (11/19/21) Radiculopathy, cervical region (11/19/21) Low back pain, unspecified (11/19/21) Pain in thoracic spine (11/19/21) Paresthesia of skin (11/19/21) Difficulty in walking, not elsewhere classified (11/19/21) Abnormal posture (11/19/21) Weakness (11/19/21) Physical Therapy Treatment Note PT-OP-A Visit Information Start: 08/05/21 17:51 Freq: Status: Active Protocol: Document 11/19/21 09:48 [facility] (Rec: 11/26/21 07:23 [facility] [id number]) Out-Patient Physical Therapy Visit Information Visit Information Visit Type Treatment Note Visit Start Time 09:45 Visit Stop Time 10:30 Total Visit Minutes 45 Visit Number 15 Number of SLOT FLOOR PERSON Visits 2 PT-OP-B Current Condition Start: 08/05/21 17:51 Freq: Status: Active Protocol: Document 08/06/21 09:46 [facility] (Rec: 08/06/21 11:21 [facility] [id number]) Current Condition History of Current Condition Onset Date chronic Current Complaints neck pain, back pain History of Current Condition Pt feels like his back and neck is getting worse. He has had chronic neck and back pain starting when he was about 15 or 16 years old and it has gotten worse over the years. Pt has seen only his mail distribution scheme examiner but has not seen any specialist. 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 He is worried about being able to dothat much work as 4 days is very exhausting. He has a lot of trouble lifting heavy crates at work. Pt did PT about 1 year ago with some relief but doesn't feel like his HEP helps enough. Unsure if doing it right. Reprots massage helps. Pt reports he skateboards to/from work [place] because [place] feels like too much for him Prior Treatments and Tests PT IMPRESSION: 1. 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 2. Multilevel canal stenoses, worst at C5-C6, where there is moderate canal stenosis. 3. Multilevel foraminal stenoses, worst at C5-C6 where there is associated intraforaminal nerve root compression. Recommend correlation with clinical symptoms to ascertain relevance of this finding. IMPRESSION: Retrolisthesis at L5-S1 with foraminal narrowing. Treatment Goals Patient/Caregiver Goals Dec pain and have pain not be so bad, be able to get back to skating at [place] [place], be able to lift at work and be able to withstand work w/o inc pain PT-OP-C Subjective Start: 08/05/21 17:51 Freq: Status: Active Protocol: Document 11/19/21 09:48 [facility] (Rec: 11/19/21 10:35 [facility] [id number]) OP-PT Subjective Patient Comments Patient Comments Pt arrives wearing R wrist brace which he reports is from a workplace injury [employer] 11/14 - he went to ER and the swelling made it difficult to tell if it was sprained or fractured. He thinks it's sprained and plans to return to work tomorrow. He tried [employer] stretch but his wrist hurt. PT-OP-F Manual Assessment Start: 08/05/21 17:51 Freq: Status: Active Protocol: Document 08/06/21 09:46 [facility] (Rec: 08/06/21 11:21 [facility] [id number]) Manual Assessments Soft Tissue Assessment Soft Tissue Mobility Assessment tenderness B along spine and all ant cervical mm PT-OP-G Mobility & Gait Start: 08/05/21 17:51 Freq: Status: Active Protocol: Document 08/06/21 09:46 [facility] (Rec: 08/06/21 11:21 [facility] [id number]) OP Gait Assessment Comments Gait Comments lat lean over WB leg B, B dec shoulder ext only elbow motiion w/gait, dec push off, inc L rotation of trunk PT-OP-J Posture/Palpation/Skin Start: 08/05/21 17:51 Freq: Status: Active Protocol: Document 10/15/21 15:51 [facility] (Rec: 10/15/21 18:15 [facility] [id number]) Posture Evaluation Ashley Postural Classification System Elbow Flexion Test 2 PT-OP-K Range of Motion Start: 08/05/21 17:51 Freq: Status: Active Protocol: Document 10/15/21 15:51 [facility] (Rec: 10/15/21 18:15 [facility] [id number]) Cervical Spine Range of Motion Cervical Spine Active Degrees Flexion 65 Extension 61 Rotation Left 60 Rotation Right 62 Lateral Flexion Left 42 Lateral Flexion Right 49 ROM Limitations Pain Comments tested after manual PT-OP-L Special Tests Start: 08/05/21 17:51 Freq: Status: Active Protocol: Document 08/06/21 09:46 [facility] (Rec: 08/06/21 11:21 [facility] [id number]) Special Tests Cervical Spine Special Tests Vertebral Artery Test Results mild lightheadedness initially w/movement but gets better longer in positio Comments B Alar Ligament Test Results neg Spurling's Test Test Results pain positive; traction= pressure Lumbar Spine Special Tests Straight Leg Raise Test Results 43 deg L, 51 R- HS tightness Slump Test Results b positive Neural Special Tests- Upper Body Median Nerve Tension Test Results neg B Radial Nerve Tension Test Results Neg B Ulnar Nerve Tension Test Results neg B PT-OP-M Strength Start: 08/05/21 17:51 Freq: Status: Active Protocol: Document 10/15/21 15:51 [facility] (Rec: 10/15/21 18:15 [facility] [id number]) Shoulder Strength Shoulder Manual Muscle Testing Right Flexion 4+ Good+ Extension 5 Normal Abduction (C5) 5 Normal External Rotation 4+ Good+ Internal Rotation 4+ Good+ Comments some slight neck pain Left Flexion 4+ Good+ Extension 5 Normal Abduction (C5) 5 Normal External Rotation 4+ Good+ Internal Rotation 4+ Good+ Comments some slight neck pain Hip Strength Hip Manual Muscle Testing Right Flexion (L2) 5 Normal Extension (S1) 4+ Good+ Abduction 4+ Good+ Adduction 5 Normal External Rotation 4 Good Internal Rotation 5 Normal Left Flexion (L2) 5 Normal Extension (S1) 4+ Good+ Abduction 5 Normal Adduction 5 Normal External Rotation 4 Good Internal Rotation 5 Normal Comments some pain in LB w/MMT B Knee Strength Knee Manual Muscle Testing Right Flexion (S2) 5 Normal Extension (L3) 5 Normal Left Flexion (S2) 5 Normal Extension (L3) 5 Normal Ankle/Foot Strength Ankle and Foot Manual Muscle Testing Right Dorsiflexion (L4) 5 Normal Plantarflexion (S1) 5 Normal Comments 20 heel raises Left Dorsiflexion (L4) 5 Normal Plantarflexion (S1) 5 Normal Comments 20 Heel raises PT-OP-Q Treatments Start: 08/05/21 17:51 Freq: Status: Active Protocol: Document 11/19/21 09:48 [facility] (Rec: 11/19/21 10:35 [facility] [id number]) Cardio Equipment Recumbent Elliptical (Biodex) Duration (Minutes) 6 Resistance 6 Seat Position 9 seen Therapeutic Exercises Supine Exercises scapular retraction Reps/Minutes 10 x 2-3SH Comments vc for UT overactivation LTR Supine Exercise Name lower trunk rotation Equipment Used 65cm Green Therapy ball Reps/Minutes x12 ea Comments cues for slower pacing, stay in pain-free range, breathing Shoulder rolls Supine Exercise Name Fwd/Bwd Reps/Minutes 1' Serratus punch Comments vc for UT relaxation first. Knee to Chest Supine Exercise Name Double Knee to chest Reps/Minutes 2 x 30 Comments unable to tolerate single, hands behind thighs Prone Exercises Child's Pose Prone Exercise Name 3-way Fwd/Bwd/Lat Reps/Minutes 2 x 60 Comments mod w/ L hand only - added to HEP Standing Exercises Backbend Standing Exercise Name dc'd d/t c/o lumbar pain Comments vc for excessive extension at thoracolumbar junction kitchen sink stretch Standing Exercise Name shoulder/low back stretch - added to HEP Comments mod w/ L hand only, cues for toes forward QL doorway stretch Standing Exercise Name added to HEP Comments modified with R wrist resting on L wrist Trunk rotation Standing Exercise Name added to HEP Side bilateral Reps/Minutes x5 each Comments arms crossed over chest Self-Care/Home Management Treatment Education Patient Education Body Mechanics,Home Exercise Program,Posture Other Education Added to HEP: Thoracic elongation stretch (Kitchen Sink), QL doorway stretch, Supen Serratus punch, supine scap retratction - HO given. PT-OP-T Assessment and Plan Start: 08/05/21 17:51 Freq: Status: Active Protocol: Document 11/19/21 09:48 [facility] (Rec: 11/19/21 10:35 [facility] [id number]) Physical Therapy Assessment Goals MATTHEW/NDI Impairment MATTHEW 18/50; NDI 21/50 Short Term Goal (STG) Pt will improve MATTHEW score to no greater than 13/50 and NDI score to no greater than 15/50 to show improved functional ability. 10/15-n/t STG Duration 11/14 Senior Living Goal (LTG) Pt will improve MATTHEW score to no greater than 8/50 and NDI score to no greater than 9/50 to show improved functional ability. LTG Duration 12/15 ROM Short Term Goal (STG) Pt will improve cervical flex/ ext & rotations by at least 10 deg. STG Duration achieved 10/15 Senior Living Goal (LTG) pt will have WFL ROM w/no pain w/ROM to allow pt to do all home and work activities. 10/15-still discomfort at end ranges but imporved range LTG Duration 12/15/21 posture Short Term Goal (STG) pt will be able to sit w/ improved thoracic positioning to more vertical position w/o inc pain. STG Duration achieved w/cues Senior Living Goal (LTG) Pt will show improved posture by score of at least 3/5 on VCT to show improved postural stabiltiy in order to make standing easier for pt. 10/15-2 LTG Duration 12/15/21 activities Short Term Goal (STG) Pt will be able to work 5 days in a row w/o pain greater 4/ 10 at end of day in neck or back. 10/15-still 10/10 per pt STG Duration 11/14/21 Senior Living Goal (LTG) Pt will be able to skateboard at park and as transportation w/o inc pain greater than 3/10 . 10/15-has been skateboarding as transport okay but did fall at park causing inc pain LTG Duration 12/15/21 strength Short Term Goal (STG) Pt will be indep w/HEP for cervical and core stabiltiy, UE and LE strength and flexiblity. 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 -MMT achieved, dec scap stability w/2/5 EFT LTG Duration 12/15 Assessment Summary Assessment Treatment focus on body mechanics education for lifting at work and standing stretches for postural correction and pain relief. Pt able to demonstrate exercises effectively but requires consistent cueing for slow pacing, UT relaxion, and posture. Added to HEP: Thoracic elongation stretch ( Kitchen Sink), QL doorway stretch, Supen Serratus punch, supine scap retratction - HO given. Exercises modified as need due to right wrist injury . Physical Therapy Plan Next Visit Focus/Plan Next Note Type Treatment Note Next Visit Plan Wrist sprained or broken? Assess response to HEP - able to tolerate work? Review lifting mechanics. As tolerated: Continue prone over ball/planks, squat rows add home w/ TB. POC: advance core, manual for lumbar flex, thoracic ext & cervical axial elongation Check Ys facing wall for form.
--- NOTE | 2021-12-02 09:05 | PT.OTN ---
Current Diagnoses Spinal stenosis, cervical region (12/02/21) Radiculopathy, cervical region (12/02/21) Low back pain, unspecified (12/02/21) Pain in thoracic spine (12/02/21) Paresthesia of skin (12/02/21) Difficulty in walking, not elsewhere classified (12/02/21) Abnormal posture (12/02/21) Weakness (12/02/21) Physical Therapy Treatment Note PT-OP-A Visit Information Start: 08/05/21 17:51 Freq: Status: Active Protocol: Document 12/02/21 08:20 [facility] (Rec: 12/02/21 09:05 [facility] [id number]) Out-Patient Physical Therapy Visit Information Visit Information Visit Type Treatment Note Visit Note 24 visits per year Visit Start Time 08:20 Visit Stop Time 08:59 Total Visit Minutes 39 Visit Number 16 Number of CLINICAL CYTOGENETICS DIRECTOR Visits 0 PT-OP-B Current Condition Start: 08/05/21 17:51 Freq: Status: Active Protocol: Document 08/06/21 09:46 [facility] (Rec: 08/06/21 11:21 [facility] [id number]) Current Condition History of Current Condition Onset Date chronic Current Complaints neck pain, back pain History of Current Condition Pt feels like his back and neck is getting worse. He has had chronic neck and back pain starting when he was about 15 or 16 years old and it has gotten worse over the years. Pt has seen only his physician primary care sports medicine but has not seen any specialist. 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 He is worried about being able to dothat much work as 4 days is very exhausting. He has a lot of trouble lifting heavy crates at work. Pt did PT about 1 year ago with some relief but doesn't feel like his HEP helps enough. Unsure if doing it right. Reprots massage helps. Pt reports he skateboards to/from work but [place]'t go [place] [employer] [place] because it feels like too much for him Prior Treatments and Tests PT IMPRESSION: 1. 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 2. Multilevel canal stenoses, worst at C5-C6, where there is moderate canal stenosis. 3. Multilevel foraminal stenoses, worst at C5-C6 where there is associated intraforaminal nerve root compression. Recommend correlation with clinical symptoms to ascertain relevance of this finding. IMPRESSION: Retrolisthesis at L5-S1 with foraminal narrowing. Treatment Goals Patient/Caregiver Goals Dec pain and have pain not be so bad, be able to get back to skating [place], be able to lift at work and be able to withstand work w/o inc pain PT-OP-C Subjective Start: 08/05/21 17:51 Freq: Status: Active Protocol: Document 12/02/21 08:20 [facility] (Rec: 12/02/21 09:05 [facility] [id number]) OP-PT Subjective Patient Comments Patient Comments Pt reports pain in neck and back have not been good. PT-OP-F Manual Assessment Start: 08/05/21 17:51 Freq: Status: Active Protocol: Document 08/06/21 09:46 [facility] (Rec: 08/06/21 11:21 [facility] [id number]) Manual Assessments Soft Tissue Assessment Soft Tissue Mobility Assessment tenderness B along spine and all ant cervical mm PT-OP-G Mobility & Gait Start: 08/05/21 17:51 Freq: Status: Active Protocol: Document 08/06/21 09:46 [facility] (Rec: 08/06/21 11:21 [facility] [id number]) OP Gait Assessment Comments Gait Comments lat lean over WB leg B, B dec shoulder ext only elbow motiion w/gait, dec push off, inc L rotation of trunk PT-OP-J Posture/Palpation/Skin Start: 08/05/21 17:51 Freq: Status: Active Protocol: Document 10/15/21 15:51 [facility] (Rec: 10/15/21 18:15 [facility] [id number]) Posture Evaluation Ashley Postural Classification System Elbow Flexion Test 2 PT-OP-K Range of Motion Start: 08/05/21 17:51 Freq: Status: Active Protocol: Document 10/15/21 15:51 [facility] (Rec: 10/15/21 18:15 [facility] [id number]) Cervical Spine Range of Motion Cervical Spine Active Degrees Flexion 65 Extension 61 Rotation Left 60 Rotation Right 62 Lateral Flexion Left 42 Lateral Flexion Right 49 ROM Limitations Pain Comments tested after manual PT-OP-L Special Tests Start: 08/05/21 17:51 Freq: Status: Active Protocol: Document 08/06/21 09:46 [facility] (Rec: 08/06/21 11:21 [facility] [id number]) Special Tests Cervical Spine Special Tests Vertebral Artery Test Results mild lightheadedness initially w/movement but gets better longer in positio Comments B Alar Ligament Test Results neg Spurling's Test Test Results pain positive; traction= pressure Lumbar Spine Special Tests Straight Leg Raise Test Results 43 deg L, 51 R- HS tightness Slump Test Results b positive Neural Special Tests- Upper Body Median Nerve Tension Test Results neg B Radial Nerve Tension Test Results Neg B Ulnar Nerve Tension Test Results neg B PT-OP-M Strength Start: 08/05/21 17:51 Freq: Status: Active Protocol: Document 10/15/21 15:51 [facility] (Rec: 10/15/21 18:15 [facility] [id number]) Shoulder Strength Shoulder Manual Muscle Testing Right Flexion 4+ Good+ Extension 5 Normal Abduction (C5) 5 Normal External Rotation 4+ Good+ Internal Rotation 4+ Good+ Comments some slight neck pain Left Flexion 4+ Good+ Extension 5 Normal Abduction (C5) 5 Normal External Rotation 4+ Good+ Internal Rotation 4+ Good+ Comments some slight neck pain Hip Strength Hip Manual Muscle Testing Right Flexion (L2) 5 Normal Extension (S1) 4+ Good+ Abduction 4+ Good+ Adduction 5 Normal External Rotation 4 Good Internal Rotation 5 Normal Left Flexion (L2) 5 Normal Extension (S1) 4+ Good+ Abduction 5 Normal Adduction 5 Normal External Rotation 4 Good Internal Rotation 5 Normal Comments some pain in LB w/MMT B Knee Strength Knee Manual Muscle Testing Right Flexion (S2) 5 Normal Extension (L3) 5 Normal Left Flexion (S2) 5 Normal Extension (L3) 5 Normal Ankle/Foot Strength Ankle and Foot Manual Muscle Testing Right Dorsiflexion (L4) 5 Normal Plantarflexion (S1) 5 Normal Comments 20 heel raises Left Dorsiflexion (L4) 5 Normal Plantarflexion (S1) 5 Normal Comments 20 Heel raises PT-OP-Q Treatments Start: 08/05/21 17:51 Freq: Status: Active Protocol: Document 12/02/21 08:20 [facility] (Rec: 12/02/21 09:05 [facility] [id number]) Therapeutic Exercises Supine Exercises LTR Supine Exercise Name lower trunk rotation Reps/Minutes x12 ea Comments cues for slower pacing, stay in pain-free range, breathing, core engagement Knee to Chest Supine Exercise Name 1.Double Knee to chest 2; SKTC Reps/Minutes 30 sec; 2x30 sec Sidelying Exercises open book Sidelying Exercise Name HEP reviewed Side bilateral Reps/Minutes 5 Comments Pain relief reported Standing Exercises rows Side bilateral Equipment Used L1 Reps/Minutes 20 wall posture Standing Exercise Name w/90/90 Habd Side bilateral Reps/Minutes 12 Comments cued TA LS toward wall, scap retract/depress, chin tuck Manual Therapy Treatment Soft Tissue Mobilization cervical Body Location B UT, LS, R scalenes, suboccipitals Mobilization Type Rolling,Strumming,Sustained Pressure Intensity/Depth Moderate Body Position Hooklying Comments Pt reported relief after STM. paraspinals Body Location lumbar paraspinals Mobilization Type Strumming Intensity/Depth Moderate Body Position Prone Comments Pt reported relief after STM. Joint Mobilizations innominate Joint L caudal FM cervical Comments C1 transverse L & UAP L C2 UAP R sacrum Joint R caudal FM PT-OP-T Assessment and Plan Start: 08/05/21 17:51 Freq: Status: Active Protocol: Document 12/02/21 08:20 [facility] (Rec: 12/02/21 09:05 [facility] [id number]) Physical Therapy Assessment Goals MATTHEW/NDI Impairment MATTHEW 18/50; NDI 21/50 Short Term Goal (STG) Pt will improve MATTHEW score to no greater than 13/50 and NDI score to no greater than 15/50 to show improved functional ability. 10/15-n/t STG Duration 11/14 [facility] Goal (LTG) Pt will improve MATTHEW score to no greater than 8/50 and NDI score to no greater than 9/50 to show improved functional ability. LTG Duration 12/15 ROM Short Term Goal (STG) Pt will improve cervical flex/ ext & rotations by at least 10 deg. STG Duration achieved 10/15 [facility] Goal (LTG) pt will have WFL ROM w/no pain w/ROM to allow pt to do all home and work activities. 10/15-still discomfort at end ranges but imporved range LTG Duration 12/15/21 posture Short Term Goal (STG) pt will be able to sit w/ improved thoracic positioning to more vertical position w/o inc pain. STG Duration achieved w/cues Paper Sealer Goal (LTG) Pt will show improved posture by score of at least 3/5 on VCT to show improved postural stabiltiy in order to make standing easier for pt. 10/15-2/5 LTG Duration 12/15/21 activities Short Term Goal (STG) Pt will be able to work 5 days in a row w/o pain greater 4/ 10 at end of day in neck or back. 10/15-still 10/10 per pt STG Duration 11/14/21 [facility]pc Goal (LTG) Pt will be able to skateboard at park and as transportation w/o inc pain greater than 3/10 . 10/15-has been skateboarding as transport okay but did fall at park causing inc pain LTG Duration 12/15/21 strength Short Term Goal (STG) Pt will be indep w/HEP for cervical and core stabiltiy, UE and LE strength and flexiblity. 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 -MMT achieved, dec scap stability w/2/5 EFT LTG Duration 12/15 Assessment Summary Assessment Pt given exercises that do not irritate wrist and can help back and neck. No issues with exercises but pt requires cues throughout fro comortable range. Improved neck rotation B after manual and pt reports dec pain w/manual Physical Therapy Plan Frequency and Duration Frequency of Treatment 1xweek Duration of Treatment 2 months Plan of Care Start Date 10/15/21 Plan of Care End Date 12/15/21 Next Visit Focus/Plan Next Note Type Treatment Note Next Visit Plan cont to review HEP & manual to help w/posture
--- NOTE | 2021-12-10 09:00 | PT.OTN ---
Current Diagnoses Spinal stenosis, cervical region (12/10/21) Radiculopathy, cervical region (12/10/21) Low back pain, unspecified (12/10/21) Pain in thoracic spine (12/10/21) Paresthesia of skin (12/10/21) Difficulty in walking, not elsewhere classified (12/10/21) Abnormal posture (12/10/21) Weakness (12/10/21) Physical Therapy Treatment Note PT-OP-A Visit Information Start: 08/05/21 17:51 Freq: Status: Active Protocol: Document 12/10/21 08:12 [facility] (Rec: 12/10/21 09:00 [facility] [id number]) Out-Patient Physical Therapy Visit Information Visit Information Visit Type Treatment Note Visit Note 24 visits per year Visit Start Time 08:16 Visit Stop Time 08:57 Total Visit Minutes 41 Visit Number 17 Number of CAR GROOMER Visits 0 PT-OP-B Current Condition Start: 08/05/21 17:51 Freq: Status: Active Protocol: Document 08/06/21 09:46 [facility] (Rec: 08/06/21 11:21 [facility] [id number]) Current Condition History of Current Condition Onset Date chronic Current Complaints neck pain, back pain History of Current Condition Pt feels like his back and neck is getting worse. He has had chronic neck and back pain starting when he was about 15 or 16 years old and it has gotten worse over the years. Pt has seen only his experimental display builder but has not seen any specialist. 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 He is worried about being able to dothat much work as 4 days is very exhausting. He has a lot of trouble lifting heavy crates at work. Pt did PT about 1 year ago with some relief but doesn't feel like his HEP helps enough. Unsure if doing it right. Reprots massage helps. Pt reports he skateboards to/from [place] him Prior Treatments and Tests PT IMPRESSION: 1. 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 2. Multilevel canal stenoses, worst at C5-C6, where there is moderate canal stenosis. 3. Multilevel foraminal stenoses, worst at C5-C6 where there is associated intraforaminal nerve root compression. Recommend correlation with clinical symptoms to ascertain relevance of this finding. IMPRESSION: Retrolisthesis at L5-S1 with foraminal narrowing. Treatment Goals Patient/Caregiver Goals Dec pain and have pain not be so bad, be able to get back to skating at [employer] park, be able to lift at work and be able to withstand work w/o inc pain PT-OP-C Subjective Start: 08/05/21 17:51 Freq: Status: Active Protocol: Document 12/10/21 08:12 [facility] (Rec: 12/10/21 09:00 [facility] [id number]) OP-PT Subjective Patient Comments Patient Comments Pt reports exhausted because work hs been really busy and he has been having to float btwn dish and kitchen duty. Notes he gets MRI today PT-OP-F Manual Assessment Start: 08/05/21 17:51 Freq: Status: Active Protocol: Document 08/06/21 09:46 [facility] (Rec: 08/06/21 11:21 [facility] [id number]) Manual Assessments Soft Tissue Assessment Soft Tissue Mobility Assessment tenderness B along spine and all ant cervical mm PT-OP-G Mobility & Gait Start: 08/05/21 17:51 Freq: Status: Active Protocol: Document 08/06/21 09:46 [facility] (Rec: 08/06/21 11:21 [facility] [id number]) OP Gait Assessment Comments Gait Comments lat lean over WB leg B, B dec shoulder ext only elbow motiion w/gait, dec push off, inc L rotation of trunk PT-OP-J Posture/Palpation/Skin Start: 08/05/21 17:51 Freq: Status: Active Protocol: Document 10/15/21 15:51 [facility] (Rec: 10/15/21 18:15 [facility] [id number]) Posture Evaluation Ashley Postural Classification System Elbow Flexion Test 2 PT-OP-K Range of Motion Start: 08/05/21 17:51 Freq: Status: Active Protocol: Document 10/15/21 15:51 [facility] (Rec: 10/15/21 18:15 [facility] [id number]) Cervical Spine Range of Motion Cervical Spine Active Degrees Flexion 65 Extension 61 Rotation Left 60 Rotation Right 62 Lateral Flexion Left 42 Lateral Flexion Right 49 ROM Limitations Pain Comments tested after manual PT-OP-L Special Tests Start: 08/05/21 17:51 Freq: Status: Active Protocol: Document 08/06/21 09:46 [facility] (Rec: 08/06/21 11:21 [facility] [id number]) Special Tests Cervical Spine Special Tests Vertebral Artery Test Results mild lightheadedness initially w/movement but gets better longer in positio Comments B Alar Ligament Test Results neg Spurling's Test Test Results pain positive; traction= pressure Lumbar Spine Special Tests Straight Leg Raise Test Results 43 deg L, 51 R- HS tightness Slump Test Results b positive Neural Special Tests- Upper Body Median Nerve Tension Test Results neg B Radial Nerve Tension Test Results Neg B Ulnar Nerve Tension Test Results neg B PT-OP-M Strength Start: 08/05/21 17:51 Freq: Status: Active Protocol: Document 10/15/21 15:51 [facility] (Rec: 10/15/21 18:15 [facility] [id number]) Shoulder Strength Shoulder Manual Muscle Testing Right Flexion 4+ Good+ Extension 5 Normal Abduction (C5) 5 Normal External Rotation 4+ Good+ Internal Rotation 4+ Good+ Comments some slight neck pain Left Flexion 4+ Good+ Extension 5 Normal Abduction (C5) 5 Normal External Rotation 4+ Good+ Internal Rotation 4+ Good+ Comments some slight neck pain Hip Strength Hip Manual Muscle Testing Right Flexion (L2) 5 Normal Extension (S1) 4+ Good+ Abduction 4+ Good+ Adduction 5 Normal External Rotation 4 Good Internal Rotation 5 Normal Left Flexion (L2) 5 Normal Extension (S1) 4+ Good+ Abduction 5 Normal Adduction 5 Normal External Rotation 4 Good Internal Rotation 5 Normal Comments some pain in LB w/MMT B Knee Strength Knee Manual Muscle Testing Right Flexion (S2) 5 Normal Extension (L3) 5 Normal Left Flexion (S2) 5 Normal Extension (L3) 5 Normal Ankle/Foot Strength Ankle and Foot Manual Muscle Testing Right Dorsiflexion (L4) 5 Normal Plantarflexion (S1) 5 Normal Comments 20 heel raises Left Dorsiflexion (L4) 5 Normal Plantarflexion (S1) 5 Normal Comments 20 Heel raises PT-OP-Q Treatments Start: 08/05/21 17:51 Freq: Status: Active Protocol: Document 12/10/21 08:12 [facility] (Rec: 12/10/21 09:00 [facility] [id number]) Therapeutic Exercises Supine Exercises LTR Supine Exercise Name lower trunk rotation Reps/Minutes x12 ea Comments cues for slower pacing, stay in pain-free range, breathing, core engagement Knee to Chest Supine Exercise Name 1.Double Knee to chest 2. SKTC Reps/Minutes 30 sec ea Prone Exercises plank Prone Exercise Name forearm and feet Side bilateral Reps/Minutes 25sec Comments cues for back lift neutral, neck chin tuck CS ext neutral, scap protraction Sidelying Exercises side plank Sidelying Exercise Name forearm and knees Side bilateral Reps/Minutes x30 s ea Sitting Exercises chin tuck Side bilateral Reps/Minutes 5 x 5SH Standing Exercises rows Side bilateral Equipment Used L3 Reps/Minutes 20 kitchen sink stretch Standing Exercise Name shoulder/low back stretch - added to HEP Reps/Minutes 30 sec wall posture Standing Exercise Name w/90/90 Habd Side bilateral Reps/Minutes 12 Comments cued TA LS toward wall, scap retract/depress, chin tuck Manual Therapy Treatment Soft Tissue Mobilization cervical Body Location R UT, LS, scalenes Mobilization Type Rolling,Strumming,Sustained Pressure Intensity/Depth Moderate Body Position Sidelying Comments Pt reported relief after STM. Joint Mobilizations thoracic Comments 1. PA T3-8 FM prone & seated 2. UPA R T3-5, L T5-7 FM PT-OP-T Assessment and Plan Start: 08/05/21 17:51 Freq: Status: Active Protocol: Document 12/10/21 08:12 [facility] (Rec: 12/10/21 09:00 [facility] [id number]) Physical Therapy Assessment Goals MATTHEW/NDI Impairment MATTHEW 18/50; NDI 21/50 Short Term Goal (STG) Pt will improve MATTHEW score to no greater than 13/50 and NDI score to no greater than 15/50 to show improved functional ability. 10/15-n/t STG Duration 11/14 Printed Circuit Board Preassembler Goal (LTG) Pt will improve MATTHEW score to no greater than 8/50 and NDI score to no greater than 9/50 to show improved functional ability. LTG Duration 12/15 ROM Short Term Goal (STG) Pt will improve cervical flex/ ext & rotations by at least 10 deg. STG Duration achieved 10/15 Printed Circuit Board Preassembler Goal (LTG) pt will have WFL ROM w/no pain w/ROM to allow pt to do all home and work activities. 10/15-still discomfort at end ranges but imporved range LTG Duration 12/15/21 posture Short Term Goal (STG) pt will be able to sit w/ improved thoracic positioning to more vertical position w/o inc pain. STG Duration achieved w/cues Printed Circuit Board Preassembler Goal (LTG) Pt will show improved posture by score of at least 3/5 on VCT to show improved postural stabiltiy in order to make standing easier for pt. 10/15-2/5 LTG Duration 12/15/21 activities Short Term Goal (STG) Pt will be able to work 5 days in a row w/o pain greater 4/ 10 at end of day in neck or back. 10/15-still 10/10 per pt STG Duration 11/14/21 Printed Circuit Board Preassembler Goal (LTG) Pt will be able to skateboard at park and as transportation w/o inc pain greater than 3/10 . 10/15-has been skateboarding as transport okay but did fall at park causing inc pain LTG Duration 12/15/21 strength Short Term Goal (STG) Pt will be indep w/HEP for cervical and core stabiltiy, UE and LE strength and flexiblity. 10/15-working on compliance w/ HEP STG Duration 11/14 Nursing Home Goal (LTG) Pt willl score at least 4+/5 on all MMT in LEs and UEs B and at least 3/5 on EFT and LPM to show improved stabiltiy in order for pt to do heavy manual job and rec activities w/o inc pain. -MMT achieved, dec scap stability w/2/5 EFT LTG Duration 12/15 Assessment Summary Assessment Pt requires some cues with exercises still. he was able to do Lvl 3 tband w/rows today vs lvl 1 without pain. Cues for posture during exercises needed. Pt reports relief with manual treatment. Physical Therapy Plan Frequency and Duration Frequency of Treatment 1xweek Duration of Treatment 2 months Plan of Care Start Date 10/15/21 Plan of Care End Date 12/15/21 Next Visit Focus/Plan Next Note Type Discharge Summary Next Visit Plan new POC for last session &DC summary,cont to review HEP & manual to help w/posture
--- NOTE | 2021-12-16 16:06 | PT.OTN ---
Current Diagnoses Spinal stenosis, cervical region (12/16/21) Radiculopathy, cervical region (12/16/21) Low back pain, unspecified (12/16/21) Pain in thoracic spine (12/16/21) Paresthesia of skin (12/16/21) Difficulty in walking, not elsewhere classified (12/16/21) Abnormal posture (12/16/21) Weakness (12/16/21) Physical Therapy Treatment Note PT-OP-A Visit Information Start: 08/05/21 17:51 Freq: Status: Active Protocol: Document 12/16/21 15:19 [facility] (Rec: 12/16/21 16:06 [facility] [id number]) Out-Patient Physical Therapy Visit Information Visit Information Visit Type Discharge Summary Visit Note 24 visits per year Visit Start Time 15:20 Visit Stop Time 15:58 Total Visit Minutes 38 Visit Number 18 Number of QUALITY REVIEWER Visits 0 PT-OP-B Current Condition Start: 08/05/21 17:51 Freq: Status: Active Protocol: Document 08/06/21 09:46 [facility] (Rec: 08/06/21 11:21 [facility] [id number]) Current Condition History of Current Condition Onset Date chronic Current Complaints neck pain, back pain History of Current Condition Pt feels like his back and neck is getting worse. He has had chronic neck and back pain starting when he was about 15 or 16 years old and it has gotten worse over the years. Pt has seen only his legal activity adjudicator but has not seen any specialist. 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 He is worried about being able to dothat much work as 4 days is very exhausting. He has a lot of trouble lifting heavy crates at work. Pt did PT about 1 year ago with some relief but doesn't feel like his HEP helps enough. Unsure if doing it right. Reprots massage helps. Pt reports he skateboards to/from work but [place]'t go [place] [employer] [place] because it feels like too much for him Prior Treatments and Tests PT IMPRESSION: 1. 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 2. Multilevel canal stenoses, worst at C5-C6, where there is moderate canal stenosis. 3. Multilevel foraminal stenoses, worst at C5-C6 where there is associated intraforaminal nerve root compression. Recommend correlation with clinical symptoms to ascertain relevance of this finding. IMPRESSION: Retrolisthesis at L5-S1 with foraminal narrowing. Treatment Goals Patient/Caregiver Goals Dec pain and have pain not be so bad, be able to get back to skating at [employer] park, be able to lift at work and be able to withstand work w/o inc pain PT-OP-C Subjective Start: 08/05/21 17:51 Freq: Status: Active Protocol: Document 12/16/21 15:19 [facility] (Rec: 12/16/21 16:06 [facility] [id number]) OP-PT Subjective Patient Comments Patient Comments no major change. hasn't seen MD since MRI Patient Reported Progress Same PT-OP-F Manual Assessment Start: 08/05/21 17:51 Freq: Status: Active Protocol: Document 08/06/21 09:46 [facility] (Rec: 08/06/21 11:21 [facility] [id number]) Manual Assessments Soft Tissue Assessment Soft Tissue Mobility Assessment tenderness B along spine and all ant cervical mm PT-OP-G Mobility & Gait Start: 08/05/21 17:51 Freq: Status: Active Protocol: Document 08/06/21 09:46 [facility] (Rec: 08/06/21 11:21 [facility] [id number]) OP Gait Assessment Comments Gait Comments lat lean over WB leg B, B dec shoulder ext only elbow motiion w/gait, dec push off, inc L rotation of trunk PT-OP-J Posture/Palpation/Skin Start: 08/05/21 17:51 Freq: Status: Active Protocol: Document 12/16/21 15:19 [facility] (Rec: 12/16/21 16:06 [facility] [id number]) Posture Evaluation Ashley Postural Classification System Vertebral Compression Test 2 Elbow Flexion Test 2 Lumbar Protective Mechanism Left AP 1 Lumbar Protective Mechanism Right AP 1 Lumbar Protective Mechanism Left PA 2 Lumbar Protective Mechanism Right PA 2 PT-OP-K Range of Motion Start: 08/05/21 17:51 Freq: Status: Active Protocol: Document 12/16/21 15:19 [facility] (Rec: 12/16/21 16:06 [facility] [id number]) Cervical Spine Range of Motion Cervical Spine Active Degrees Flexion 69 Extension 49 Rotation Left 50 Rotation Right 51 Lateral Flexion Left 41 Lateral Flexion Right 43 ROM Limitations Pain Comments tested before manual PT-OP-L Special Tests Start: 08/05/21 17:51 Freq: Status: Active Protocol: Document 08/06/21 09:46 [facility] (Rec: 08/06/21 11:21 [facility] [id number]) Special Tests Cervical Spine Special Tests Vertebral Artery Test Results mild lightheadedness initially w/movement but gets better longer in positio Comments B Alar Ligament Test Results neg Spurling's Test Test Results pain positive; traction= pressure Lumbar Spine Special Tests Straight Leg Raise Test Results 43 deg L, 51 R- HS tightness Slump Test Results b positive Neural Special Tests- Upper Body Median Nerve Tension Test Results neg B Radial Nerve Tension Test Results Neg B Ulnar Nerve Tension Test Results neg B PT-OP-M Strength Start: 08/05/21 17:51 Freq: Status: Active Protocol: Document 12/16/21 15:19 [facility] (Rec: 12/16/21 16:06 [facility] [id number]) Shoulder Strength Shoulder Manual Muscle Testing Right Flexion 5 Normal Extension 5 Normal Abduction (C5) 5 Normal External Rotation 5 Normal Internal Rotation 5 Normal Comments some slight neck pain Left Flexion 5 Normal Extension 5 Normal Abduction (C5) 5 Normal External Rotation 5 Normal Internal Rotation 5 Normal Comments some slight neck pain Hip Strength Hip Manual Muscle Testing Right Flexion (L2) 5 Normal Extension (S1) 4+ Good+ Abduction 5 Normal Adduction 5 Normal External Rotation 5 Normal Internal Rotation 5 Normal Left Flexion (L2) 5 Normal Extension (S1) 5 Normal Abduction 5 Normal Adduction 5 Normal External Rotation 4+ Good+ Internal Rotation 5 Normal Comments some pain in LB w/MMT B Knee Strength Knee Manual Muscle Testing Right Flexion (S2) 5 Normal Extension (L3) 5 Normal Left Flexion (S2) 5 Normal Extension (L3) 5 Normal Ankle/Foot Strength Ankle and Foot Manual Muscle Testing Right Dorsiflexion (L4) 5 Normal Plantarflexion (S1) 5 Normal Comments 20 heel raises Left Dorsiflexion (L4) 5 Normal Plantarflexion (S1) 5 Normal Comments 20 Heel raises PT-OP-Q Treatments Start: 08/05/21 17:51 Freq: Status: Active Protocol: Document 12/16/21 15:19 [facility] (Rec: 12/16/21 16:06 [facility] [id number]) Therapeutic Exercises Supine Exercises LTR Supine Exercise Name lower trunk rotation Reps/Minutes 8 Comments cues for slower pacing, stay in pain-free range, breathing, core engagement Knee to Chest Supine Exercise Name 1.Double Knee to chest 2. SKTC Reps/Minutes 30 sec ea Prone Exercises plank Prone Exercise Name forearm and feet Side bilateral Reps/Minutes 25sec Comments cues for back lift neutral, neck chin tuck CS ext neutral, scap protraction Sidelying Exercises side plank Sidelying Exercise Name forearm and knees Side bilateral Reps/Minutes x30 s ea Sitting Exercises chin tuck Side bilateral Reps/Minutes 5 x 5SH Standing Exercises rows Side bilateral Equipment Used L3 Reps/Minutes 20 wall posture Standing Exercise Name w/90/90 Habd Side bilateral Reps/Minutes 8 Comments cued TA LS toward wall, scap retract/depress, chin tuck Manual Therapy Treatment Soft Tissue Mobilization paraspinals Body Location lumbar paraspinals Mobilization Type Strumming Intensity/Depth Moderate Body Position Prone Comments Pt reported relief after STM. Joint Mobilizations innominate Joint L caudal FM sacrum Joint L UPA &caudal FM PT-OP-T Assessment and Plan Start: 08/05/21 17:51 Freq: Status: Active Protocol: Document 12/16/21 15:19 [facility] (Rec: 12/16/21 16:06 [facility] [id number]) Physical Therapy Assessment Goals MATTHEW/NDI Impairment MATTHEW 18/50; NDI 21/50 Short Term Goal (STG) Pt will improve MATTHEW score to no greater than 13/50 and NDI score to no greater than 15/50 to show improved functional ability. 10/15-n/t STG Duration MATTHEW 14/50 Mcc Goal (LTG) Pt will improve MATTHEW score to no greater than 8/50 and NDI score to no greater than 9/50 to show improved functional ability. LTG Duration still limited ROM Short Term Goal (STG) Pt will improve cervical flex/ ext & rotations by at least 10 deg. STG Duration achieved 10/15 Cast Iron Drain Pipe Layer Goal (LTG) pt will have WFL ROM w/no pain w/ROM to allow pt to do all home and work activities. 10/15-still discomfort at end ranges but imporved range LTG Duration no major change recently for LB or cervical posture Short Term Goal (STG) pt will be able to sit w/ improved thoracic positioning to more vertical position w/o inc pain. STG Duration achieved w/cues Cast Iron Drain Pipe Layer Goal (LTG) Pt will show improved posture by score of at least 3/5 on VCT to show improved postural stabiltiy in order to make standing easier for pt. 10/15-2 LTG Duration 2/ activities Short Term Goal (STG) Pt will be able to work 5 days in a row w/o pain greater 4/ 10 at end of day in neck or back. 10/15-still 02/03 per pt 12/16-8-01/04 STG Duration still 8-01/04 Mcc Goal (LTG) Pt will be able to skateboard at park and as transportation w/o inc pain greater than 3/10 . 10/15-has been skateboarding as transport okay but did fall at park causing inc pain LTG Duration 09/03 w/small bouts but inc w/ longer strength Short Term Goal (STG) Pt will be indep w/HEP for cervical and core stabiltiy, UE and LE strength and flexiblity. 10/15-working on compliance w/ HEP STG Duration 11/14 Mcc Goal (LTG) Pt willl score at least 4+/5 on all MMT in LEs and UEs B and at least 3/5 on EFT and LPM to show improved stabiltiy in order for pt to do heavy manual job and rec activities w/o inc pain. -MMT achieved, dec scap stability w/2/5 EFT LTG Duration mostly achieved but EFT & LPM dec still Assessment Summary Assessment Pt has not made a lot of change w/therapy in last few visits. He feels better initially after sessions but pain returns later after. He still has dec core stability and scap stability but has exercises to work on this. He requires little cues at this point and is encouraged to be compliant w/HEP. DC at [facility] Physical Therapy Plan Frequency and Duration Frequency of Treatment 1xweek Duration of Treatment today Plan of Care Start Date 12/16/21 Plan of Care End Date 12/16/21 Therapeutic Interventions Therapeutic Interventions Aquatic Therapy,Balance Training,Coordination Training ,Gait Training,Home Exercise Program,Joint Mobilizations, Manual Therapy,Neuromuscular Re-education,Patient/Caregiver Education,Self-Care/Home Management,Soft Tissue Mobilization,Taping, Therapeutic Activities, Therapeutic Exercises Modalities Cold Pack/Ice Massage,Electric Stimulation,Hot Packs, Infrared Therapy,Traction- Mechanical,Ultrasound Discharge Physical Therapy Discharge Reasons Plateau in Progress
--- NOTE | 2021-12-16 16:06 | PT.OPPOC ---
Physical, Occupational & Speech Therapy At [facility] Current Diagnoses Spinal stenosis, cervical region (12/16/21) Radiculopathy, cervical region (12/16/21) Low back pain, unspecified (12/16/21) Pain in thoracic spine (12/16/21) Paresthesia of skin (12/16/21) Difficulty in walking, not elsewhere classified (12/16/21) Abnormal posture (12/16/21) Weakness (12/16/21) Visit Care Team Role Provider Type Ephraim Platt MD Attending Provider Physician Family Provider Primary Care Provider Referring Provider Specialty: Internal Medicine Address: [address] [place] [address], [address], [address] Email: [email or web address] Plan Of Care PT-OP-T Assessment and Plan Start: 08/05/21 17:51 Freq: Status: Active Protocol: Document 12/16/21 15:19 [facility] (Rec: 12/16/21 16:06 [facility] [id number]) Physical Therapy Assessment Goals MATTHEW/NDI Impairment MATTHEW 18/50; NDI 21/50 Short Term Goal (STG) Pt will improve MATTHEW score to no greater than 13/50 and NDI score to no greater than 15/50 to show improved functional ability. 10/15-n/t STG Duration MATTEHW 14/50 Irrigation Flume Layer Goal (LTG) Pt will improve MATTHEW score to no greater than 8/50 and NDI score to no greater than 9/50 to show improved functional ability. LTG Duration still limited ROM Short Term Goal (STG) Pt will improve cervical flex/ ext & rotations by at least 10 deg. STG Duration achieved 10/15 Fdc Goal (LTG) pt will have WFL ROM w/no pain w/ROM to allow pt to do all home and work activities. 10/15-still discomfort at end ranges but imporved range LTG Duration no major change recently for LB or cervical posture Short Term Goal (STG) pt will be able to sit w/ improved thoracic positioning to more vertical position w/o inc pain. STG Duration achieved w/cues Irrigation Flume Layer Goal (LTG) Pt will show improved posture by score of at least 3/5 on VCT to show improved postural stabiltiy in order to make standing easier for pt. 10/15-2/5 LTG Duration 2/5 activities Short Term Goal (STG) Pt will be able to work 5 days in a row w/o pain greater 4/ 10 at end of day in neck or back. 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 10/15-has been skateboarding as transport okay but did fall at park causing inc pain LTG Duration 5/10 w/small bouts but inc w/ longer strength Short Term Goal (STG) Pt will be indep w/HEP for cervical and core stabiltiy, UE and LE strength and flexiblity. 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 -MMT achieved, dec scap stability w/2/5 EFT LTG Duration mostly achieved but EFT & LPM dec still Assessment Summary Assessment Pt has not made a lot of change w/therapy in last few visits. He feels better initially after sessions but pain returns later after. He still has dec core stability and scap stability but has exercises to work on this. He requires little cues at this point and is encouraged to be compliant w/HEP. DC at [facility] Physical Therapy Plan Frequency and Duration Frequency of Treatment 1xweek Duration of Treatment today Plan of Care Start Date 12/16/21 Plan of Care End Date 12/16/21 Therapeutic Interventions Therapeutic Interventions Aquatic Therapy,Balance Training,Coordination Training ,Gait Training,Home Exercise Program,Joint Mobilizations, Manual Therapy,Neuromuscular Re-education,Patient/Caregiver Education,Self-Care/Home Management,Soft Tissue Mobilization,Taping, Therapeutic Activities, Therapeutic Exercises Modalities Cold Pack/Ice Massage,Electric Stimulation,Hot Packs, Infrared Therapy,Traction- Mechanical,Ultrasound Discharge Physical Therapy Discharge Reasons [place] in Progress Plan of Care Dates Plan of Care Start Date 12/16/21 Plan of Care End Date 12/16/21 Electronically Signed by: Nathaly Mancilla, PT 12/16/21 8623 If you are in agreement with this Plan of Care, please return a signed and dated copy. I have reviewed this Plan of Care and certify that the skilled therapy services above are required to meet the patient?s needs. Physician Signature Date Printed Name and Credentials Clinical Instructor Signature Printed Name and Credentials
== END 2021-12-19 09:20 ==
LOC: PHYS 15:15
PROVIDERS: Family Provider Student in an Organized Health Care Education/Training Program; PCP Student in an Organized Health Care Education/Training Program; Referring Provider Student in an Organized Health Care Education/Training Program; Visit Provider Student in an Organized Health Care Education/Training Program
DX: M48.02 Spinal stenosis, cervical region (principal); M54.12 Radiculopathy, cervical region; R20.2 Paresthesia of skin; M54.6 Pain in thoracic spine; R53.1 Weakness; R29.3 Abnormal posture; M54.50 Low back pain, unspecified; R26.2 Difficulty in walking, not elsewhere classified
CPT/HCPCS: 97110; 97140; 97162; 97530; 97535; 97750

== ENCOUNTER 2022-02-09 19:11 | Emergency (ER) | payer OTHER, MEDICAID, SELFPAY ==
[2022-02-09 19:15] VITALS: BP 135/82; PULSE 96; RESP 20; TEMP 36.7; O2SAT 97
--- NOTE | 2022-02-09 19:54 | ED.BACK ---
HPI - Back Pain/Injury General Chief Complaint: Back Pain/Injury Stated Complaint: Neck/Shoulder Pain, Rt Side Time Seen by Provider: 02/09/22 19:33 Source: patient History of Present Illness HPI Narrative: 26-year-old male smoker with history of chronic back pain presents with a chief complaint of right-sided neck and posterior shoulder pain upon waking today. He denies any injury or overuse. He is had no fever or chills. Denies any numbness, tingling or weakness. He admits to a sharp and stabbing pain in the right side of his neck that radiates down into his upper shoulder. This pain is worse when he moves his neck or his shoulder and improves with rest. He states that he went to bed feeling fine and woke up feeling this way. He has no chest pain or shortness of breath and denies nausea, vomiting or diarrhea. Related Data Previous Rx's Medication Instructions Recorded naloxone 1 mg/mL injection syringe 1 mg IM Q2M PRN opioid overdose #2 09/18/20 mL fluoxetine 20 mg capsule 60 mg PO DAILY #90 caps 01/08/21 trazodone 50 mg tablet 50 - 100 mg PO BEDTIME #90 tabs 03/05/21 hydrocodone 10 mg-acetaminophen 1 tab PO Q8H PRN pain #84 tabs 01/27/22 325 mg tablet cyclobenzaprine 10 mg tablet 10 mg PO TID PRN muscle spasm #14 02/09/22 tabs ketorolac 10 mg tablet 10 mg PO Q6H PRN pain #14 tabs 02/09/22 lidocaine 5 % topical patch 1 patch topical DAILY #15 ea 02/09/22 (Lidoderm) methylprednisolone 4 mg tablets in See Rx Instructions PO .COMPLEX 02/09/22 a dose pack (Medrol (Onofre)) #21 ea Allergies Allergy/AdvReac Type Severity Reaction Status Date / Time metoclopramide AdvReac Mild LEG Verified 12/24/21 09:21 PROBLEMS Review of Systems Review of Systems Narrative: GENERAL: Denies chills, fatigue, malaise, fever, sweats. HEENT: Denies sinus pain, ear pain, sore throat, difficulty swallowing, dizziness. RESPIRATORY: Denies dyspnea, cough, wheezing, hemoptysis, sputum. CARDIOVASCULAR: Denies chest pain, palpitations, orthopnea, edema, GASTROINTESTINAL: Denies nausea, vomiting, abdominal pain, diarrhea, constipation, melena. : Denies dysuria, frequency, incontinence, hematuria, urinary retention. MUSCULOSKELETAL: See HPI SKIN: Denies rash, skin lesions, or other NEUROLOGIC: See HPI PSYCHIATRIC: No concerning psychosocial issues. 12 point review of systems is negative except for those stated above Patient History Medical History Accidental overdose Acetaminophen abuse Acne Anxiety associated with depression (~2006) Depression History of frequent headaches Insomnia Migraines (~2004) Orbital tumor Psoriasis Surgical History Anesthesia History of eye surgery Family History Mother Diabetes mellitus History of heart disease Hypertension Hyperlipidemia Grandfather Kidney failure Grandfather Cancer Grandmother No problems noted. Social History Smoking Status: Current some day smoker second hand exposure: No alcohol intake: never substance use type: marijuana (DAILY) Smoking Status: Current some day smoker alcohol intake frequency: 0-2 drinks per day Substance Use Type: marijuana Exam Narrative Exam Narrative: GENERAL: [26] year old patient appears stated age. Well-developed patient, in mild distress. HEAD: Atraumatic. Normocephalic. EYES: Pupils equal round and reactive. Extraocular motions intact. No scleral icterus. No injection or drainage. ENT: Nose without bleeding, purulent drainage. Throat without erythema, tonsillar hypertrophy or exudate. Airway patent. NECK: Trachea midline. Right-sided cervical paraspinal musculature tender to palpation, no change with axial load. Right upper extremity with 5/5 strength, no change in sensation and radial artery easily palpated. Cap refill less than 2 seconds. CARDIOVASCULAR: Regular rate and rhythm without murmurs, gallops, or rubs. RESPIRATORY: Clear to auscultation. Breath sounds equal bilaterally. No wheezes, rales, or rhonchi. GASTROINTESTINAL: Abdomen soft, non-tender, nondistended. EXTREMITIES: No edema or joint tenderness. BACK: Nontender without deformity or crepitance. No flank tenderness. NEURO: AOx3. SKIN: No rash or erythema of visible areas Initial Vital Signs Initial Vital Signs: Vital Signs Temperature 98.1 F 10/16/22 19:15 Pulse Rate 96 H 02/09/22 19:15 Respiratory Rate 20 02/09/22 19:15 Blood Pressure 135/82 02/09/22 19:15 Pulse Oximetry 97 02/09/22 19:15 Oxygen Delivery Method 02/09/22 19:15 Course Orders Ordered: Discontinued Medications Cyclobenzaprine HCl (Cyclobenzaprine 10 Mg Prepack) 1 bottle MISC SEEINSTR ONE Stop: 02/09/22 20:14 Last Admin: 02/09/22 20:31 Dose: 1 bottle Documented By: JORGE Ketorolac Tromethamine (Ketorolac 30 Mg/Ml Vial) 30 mg IM NOW ONE Stop: 02/09/22 20:14 Last Admin: 02/09/22 20:31 Dose: 30 mg Documented By: JORGE Lidocaine (Lidocaine Patch 1 Each Adh..Patch) 1 each TOP NOW ONE Stop: 02/09/22 20:14 Last Admin: 02/09/22 20:31 Dose: 1 each Documented By: JORGE Prednisone (Prednisone 20 Mg Tablet) 40 mg PO NOW ONE Stop: 02/09/22 20:14 Last Admin: 02/09/22 20:32 Dose: 40 mg Documented By: JORGE Vital Signs Vital signs: Vital Signs - 8 hr 02/09/22 19:15 02/09/22 20:37 Temperature 98.1 F Pulse Rate 96 H 94 H Respiratory Rate 20 20 Blood Pressure 135/82 132/83 Pulse Oximetry 97 97 Oxygen Delivery Method Room Air Room Air MDM - Back Pain/Injury MDM Narrative Medical decision making narrative: Multiple etiologies for patient's symptoms considered including: [Cervical paraspinal spasm with radiculopathy versus other] Patient's symptoms improved over duration of stay with above-stated therapies. Findings and discharge diagnosis discussed with patient/family followed by verbalization of understanding Return precautions discussed with patient/family whom verbalize understanding. Discharge Plan Departure Patient Disposition: Home Clinical Impression: Cervical radiculopathy Instructions: DI for Cervical Radiculopathy Activity Restrictions/Additional Instructions: *You have been diagnosed with [cervical radiculopathy] *What to do: *Please continue to take your regular medications as directed. [x ] New medication prescriptions sent to your pharmacy: [ [facility]] [ ] New medication written as a paper prescription [ ] No new medications given *Please follow up with your primary care provider in 2-3 days, call for an appointment. Let them know you were seen in the Emergency Department and that we ask that you be seen in follow up. We will electronically transmit a record of today's note if your PCP is in our system *If you do not have a primary care provider please contact the [facility] Resource line at [phone]. They will ask some questions about your medical history and help get you set up with a doctor in the community. *Return to Emergency Department if you should have any new, worsening or concerning symptoms Prescriptions: New cyclobenzaprine 10 mg tablet 10 mg PO TID PRN (Reason: muscle spasm) Qty: 14 0RF ketorolac 10 mg tablet 10 mg PO Q6H PRN (Reason: pain) Qty: 14 0RF lidocaine [Lidoderm] 5 % adhesive patch,medicated 1 patch TOP DAILY Qty: 15 0RF Rx Instructions: leave on most painful area for 12 hrs methylprednisolone [Medrol (Onofre)] 4 mg tablets,dose pack See Rx Instructions .ROUTE .COMPLEX Qty: 21 0RF Rx Instructions: orally per package directions No Action fluoxetine 20 mg capsule 60 mg PO DAILY Qty: 90 5RF trazodone 50 mg tablet 50 - 100 mg PO BEDTIME Qty: 90 3RF hydrocodone-acetaminophen 10-325 mg tablet 1 tab PO Q8H PRN (Reason: pain) Qty: 84 0RF Rx Instructions: EXEMPT naloxone 1 mg/mL syringe 1 mg IM Q2M PRN (Reason: opioid overdose) Qty: 2 11RF Rx Instructions: NTExceed 10 mg total dose/episode Referrals: Eprhaim Platt MD [Primary Care Provider] - Visit Report Forms: Patient Portal/API
[2022-02-09] MEDS: CYCLOBENZAPRINE 10 MG PREPACK 1 BOTTLE MISC (20:31)
[2022-02-09] MEDS: LIDOCAINE PATCH 1 EACH ADH..PATCH TOP (20:31)
[2022-02-09] MEDS: KETOROLAC 30 MG/ML VIAL IM (20:31)
[2022-02-09] MEDS: predniSONE 20 MG TABLET 40 MG PO (20:32)
[2022-02-09 20:37] VITALS: BP 132/83; PULSE 94; RESP 20; O2SAT 97
== END 2022-02-09 20:38 | disposition home or self-care (01) ==
PROVIDERS: Emergency Provider Emergency Medicine; Family Provider Student in an Organized Health Care Education/Training Program; PCP Student in an Organized Health Care Education/Training Program
DX: M54.10 Radiculopathy, site unspecified (principal)
CPT/HCPCS: 96372; 99283; J1885

== ENCOUNTER 2022-05-26 21:28 | Emergency (ER) | payer OTHER, MEDICAID, SELFPAY ==
[2022-05-26 21:45] VITALS: BP 120/91; PULSE 101; O2SAT 98
--- NOTE | 2022-05-26 21:47 | DI.RAD.S_ITS ---
PROCEDURE: XR ACUTE ABDOMEN SERIES INDICATIONS: Abdominal pain, N/V TECHNIQUE: One view chest and two views of the abdomen were acquired. COMPARISON: [facility], , XR ACUTE ABDOMEN SERIES, 04/13/2020, 22:34. FINDINGS: Surgical changes and devices: None. Chest: Lungs are clear. Heart size is normal. No pleural effusions. No pneumoperitoneum. Abdomen: Bowel gas pattern is normal. No suspicious calcifications. Bones: No suspicious bony lesions. IMPRESSION: 1. No acute intra-abdominal radiographic abnormality. Dictated by: Ryder Miranda M.D. on 05/26/2022 at 23:05 Approved by: Ryder Miranda M.D. on 05/26/2022 at 23:07
[2022-05-26 21:49] VITALS: BP 120/91; PULSE 98; RESP 18; TEMP 37.1; O2SAT 97; BMI 25.0
--- NOTE | 2022-05-26 21:51 | ED.GENADULT ---
HPI - General Adult General Chief complaint: Abdominal Pain Stated complaint: Flu or hernia Time Seen by Provider: 05/26/22 21:39 History of Present Illness HPI narrative: 26-year-old male smoker with history of chronic neck and back pain presents with episodic, generalized abdominal pain, nausea and vomiting for the past 2 days or so. He states he is become a bit dizzy and lightheaded and can not keep anything down and now has been vomiting bile. He denies any obvious provocation or palliation his abdominal discomfort and states that it comes in waves. He denies any chest pain or shortness of breath. He is had no runny nose, sore throat, cough or fever. He denies any trouble urinating or moving his bowels. He is passing gas. Related Data Previous Rx's Medication Instructions Recorded naloxone 1 mg/mL injection syringe 1 mg IM Q2M PRN opioid overdose #2 09/18/20 mL fluoxetine 20 mg capsule 60 mg PO DAILY #90 caps 01/08/21 lidocaine 5 % topical patch 1 patch topical DAILY #15 ea 02/09/22 (Lidoderm) trazodone 50 mg tablet 50 - 100 mg PO BEDTIME #90 tabs 03/10/22 hydrocodone 10 mg-acetaminophen 1 tab PO Q8H PRN pain #84 tabs 05/19/22 325 mg tablet ondansetron 4 mg disintegrating 4 mg PO TID-QID PRN nausea and 05/27/22 tablet vomiting #10 tabs Allergies Allergy/AdvReac Type Severity Reaction Status Date / Time metoclopramide AdvReac Mild LEG Verified 04/07/22 16:44 PROBLEMS Review of Systems Review of Systems Narrative: GENERAL: See HPI. HEENT: Denies sinus pain, ear pain, sore throat, difficulty swallowing, dizziness. RESPIRATORY: Denies dyspnea, cough, wheezing, hemoptysis, sputum. CARDIOVASCULAR: Denies chest pain, palpitations, orthopnea, edema, GASTROINTESTINAL: See HPI : Denies dysuria, frequency, incontinence, hematuria, urinary retention. MUSCULOSKELETAL: denies weakness, joint pain, or bony pain SKIN: Denies rash, skin lesions, or other NEUROLOGIC: Denies weakness, headache, numbness, change in speech, confusion, seizures, incoordination. PSYCHIATRIC: No concerning psychosocial issues. 12 point review of systems is negative except for those stated above Patient History Medical History Accidental overdose Acetaminophen abuse Acne Anxiety associated with depression (~2006) Chronic bilateral low back pain without sciatica Depression History of frequent headaches Insomnia Lumbar region somatic dysfunction Migraines (~2004) Orbital tumor Pelvic somatic dysfunction Psoriasis Segmental and somatic dysfunction of abdomen and other regions Somatic dysfunction of lower extremity Surgical History Anesthesia History of eye surgery Family History Mother Diabetes mellitus History of heart disease Hypertension Hyperlipidemia Grandfather Kidney failure Grandfather Cancer Grandmother No problems noted. Social History Smoking Status: Current some day smoker second hand exposure: No alcohol intake: never substance use type: marijuana (DAILY) Smoking Status: Current some day smoker alcohol intake frequency: 0-2 drinks per day Substance Use Type: marijuana Exam Narrative Exam Narrative: GENERAL: [26] year old patient appears stated age. Well-developed patient, in mild distress. HEAD: Atraumatic. Normocephalic. EYES: Pupils equal round and reactive. Extraocular motions intact. No scleral icterus. No injection or drainage. ENT: Nose without bleeding, purulent drainage. Throat without erythema, tonsillar hypertrophy or exudate. Airway patent. NECK: Trachea midline. Non tender CARDIOVASCULAR: Regular rate and rhythm without murmurs, gallops, or rubs. RESPIRATORY: Clear to auscultation. Breath sounds equal bilaterally. No wheezes, rales, or rhonchi. GASTROINTESTINAL: Abdomen soft, non-tender, nondistended. EXTREMITIES: No edema or joint tenderness. BACK: Nontender without deformity or crepitance. No flank tenderness. NEURO: AOx3. SKIN: No rash or erythema of visible areas Initial Vital Signs Initial Vital Signs: Vital Signs Pulse Rate 101 H 05/26/22 21:45 Blood Pressure 120/91 H 05/26/22 21:45 Pulse Oximetry 98 05/26/22 21:45 Course Orders Ordered: ED Orders 05/26/22 21:47 XR acute abdomen series Stat 05/26/22 21:52 Complete Blood Count AUTO DIFF Stat Comprehensive Metabolic Panel Stat Ketones (Beta-Hydroxybutyrate) Stat Lactate (Lactic Acid) Stat Lipase Stat Magnesium Stat 05/26/22 21:54 Covid-19 + FLU A/B + RSV - PCR Stat 05/26/22 22:44 US abdomen limited Stat Discontinued Medications Sodium Chloride (Normal Saline 0.9%) 1,000 mls @ 1,000 mls/hr IV BOLUS ONE Stop: 05/26/22 22:45 Last Infusion: 05/27/22 00:15 Dose: 0 mls/hr Documented By: Admin: 05/26/22 22:01 Dose: 1,000 mls/hr Documented By: ISAIAS Ondansetron HCl (Ondansetron 4 Mg/2 Ml Inj) 4 mg IV NOW ONE Stop: 05/26/22 21:47 Last Admin: 05/26/22 22:01 Dose: 4 mg Documented By: ISAIAS Ondansetron HCl (Ondansetron 4 Mg Odt Prepack) 1 bottle MISC SEEINSTR ONE Stop: 05/26/22 23:42 Last Admin: 05/27/22 00:15 Dose: 1 bottle Documented By: ISAIAS Pantoprazole Sodium (Pantoprazole 40 Mg Vial) 40 mg IV NOW ONE Stop: 05/26/22 21:47 Last Admin: 05/26/22 22:01 Dose: 40 mg Documented By: ISAIAS Vital Signs Vital signs: Vital Signs - 8 hr 05/26/22 21:49 05/26/22 21:45 05/26/22 21:45 Temperature 98.7 F Pulse Rate 98 H 101 H Respiratory Rate 18 Blood Pressure 120/91 H 120/91 H Pulse Oximetry 97 98 Oxygen Delivery Method Room Air 05/26/22 22:00 05/26/22 22:00 05/26/22 22:30 Temperature Pulse Rate 91 H 89 Respiratory Rate Blood Pressure 109/65 Pulse Oximetry 98 96 Oxygen Delivery Method 05/26/22 23:00 05/26/22 23:30 05/27/22 00:00 Temperature Pulse Rate 82 83 77 Respiratory Rate Blood Pressure Pulse Oximetry 96 97 100 Oxygen Delivery Method Medical Decision Making Lab Data 05/26/22 21:52 05/26/22 21:52 Labs: Lab Results 05/26/22 05/26/22 05/26/22 Range/Units 21:52 21:52 21:52 WBC 6.4 (4.5-11.0) X10^3/uL RBC 5.02 (4.5-5.9) X10^6/uL Hgb 14.6 (13.5-17.5) g/dL Hct 42.9 (41-53) % MCV 85.4 (80-100) fL MCH 29.1 (26-34) PG MCHC 34.1 (30-36) % RDW 12.6 (11.6-14.8) % Plt Count 249 (150-400) X10^3/uL Neut % (Auto) 75.4 H (50-75) % Lymph % (Auto) 15.0 L (25-40) % [place] % (Auto) 9.3 (3-14) % Eos % (Auto) 0.2 L (2-4) % Baso % (Auto) 0.1 (0-2) % Neut # (Auto) 4800 (7637-8922) /uL Lymph # (Auto) 1000 L (0093-5905) /uL [place] # (Auto) 600 (0-900) /uL Eos # (Auto) 0 (0-450) /uL Baso # (Auto) 0 (0-100) /uL Sodium (137-145) mmol/L Potassium (3.4-5.1) mmol/L Chloride (98-107) mmol/L Carbon Dioxide (22-32) mmol/L BUN (9-20) mg/dL Creatinine (0.66-1.25) mg/dL Estimated GFR (>60) mL/min BUN/Creatinine Ratio (6-22) Glucose (70-100) mg/dL Lactate 0.9 (0.7-2.1) mmol/L Calcium (8.4-10.2) mg/dL Magnesium (1.6-2.3) mg/dL Total Bilirubin (0.2-1.3) mg/dL AST (17-59) IU/L ALT (<50) IU/L Alkaline Phosphatase (38-126) U/L Total Protein (6.3-8.2) g/dL Albumin (3.5-5.0) g/dL Globulin (1.7-4.1) g/dL Albumin/Globulin Ratio (1.0-2.8) Lipase (23-300) U/L Ketones 0.90 H (<0.27) mmol/L SARS-CoV-2 (PCR) (Negative) Influenza A (RT-PCR) (NEGATIVE) Influenza B (RT-PCR) (NEGATIVE) RSV (PCR) (Negative) 05/26/22 05/26/22 Range/Units 21:52 21:54 WBC (4.5-11.0) X10^3/uL RBC (4.5-5.9) X10^6/uL Hgb (13.5-17.5) g/dL Hct (41-53) % MCV (80-100) fL MCH (26-34) PG MCHC (30-36) % RDW (11.6-14.8) % Plt Count (150-400) X10^3/uL Neut % (Auto) (50-75) % Lymph % (Auto) (25-40) % [place] % (Auto) (3-14) % Eos % (Auto) (2-4) % Baso % (Auto) (0-2) % Neut # (Auto) (0225-4316) /uL Lymph # (Auto) (1193-7506) /uL [place] # (Auto) (0-900) /uL Eos # (Auto) (0-450) /uL Baso # (Auto) (0-100) /uL Sodium 135 L (137-145) mmol/L Potassium 3.3 L (3.4-5.1) mmol/L Chloride 94 L (98-107) mmol/L Carbon Dioxide 31 (22-32) mmol/L BUN 15 (9-20) mg/dL Creatinine 0.79 (0.66-1.25) mg/dL Estimated GFR > 60 (>60) mL/min BUN/Creatinine Ratio 19.0 (6-22) Glucose 96 (70-100) mg/dL Lactate (0.7-2.1) mmol/L Calcium 8.7 (8.4-10.2) mg/dL Magnesium 1.6 (1.6-2.3) mg/dL Total Bilirubin 1.6 H (0.2-1.3) mg/dL AST 28 (17-59) IU/L ALT 20 (<50) IU/L Alkaline Phosphatase 88 (38-126) U/L Total Protein 7.7 (6.3-8.2) g/dL Albumin 4.4 (3.5-5.0) g/dL Globulin 3.3 (1.7-4.1) g/dL Albumin/Globulin Ratio 1.3 (1.0-2.8) Lipase 57 (23-300) U/L Ketones (<0.27) mmol/L SARS-CoV-2 (PCR) Negative (Negative) Influenza A (RT-PCR) Flu a negative (NEGATIVE) Influenza B (RT-PCR) Flu b negative (NEGATIVE) RSV (PCR) Negative (Negative) MDM Narrative Medical decision making narrative: CC: 26-year-old male with nausea, vomiting, bilious emesis and generalized abdominal pain over the day Complicating co-morbidities: Smoker, chronic opioid use Data collected from: Patient Medical records reviewed: Multiple prior visits Differential considered, but not limited to: Obstruction influenza, gallbladder disease versus other Exam documented above, pertinent findings include: Well-hydrated, moist mucous membranes and good skin turgor, generalized abdominal pain with bowel sounds present Lab Test results independently reviewed as above. Pertinent findings: Imaging studies independently reviewed: No significant findings on acute abdominal series or ultrasound Treatments: Fluids, pantoprazole and Zofran Re-evaluations: Symptoms greatly improved, tolerating orals, pain controlled Discussion: Nausea, vomiting and generalized abdominal pain over the course of the day with reassuring history and physical exam, no significant lab abnormalities, ultrasound demonstrates no biliary abnormality, imaging also suggest against obstructive process. Patient feels significant improvement after above-stated therapies Disposition: see below, along with detailed discharge instructions that have been reviewed with patient as well as indications for ED re-evaluation and additional outpatient follow up Discharge Plan Departure Patient Disposition: Home Clinical Impression: Nausea & vomiting Instructions: Nausea and Vomiting-Adult Activity Restrictions/Additional Instructions: *You have been diagnosed with [abdominal pain, with nausea and vomiting. * As we discussed your history and physical exam as well as labs and imaging are very reassuring. There is no evidence of any severe diagnoses that would require a specific or immediate intervention. *What to do: *Please continue to take your regular medications as directed. [x ] New medication prescriptions sent to your pharmacy: [ [facility]] *Please follow up with your primary care provider in 2-3 days, call for an appointment. Let them know you were seen in the Emergency Department and that we ask that you be seen in follow up. We will electronically transmit a record of today's note if your PCP is in our system *Please consider a clear liquid diet for the next 24-48 hours and then slowly advance to regular as tolerated. Also, try to avoid alcohol, nicotine, caffeine, spicy, acidic or fatty foods as this may worsen your symptoms *If you do not have a primary care provider please contact the [facility] Resource line at [phone]. They will ask some questions about your medical history and help get you set up with a doctor in the community. *Return to Emergency Department if you should have any new, worsening or concerning symptoms, such as [fever greater than 101 F, shaking chills, worsening pain, persistent vomiting or other bothersome symptoms] Prescriptions: New ondansetron 4 mg tablet,disintegrating 4 mg PO TID-QID PRN (Reason: nausea and vomiting) Qty: 10 0RF No Action fluoxetine 20 mg capsule 60 mg PO DAILY Qty: 90 5RF hydrocodone-acetaminophen 10-325 mg tablet 1 tab PO Q8H PRN (Reason: pain) Qty: 84 0RF Rx Instructions: EXEMPT naloxone 1 mg/mL syringe 1 mg IM Q2M PRN (Reason: opioid overdose) Qty: 2 11RF Rx Instructions: NTExceed 10 mg total dose/episode trazodone 50 mg tablet 50 - 100 mg PO BEDTIME Qty: 90 3RF lidocaine [Lidoderm] 5 % adhesive patch,medicated 1 patch TOP DAILY Qty: 15 0RF Rx Instructions: leave on most painful area for 12 hrs Referrals: Ephraim Platt MD [Primary Care Provider] - Stand Alone Forms: Patient Portal/API
[2022-05-26 22:00] VITALS: BP 109/65; PULSE 91; O2SAT 98
[2022-05-26] MEDS: ONDANSETRON 4 MG/2 ML INJ IV (22:01)
[2022-05-26] MEDS: SODIUM CHLORIDE 0.9% 1,000 ML 1000 ML IV (22:01)
[2022-05-26] MEDS: PANTOPRAZOLE 40 MG VIAL IV (22:01)
[2022-05-26 22:09] LABS: Add Manual Diff / Slide Review NO; Basophils Absolute Auto 0 /uL (0-100); Basophils Percent Auto 0.1 % (0-2); Eosinophils Absolute Auto 0 /uL (0-450); Eosinophils Percent Auto 0.2 % (2-4); Hematocrit 42.9 % (41-53); Hemoglobin 14.6 g/dL (13.5-17.5); Lymphocytes Absolute Auto 1000 /uL (1100-4500); Mean Corpuscular HGB Conc 34.1 % (30-36); Mean Corpuscular Hemoglobin 29.1 PG (26-34); Mean Corpuscular Volume 85.4 fL (80-100); Monocytes Absolute Auto 600 /uL (0-900); Monocytes Percent Auto 9.3 % (3-14); Neutrophils Absolute Auto 4800 /uL (1500-7000); Neutrophils Percent Auto 75.4 % (50-75); Platelet Count 249 X10^3/uL (150-400); Red Blood Cell Count 5.02 X10^6/uL (4.5-5.9); Red Cell Distribution Width 12.6 % (11.6-14.8); White Blood Cell Count 6.4 X10^3/uL (4.5-11.0)
[2022-05-26 22:13] LABS: Alanine Aminotransferase 20 IU/L (<50); Albumin 4.4 g/dL (3.5-5.0); Albumin Globulin Ratio 1.3 (1.0-2.8); Alkaline Phosphatase 88 U/L (38-126); Aspartate Aminotransferase 28 IU/L (17-59); Bilirubin Total 1.6 mg/dL (0.2-1.3); Blood Urea Nitrogen 15 mg/dL (9-20); Calcium 8.7 mg/dL (8.4-10.2); Carbon Dioxide 31 mmol/L (22-32); Chloride 94 mmol/L (98-107); Estimated Glomerular Filt Rate > 60 mL/min (>60); Globulin 3.3 g/dL (1.7-4.1); Glucose 96 mg/dL (70-100); HEMOLYSIS < 15 (0-50); Lactate (Lactic Acid) 0.9 mmol/L (0.7-2.1); Lipase 57 U/L (23-300); Magnesium 1.6 mg/dL (1.6-2.3); Potassium 3.3 mmol/L (3.4-5.1); Sodium 135 mmol/L (137-145); Total Protein 7.7 g/dL (6.3-8.2)
[2022-05-26 22:30] VITALS: PULSE 89; O2SAT 96
[2022-05-26 22:36] LABS: Influenza A - CEPHEID Flu A NEGATIVE (NEGATIVE); Influenza B - CEPHEID Flu B NEGATIVE (NEGATIVE); Respiratory Syncytial Virus Negative (Negative)
--- NOTE | 2022-05-26 22:44 | DI.US.S_ITS ---
PROCEDURE: US ABDOMEN LIMITED INDICATIONS: N/V, BILIOUS, ELEVATED BILIRUBIN, ABDOMEN PAIN TECHNIQUE: Real-time focused scanning was performed of the abdomen, with image documentation. COMPARISON: [facility], CT, CT ABDOMEN PELVIS W CON, 10/18/2021, 20:20. FINDINGS: There is a lobulated region of increased echogenicity in the left hepatic lobe adjacent to the gallbladder fossa measuring up to 1.9 x 1.6 x 1.3 cm. This demonstrates no internal vascularity on color Doppler interrogation. The gallbladder demonstrates no stones, wall thickening, or pericholecystic fluid. No intra or extrahepatic biliary ductal dilatation. Visualized pancreas appears unremarkable sonographically. IMPRESSION: 1. No evidence of cholelithiasis or cholecystitis. 2. No biliary ductal dilatation. 3. Lobulated hypoechoic lesion in the left hepatic lobe along the gallbladder fossa is nonspecific but suggestive of focal fatty infiltration. Further evaluation may be obtained with a liver protocol MRI if clinically indicated versus a follow-up ultrasound in 6 months. Dictated by: Ryder Miranda M.D. on 05/27/2022 at 0:15 Approved by: Ryder Miranda M.D. on 05/27/2022 at 0:19
[2022-05-26 22:51] LABS: COVID-19 CEPHEID 4-PLEX PCR Negative (Negative)
[2022-05-26 23:00] VITALS: PULSE 82; O2SAT 96
[2022-05-26 23:30] VITALS: PULSE 83; O2SAT 97
[2022-05-27] VITALS: PULSE 77; O2SAT 100
[2022-05-27] MEDS: ONDANSETRON 4 MG ODT PREPACK 1 BOTTLE MISC (00:15)
== END 2022-05-27 00:21 | disposition home or self-care (01) ==
PROVIDERS: Emergency Provider Emergency Medicine; Family Provider Student in an Organized Health Care Education/Training Program; PCP Student in an Organized Health Care Education/Training Program
DX: R11.2 Nausea with vomiting, unspecified (principal); R10.84 Generalized abdominal pain; Z20.822 Contact with and (suspected) exposure to COVID-19
CPT/HCPCS: 0241U; 36415; 74022; 76705; 80053; 82009; 83605; 83690; 83735; 85025; 96361; 96374; 96375; 99284; C9113; J2405

== ENCOUNTER 2022-08-17 18:30 | Emergency (ER) | payer OTHER, MEDICAID, SELFPAY ==
[2022-08-17 18:38] VITALS: BP 172/66; PULSE 95; RESP 16; TEMP 36.9; O2SAT 96; BMI 25.7
--- NOTE | 2022-08-17 18:41 | DI.RAD.S_ITS ---
PROCEDURE: XR ANKLE LT MIN 3V INDICATIONS: pain swelling TECHNIQUE: 3 views of the ankle were acquired. COMPARISON: [facility], , ANKLE 3 VIEWS RIGHT, 06/08/2009, 9:51. FINDINGS: Bones: No displaced fracture. The ankle mortise appears intact. Pes planus alignment. Soft tissues: No significant calcifications. IMPRESSION: No acute radiographic abnormality. Pes planus alignment (possible, nonweightbearing views). If there is high concern for further derangement, consider MRI evaluation. Dictated by: Arsalan Barahona M.D. on 08/17/2022 at 19:05 Approved by: Arsalan Barahona M.D. on 08/17/2022 at 19:07
--- NOTE | 2022-08-17 19:23 | ED.LOWEXIN ---
HPI - Extremity Injury (Lower) General Chief Complaint: Extremity Injury, Lower Stated Complaint: lt ankle swollen w/ lump and painful Time Seen by Provider: 08/17/22 18:42 Source: patient Mode of arrival: Ambulatory Limitations: no limitations History of Present Illness HPI Narrative: Patient is a 26-year-old male who is here for evaluation of a left ankle that is swollen and is painful to walk on. He states that he 1st noticed it yesterday but is worsened throughout today. There has been no specific injury. He states it hurts on the outside of his ankle and also on the back of his ankle. He has been ambulatory but it is very tender to walk on. No other injuries reported. No skin changes. No numbness or tingling. Related Data Previous Rx's Medication Instructions Recorded naloxone 1 mg/mL injection syringe 1 mg IM Q2M PRN opioid overdose #2 09/18/20 mL fluoxetine 20 mg capsule 60 mg PO DAILY #90 caps 01/08/21 lidocaine 5 % topical patch 1 patch topical DAILY #15 ea 02/09/22 (Lidoderm) trazodone 50 mg tablet 50 - 100 mg PO BEDTIME #90 tabs 03/10/22 ondansetron 4 mg disintegrating 4 mg PO TID-QID PRN nausea and 05/27/22 tablet vomiting #10 tabs hydrocodone 10 mg-acetaminophen 1 tab PO Q8H PRN pain #84 tabs 08/11/22 325 mg tablet Allergies Allergy/AdvReac Type Severity Reaction Status Date / Time metoclopramide AdvReac Mild LEG Verified 07/07/22 12:57 PROBLEMS Review of Systems Constitutional Constitutional: Reports system reviewed and no additional complaints, except as documented Musculoskeletal Musculoskeletal: Reports system reviewed and no additional complaints, except as documented Integumentary/Breasts Skin/Breast: Reports system reviewed and no additional complaints, except as documented Neurologic Neurologic: Reports system reviewed and no additional complaints, except as documented Patient History Medical History Accidental overdose Acetaminophen abuse Acne Anxiety associated with depression (~2006) Chronic bilateral low back pain without sciatica Depression History of frequent headaches Insomnia Lumbar region somatic dysfunction Migraines (~2004) Orbital tumor Pelvic somatic dysfunction Psoriasis Segmental and somatic dysfunction of abdomen and other regions Somatic dysfunction of lower extremity Surgical History Anesthesia History of eye surgery Family History Mother Diabetes mellitus History of heart disease Hypertension Hyperlipidemia Grandfather Kidney failure Grandfather Cancer Grandmother No problems noted. Social History Smoking Status: Current some day smoker second hand exposure: No alcohol intake: never substance use type: marijuana (DAILY) Smoking Status: Current some day smoker alcohol intake frequency: 0-2 drinks per day Substance Use Type: marijuana Exam Initial Vital Signs Initial Vital Signs: Vital Signs Temperature 98.4 F 08/17/22 18:38 Pulse Rate 95 H 08/17/22 18:38 Respiratory Rate 16 08/17/22 18:38 Blood Pressure 172/66 H 08/17/22 18:38 Pulse Oximetry 96 08/17/22 18:38 Oxygen Delivery Method Room Air 08/17/22 18:38 Const General: cooperative and comfortable Cardio Pulses: dorsalis pedis present on the left Skin General: no rashes or lesions noted Neuro Sensory Exam: no sensory deficits noted Extrem Other: Patient does have tenderness along the Achilles tendon which is intact and also along the posterior aspect of the lateral malleolus. No tenderness of the base of the 5th metatarsal. No tenderness over the dorsum of the foot. No tenderness in the midfoot or the forefoot. No tenderness on the medial aspect. No proximal fibula tenderness. Course Orders Ordered: ED Orders 08/17/22 18:41 XR ankle LT min 3V Stat Discontinued Medications Ibuprofen (Ibuprofen 400 Mg Tablet) 800 mg PO NOW ONE Stop: 08/17/22 19:33 Last Admin: 08/17/22 19:40 Dose: 800 mg Documented By: MANJULA Vital Signs Vital signs: Vital Signs - 8 hr 08/17/22 18:38 Temperature 98.4 F Pulse Rate 95 H Respiratory Rate 16 Blood Pressure 172/66 H Pulse Oximetry 96 Oxygen Delivery Method Room Air MDM - Extremity Injury (Lower) Imaging Data Extremity x-ray #1: Radiologist's Impression: PROCEDURE:? XR ANKLE LT MIN 3V ? INDICATIONS:? pain swelling ? TECHNIQUE:? 3 views of the ankle were acquired.? ? COMPARISON:? [facility], , ANKLE 3 VIEWS RIGHT, 06/08/2009, 9:51. ? FINDINGS:? ? Bones:? No displaced fracture.? The ankle mortise appears intact.? Pes planus alignment. ? Soft tissues:? No significant calcifications. ? ? IMPRESSION:? No acute radiographic abnormality.? Pes planus alignment (possible, nonweightbearing views).? If there is high concern for further derangement, consider MRI evaluation. [facility] Narrative Medical decision making narrative: X-ray shows no signs of fracture or dislocation. He is neurovascularly intact. His Achilles tendon is intact. He is tender along the peroneal muscles. We discussed conservative measures to include elevation and ice. He was given an Rahat bandage to use as needed. No further workup required in the emergency department. Low suspicion for infection or inflammation. Patient expressed understanding and agreement. Discharge Plan Departure Patient Disposition: Home Clinical Impression: Left ankle sprain Instructions: DI for Ankle Sprain, How To Perform RICE (Rest, Ice, Compress, Elevate), How to Apply an Elastic Wrap on Ankle Activity Restrictions/Additional Instructions: There were no fractures noted on the x-rays you can walk on your ankle as tolerated. I do recommend that you keep your ankle elevated. I also recommend ice. Contact your primary doctor for follow-up. Prescriptions: No Action fluoxetine 20 mg capsule 60 mg PO DAILY Qty: 90 5RF hydrocodone-acetaminophen 10-325 mg tablet 1 tab PO Q8H PRN (Reason: pain) Qty: 84 0RF Rx Instructions: [place] APPROVED 06/18/2022-06/18/2023 EXEMPT naloxone 1 mg/mL syringe 1 mg IM Q2M PRN (Reason: opioid overdose) Qty: 2 11RF Rx Instructions: NTExceed 10 mg total dose/episode trazodone 50 mg tablet 50 - 100 mg PO BEDTIME Qty: 90 3RF lidocaine [Lidoderm] 5 % adhesive patch,medicated 1 patch TOP DAILY Qty: 15 0RF Rx Instructions: leave on most painful area for 12 hrs ondansetron 4 mg tablet,disintegrating 4 mg PO TID-QID PRN (Reason: nausea and vomiting) Qty: 10 0RF Referrals: Ephraim Platt MD [Primary Care Provider] - Stand Alone Forms: Patient Portal/API
[2022-08-17] MEDS: IBUPROFEN 400 MG TABLET 800 MG PO (19:40)
== END 2022-08-17 19:45 | disposition home or self-care (01) ==
PROVIDERS: Emergency Provider Emergency Medicine; Family Provider Student in an Organized Health Care Education/Training Program; PCP Student in an Organized Health Care Education/Training Program
DX: S93.402A Sprain of unspecified ligament of left ankle, initial encounter (principal)
CPT/HCPCS: 73610; 99283

== ENCOUNTER → 2022-10-23 07:39 | Outpatient (CLI) | payer OTHER, MEDICAID, SELFPAY ==
--- NOTE | 2022-10-23 07:40 | DI.RAD.S_ITS ---
PROCEDURE: XR CERVICAL SPINE 4V OR 5V INDICATIONS: NECK PAIN TECHNIQUE: 5 views of the cervical spine were acquired. COMPARISON: [facility], CR, XR CERVICAL SPINE 2V OR 3V, 06/13/2020, 14:23. FINDINGS: Bones: No fractures or dislocations to the T1 level. No suspicious bony lesions. Oblique images unremarkable. 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 on 10/23/2022 at 15:45
== END ==
PROVIDERS: Family Provider Student in an Organized Health Care Education/Training Program; PCP Family Medicine; Referring Provider Anesthesiology; Visit Provider Anesthesiology
DX: M54.12 Radiculopathy, cervical region (principal); M48.02 Spinal stenosis, cervical region; M54.16 Radiculopathy, lumbar region; Q76.49 Other congenital malformations of spine, not associated with scoliosis
CPT/HCPCS: 72050; 99213

== ENCOUNTER → 2022-11-05 09:10 | Outpatient (CLI) | payer OTHER, MEDICAID, SELFPAY ==
--- NOTE | 2022-11-05 09:10 | DI.MRI.S_ITS ---
PROCEDURE: MR LUMBAR SPINE WO CON INDICATIONS: Lumbar radiculopathy TECHNIQUE: Noncontrast sagittal T1 spin echo and T2 fast echo, sagittal STIR, and T2 fast spin echo through the lumbar spine. In cases with scoliosis, additional coronal T2 fast spin echo may be performed. COMPARISON: [facility], MR, MR THORACIC SPINE WO CON, 12/10/2021, 16:37. [facility], CT, CT ABDOMEN PELVIS W CON, 10/18/2021, 20:20. FINDINGS: Image quality: Diagnostic, with note made of motion artifact. Alignment and Curvature: Minimal dextroconvex thoracolumbar scoliotic curvature is seen. No focal AP alignment abnormality is seen. Bone Marrow: Marrow is of normal overall signal. No acute vertebral body compression fractures. Spinal Cord: Conus medullaris terminates at the L1 level. Visualized cord demonstrates normal signal and size. Paraspinous Soft Tissues: No paravertebral masses. T12-L1: Normal appearance. L1-L2: Normal appearance. L2-L3: No significant abnormality is seen. L3-L4: The disc height and disk signal are well-preserved. Mild generalized disc bulge is seen. Mild bilateral neural foraminal narrowing is seen. The central canal is widely patent. L4-L5: The disc height and disk signal are well-preserved. Mild generalized disc bulge is seen. There is a superimposed central disc protrusion. Mild to moderate bilateral neural foraminal narrowing can be seen. The central canal is widely patent. L5-S1: The disc height and disk signal are well-preserved. Minimal to mild disc bulge is seen. Mild facet joint hypertrophy is seen. Mild bilateral neural foraminal narrowing is seen. The central canal is widely patent. IMPRESSION: Mild overall lower lumbar spine degenerative change, without a cause of the patient's presenting symptoms identified. Dictated by: Daniel Regan M.D. on 11/05/2022 at 10:10 Approved by: Daniel Regan M.D. on 11/05/2022 at 10:14
== END ==
PROVIDERS: Family Provider Student in an Organized Health Care Education/Training Program; PCP Family Medicine; Referring Provider Anesthesiology; Visit Provider Anesthesiology
DX: M47.26 Other spondylosis with radiculopathy, lumbar region (principal)
CPT/HCPCS: 72148

== ENCOUNTER 2022-11-11 12:08 | Emergency (ER) | payer OTHER, MEDICAID, SELFPAY ==
[2022-11-11] VITALS (8 sets, daily range): BP systolic 122–139; BP diastolic 73–84; PULSE 52–70; RESP 16–24; TEMP 36.9; O2SAT 87–100; BMI 24.0
[2022-11-11] MEDS: ONDANSETRON 4 MG/2 ML INJ IV (12:30)
--- NOTE | 2022-11-11 12:33 | PC.NURSE ---
I went in to assess pt and he was sticking his finger down his throat to induce vomiting. Pt instructed to cease that behavior
[2022-11-11 12:37] LABS: Add Manual Diff / Slide Review NO; Basophils Absolute Auto 100 /uL (0-100); Basophils Percent Auto 0.4 % (0-2); Eosinophils Absolute Auto 0 /uL (0-450); Eosinophils Percent Auto 0.1 % (2-4); Hematocrit 44.6 % (41-53); Hemoglobin 15.2 g/dL (13.5-17.5); Lymphocytes Absolute Auto 1300 /uL (1100-4500); Mean Corpuscular HGB Conc 34.1 % (30-36); Mean Corpuscular Hemoglobin 29.2 PG (26-34); Mean Corpuscular Volume 85.7 fL (80-100); Monocytes Absolute Auto 600 /uL (0-900); Monocytes Percent Auto 5.1 % (3-14); Neutrophils Absolute Auto 10800 /uL (1500-7000); Neutrophils Percent Auto 84.4 % (50-75); Platelet Count 400 X10^3/uL (150-400); Red Cell Distribution Width 12.7 % (11.6-14.8); White Blood Cell Count 12.7 X10^3/uL (4.5-11.0)
--- NOTE | 2022-11-11 12:43 | DI.CT.S_ITS ---
PROCEDURE: CT ABDOMEN PELVIS W CON INDICATIONS: Generalized abdominal pain TECHNIQUE: After the administration of intravenous contrast, axial sections acquired from the lung bases to the pubic symphysis. Coronal and sagittal reformats were performed. For radiation dose reduction, the following was used: automated exposure control, adjustment of mA and/or kV according to patient size. COMPARISON: [facility], CT, CT ABDOMEN PELVIS W CON, 10/18/2021, 20:20. FINDINGS: Image quality: Excellent. Lung bases: Unremarkable. Heart: No significant findings. ABDOMEN: Liver: There is mild hepatomegaly, no discrete hepatic lesion.. Gallbladder: Unremarkable. Biliary ducts: Unremarkable. Pancreas: Unremarkable. Spleen: Unremarkable. Adrenal Glands: Unremarkable. Kidneys and Ureters: Unremarkable. Stomach and Bowel: There is no bowel obstruction. No gross gastric wall thickening. There is suggestion of mild colonic wall thickening particularly involving transverse colon and descending colon. Questionable mild small bowel wall thickening and enhancement is also noted. Appendix is seen in right lower quadrant abdomen and is normal in size and appearance. No abscess collection. Peritoneum: No abnormal intraperitoneal fluid. No free air. Ventral Wall: No hernias. Abdominal Nodes: No retroperitoneal or mesenteric adenopathy by size criteria. Vessels: Aorta and inferior vena cava are normal in size. PELVIS: Pelvic Organs: Unremarkable. Bladder: Unremarkable. Pelvic Nodes: No enlarged lymph nodes. Miscellaneous: No hernias are seen. Bones: No suspicious bony lesions. No acute vertebral body compression fracture. IMPRESSION: 1. Mild diffuse colonic wall thickening and fairly extensive small bowel wall thickening concerning for infectious or inflammatory enterocolitis. No evidence of acute appendicitis. No bowel obstruction. No abscess collection. No free fluid or free air. 2. No renal stones or hydronephrosis. 3. Mild hepatomegaly. Dictated by: Mahendra Alvarado M.D. on 11/11/2022 at 13:16 Approved by: Mahendra Alvarado M.D. on 11/11/2022 at 13:19
--- NOTE | 2022-11-11 12:47 | ED_ITS ---
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 Patient states he awoke this morning and has been uncontrollably vomiting. Patient also complains of generalized abdominal pain. Patient endorses chills. Patient denies fever, chest pain, shortness of breath, constipation, diarrhea, dysuria, lightheadedness, dizziness, syncope. Patient's last bowel movement was yesterday, which he states was normal. Patient smokes marijuana almost every day. Related Data Previous Rx's Medication Instructions Recorded naloxone 1 mg/mL injection syringe 1 mg IM Q2M PRN opioid overdose #2 09/18/ mL trazodone 50 mg tablet 50 - 100 mg PO BEDTIME #90 tabs 03/10/22 fluoxetine 20 mg capsule 60 mg PO DAILY #270 caps 09/16/22 hydrocodone 10 mg-acetaminophen 1 tab PO Q8H PRN pain #84 tabs 11/04/22 325 mg tablet ondansetron 4 mg disintegrating 4 mg PO Q6H PRN nausea and 11/11/22 tablet vomiting #30 tabs cephalexin 500 mg capsule 500 mg PO QID 5 days #20 caps 11/13/22 mupirocin 2 % topical ointment 1 applic topical TID #15 grams 11/13/22 qlmkqjin-[id number]-puikggraw 3.5 3 drp EAR-LEFT QID 7 days #10 mL 11/13/22 mg-10,000 unit/mL-1 % ear drops,susp Allergies Allergy/AdvReac Type Severity Reaction Status Date / Time metoclopramide AdvReac Mild LEG Verified 11/13/22 08:45 PROBLEMS Review of Systems <Karina Shannon PA-C - Last Filed: 11/11/22 15:33> Review of Systems ROS Unobtainable: All systems reviewed & are unremarkable except as noted in HPI and below Constitutional Constitutional: Reports chills, Denies fatigue, Denies fever(s), Denies frequent falls, Denies lethargy and Denies weakness Eyes Eyes: Denies change in vision, Denies eye discharge, Denies irritation and Denies loss of vision ENT Ears, Nose, Mouth, and Throat: Denies change in voice, Denies dizziness, Denies neck pain, Denies sore throat and Denies throat swelling Cardiovascular Cardiovascular: Denies chest pain, Denies irregular heart rhythm, Denies lightheadedness, Denies palpitations, Denies dyspnea, Denies dyspnea on exertion and Denies orthopnea Respiratory Respiratory: Denies cough, Denies dyspnea, Denies dyspnea on exertion and Denies wheezing Gastrointestinal Gastrointestinal: Reports abdominal pain, Denies change in bowel habits, Denies diarrhea, Reports nausea and Reports vomiting Genitourinary Genitourinary: Denies hematuria, Denies flank pain, Denies urinary incontinence and Denies urinary urgency Musculoskeletal Musculoskeletal: Denies back pain, Denies muscle weakness, Denies neck pain, Denies numbness and Denies tingling Integumentary/Breasts Skin/Breast: Denies pruritus, Denies erythema, Denies rash and Denies wounds Neurologic Neurologic: Denies behavioral changes, Denies confusion, Denies dizziness, Denies frequent falls, Denies loss of vision, Denies numbness, Denies tingling and Denies weakness Psychiatric Psychiatric: Denies anxiety, Denies behavioral changes, Denies confusion, Denies depression, Denies homicidal ideation and Denies suicidal ideation Endocrine Endocrine: Denies fatigue, Denies flushing and Denies palpitations Hematologic/Lymphatic Hematologic/Lymphatic: Denies easy bruising Allergic/Immunologic Allergic/Immunologic: Denies urticaria, Denies throat swelling and Denies wheezing Patient History <Karina Shannon PA-C - Last Filed: 11/11/22 15:33> Medical History Accidental overdose Acetaminophen abuse Acne Anxiety associated with depression (~2006) Chronic bilateral low back pain without sciatica Depression History of frequent headaches Insomnia Lumbar radiculopathy Lumbar region somatic dysfunction Migraines (~2004) Orbital tumor Pelvic somatic dysfunction Psoriasis Segmental and somatic dysfunction of abdomen and other regions Somatic dysfunction of lower extremity Surgical History Anesthesia History of eye surgery Family History Mother Diabetes mellitus History of heart disease Hypertension Hyperlipidemia Grandfather Kidney failure Grandfather Cancer Grandmother No problems noted. Social History Smoking Status: Current some day smoker second hand exposure: No alcohol intake: never substance use type: marijuana (DAILY) Smoking Status: Current some day smoker tobacco type: vaping alcohol intake frequency: 0-2 drinks per day Substance Use Type: marijuana Exam <Karina Shannon PA-C - Last Filed: 11/11/22 15:33> Narrative Exam Narrative: Const General:?cooperative, healthy appearing and comfortable HENMT Head:?normal to inspection Ears:?hearing grossly normal bilaterally Nose:?external nose normal Face and sinus:?normal facial exam and sinuses nontender Mouth:?oral mucosae normal Throat:?posterior oropharynx normal Eyes General:?appearance normal, both eyes and all related structures Neck Neck:?normal visual inspection and no lymphadenopathy noted Resp Effort & Inspection:?normal respiratory effort Auscultation:?clear to auscultation bilaterally Cardio Rate:?regular rate Rhythm:?regular rhythm GI Abdomen is soft, nondistended. There is generalized tenderness to palpation. Neuro General:?patient alert, patient awake and patient oriented x3 Initial Vital Signs Initial Vital Signs: Vital Signs Temperature 98.4 F 11/11/22 12:11 Pulse Rate 70 11/11/22 12:11 Respiratory Rate 16 11/11/22 12:11 Blood Pressure 130/84 11/11/22 12:11 Pulse Oximetry 100 11/11/22 12:11 Oxygen Delivery Method Room Air 11/11/22 12:11 <Candi Can DO - Last Filed: 11/14/22 07:49> Initial Vital Signs Initial Vital Signs: Vital Signs Temperature 98.4 F 11/11/22 12:11 Pulse Rate 70 11/11/22 12:11 Respiratory Rate 16 11/11/22 12:11 Blood Pressure 130/84 11/11/22 12:11 Pulse Oximetry 100 11/11/22 12:11 Oxygen Delivery Method Room Air 11/11/22 12:11 Course <Karina Shannon PA-C - Last Filed: 11/11/22 15:33> Orders Ordered: Discontinued Medications Haloperidol (Haloperidol 5 Mg/Ml Vial) 5 mg IV NOW ONE Stop: 11/11/22 12:42 Last Admin: 11/11/22 13:01 Dose: 5 mg Documented By: AMV Sodium Chloride (Normal Saline 0.9%) 1,000 mls @ 1,000 mls/hr IV BOLUS ONE Stop: 11/11/22 13:44 Last Infusion: 11/11/22 15:00 Dose: 0 mls/hr Documented By: Admin: 11/11/22 13:01 Dose: 1,000 mls/hr Documented By: AMV Lorazepam (Lorazepam 2 Mg/Ml Inj) 2 mg IV NOW ONE Stop: 11/11/22 12:47 Last Admin: 11/11/22 13:01 Dose: 2 mg Documented By: AMV Ondansetron HCl (Ondansetron 4 Mg Odt) 4 mg PO NOW PRN PRN Reason: Nausea And Vomiting Ondansetron HCl (Ondansetron 4 Mg/2 Ml Inj) 4 mg IV NOW PRN PRN Reason: Nausea And Vomiting Last Admin: 11/11/22 12:30 Dose: 4 mg Documented By: AMV Vital Signs Vital signs: Vital Signs - 8 hr 11/11/22 12:11 11/11/22 12:19 11/11/22 12:21 Temperature 98.4 F Pulse Rate 70 67 Respiratory Rate 16 Blood Pressure 130/84 130/84 Pulse Oximetry 100 100 Oxygen Delivery Method Room Air Oxygen Flow Rate 11/11/22 12:30 11/11/22 13:00 11/11/22 13:05 Temperature Pulse Rate 56 L 63 Respiratory Rate Blood Pressure 130/73 Pulse Oximetry 100 100 87 L Oxygen Delivery Method Room Air Oxygen Flow Rate 11/11/22 13:05 11/11/22 15:00 11/11/22 13:30 Temperature Pulse Rate 68 52 L Respiratory Rate 18 Blood Pressure 122/78 139/79 Pulse Oximetry 100 100 Oxygen Delivery Method Nasal Cannula Room Air Oxygen Flow Rate 2 11/11/22 13:30 Temperature Pulse Rate 55 L Respiratory Rate 24 Blood Pressure Pulse Oximetry 100 Oxygen Delivery Method Room Air Oxygen Flow Rate <Candi Can DO - Last Filed: 11/14/22 07:49> Orders Ordered: Discontinued Medications Haloperidol (Haloperidol 5 Mg/Ml Vial) 5 mg IV NOW ONE Stop: 11/11/22 12:42 Last Admin: 11/11/22 13:01 Dose: 5 mg Documented By: AMV Sodium Chloride (Normal Saline 0.9%) 1,000 mls @ 1,000 mls/hr IV BOLUS ONE Stop: 11/11/22 13:44 Last Infusion: 11/11/22 15:00 Dose: 0 mls/hr Documented By: Admin: 11/11/22 13:01 Dose: 1,000 mls/hr Documented By: AMV Lorazepam (Lorazepam 2 Mg/Ml Inj) 2 mg IV NOW ONE Stop: 11/11/22 12:47 Last Admin: 11/11/22 13:01 Dose: 2 mg Documented By: AMV Ondansetron HCl (Ondansetron 4 Mg Odt) 4 mg PO NOW PRN PRN Reason: Nausea And Vomiting Ondansetron HCl (Ondansetron 4 Mg/2 Ml Inj) 4 mg IV NOW PRN PRN Reason: Nausea And Vomiting Last Admin: 11/11/22 12:30 Dose: 4 mg Documented By: AMV Vital Signs Vital signs: Vital Signs - 8 hr 11/11/22 12:11 11/11/22 12:19 11/11/22 12:21 Temperature 98.4 F Pulse Rate 70 67 Respiratory Rate 16 Blood Pressure 130/84 130/84 Pulse Oximetry 100 100 Oxygen Delivery Method Room Air Oxygen Flow Rate 11/11/22 12:30 11/11/22 13:00 11/11/22 13:05 Temperature Pulse Rate 56 L 63 Respiratory Rate Blood Pressure 130/73 Pulse Oximetry 100 100 87 L Oxygen Delivery Method Room Air Oxygen Flow Rate 11/11/22 13:05 11/11/22 15:00 11/11/22 13:30 Temperature Pulse Rate 68 52 L Respiratory Rate 18 Blood Pressure 122/78 139/79 Pulse Oximetry 100 100 Oxygen Delivery Method Nasal Cannula Room Air Oxygen Flow Rate 2 11/11/22 13:30 Temperature Pulse Rate 55 L Respiratory Rate 24 Blood Pressure Pulse Oximetry 100 Oxygen Delivery Method Room Air Oxygen Flow Rate MDM - Abdominal Pain <Karina Shannon PA-C - Last Filed: 11/11/22 15:33> Lab Data 11/11/22 12:27 11/11/22 12:27 Labs: Lab Results 07/18/23 07/18/23 Range/Units 12:27 12:27 WBC 12.7 H (4.5-11.0) X10^3/uL RBC 5.20 (4.5-5.9) X10^6/uL Hgb 15.2 (13.5-17.5) g/dL Hct 44.6 (41-53) % MCV 85.7 (80-100) fL MCH 29.2 (26-34) PG MCHC 34.1 (30-36) % RDW 12.7 (11.6-14.8) % Plt Count 400 (150-400) X10^3/uL Neut % (Auto) 84.4 H (50-75) % Lymph % (Auto) 10.0 L (25-40) % [place] % (Auto) 5.1 (3-14) % Eos % (Auto) 0.1 L (2-4) % Baso % (Auto) 0.4 (0-2) % Neut # (Auto) 12796 H (5790-1723) /uL Lymph # (Auto) 1300 (0552-0643) /uL [place] # (Auto) 600 (0-900) /uL Eos # (Auto) 0 (0-450) /uL Baso # (Auto) 100 (0-100) /uL Sodium 136 L (137-145) mmol/L Potassium 3.7 (3.4-5.1) mmol/L Chloride 97 L (98-107) mmol/L Carbon Dioxide 27 (22-32) mmol/L BUN 10 (9-20) mg/dL Creatinine 0.84 (0.66-1.25) mg/dL Estimated GFR > 60 (>60) mL/min BUN/Creatinine Ratio 11.9 (6-22) Glucose 148 H (70-100) mg/dL Calcium 10.0 (8.4-10.2) mg/dL Total Bilirubin 1.1 (0.2-1.3) mg/dL AST 44 (17-59) IU/L ALT 41 (<50) IU/L Alkaline Phosphatase 121 (38-126) U/L Total Protein 8.9 H (6.3-8.2) g/dL Albumin 4.9 (3.5-5.0) g/dL Globulin 4.0 (1.7-4.1) g/dL Albumin/Globulin Ratio 1.2 (1.0-2.8) Lipase 145 (23-300) U/L MDM Narrative Medical decision making narrative: 27-year-old male with past medical history diffuse congenital cervical canal stenosis with superimposed disc and facet disease, anxiety, depression, chronic back pain, chronic neck pain presents to the ED with 1 day of persistent vomiting. Concern for bowel obstruction versus cyclic vomiting versus gastroenteritis versus other intra-abdominal pathology versus other. Will obtain labs, UA, CT abdomen pelvis. Patient's nausea was not sufficiently controlled with Zofran. Will give Haldol and Ativan. Will give IV fluids. Will reassess. Patient's symptoms resolved with Haldol and Ativan, IV fluids. Labs within normal limits. CT abdomen pelvis shows possible enterocolitis. Patient's symptoms could likely be due to the enterocolitis versus cannabinoid hyperemesis syndrome. Discussed findings with patient. Advice cessation of marijuana. Recommend good hydration. ED return precautions were discussed with patient. Patient verbalized understanding. Medical records reviewed: Yes <Candi Can DO - Last Filed: 11/14/22 07:49> Lab Data Labs: Lab Results 11/11/22 11/11/22 Range/Units 12:27 12:27 WBC 12.7 H (4.5-11.0) X10^3/uL RBC 5.20 (4.5-5.9) X10^6/uL Hgb 15.2 (13.5-17.5) g/dL Hct 44.6 (41-53) % MCV 85.7 (80-100) fL MCH 29.2 (26-34) PG MCHC 34.1 (30-36) % RDW 12.7 (11.6-14.8) % Plt Count 400 (150-400) X10^3/uL Neut % (Auto) 84.4 H (50-75) % Lymph % (Auto) 10.0 L (25-40) % [place] % (Auto) 5.1 (3-14) % Eos % (Auto) 0.1 L (2-4) % Baso % (Auto) 0.4 (0-2) % Neut # (Auto) 44615 H (6875-5355) /uL Lymph # (Auto) 1300 (8511-4519) /uL [place] # (Auto) 600 (0-900) /uL Eos # (Auto) 0 (0-450) /uL Baso # (Auto) 100 (0-100) /uL Sodium 136 L (137-145) mmol/L Potassium 3.7 (3.4-5.1) mmol/L Chloride 97 L (98-107) mmol/L Carbon Dioxide 27 (22-32) mmol/L BUN 10 (9-20) mg/dL Creatinine 0.84 (0.66-1.25) mg/dL Estimated GFR > 60 (>60) mL/min BUN/Creatinine Ratio 11.9 (6-22) Glucose 148 H (70-100) mg/dL Calcium 10.0 (8.4-10.2) mg/dL Total Bilirubin 1.1 (0.2-1.3) mg/dL AST 44 (17-59) IU/L ALT 41 (<50) IU/L Alkaline Phosphatase 121 (38-126) U/L Total Protein 8.9 H (6.3-8.2) g/dL Albumin 4.9 (3.5-5.0) g/dL Globulin 4.0 (1.7-4.1) g/dL Albumin/Globulin Ratio 1.2 (1.0-2.8) Lipase 145 (23-300) U/L Discharge Plan Departure Patient Disposition: Home Clinical Impression: Vomiting Instructions: DI for Bacterial Gastroenteritis -- Adult, DI for Cannabinoid Hyperemesis Syndrome Activity Restrictions/Additional Instructions: You were evaluated in the ED today for nausea and vomiting. Your CT abdomen pelvis shows possible gastroenteritis, which is commonly caused by food poisoning. It is also possible that your symptoms could be caused by cyclic vomiting from marijuana use. Please abstain from using marijuana, since it can be very hard to treat and control the vomiting. Please continue to take Zofran for the nausea as needed. Please continue to hydrate well. Please follow-up with your PCP as soon as possible. Return to the ED if your symptoms worsen. Prescriptions: New ondansetron 4 mg tablet,disintegrating 4 mg PO Q6H PRN (Reason: nausea and vomiting) Qty: 30 0RF No Action mupirocin 2 % ointment 1 applic topical TID Qty: 15 0RF fluoxetine 20 mg capsule 60 mg PO DAILY Qty: 270 0RF hydrocodone-acetaminophen 10-325 mg tablet 1 tab PO Q8H PRN (Reason: pain) Qty: 84 0RF naloxone 1 mg/mL syringe 1 mg IM Q2M PRN (Reason: opioid overdose) Qty: 2 11RF Rx Instructions: NTExceed 10 mg total dose/episode trazodone 50 mg tablet 50 - 100 mg PO BEDTIME Qty: 90 3RF cephalexin 500 mg capsule 500 mg PO QID 5 Days Qty: 20 0RF pylxixhb-lqmatxhzj-QJ 3.5-10,000-1 mg/mL-unit/mL-% drops,suspension 3 drp EAR-LEFT QID 7 Days Qty: 10 0RF Referrals: Ewa Barrow DO [Primary Care Provider] - Stand Alone Forms: Patient Portal/API <Candi Can DO - Last Filed: 11/14/22 07:49> Cosign ED Attending Reanna Attestation: I was immediately available in the department for consultation. Documentation has been reviewed.
[2022-11-11 12:53] LABS: Alanine Aminotransferase 41 IU/L (<50); Albumin 4.9 g/dL (3.5-5.0); Albumin Globulin Ratio 1.2 (1.0-2.8); Alkaline Phosphatase 121 U/L (38-126); Aspartate Aminotransferase 44 IU/L (17-59); BUN Creatinine Ratio 11.9 (6-22); Bilirubin Total 1.1 mg/dL (0.2-1.3); Blood Urea Nitrogen 10 mg/dL (9-20); Carbon Dioxide 27 mmol/L (22-32); Chloride 97 mmol/L (98-107); Estimated Glomerular Filt Rate > 60 mL/min (>60); Glucose 148 mg/dL (70-100); HEMOLYSIS < 15 (0-50); Lipase 145 U/L (23-300); Potassium 3.7 mmol/L (3.4-5.1); Sodium 136 mmol/L (137-145); Total Protein 8.9 g/dL (6.3-8.2)
--- NOTE | 2022-11-11 13:00 | PC.NURSE ---
Verified 2mg Ativan and 5 mg Haldol order with REBEKAH Collins
[2022-11-11] MEDS: SODIUM CHLORIDE 0.9% 1,000 ML 1000 ML IV (13:01)
[2022-11-11] MEDS: HALOPERIDOL 5 MG/ML VIAL IV (13:01)
[2022-11-11] MEDS: LORazepam 2 MG/ML INJ IV (13:01)
--- NOTE | 2022-11-11 13:06 | PC.NURSE ---
Pt continues to stick his finger down his throat to induce vomiting
--- NOTE | 2022-11-11 13:20 | PC.NURSE ---
Placed on 2L O2 via NC d/t sleeping from medications
== END 2022-11-11 15:21 | disposition home or self-care (01) ==
PROVIDERS: Emergency Medicine; Emergency Provider Student in an Organized Health Care Education/Training Program; Family Provider Student in an Organized Health Care Education/Training Program; PCP Family Medicine
DX: R11.10 Vomiting, unspecified (principal); R10.84 Generalized abdominal pain
CPT/HCPCS: 36415; 74177; 80053; 83690; 85025; 96361; 96374; 96375; 96376; 99284; J1630; J2060; J2405; Q9967

== ENCOUNTER 2022-11-13 19:47 | Emergency (ER) | payer OTHER, MEDICAID, SELFPAY ==
[2022-11-13 20:01] VITALS: BP 131/85; PULSE 78; RESP 18; TEMP 36.4; O2SAT 97; BMI 24.0
--- NOTE | 2022-11-13 22:28 | ED.RECABL ---
HPI - Recheck/Abnormal Lab/Rx General Chief Complaint: Recheck/Abnormal Lab/Rx Stated Complaint: Fatigued, Low BP, Trouble breathing Time Seen by Provider: 11/13/22 21:56 Source: patient Mode of arrival: Ambulatory History of Present Illness HPI narrative: Patient is a 27-year-old male who is here for evaluation of approximately 24 hours of feeling very fatigued. He also has other upper respiratory symptoms. He states that he has pain in his left ear and also pain behind his right ear. He had a appointment with his spinal surgeon earlier today and they took his vital signs and told him that his blood pressure was low and that he should go and get this checked out. He denies chest pain or shortness of breath. No abdominal pain. No fevers. Related Data Previous Rx's Medication Instructions Recorded naloxone 1 mg/mL injection syringe 1 mg IM Q2M PRN opioid overdose #2 09/18/20 mL trazodone 50 mg tablet 50 - 100 mg PO BEDTIME #90 tabs 03/10/22 fluoxetine 20 mg capsule 60 mg PO DAILY #270 caps 09/16/22 hydrocodone 10 mg-acetaminophen 1 tab PO Q8H PRN pain #84 tabs 11/04/22 325 mg tablet ondansetron 4 mg disintegrating 4 mg PO Q6H PRN nausea and 11/11/22 tablet vomiting #30 tabs cephalexin 500 mg capsule 500 mg PO QID 5 days #20 caps 11/13/22 mupirocin 2 % topical ointment 1 applic topical TID #15 grams 11/13/22 [id number] 3.5 3 drp EAR-LEFT QID 7 days #10 mL 11/13/22 mg-10,000 unit/mL-1 % ear drops,susp Allergies Allergy/AdvReac Type Severity Reaction Status Date / Time metoclopramide AdvReac Mild LEG Verified 11/13/22 08:45 PROBLEMS Review of Systems ENT Ears, Nose, Mouth, and Throat: Reports system reviewed and no additional complaints, except as documented Cardiovascular Cardiovascular: Reports system reviewed and no additional complaints, except as documented Gastrointestinal Gastrointestinal: Reports system reviewed and no additional complaints, except as documented Integumentary/Breasts Skin/Breast: Reports system reviewed and no additional complaints, except as documented Neurologic Neurologic: Reports system reviewed and no additional complaints, except as documented Patient History Medical History Accidental overdose Acetaminophen abuse Acne Anxiety associated with depression (~2006) Chronic bilateral low back pain without sciatica Depression History of frequent headaches Insomnia Lumbar radiculopathy Lumbar region somatic dysfunction Migraines (~2004) Orbital tumor Pelvic somatic dysfunction Psoriasis Segmental and somatic dysfunction of abdomen and other regions Somatic dysfunction of lower extremity Surgical History Anesthesia History of eye surgery Family History Mother Diabetes mellitus History of heart disease Hypertension Hyperlipidemia Grandfather Kidney failure Grandfather Cancer Grandmother No problems noted. Social History Smoking Status: Current some day smoker second hand exposure: No alcohol intake: never substance use type: marijuana (DAILY) Smoking Status: Current some day smoker tobacco type: vaping alcohol intake frequency: 0-2 drinks per day Substance Use Type: marijuana Exam Initial Vital Signs Initial Vital Signs: Vital Signs Temperature 97.6 F 11/13/22 20:01 Pulse Rate 78 11/13/22 20:01 Respiratory Rate 18 11/13/22 20:01 Blood Pressure 131/85 11/13/22 20:01 Pulse Oximetry 97 11/13/22 20:01 Oxygen Delivery Method Room Air 11/13/22 20:01 HENMT Ears: TM's normal bilaterally and EAC abnormal erythema on the left and edema on the left Mouth: oral mucosae normal Resp Effort & Inspection: normal respiratory effort Skin Other: Patient has a small abscess that is spontaneously draining on the posterior aspect of the right here with some surrounding erythema. Course Vital Signs Vital signs: Vital Signs - 8 hr 11/13/22 20:01 11/13/22 22:58 Temperature 97.6 F Pulse Rate 78 58 L Respiratory Rate 18 18 Blood Pressure 131/85 100/55 L Pulse Oximetry 97 98 Oxygen Delivery Method Room Air Room Air MDM - Recheck/Abnormal Lab/Rx Lab Data Labs: Point of Care Testing Glucose POC 81 MDM Narrative Medical decision making narrative: Physical exam findings today consistent with a left-sided otitis externa and a small draining abscess with a small amount of surrounding erythema behind the right ear consistent with cellulitis. Will treat him with antibiotics for both of these conditions. Blood pressure here is unremarkable. No fevers. Discharge Plan Departure Patient Disposition: Home Clinical Impression: Cellulitis, Otitis externa Instructions: DI for Cellulitis -- Adult, DI for Otitis Externa Activity Restrictions/Additional Instructions: Use the antibiotics and the drops as directed. Continue the rest of your medications as directed. Return to the emergency department for new symptoms. Prescriptions: New cephalexin 500 mg capsule 500 mg PO QID 5 Days Qty: 20 0RF bkfaqwkw-ymgnhsrli-YU 3.5-10,000-1 mg/mL-unit/mL-% drops,suspension 3 drp EAR-LEFT QID 7 Days Qty: 10 0RF No Action mupirocin 2 % ointment 1 applic topical TID Qty: 15 0RF fluoxetine 20 mg capsule 60 mg PO DAILY Qty: 270 0RF hydrocodone-acetaminophen 10-325 mg tablet 1 tab PO Q8H PRN (Reason: pain) Qty: 84 0RF naloxone 1 mg/mL syringe 1 mg IM Q2M PRN (Reason: opioid overdose) Qty: 2 11RF Rx Instructions: NTExceed 10 mg total dose/episode trazodone 50 mg tablet 50 - 100 mg PO BEDTIME Qty: 90 3RF ondansetron 4 mg tablet,disintegrating 4 mg PO Q6H PRN (Reason: nausea and vomiting) Qty: 30 0RF Referrals: Ewa Barrow DO [Primary Care Provider] - Stand Alone Forms: Patient Portal/API
[2022-11-13 22:58] VITALS: BP 100/55; PULSE 58; RESP 18; O2SAT 98
== END 2022-11-13 22:59 | disposition home or self-care (01) ==
PROVIDERS: Emergency Provider Emergency Medicine; Family Provider Student in an Organized Health Care Education/Training Program; PCP Family Medicine
DX: H60.11 Cellulitis of right external ear (principal); H60.92 Unspecified otitis externa, left ear; M48.02 Spinal stenosis, cervical region; M54.12 Radiculopathy, cervical region
CPT/HCPCS: 82962; 99214; 99282

== ENCOUNTER 2022-11-25 09:56 | Emergency (ER) | payer OTHER, MEDICAID, SELFPAY ==
[2022-11-25] VITALS (9 sets, daily range): BP systolic 110–151; BP diastolic 78–94; PULSE 54–70; RESP 14–18; TEMP 36.3; O2SAT 98–100; BMI 23.3
[2022-11-25] MEDS: SODIUM CHLORIDE 0.9% 1,000 ML 1000 ML IV ×2 (10:30→11:21)
[2022-11-25] MEDS: diphenhydrAMINE 50 MG/ML VIAL 25 MG IV (10:30)
[2022-11-25] MEDS: PROCHLORPERAZINE 10 MG/2 ML VIAL IV (10:31)
--- NOTE | 2022-11-25 10:37 | PC.NURSE ---
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
[2022-11-25 10:38] LABS: Add Manual Diff / Slide Review NO; Basophils Absolute Auto 100 /uL (0-100); Eosinophils Absolute Auto 100 /uL (0-450); Eosinophils Percent Auto 2.1 % (2-4); Hematocrit 44.6 % (41-53); Hemoglobin 14.9 g/dL (13.5-17.5); Lymphocytes Absolute Auto 1800 /uL (1100-4500); Lymphocytes Percent Auto 33.2 % (25-40); Mean Corpuscular HGB Conc 33.5 % (30-36); Mean Corpuscular Hemoglobin 28.9 PG (26-34); Mean Corpuscular Volume 86.2 fL (80-100); Monocytes Absolute Auto 500 /uL (0-900); Monocytes Percent Auto 9.3 % (3-14); Neutrophils Absolute Auto 3000 /uL (1500-7000); Neutrophils Percent Auto 54.4 % (50-75); Platelet Count 329 X10^3/uL (150-400); Red Blood Cell Count 5.17 X10^6/uL (4.5-5.9); Red Cell Distribution Width 13.2 % (11.6-14.8); White Blood Cell Count 5.4 X10^3/uL (4.5-11.0)
--- NOTE | 2022-11-25 10:46 | ED_ITS ---
HPI - Abdominal Pain <Kristin Del Cid PA-C - Last Filed: 11/25/22 13:36> General Chief Complaint: Abdominal Pain Stated Complaint: ABD pain and vomiting Time Seen by Provider: 11/25/22 10:35 Source: patient Mode of arrival: Ambulatory History of Present Illness HPI narrative: 27-year-old male with history of spinal stenosis, vomiting, chronic back pain, uncomplicated opioid dependence and lumbar radiculopathy presents with concern for abdominal discomfort with nausea and vomiting since this morning. Patient states he thinks that this may be related to marijuana use as he has had hyperemesis associated with this before and this feels similar. He states his abdominal pain is up across the top of his abdomen and is an aching feeling that is worse with vomiting. He states he woke up this morning around 9:00 a.m. and has been vomiting ever since. He last ate and drank last night but has not been able to keep anything down this morning did try keeping down some fluids. He says he had a normal bowel movement for him this morning. He states he smokes marijuana every day using a dab pen but tends to use more when he does not have pain medicine for his back endorses taking hydrocodone regularly for his back issues which he says is prescribed by his PCP. He denies fevers, chills, diarrhea, severe or persistent abdominal pain, sore throat, headaches, flank pain, dysuria or any other symptoms Related Data Previous Rx's Medication Instructions Recorded naloxone 1 mg/mL injection syringe 1 mg IM Q2M PRN opioid overdose #2 09/18/20 mL trazodone 50 mg tablet 50 - 100 mg PO BEDTIME #90 tabs 03/10/22 fluoxetine 20 mg capsule 60 mg PO DAILY #270 caps 09/16/22 hydrocodone 10 mg-acetaminophen 1 tab PO Q8H PRN pain #84 tabs 11/04/22 325 mg tablet ondansetron 4 mg disintegrating 4 mg PO Q6H PRN nausea and 11/11/22 tablet vomiting #30 tabs mupirocin 2 % topical ointment 1 applic topical TID #15 grams 11/13/22 ondansetron 4 mg disintegrating 4 mg PO Q8H PRN nausea and 11/25/22 tablet vomiting 7 days #21 tabs Allergies Allergy/AdvReac Type Severity Reaction Status Date / Time metoclopramide AdvReac Mild LEG Verified 11/25/22 10:23 PROBLEMS Review of Systems <Kristin Del Cid PA-C - Last Filed: 11/25/22 13:36> Review of Systems Narrative: See HPI Patient History <Kristin Del Cid PA-C - Last Filed: 11/25/22 13:36> Medical History Accidental overdose Acetaminophen abuse Acne Anxiety associated with depression (~2006) Chronic bilateral low back pain without sciatica Depression History of frequent headaches Insomnia Lumbar radiculopathy Lumbar region somatic dysfunction Migraines (~2004) Orbital tumor Pelvic somatic dysfunction Psoriasis Segmental and somatic dysfunction of abdomen and other regions Somatic dysfunction of lower extremity Surgical History Anesthesia History of eye surgery Family History Mother Diabetes mellitus History of heart disease Hypertension Hyperlipidemia Grandfather Kidney failure Grandfather Cancer Grandmother No problems noted. Social History Smoking Status: Current some day smoker second hand exposure: No alcohol intake: never substance use type: marijuana (DAILY) Smoking Status: Current some day smoker tobacco type: vaping alcohol intake frequency: 0-2 drinks per day Substance Use Type: marijuana Exam <Kristin Del Cid PA-C - Last Filed: 11/25/22 13:36> Narrative Exam Narrative: GENERAL: [27] year old patient appears stated age. Well-developed patient, in mild distress, slightly disheveled appearing. HEAD: Atraumatic. Normocephalic. EYES: R eye strabismus, Pupils equal round and reactive. Extraocular motions intact. No scleral icterus. No injection or drainage. ENT: Nose without bleeding, purulent drainage. Throat without erythema, tonsillar hypertrophy or exudate. Airway patent. NECK: Trachea midline. Non tender CARDIOVASCULAR: Regular rate and rhythm without murmurs, gallops, or rubs. RESPIRATORY: Clear to auscultation. Breath sounds equal bilaterally. No wheezes, rales, or rhonchi. GASTROINTESTINAL: Abdomen soft, there is mild upper abdominal tenderness right and left no lower abdominal tenderness, he also has some mild left and right flank discomfort otherwise non-tender, nondistended. EXTREMITIES: No edema or joint tenderness. BACK: Nontender without deformity or crepitance. NEURO: AOx3. SKIN: Chronic acne/rosacea face, No other rash or erythema of visible areas Initial Vital Signs Initial Vital Signs: Vital Signs Temperature 97.3 F L 11/25/22 10:05 Pulse Rate 54 L 11/25/22 10:05 Respiratory Rate 18 11/25/22 10:05 Blood Pressure 143/93 H 11/25/22 10:05 Pulse Oximetry 99 11/25/22 10:05 Oxygen Delivery Method Room Air 11/25/22 10:05 <Donnie Martínez MD - Last Filed: 11/26/22 08:28> Initial Vital Signs Initial Vital Signs: Vital Signs Temperature 97.3 F L 11/25/22 10:05 Pulse Rate 54 L 11/25/22 10:05 Respiratory Rate 18 11/25/22 10:05 Blood Pressure 143/93 H 11/25/22 10:05 Pulse Oximetry 99 11/25/22 10:05 Oxygen Delivery Method Room Air 11/25/22 10:05 Course <Kristin Del Cid PA-C - Last Filed: 11/25/22 13:36> Orders Ordered: Discontinued Medications Diphenhydramine HCl (Diphenhydramine 50 Mg/Ml Vial) 25 mg IV NOW ONE Stop: 11/25/22 10:28 Last Admin: 11/25/22 10:30 Dose: 25 mg Documented By: NR Famotidine (Famotidine 20 Mg/2 Ml Vial) 20 mg IV NOW ALAINA Last Admin: 11/25/22 11:26 Dose: 20 mg Documented By: NR Sodium Chloride (Normal Saline 0.9%) 1,000 mls @ 1,000 mls/hr IV BOLUS ONE Stop: 11/25/22 11:23 Last Infusion: 11/25/22 11:21 Dose: 0 mls/hr Documented By: Admin: 11/25/22 10:30 Dose: 1,000 mls/hr Documented By: NR Sodium Chloride (Normal Saline 0.9%) 1,000 mls @ 1,000 mls/hr IV BOLUS ONE Stop: 11/25/22 11:36 Last Infusion: 11/25/22 12:29 Dose: 0 mls/hr Documented By: Admin: 11/25/22 11:21 Dose: 1,000 mls/hr Documented By: JACQUES Lorazepam (Lorazepam 2 Mg/Ml Inj) 0.5 mg IV NOW ONE Stop: 11/25/22 11:58 Last Admin: 11/25/22 12:11 Dose: 0.5 mg Documented By: SHANNON Ondansetron HCl (Ondansetron 4 Mg Odt) 4 mg PO NOW PRN PRN Reason: Nausea And Vomiting Ondansetron HCl (Ondansetron 4 Mg/2 Ml Inj) 4 mg IV NOW PRN PRN Reason: Nausea And Vomiting Pantoprazole Sodium (Pantoprazole 40 Mg Vial) 20 mg IV NOW ONE Stop: 11/25/22 11:58 Last Admin: 11/25/22 12:11 Dose: 20 mg Documented By: SHANNON Prochlorperazine (Prochlorperazine 10 Mg/2 Ml Vial) 10 mg IV NOW ONE Stop: 11/25/22 10:28 Last Admin: 11/25/22 10:31 Dose: 10 mg Documented By: JACQUES Vital Signs Vital signs: Vital Signs - 8 hr 11/25/22 10:05 11/25/22 10:31 11/25/22 10:19 Temperature 97.3 F L Pulse Rate 54 L 56 L 57 L Respiratory Rate 18 Blood Pressure 143/93 H 151/94 H Pulse Oximetry 99 99 Oxygen Delivery Method Room Air 11/25/22 10:20 11/25/22 10:20 11/25/22 10:30 Temperature Pulse Rate 55 L Respiratory Rate Blood Pressure 143/93 H 151/94 H Pulse Oximetry 99 Oxygen Delivery Method 11/25/22 10:30 11/25/22 11:00 11/25/22 11:01 Temperature Pulse Rate 57 L 70 Respiratory Rate Blood Pressure 130/84 Pulse Oximetry 99 99 Oxygen Delivery Method 11/25/22 11:01 11/25/22 13:00 11/25/22 11:30 Temperature Pulse Rate 65 62 66 Respiratory Rate 16 14 Blood Pressure 110/78 122/78 Pulse Oximetry 98 99 100 Oxygen Delivery Method Room Air <Donnie Martínez MD - Last Filed: 11/26/22 08:28> Orders Ordered: Discontinued Medications Diphenhydramine HCl (Diphenhydramine 50 Mg/Ml Vial) 25 mg IV NOW ONE Stop: 11/25/22 10:28 Last Admin: 11/25/22 10:30 Dose: 25 mg Documented By: NR Famotidine (Famotidine 20 Mg/2 Ml Vial) 20 mg IV NOW ALAINA Last Admin: 11/25/22 11:26 Dose: 20 mg Documented By: NR Sodium Chloride (Normal Saline 0.9%) 1,000 mls @ 1,000 mls/hr IV BOLUS ONE Stop: 11/25/22 11:23 Last Infusion: 11/25/22 11:21 Dose: 0 mls/hr Documented By: Admin: 11/25/22 10:30 Dose: 1,000 mls/hr Documented By: NR Sodium Chloride (Normal Saline 0.9%) 1,000 mls @ 1,000 mls/hr IV BOLUS ONE Stop: 11/25/22 11:36 Last Infusion: 11/25/22 12:29 Dose: 0 mls/hr Documented By: Admin: 11/25/22 11:21 Dose: 1,000 mls/hr Documented By: JACQUES Lorazepam (Lorazepam 2 Mg/Ml Inj) 0.5 mg IV NOW ONE Stop: 11/25/22 11:58 Last Admin: 11/25/22 12:11 Dose: 0.5 mg Documented By: SHANNON Ondansetron HCl (Ondansetron 4 Mg Odt) 4 mg PO NOW PRN PRN Reason: Nausea And Vomiting Ondansetron HCl (Ondansetron 4 Mg/2 Ml Inj) 4 mg IV NOW PRN PRN Reason: Nausea And Vomiting Pantoprazole Sodium (Pantoprazole 40 Mg Vial) 20 mg IV NOW ONE Stop: 11/25/22 11:58 Last Admin: 11/25/22 12:11 Dose: 20 mg Documented By: SHANNON Prochlorperazine (Prochlorperazine 10 Mg/2 Ml Vial) 10 mg IV NOW ONE Stop: 11/25/22 10:28 Last Admin: 11/25/22 10:31 Dose: 10 mg Documented By: JACQUES Vital Signs Vital signs: Vital Signs - 8 hr 11/25/22 10:05 11/25/22 10:31 11/25/22 10:19 Temperature 97.3 F L Pulse Rate 54 L 56 L 57 L Respiratory Rate 18 Blood Pressure 143/93 H 151/94 H Pulse Oximetry 99 99 Oxygen Delivery Method Room Air 11/25/22 10:20 11/25/22 10:20 11/25/22 10:30 Temperature Pulse Rate 55 L Respiratory Rate Blood Pressure 143/93 H 151/94 H Pulse Oximetry 99 Oxygen Delivery Method 11/25/22 10:30 11/25/22 11:00 11/25/22 11:01 Temperature Pulse Rate 57 L 70 Respiratory Rate Blood Pressure 130/84 Pulse Oximetry 99 99 Oxygen Delivery Method 11/25/22 11:01 11/25/22 13:00 11/25/22 11:30 Temperature Pulse Rate 65 62 66 Respiratory Rate 16 14 Blood Pressure 110/78 122/78 Pulse Oximetry 98 99 100 Oxygen Delivery Method Room Air MDM - Abdominal Pain <Kristin Del Cid PA-C - Last Filed: 11/25/22 13:36> Differential Diagnosis Differential diagnosis: Likely abdominal pain, gastroenteritis, pancreatitis and other (marijuana hyperemesis) Medical Records Attestation: I reviewed the patient's medical records. Lab Data Attestation: I reviewed the patient's lab results. 11/25/22 10:25 11/25/22 10:25 Labs: Lab Results 11/25/22 11/25/22 Range/Units 10:25 10:25 WBC 5.4 (4.5-11.0) X10^3/uL RBC 5.17 (4.5-5.9) X10^6/uL Hgb 14.9 (13.5-17.5) g/dL Hct 44.6 (41-53) % MCV 86.2 (80-100) fL MCH 28.9 (26-34) PG MCHC 33.5 (30-36) % RDW 13.2 (11.6-14.8) % Plt Count 329 (150-400) X10^3/uL Neut % (Auto) 54.4 (50-75) % Lymph % (Auto) 33.2 (25-40) % [place] % (Auto) 9.3 (3-14) % Eos % (Auto) 2.1 (2-4) % Baso % (Auto) 1.0 (0-2) % Neut # (Auto) 3000 (2059-0325) /uL Lymph # (Auto) 1800 (4492-4163) /uL [place] # (Auto) 500 (0-900) /uL Eos # (Auto) 100 (0-450) /uL Baso # (Auto) 100 (0-100) /uL Sodium 134 L (137-145) mmol/L Potassium 4.0 (3.4-5.1) mmol/L Chloride 98 (98-107) mmol/L Carbon Dioxide 26 (22-32) mmol/L BUN 14 (9-20) mg/dL Creatinine 0.75 (0.66-1.25) mg/dL Estimated GFR > 60 (>60) mL/min BUN/Creatinine Ratio 18.7 (6-22) Glucose 121 H (70-100) mg/dL Calcium 9.4 (8.4-10.2) mg/dL Total Bilirubin 1.4 H (0.2-1.3) mg/dL AST 36 (17-59) IU/L ALT 27 (<50) IU/L Alkaline Phosphatase 88 (38-126) U/L Total Protein 8.3 H (6.3-8.2) g/dL Albumin 4.5 (3.5-5.0) g/dL Globulin 3.8 (1.7-4.1) g/dL Albumin/Globulin Ratio 1.2 (1.0-2.8) Lipase 115 (23-300) U/L Treatment and Disposition Shared decision making:: Shared decision-making was used indeterminate patient's plan of care today in the emergency department plan for outpatient follow-up MDM Narrative Medical decision making narrative: This is a somewhat disheveled-appearing 27-year-old male with history of uncom plicated opioid dependence, marijuana hyperemesis, chronic back pain who presents with concern for nausea and vomiting with associated abdominal upper discomfort since this morning when he woke up at 9:00 a.m.. Exam and history are most suggestive of marijuana hyperemesis although pancreatitis or viral illness are also considered. He has no signs or symptoms suggestive of appendicitis. Labs are obtained to include CBC, CMP, lipase as well as urine study. The patient receives fluid bolus and Zofran upon arrival to the emergency department with some improvement of his nausea and no repeat vomiting. Due to persistent report of upper abdominal discomfort and nausea he also receives Protonix, famotidine and 0.5 mg of Ativan he generally feels improved but persistently is noted by nursing staff and provider to be putting his fingers into his throat and forcing himself to vomit. Nursing staff and provider did discuss this with him and discouraged him from doing this. As patient continues to force himself to vomit and has received ample appropriate medications to help with nausea he is released from the emergency department with a advised to follow up closely with primary care provider,. Forcing himself to vomit and encouraged to see a social work as well with their information included in his discharge paperwork. I suspect that there is a primary psychologic psychogenic component to his vomiting given both his history and his behavior today in the emergency department. Patient did also receive 2 boluses of fluids, do not feel he is dehydrated from heavy vomiting as he seems to be dry heaving after forced emesis all of his labs returned unremarkable today, he did not provide a urine sample however denies any urinary symptoms and has no fevers, flank/suprapubic tenderness or other concerning findings suggestive of UTI. Slightly elevated bilirubin however this seems to be baseline for him return precautions provided, follow-up plan discussed, all questions answered. <Donnie Martínez MD - Last Filed: 11/26/22 08:28> Lab Data Labs: Lab Results 11/25/22 11/25/22 Range/Units 10:25 10:25 WBC 5.4 (4.5-11.0) X10^3/uL RBC 5.17 (4.5-5.9) X10^6/uL Hgb 14.9 (13.5-17.5) g/dL Hct 44.6 (41-53) % MCV 86.2 (80-100) fL MCH 28.9 (26-34) PG MCHC 33.5 (30-36) % RDW 13.2 (11.6-14.8) % Plt Count 329 (150-400) X10^3/uL Neut % (Auto) 54.4 (50-75) % Lymph % (Auto) 33.2 (25-40) % [place] % (Auto) 9.3 (3-14) % Eos % (Auto) 2.1 (2-4) % Baso % (Auto) 1.0 (0-2) % Neut # (Auto) 3000 (1471-1154) /uL Lymph # (Auto) 1800 (1145-2591) /uL [place] # (Auto) 500 (0-900) /uL Eos # (Auto) 100 (0-450) /uL Baso # (Auto) 100 (0-100) /uL Sodium 134 L (137-145) mmol/L Potassium 4.0 (3.4-5.1) mmol/L Chloride 98 (98-107) mmol/L Carbon Dioxide 26 (22-32) mmol/L BUN 14 (9-20) mg/dL Creatinine 0.75 (0.66-1.25) mg/dL Estimated GFR > 60 (>60) mL/min BUN/Creatinine Ratio 18.7 (6-22) Glucose 121 H (70-100) mg/dL Calcium 9.4 (8.4-10.2) mg/dL Total Bilirubin 1.4 H (0.2-1.3) mg/dL AST 36 (17-59) IU/L ALT 27 (<50) IU/L Alkaline Phosphatase 88 (38-126) U/L Total Protein 8.3 H (6.3-8.2) g/dL Albumin 4.5 (3.5-5.0) g/dL Globulin 3.8 (1.7-4.1) g/dL Albumin/Globulin Ratio 1.2 (1.0-2.8) Lipase 115 (23-300) U/L Discharge Plan Departure Patient Disposition: Home Clinical Impression: Cannabinoid hyperemesis syndrome, Self induced vomiting Instructions: DI for Vomiting -- Adult Activity Restrictions/Additional Instructions: *You have been diagnosed with [hyperemesis/nausea vomiting likely cannabinoid; self induced vomiting] *What to do: *Please continue to take your regular medications as directed. [1 ] New medication prescriptions sent to your pharmacy: [Zofran] [ ] New medication written as a paper prescription [ ] No new medications given *Please follow up with your primary care provider in 2-3 days, call for an appointment. Let them know you were seen in the Emergency Department and that we ask that you be seen in follow up. We will electronically transmit a record of today's note if your PCP is in our system. He received Zofran as well as famotidine Protonix and some Ativan while in the emergency department to help with your symptoms. Unfortunately because you continue to force herself to v omit you will likely continue to have some vomiting or least a gag reaction. And likely to have persistent abdominal discomfort associated with this unless you stop doing this. I suspect that your nausea and vomiting this morning are related to your regular cannabis use, I am prescribing an antinausea medicine that you can take every 8 hours as needed but over the next day or so I encourage you to take small amounts of fluids, and refrain from forcing herself to vomit. I would like you to see your primary care provider as soon as possible and I have also put information for social work here in your paperwork as I think he would also benefit from seeing social work. I suspect that there is a component of your vomiting that is psychogenic, as it seems that you have difficulty stopping yourself from forcing vomiting. *If you do not have a primary care provider please contact the [facility] Resource line at [phone]. They will ask some questions about your medical history and help get you set up with a doctor in the community. *Return to Emergency Department if you should have any new, worsening or concerning symptoms, such as [fever greater than 101 F, shaking chills, worsening pain, persistent vomiting or other bothersome symptoms] Prescriptions: New ondansetron 4 mg tablet,disintegrating 4 mg PO Q8H PRN (Reason: nausea and vomiting) 7 Days Qty: 21 0RF No Action mupirocin 2 % ointment 1 applic topical TID Qty: 15 0RF fluoxetine 20 mg capsule 60 mg PO DAILY Qty: 270 0RF hydrocodone-acetaminophen 10-325 mg tablet 1 tab PO Q8H PRN (Reason: pain) Qty: 84 0RF naloxone 1 mg/mL syringe 1 mg IM Q2M PRN (Reason: opioid overdose) Qty: 2 11RF Rx Instructions: NTExceed 10 mg total dose/episode trazodone 50 mg tablet 50 - 100 mg PO BEDTIME Qty: 90 3RF ondansetron 4 mg tablet,disintegrating 4 mg PO Q6H PRN (Reason: nausea and vomiting) Qty: 30 0RF Referrals: Iliana Terry [Registered Health Nurse] - (self induced vomiting) Ewa Barrow DO [Primary Care Provider] - Stand Alone Forms: Patient Portal/API <Donnie Martínez MD - Last Filed: 11/26/22 08:28> Cosign ED Attending Cosignature Attestation: I was immediately available in the department for consultation. ?This documentation has been reviewed and I agree with assessment and plan. Supervised by Donnie Martínez MD
[2022-11-25 10:52] LABS: Alanine Aminotransferase 27 IU/L (<50); Albumin 4.5 g/dL (3.5-5.0); Albumin Globulin Ratio 1.2 (1.0-2.8); Alkaline Phosphatase 88 U/L (38-126); Aspartate Aminotransferase 36 IU/L (17-59); BUN Creatinine Ratio 18.7 (6-22); Bilirubin Total 1.4 mg/dL (0.2-1.3); Blood Urea Nitrogen 14 mg/dL (9-20); Calcium 9.4 mg/dL (8.4-10.2); Carbon Dioxide 26 mmol/L (22-32); Chloride 98 mmol/L (98-107); Estimated Glomerular Filt Rate > 60 mL/min (>60); Globulin 3.8 g/dL (1.7-4.1); Glucose 121 mg/dL (70-100); HEMOLYSIS < 15 (0-50); Lipase 115 U/L (23-300); Sodium 134 mmol/L (137-145); Total Protein 8.3 g/dL (6.3-8.2)
--- NOTE | 2022-11-25 11:12 | PC.NURSE ---
went into patient room to hang next bag of fluids, pt was found to be sticking his fingers down his throat, when told to stop and asked why he is doing this, he states that he feels like he is choking/trying to vomit and nothing is coming out, so he is trying to help it. patient educated that when your stomach is empty, you only dry heave, during dry heaves you are temporarily unable to breath due to the airway closing as the esophagus opens but since nothing is in your stomach, nothing comes out. pt verbalized understanding of this. reported to provider and charge nurse. charge nurse reports there is a history of this in the past
[2022-11-25] MEDS: FAMOTIDINE 20 MG/2 ML VIAL IV (11:26)
[2022-11-25] MEDS: PANTOPRAZOLE 40 MG VIAL 20 MG IV (12:11)
[2022-11-25] MEDS: LORazepam 2 MG/ML INJ 0.5 MG IV (12:11)
== END 2022-11-25 13:14 | disposition home or self-care (01) ==
PROVIDERS: Emergency Medicine; Emergency Provider Student in an Organized Health Care Education/Training Program; Family Provider Student in an Organized Health Care Education/Training Program; PCP Family Medicine
DX: R11.2 Nausea with vomiting, unspecified (principal); F50.89 Other specified eating disorder; F12.90 Cannabis use, unspecified, uncomplicated
CPT/HCPCS: 36415; 80053; 83690; 85025; 96361; 96374; 96375; 99284; C9113; J0780; J1200; J2060

== ENCOUNTER 2022-12-08 10:00 | Outpatient (RCR) | payer OTHER, MEDICAID, SELFPAY ==
--- NOTE | 2022-08-25 12:14 | PT.OIE ---
Current Diagnoses Other chronic pain (08/25/22) Spinal stenosis, cervical region (08/25/22) Low back pain, unspecified (08/25/22) Segmental and somatic dysfunction of lower extremity (08/25/22) Segmental and somatic dysfunction of abdomen and other regions (08/25/22) Paresthesia of skin (08/25/22) Difficulty in walking, not elsewhere classified (08/25/22) Abnormal posture (08/25/22) Weakness (08/25/22) Past Medical History (Last Reviewed 08/17/22 @ 22:49 by Anthony Camacho DO) Accidental overdose Acetaminophen abuse Acne Anxiety associated with depression (~2006) Chronic bilateral low back pain without sciatica Depression History of frequent headaches Insomnia Lumbar region somatic dysfunction Migraines (~2004) Orbital tumor Pelvic somatic dysfunction Psoriasis Segmental and somatic dysfunction of abdomen and other regions Somatic dysfunction of lower extremity Past Surgical History (Last Reviewed 05/26/22 @ 21:53 by Yanick Mays DO) Anesthesia History of eye surgery Visit Care Team Role Provider Type Ephraim Platt MD Attending Provider Physician Family Provider Primary Care Provider Referring Provider Specialty: Internal Medicine Address: [address] [place] [address], [address], [facility] Email: [email or web address] Physical Therapy Initial Evaluation PT-OP-A Visit Information Start: 08/21/22 16:02 Freq: Status: Active Protocol: Document 08/25/22 08:17 [facility] (Rec: 08/25/22 09:05 [facility] [id number]) Out-Patient Physical Therapy Visit Information Visit Information Visit Type Initial Evaluation Visit Start Time 08:18 Visit Stop Time 09:03 Total Visit Minutes 45 Visit Number 1 Number of SACK CLEANING HAND Visits 0 PT-OP-B Current Condition Start: 08/21/22 16:02 Freq: Status: Active Protocol: Document 08/25/22 08:17 [facility] (Rec: 08/25/22 09:05 [facility] [id number]) Current Condition History of Current Condition Onset Date chornic back pain(mostly lumbar some thoaraic), neck pain; L ankle 1 week Current Complaints back pain, L ankle pain History of Current Condition Pt reports Wed he sprained his ankle L but he is unsure how. He went ot his shift and couldnt finish so went ot ER and they did Xrays and there was no breaks. Pt reports the week befoer he had dropped a cast iron skillet, but it went away and it was a week later that swelling and pain started . Back been really bad especially at work. 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 He works 28-34 hours a week and notes they have been understaffed recently so he has been working a lot. His ankle is doing better but still sore. Neck is painful but not as bad as the back. He tried to see Dr. Bearden but the provider had amedical emergency so he hasn't seen him again. He has been taking hydrocodone for a few months to a year. He takes it daily. He gets 21 pills a week and takes 3/day and that is what gets him through his day. Otherwise he feels like he just lays in bed d/t pain too much. Pt has not been able to skateboard in over a year to year and half at this point. Pt has to walk to work now, which is painful but not as bad as skateboarding. Pt denies dizziness and lightheadness and occ BEDOYA ( every couple weeks or so and not very intense) Prior Treatments and Tests PTs, MRIs of brain, cervical spine, thoraic spine; Xray of lumbar spine Treatment Goals Patient/Caregiver Goals feel better not as trashed; have better mobility, possibly get back to skateboarding PT-OP-C Subjective Start: 08/21/22 16:02 Freq: Status: Active Protocol: Document 08/25/22 08:17 [facility] (Rec: 08/25/22 09:05 [facility] [id number]) Patient Questionnaires Neck Disability Index NDI Score 13/45 (pt does not drive) Oswestry Low Back Index Oswestry Score 11/50 OP-PT Pain Assessment Location back pain Pain Location Details lumbar region mostlY(some thoracic) Scale Used Numeric (0 - 10) Description Sharp,Stabbing Frequency Constant Radiating Location mostly R calf(nerves getting shocked) Variations/Patterns tingling/numbess like fell asleep R>L; entire foot Pain Aggravating Factors Activity,Standing,Walking, Bending,Lifting Other Pain Aggravating Factors skateboarding, work Pain Alleviating Factors Heat,Medication,Lying Supine PT-OP-D Balance Start: 08/21/22 16:02 Freq: Status: Active Protocol: Document 08/25/22 08:17 [facility] (Rec: 08/25/22 09:05 [facility] [id number]) Balance Tests Single Limb Standing Single Limb- Right 12 sec w/lat trunk lean R pain back Single Limb- Left 2 sec w/pain back and L ankle PT-OP-F Manual Assessment Start: 08/21/22 16:02 Freq: Status: Active Protocol: Document 08/25/22 08:17 [facility] (Rec: 08/25/22 09:05 [facility] [id number]) Manual Assessments Soft Tissue Assessment Soft Tissue Mobility Assessment tenderness neck and lumbar mm PT-OP-G Mobility & Gait Start: 08/21/22 16:02 Freq: Status: Active Protocol: Document 08/25/22 08:17 [facility] (Rec: 08/25/22 09:05 [facility] [id number]) OP Gait Assessment Comments Gait Comments dec LLE stance time and dec push off B; heavy R lat lean and hard foot slap on R d/t dec L stance time. PT-OP-J Posture/Palpation/Skin Start: 08/21/22 16:02 Freq: Status: Active Protocol: Document 08/25/22 08:17 [facility] (Rec: 08/25/22 09:05 [facility] [id number]) Posture Evaluation Ashley Postural Classification System Ashley Postural Classifications Posterior/Anterior Vertebral Compression Test 0 Elbow Flexion Test 1 Lumbar Protective Mechanism Left AP 0 Lumbar Protective Mechanism Right AP 0 Lumbar Protective Mechanism Left PA 0 Lumbar Protective Mechanism Right PA 1 Comments Posture Comments inc kyphosis, fwd head, fwd rounded shoulders; L foot ER in standing PT-OP-K Range of Motion Start: 08/21/22 16:02 Freq: Status: Active Protocol: Document 08/25/22 08:17 [facility] (Rec: 08/25/22 09:05 [facility] [id number]) Cervical Spine Range of Motion Cervical Spine Active Degrees Flexion 70 Extension 35 Rotation Left 51 Rotation Right 60 Lateral Flexion Left 24 Lateral Flexion Right 33 Comments pain ext; pain R neck w/B SB; pain contra w/rot Lumbar Spine Range of Motion Lumbar Spine Active Percentage Flexion 80 Extension 80 Rotation Left 50 Rotation Right 70 Lateral Flexion Left 75 Lateral Flexion Right 75 ROM Limitations Pain Comments pain w/flex-dec lower lumbar flex; mostly at TL w/ext-pain; pain around TL junciton W/B SB & rot Ankle and Foot Goniometric Range of Motion Ankle and Foot Right Active Dorsiflexion with Knee Flexed 10 Dorsiflexion with Knee Extended 7 Plantarflexion 40 Inversion 22 Eversion 10 Left Active Dorsiflexion with Knee Flexed 8 Dorsiflexion with Knee Extended 0 Plantarflexion 32 Inversion 10 Eversion 10 Comments pain all PT-OP-L Special Tests Start: 08/21/22 16:02 Freq: Status: Active Protocol: Document 08/25/22 08:17 [facility] (Rec: 08/25/22 09:05 [facility] [id number]) Special Tests Cervical Spine Special Tests Traction Test Results pain Vertebral Artery Test Results neg Comments B Spurling's Test Test Results pain positive Lumbar Spine Special Tests Straight Leg Raise Test Results about 40 deg pain B in HS and LB Slump Test Results post HS/calf tension-no change w/neck flex PT-OP-M Strength Start: 08/21/22 16:02 Freq: Status: Active Protocol: Document 08/25/22 08:17 [facility] (Rec: 08/25/22 09:05 [facility] [id number]) Hip Strength Hip Manual Muscle Testing Right Flexion (L2) 5 Normal Extension (S1) 4- Good- Abduction 3 Fair Adduction 4+ Good+ External Rotation 5 Normal Internal Rotation 5 Normal Left Flexion (L2) 5 Normal Extension (S1) 4+ Good+ Abduction 4- Good- Adduction 4+ Good+ External Rotation 5 Normal Internal Rotation 5 Normal Knee Strength Knee Manual Muscle Testing Right Flexion (S2) 4+ Good+ Extension (L3) 4+ Good+ Left Flexion (S2) 4+ Good+ Extension (L3) 5 Normal Ankle/Foot Strength Ankle and Foot Manual Muscle Testing Right Dorsiflexion (L4) 5 Normal Plantarflexion (S1) 5 Normal Inversion 5 Normal Eversion (S1) 5 Normal Comments PF tested steaded Left Dorsiflexion (L4) 3+ Fair+ Plantarflexion (S1) 3+ Fair+ Inversion 2+ Poor+ Eversion (S1) 3+ Fair+ Comments pain and swelling-dec inversion ROM PT-OP-T Assessment and Plan Start: 08/21/22 16:02 Freq: Status: Active Protocol: Document 08/25/22 08:17 [facility] (Rec: 08/25/22 09:05 [facility] [id number]) Physical Therapy Assessment Rehab Potential Rehabilitation Potential Good Evaluation Complexity Number of Personal Factors/Comorbidities 3 or More Number of Body Systems Impaired 4 or More Clinical Presentation at Evaluation Evolving Impairments Impairments Activity Tolerance,Balance, Edema,Functional Activities, Functional Mobility,Gait,Pain, Posture,ROM,Soft Tissue Mobility,Strength Other Concerns Barriers to Rehabilitation discussed 2x/week w/pt but pt notes 1x/week is all that he thinks he can commit to d/t work Goals posture Short Term Goal (STG) Pt will score at least 2/5 on VCT to show irmpoved posture. STG Duration 10/04 Sprayer Hand Goal (LTG) Pt will score at least 4/5 on VCT to show irmpoved posture. LTG Duration 11/13/22 strength Short Term Goal (STG) Pt will be indep w/HEP STG Duration 10/04/22 Assisted Goal (LTG) Pt will score at least 5/5 on all BLE MMT and at least 3/5 on LPM & EFT to show imrpoved strength and stabiltiy in order for him to do his typical daily activities w/o inc pain. LTG Duration 11/13/22 ROM Assisted Goal (LTG) Pt will have full ROM of neck, L ankle and back w/o inc pain greater than 1/10. LTG Duration 11/16/22 activities Short Term Goal (STG) Pt will report no pain in back or ankle greater than 2/10 w/ walking to work. STG Duration 10/09/22 Sprayer Hand Goal (LTG) Pt will report no pain in back , neck or ankle greater than 3 /10 after a shift for work. LTG Duration 11/17/22 Assessment Summary Assessment Pt presnts w/chronic back and neck pain with recent worsening of the back pain espeically which affects his abilty to work and walk (his main form of transportation as he cannot skateboard w/o severe pain so has avoided for about a year). He has very fwd flexed posture especially in sitting and has poor core response likely related to postural alignment and chronic pain. He has limited neck ROM also which affects neck pain. He recently hurt his ankle by an unknown cause but it is slowly getting better but is majorly limiting him and causing impaired gait patterns which likely worsen the back pain. He would benefit from skilled PT to address Cervical , thoracic and lumbar mobility , LE strength, core stabiltiy, balance, and imrpove ankle mobility and dec pain in all areas. Physical Therapy Plan Frequency and Duration Frequency of Treatment 1x/Week Duration of treatment (weeks) 12 Plan of Care Start Date 08/25/22 Plan of Care End Date 11/17/22 Therapeutic Interventions Therapeutic Interventions Balance Training,Gait Training ,Home Exercise Program,Joint Mobilizations,Manual Therapy, Neuromuscular Re-education, Orthotic/Prosthetic Management ,Patient/Caregiver Education, Self-Care/Home Management,Soft Tissue Mobilization,Taping, Therapeutic Activities, Therapeutic Exercises Modalities Cold Pack/Ice Massage,Electric Stimulation,Hot Packs, Infrared Therapy,Traction- Mechanical,Ultrasound Next Visit Focus/Plan Next Note Type Treatment Note Next Visit Plan HEP:wall posture, open book, axial elongation, rows; manual: work on hip mobility, pelvis & sacral mobility, STM to LB
--- NOTE | 2022-08-25 12:14 | PT.OPPOC ---
Physical, Occupational & Speech Therapy At [facility] Current Diagnoses Other chronic pain (08/25/22) Spinal stenosis, cervical region (08/25/22) Low back pain, unspecified (08/25/22) Segmental and somatic dysfunction of lower extremity (08/25/22) Segmental and somatic dysfunction of abdomen and other regions (08/25/22) Paresthesia of skin (08/25/22) Difficulty in walking, not elsewhere classified (08/25/22) Abnormal posture (08/25/22) Weakness (08/25/22) Visit Care Team Role Provider Type Ephraim Platt MD Attending Provider Physician Family Provider Primary Care Provider Referring Provider Specialty: Internal Medicine Address: [address] [place] [address], [address], [facility] Email: [email or web address] Plan Of Care PT-OP-T Assessment and Plan Start: 08/21/22 16:02 Freq: Status: Active Protocol: Document 08/25/22 08:17 [facility] (Rec: 08/25/22 09:05 [facility] [id number]) Physical Therapy Assessment Rehab Potential Rehabilitation Potential Good Evaluation Complexity Number of Personal Factors/Comorbidities 3 or More Number of Body Systems Impaired 4 or More Clinical Presentation at Evaluation Evolving Impairments Impairments Activity Tolerance,Balance, Edema,Functional Activities, Functional Mobility,Gait,Pain, Posture,ROM,Soft Tissue Mobility,Strength Other Concerns Barriers to Rehabilitation discussed 2x/week w/pt but pt notes 1x/week is all that he thinks he can commit to d/t work Goals posture Short Term Goal (STG) Pt will score at least 2/5 on VCT to show irmpoved posture. STG Duration 10/04 Pipefitter Helper Goal (LTG) Pt will score at least 4/5 on VCT to show irmpoved posture. LTG Duration 11/13/22 strength Short Term Goal (STG) Pt will be indep w/HEP STG Duration 10/04/22 Longterm Goal (LTG) Pt will score at least 5/5 on all BLE MMT and at least 3/5 on LPM & EFT to show imrpoved strength and stabiltiy in order for him to do his typical daily activities w/o inc pain. LTG Duration 11/13/22 ROM Longterm Goal (LTG) Pt will have full ROM of neck, L ankle and back w/o inc pain greater than 1/10. LTG Duration 11/16/22 activities Short Term Goal (STG) Pt will report no pain in back or ankle greater than 2/10 w/ walking to work. STG Duration 10/09/22 Pipefitter Helper Goal (LTG) Pt will report no pain in back , neck or ankle greater than 3 /10 after a shift for work. LTG Duration 11/17/22 Assessment Summary Assessment Pt presnts w/chronic back and neck pain with recent worsening of the back pain espeically which affects his abilty to work and walk (his main form of transportation as he cannot skateboard w/o severe pain so has avoided for about a year). He has very fwd flexed posture especially in sitting and has poor core response likely related to postural alignment and chronic pain. He has limited neck ROM also which affects neck pain. He recently hurt his ankle by an unknown cause but it is slowly getting better but is majorly limiting him and causing impaired gait patterns which likely worsen the back pain. He would benefit from skilled PT to address Cervical , thoracic and lumbar mobility , LE strength, core stabiltiy, balance, and imrpove ankle mobility and dec pain in all areas. Physical Therapy Plan Frequency and Duration Frequency of Treatment 1x/Week Duration of treatment (weeks) 12 Plan of Care Start Date 08/25/22 Plan of Care End Date 11/17/22 Therapeutic Interventions Therapeutic Interventions Balance Training,Gait Training ,Home Exercise Program,Joint Mobilizations,Manual Therapy, Neuromuscular Re-education, Orthotic/Prosthetic Management ,Patient/Caregiver Education, Self-Care/Home Management,Soft Tissue Mobilization,Taping, Therapeutic Activities, Therapeutic Exercises Modalities Cold Pack/Ice Massage,Electric Stimulation,Hot Packs, Infrared Therapy,Traction- Mechanical,Ultrasound Next Visit Focus/Plan Next Note Type Treatment Note Next Visit Plan HEP:wall posture, open book, axial elongation, rows; manual: work on hip mobility, pelvis & sacral mobility, STM to LB Plan of Care Dates Plan of Care Start Date 08/25/22 Plan of Care End Date 11/17/22 Electronically Signed by: Nathaly Mancilla, PT 08/25/22 [id number] If you are in agreement with this Plan of Care, please return a signed and dated copy. I have reviewed this Plan of Care and certify that the skilled therapy services above are required to meet the patient?s needs. Physician Signature Date Printed Name and Credentials Clinical Instructor Signature Printed Name and Credentials
--- NOTE | 2022-09-02 17:53 | PT.OTN ---
Current Diagnoses Other chronic pain (09/02/22) Spinal stenosis, cervical region (09/02/22) Low back pain, unspecified (09/02/22) Segmental and somatic dysfunction of lower extremity (09/02/22) Segmental and somatic dysfunction of abdomen and other regions (09/02/22) Paresthesia of skin (09/02/22) Difficulty in walking, not elsewhere classified (09/02/22) Abnormal posture (09/02/22) Weakness (09/02/22) Physical Therapy Treatment Note PT-OP-A Visit Information Start: 08/21/22 16:02 Freq: Status: Active Protocol: Document 09/02/22 16:48 [facility] (Rec: 09/02/22 17:53 [facility] [id number]) Out-Patient Physical Therapy Visit Information Visit Information Visit Type Treatment Note Visit Start Time 16:49 Visit Stop Time 17:30 Total Visit Minutes 41 Visit Number 2 Number of FOOD MOBILE DRIVER Visits 0 PT-OP-B Current Condition Start: 08/21/22 16:02 Freq: Status: Active Protocol: Document 08/25/22 08:17 [facility] (Rec: 08/25/22 09:05 [facility] [id number]) Current Condition History of Current Condition Onset Date chornic back pain(mostly lumbar some thoaraic), neck pain; L ankle 1 week Current Complaints back pain, L ankle pain History of Current Condition Pt reports Wed he sprained his ankle L but he is unsure how. He went ot his shift and couldnt finish so went ot ER and they did Xrays and there was no breaks. Pt reports the week befoer he had dropped a cast iron skillet, but it went away and it was a week later that swelling and pain started . Back been really bad especially at work. 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 He works 28-34 hours a week and notes they have been understaffed recently so he has been working a lot. His ankle is doing better but still sore. Neck is painful but not as bad as the back. He tried to see Dr. Bearden but the provider had amedical emergency so he hasn't seen him again. He has been taking hydrocodone for a few months to a year. He takes it daily. He gets 21 pills a week and takes 3/day and that is what gets him through his day. Otherwise he feels like he just lays in bed d/t pain too much. Pt has not been able to skateboard in over a year to year and half at this point. Pt has to walk to work now, which is painful but not as bad as skateboarding. Pt denies dizziness and lightheadness and occ BEDOYA ( every couple weeks or so and not very intense) Prior Treatments and Tests PTs, MRIs of brain, cervical spine, thoraic spine; Xray of lumbar spine Treatment Goals Patient/Caregiver Goals feel better not as trashed; have better mobility, possibly get back to skateboarding PT-OP-C Subjective Start: 08/21/22 16:02 Freq: Status: Active Protocol: Document 09/02/22 16:48 [facility] (Rec: 09/02/22 17:53 [facility] [id number]) OP-PT Subjective Patient Comments Patient Comments Pt reprots neck is really bothering him today PT-OP-D Balance Start: 08/21/22 16:02 Freq: Status: Active Protocol: Document 08/25/22 08:17 [facility] (Rec: 08/25/22 09:05 [facility] [id number]) Balance Tests Single Limb Standing Single Limb- Right 12 sec w/lat trunk lean R pain back Single Limb- Left 2 sec w/pain back and L ankle PT-OP-F Manual Assessment Start: 08/21/22 16:02 Freq: Status: Active Protocol: Document 08/25/22 08:17 [facility] (Rec: 08/25/22 09:05 [facility] [id number]) Manual Assessments Soft Tissue Assessment Soft Tissue Mobility Assessment tenderness neck and lumbar mm PT-OP-G Mobility & Gait Start: 08/21/22 16:02 Freq: Status: Active Protocol: Document 08/25/22 08:17 [facility] (Rec: 08/25/22 09:05 [facility] [id number]) OP Gait Assessment Comments Gait Comments dec LLE stance time and dec push off B; heavy R lat lean and hard foot slap on R d/t dec L stance time. PT-OP-J Posture/Palpation/Skin Start: 08/21/22 16:02 Freq: Status: Active Protocol: Document 08/25/22 08:17 [facility] (Rec: 08/25/22 09:05 [facility] [id number]) Posture Evaluation [facility] Postural Classification System [facility] Postural Classifications Posterior/Anterior Vertebral Compression Test 0 Elbow Flexion Test 1 Lumbar Protective Mechanism Left AP 0 Lumbar Protective Mechanism Right AP 0 Lumbar Protective Mechanism Left PA 0 Lumbar Protective Mechanism Right PA 1 Comments Posture Comments inc kyphosis, fwd head, fwd rounded shoulders; L foot ER in standing PT-OP-K Range of Motion Start: 08/21/22 16:02 Freq: Status: Active Protocol: Document 08/25/22 08:17 [facility] (Rec: 08/25/22 09:05 [facility] [id number]) Cervical Spine Range of Motion Cervical Spine Active Degrees Flexion 70 Extension 35 Rotation Left 51 Rotation Right 60 Lateral Flexion Left 24 Lateral Flexion Right 33 Comments pain ext; pain R neck w/B SB; pain contra w/rot Lumbar Spine Range of Motion Lumbar Spine Active Percentage Flexion 80 Extension 80 Rotation Left 50 Rotation Right 70 Lateral Flexion Left 75 Lateral Flexion Right 75 ROM Limitations Pain Comments pain w/flex-dec lower lumbar flex; mostly at TL w/ext-pain; pain around TL junciton W/B SB & rot Ankle and Foot Goniometric Range of Motion Ankle and Foot Right Active Dorsiflexion with Knee Flexed 10 Dorsiflexion with Knee Extended 7 Plantarflexion 40 Inversion 22 Eversion 10 Left Active Dorsiflexion with Knee Flexed 8 Dorsiflexion with Knee Extended 0 Plantarflexion 32 Inversion 10 Eversion 10 Comments pain all PT-OP-L Special Tests Start: 08/21/22 16:02 Freq: Status: Active Protocol: Document 08/25/22 08:17 [facility] (Rec: 08/25/22 09:05 [facility] [id number]) Special Tests Cervical Spine Special Tests Traction Test Results pain Vertebral Artery Test Results neg Comments B Spurling's Test Test Results pain positive Lumbar Spine Special Tests Straight Leg Raise Test Results about 40 deg pain B in HS and LB Slump Test Results post HS/calf tension-no change w/neck flex PT-OP-M Strength Start: 08/21/22 16:02 Freq: Status: Active Protocol: Document 08/25/22 08:17 [facility] (Rec: 08/25/22 09:05 [facility] [id number]) Hip Strength Hip Manual Muscle Testing Right Flexion (L2) 5 Normal Extension (S1) 4- Good- Abduction 3 Fair Adduction 4+ Good+ External Rotation 5 Normal Internal Rotation 5 Normal Left Flexion (L2) 5 Normal Extension (S1) 4+ Good+ Abduction 4- Good- Adduction 4+ Good+ External Rotation 5 Normal Internal Rotation 5 Normal Knee Strength Knee Manual Muscle Testing Right Flexion (S2) 4+ Good+ Extension (L3) 4+ Good+ Left Flexion (S2) 4+ Good+ Extension (L3) 5 Normal Ankle/Foot Strength Ankle and Foot Manual Muscle Testing Right Dorsiflexion (L4) 5 Normal Plantarflexion (S1) 5 Normal Inversion 5 Normal Eversion (S1) 5 Normal Comments PF tested steaded Left Dorsiflexion (L4) 3+ Fair+ Plantarflexion (S1) 3+ Fair+ Inversion 2+ Poor+ Eversion (S1) 3+ Fair+ Comments pain and swelling-dec inversion ROM PT-OP-Q Treatments Start: 08/21/22 16:02 Freq: Status: Active Protocol: Document 09/02/22 16:48 [facility] (Rec: 09/02/22 17:53 [facility] [id number]) Therapeutic Exercises Sidelying Exercises open book Side bilateral Reps/Minutes 10 ea Sitting Exercises axial elongation Side bilateral Equipment Used orange band Reps/Minutes 3 sec x10 Standing Exercises wall posture Standing Exercise Name w/pillow behind head & B UE ext Side bilateral Reps/Minutes 1 min rows Side bilateral Equipment Used orange band Reps/Minutes 15 Manual Therapy Treatment Soft Tissue Mobilization cervical Body Location R>L UT, LS & scalenes Mobilization Type Sustained Pressure Body Position Supine Comments w/rotation to L Joint Mobilizations sacrum Comments UPA L FM; L caudal FM ribs Comments PA R 1st rib and caudal FM; AP 2nd rib R FM thoracic Comments UPA L T1-3 FM; transverse R T1 -3 FM PT-OP-T Assessment and Plan Start: 08/21/22 16:02 Freq: Status: Active Protocol: Document 09/02/22 16:48 [facility] (Rec: 09/02/22 17:53 [facility] [id number]) Physical Therapy Assessment Goals posture Short Term Goal (STG) Pt will score at least 2/5 on VCT to show irmpoved posture. STG Duration 10/04 Care Home Goal (LTG) Pt will score at least 4/5 on VCT to show irmpoved posture. LTG Duration 11/13/22 strength Short Term Goal (STG) Pt will be indep w/HEP STG Duration 10/04/22 Care Home Goal (LTG) Pt will score at least 5/5 on all BLE MMT and at least 3/5 on LPM & EFT to show imrpoved strength and stabiltiy in order for him to do his typical daily activities w/o inc pain. LTG Duration 11/13/22 ROM Care Home Goal (LTG) Pt will have full ROM of neck, L ankle and back w/o inc pain greater than 1/10. LTG Duration 11/16/22 activities Short Term Goal (STG) Pt will report no pain in back or ankle greater than 2/10 w/ walking to work. 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 LTG Duration 11/17/22 Assessment Summary Assessment Pt reports feeling much better after session w/greater ROM of back along w/neck. Pt encouraged to do his exercises to help maintain gains. Physical Therapy Plan Frequency and Duration Frequency of Treatment 1x/Week Duration of treatment (weeks) 12 Plan of Care Start Date 08/25/22 Plan of Care End Date 11/17/22 Next Visit Focus/Plan Next Note Type Treatment Note Next Visit Plan review HEP; start some core exercises in clinic, work on pelvis and sacral mobility & thoracic
--- NOTE | 2022-09-16 10:04 | PT.OTN ---
Current Diagnoses Other chronic pain (09/16/22) Spinal stenosis, cervical region (09/16/22) Low back pain, unspecified (09/16/22) Segmental and somatic dysfunction of lower extremity (09/16/22) Segmental and somatic dysfunction of abdomen and other regions (09/16/22) Paresthesia of skin (09/16/22) Difficulty in walking, not elsewhere classified (09/16/22) Abnormal posture (09/16/22) Weakness (09/16/22) Physical Therapy Treatment Note PT-OP-A Visit Information Start: 08/21/22 16:02 Freq: Status: Active Protocol: Document 09/16/22 09:00 [facility] (Rec: 09/16/22 10:04 [facility] [id number]) Out-Patient Physical Therapy Visit Information Visit Information Visit Type Treatment Note Visit Start Time 09:05 Visit Stop Time 09:32 Total Visit Minutes 27 Visit Number 3 Number of LEGAL INSTRUMENTS EXAMINER Visits 0 PT-OP-B Current Condition Start: 08/21/22 16:02 Freq: Status: Active Protocol: Document 08/25/22 08:17 [facility] (Rec: 08/25/22 09:05 [facility] [id number]) Current Condition History of Current Condition Onset Date chornic back pain(mostly lumbar some thoaraic), neck pain; L ankle 1 week Current Complaints back pain, L ankle pain History of Current Condition Pt reports Wed he sprained his ankle L but he is unsure how. He went ot his shift and couldnt finish so went ot ER and they did Xrays and there was no breaks. Pt reports the week befoer he had dropped a cast iron skillet, but it went away and it was a week later that swelling and pain started . Back been really bad especially at work. 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 He works 28-34 hours a week and notes they have been understaffed recently so he has been working a lot. His ankle is doing better but still sore. Neck is painful but not as bad as the back. He tried to see Dr. Bearden but the provider had amedical emergency so he hasn't seen him again. He has been taking hydrocodone for a few months to a year. He takes it daily. He gets 21 pills a week and takes 3/day and that is what gets him through his day. Otherwise he feels like he just lays in bed d/t pain too much. Pt has not been able to skateboard in over a year to year and half at this point. Pt has to walk to work now, which is painful but not as bad as skateboarding. Pt denies dizziness and lightheadness and occ BEDOYA ( every couple weeks or so and not very intense) Prior Treatments and Tests PTs, MRIs of brain, cervical spine, thoraic spine; Xray of lumbar spine Treatment Goals Patient/Caregiver Goals feel better not as trashed; have better mobility, possibly get back to skateboarding PT-OP-C Subjective Start: 08/21/22 16:02 Freq: Status: Active Protocol: Document 09/16/22 09:00 [facility] (Rec: 09/16/22 10:04 [facility] [id number]) OP-PT Subjective Patient Comments Patient Comments Pt reports this week has been awful and has worked a lot of shifts. He has done some open book and rows but that was it. PT-OP-D Balance Start: 08/21/22 16:02 Freq: Status: Active Protocol: Document 08/25/22 08:17 [facility] (Rec: 08/25/22 09:05 [facility] [id number]) Balance Tests Single Limb Standing Single Limb- Right 12 sec w/lat trunk lean R pain back Single Limb- Left 2 sec w/pain back and L ankle PT-OP-F Manual Assessment Start: 08/21/22 16:02 Freq: Status: Active Protocol: Document 08/25/22 08:17 [facility] (Rec: 08/25/22 09:05 [facility] [id number]) Manual Assessments Soft Tissue Assessment Soft Tissue Mobility Assessment tenderness neck and lumbar mm PT-OP-G Mobility & Gait Start: 08/21/22 16:02 Freq: Status: Active Protocol: Document 08/25/22 08:17 [facility] (Rec: 08/25/22 09:05 [facility] [id number]) OP Gait Assessment Comments Gait Comments dec LLE stance time and dec push off B; heavy R lat lean and hard foot slap on R d/t dec L stance time. PT-OP-J Posture/Palpation/Skin Start: 08/21/22 16:02 Freq: Status: Active Protocol: Document 08/25/22 08:17 [facility] (Rec: 08/25/22 09:05 [facility] [id number]) Posture Evaluation [facility] Postural Classification System [facility] Postural Classifications Posterior/Anterior Vertebral Compression Test 0 Elbow Flexion Test 1 Lumbar Protective Mechanism Left AP 0 Lumbar Protective Mechanism Right AP 0 Lumbar Protective Mechanism Left PA 0 Lumbar Protective Mechanism Right PA 1 Comments Posture Comments inc kyphosis, fwd head, fwd rounded shoulders; L foot ER in standing PT-OP-K Range of Motion Start: 08/21/22 16:02 Freq: Status: Active Protocol: Document 08/25/22 08:17 [facility] (Rec: 08/25/22 09:05 [facility] [id number]) Cervical Spine Range of Motion Cervical Spine Active Degrees Flexion 70 Extension 35 Rotation Left 51 Rotation Right 60 Lateral Flexion Left 24 Lateral Flexion Right 33 Comments pain ext; pain R neck w/B SB; pain contra w/rot Lumbar Spine Range of Motion Lumbar Spine Active Percentage Flexion 80 Extension 80 Rotation Left 50 Rotation Right 70 Lateral Flexion Left 75 Lateral Flexion Right 75 ROM Limitations Pain Comments pain w/flex-dec lower lumbar flex; mostly at TL w/ext-pain; pain around TL junciton W/B SB & rot Ankle and Foot Goniometric Range of Motion Ankle and Foot Right Active Dorsiflexion with Knee Flexed 10 Dorsiflexion with Knee Extended 7 Plantarflexion 40 Inversion 22 Eversion 10 Left Active Dorsiflexion with Knee Flexed 8 Dorsiflexion with Knee Extended 0 Plantarflexion 32 Inversion 10 Eversion 10 Comments pain all PT-OP-L Special Tests Start: 08/21/22 16:02 Freq: Status: Active Protocol: Document 08/25/22 08:17 [facility] (Rec: 08/25/22 09:05 [facility] [id number]) Special Tests Cervical Spine Special Tests Traction Test Results pain Vertebral Artery Test Results neg Comments B Spurling's Test Test Results pain positive Lumbar Spine Special Tests Straight Leg Raise Test Results about 40 deg pain B in HS and LB Slump Test Results post HS/calf tension-no change w/neck flex PT-OP-M Strength Start: 08/21/22 16:02 Freq: Status: Active Protocol: Document 08/25/22 08:17 [facility] (Rec: 08/25/22 09:05 [facility] [id number]) Hip Strength Hip Manual Muscle Testing Right Flexion (L2) 5 Normal Extension (S1) 4- Good- Abduction 3 Fair Adduction 4+ Good+ External Rotation 5 Normal Internal Rotation 5 Normal Left Flexion (L2) 5 Normal Extension (S1) 4+ Good+ Abduction 4- Good- Adduction 4+ Good+ External Rotation 5 Normal Internal Rotation 5 Normal Knee Strength Knee Manual Muscle Testing Right Flexion (S2) 4+ Good+ Extension (L3) 4+ Good+ Left Flexion (S2) 4+ Good+ Extension (L3) 5 Normal Ankle/Foot Strength Ankle and Foot Manual Muscle Testing Right Dorsiflexion (L4) 5 Normal Plantarflexion (S1) 5 Normal Inversion 5 Normal Eversion (S1) 5 Normal Comments PF tested steaded Left Dorsiflexion (L4) 3+ Fair+ Plantarflexion (S1) 3+ Fair+ Inversion 2+ Poor+ Eversion (S1) 3+ Fair+ Comments pain and swelling-dec inversion ROM PT-OP-Q Treatments Start: 08/21/22 16:02 Freq: Status: Active Protocol: Document 09/16/22 09:00 [facility] (Rec: 09/16/22 10:04 [facility] [id number]) Therapeutic Exercises Supine Exercises HS stretch Supine Exercise Name active Side bilateral Reps/Minutes 10 secx3 Sidelying Exercises open book Side bilateral Reps/Minutes 10 ea Comments no cueing needed except minf or set up Sitting Exercises axial elongation Side bilateral Equipment Used orange band Reps/Minutes 3 sec x10 Standing Exercises wall posture Standing Exercise Name B UE ext Side bilateral Reps/Minutes 1 min Comments cues to keep neck on the wall rows Side bilateral Equipment Used orange band Reps/Minutes 12 Comments pt did w/min cues for neck position Manual Therapy Treatment Soft Tissue Mobilization lumbar Body Location B QL w/LTR Intensity/Depth Moderate Body Position Hooklying Manual Techniques C/R Type 3 planar HS c/r B Self-Care/Home Management Treatment Education Other Education edu for towels fro props at sacrm and ischial tubs x3 min PT-OP-T Assessment and Plan Start: 08/21/22 16:02 Freq: Status: Active Protocol: Document 09/16/22 09:00 [facility] (Rec: 09/16/22 10:04 [facility] [id number]) Physical Therapy Assessment Goals posture Short Term Goal (STG) Pt will score at least 2/5 on VCT to show irmpoved posture. STG Duration 6/10 [facility] Goal (LTG) Pt will score at least 4/5 on VCT to show irmpoved posture. LTG Duration 11/13/22 strength Short Term Goal (STG) Pt will be indep w/HEP STG Duration 10/04/22 [facility] Goal (LTG) Pt will score at least 5/5 on all BLE MMT and at least 3/5 on LPM & EFT to show imrpoved strength and stabiltiy in order for him to do his typical daily activities w/o inc pain. LTG Duration 11/13/22 ROM [facility] Goal (LTG) Pt will have full ROM of neck, L ankle and back w/o inc pain greater than 1/10. LTG Duration 11/16/22 activities Short Term Goal (STG) Pt will report no pain in back or ankle greater than 2/10 w/ walking to work. STG Duration 10/09/22 Airport Tower Controller Goal (LTG) Pt will report no pain in back , neck or ankle greater than 3 /10 after a shift for work. LTG Duration 11/17/22 Assessment Summary Assessment Pt had improved HS mobility after c/r 3 planar stretch. His HS tension likely puts him into fwd rounded position in sitting. Good recall w/ exercsies w/some cues still needed Physical Therapy Plan Frequency and Duration Frequency of Treatment 1x/Week Duration of treatment (weeks) 12 Plan of Care Start Date 08/25/22 Plan of Care End Date 11/17/22 Next Visit Focus/Plan Next Note Type Treatment Note Next Visit Plan review HEP as needed; start some core exercises in clinic, work manual on HS, work on pelvis and sacral mobility & thoracic
--- NOTE | 2022-09-23 11:33 | PT.OTN ---
Current Diagnoses Other chronic pain (09/23/22) Spinal stenosis, cervical region (09/23/22) Low back pain, unspecified (09/23/22) Segmental and somatic dysfunction of lower extremity (09/23/22) Segmental and somatic dysfunction of abdomen and other regions (09/23/22) Paresthesia of skin (09/23/22) Difficulty in walking, not elsewhere classified (09/23/22) Abnormal posture (09/23/22) Weakness (09/23/22) Physical Therapy Treatment Note PT-OP-A Visit Information Start: 08/21/22 16:02 Freq: Status: Active Protocol: Document 09/23/22 10:54 [facility] (Rec: 09/23/22 11:33 [facility] [id number]) Out-Patient Physical Therapy Visit Information Visit Information Visit Type Treatment Note Visit Start Time 10:52 Visit Stop Time 11:30 Total Visit Minutes 38 Visit Number 4 Number of RISK MGR Visits 0 PT-OP-B Current Condition Start: 08/21/22 16:02 Freq: Status: Active Protocol: Document 08/25/22 08:17 [facility] (Rec: 08/25/22 09:05 [facility] [id number]) Current Condition History of Current Condition Onset Date chornic back pain(mostly lumbar some thoaraic), neck pain; L ankle 1 week Current Complaints back pain, L ankle pain History of Current Condition Pt reports Wed he sprained his ankle L but he is unsure how. He went ot his shift and couldnt finish so went ot ER and they did Xrays and there was no breaks. Pt reports the week befoer he had dropped a cast iron skillet, but it went away and it was a week later that swelling and pain started . Back been really bad especially at work. 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 He works 28-34 hours a week and notes they have been understaffed recently so he has been working a lot. His ankle is doing better but still sore. Neck is painful but not as bad as the back. He tried to see Dr. Bearden but the provider had amedical emergency so he hasn't seen him again. He has been taking hydrocodone for a few months to a year. He takes it daily. He gets 21 pills a week and takes 3/day and that is what gets him through his day. Otherwise he feels like he just lays in bed d/t pain too much. Pt has not been able to skateboard in over a year to year and half at this point. Pt has to walk to work now, which is painful but not as bad as skateboarding. Pt denies dizziness and lightheadness and occ BEDOYA ( every couple weeks or so and not very intense) Prior Treatments and Tests PTs, MRIs of brain, cervical spine, thoraic spine; Xray of lumbar spine Treatment Goals Patient/Caregiver Goals feel better not as trashed; have better mobility, possibly get back to skateboarding PT-OP-C Subjective Start: 08/21/22 16:02 Freq: Status: Active Protocol: Document 09/23/22 10:54 [facility] (Rec: 09/23/22 11:33 [facility] [id number]) OP-PT Subjective Patient Comments Patient Comments Pt reports compliance w/open book and w/ext exercise PT-OP-D Balance Start: 08/21/22 16:02 Freq: Status: Active Protocol: Document 08/25/22 08:17 [facility] (Rec: 08/25/22 09:05 [facility] [id number]) Balance Tests Single Limb Standing Single Limb- Right 12 sec w/lat trunk lean R pain back Single Limb- Left 2 sec w/pain back and L ankle PT-OP-F Manual Assessment Start: 08/21/22 16:02 Freq: Status: Active Protocol: Document 08/25/22 08:17 [facility] (Rec: 08/25/22 09:05 [facility] [id number]) Manual Assessments Soft Tissue Assessment Soft Tissue Mobility Assessment tenderness neck and lumbar mm PT-OP-G Mobility & Gait Start: 08/21/22 16:02 Freq: Status: Active Protocol: Document 08/25/22 08:17 [facility] (Rec: 08/25/22 09:05 [facility] [id number]) OP Gait Assessment Comments Gait Comments dec LLE stance time and dec push off B; heavy R lat lean and hard foot slap on R d/t dec L stance time. PT-OP-J Posture/Palpation/Skin Start: 08/21/22 16:02 Freq: Status: Active Protocol: Document 08/25/22 08:17 [facility] (Rec: 08/25/22 09:05 [facility] [id number]) Posture Evaluation [facility] Postural Classification System [facility] Postural Classifications Posterior/Anterior Vertebral Compression Test 0 Elbow Flexion Test 1 Lumbar Protective Mechanism Left AP 0 Lumbar Protective Mechanism Right AP 0 Lumbar Protective Mechanism Left PA 0 Lumbar Protective Mechanism Right PA 1 Comments Posture Comments inc kyphosis, fwd head, fwd rounded shoulders; L foot ER in standing PT-OP-K Range of Motion Start: 08/21/22 16:02 Freq: Status: Active Protocol: Document 08/25/22 08:17 [facility] (Rec: 08/25/22 09:05 [facility] [id number]) Cervical Spine Range of Motion Cervical Spine Active Degrees Flexion 70 Extension 35 Rotation Left 51 Rotation Right 60 Lateral Flexion Left 24 Lateral Flexion Right 33 Comments pain ext; pain R neck w/B SB; pain contra w/rot Lumbar Spine Range of Motion Lumbar Spine Active Percentage Flexion 80 Extension 80 Rotation Left 50 Rotation Right 70 Lateral Flexion Left 75 Lateral Flexion Right 75 ROM Limitations Pain Comments pain w/flex-dec lower lumbar flex; mostly at TL w/ext-pain; pain around TL junciton W/B SB & rot Ankle and Foot Goniometric Range of Motion Ankle and Foot Right Active Dorsiflexion with Knee Flexed 10 Dorsiflexion with Knee Extended 7 Plantarflexion 40 Inversion 22 Eversion 10 Left Active Dorsiflexion with Knee Flexed 8 Dorsiflexion with Knee Extended 0 Plantarflexion 32 Inversion 10 Eversion 10 Comments pain all PT-OP-L Special Tests Start: 08/21/22 16:02 Freq: Status: Active Protocol: Document 08/25/22 08:17 [facility] (Rec: 08/25/22 09:05 [facility] [id number]) Special Tests Cervical Spine Special Tests Traction Test Results pain Vertebral Artery Test Results neg Comments B Spurling's Test Test Results pain positive Lumbar Spine Special Tests Straight Leg Raise Test Results about 40 deg pain B in HS and LB Slump Test Results post HS/calf tension-no change w/neck flex PT-OP-M Strength Start: 08/21/22 16:02 Freq: Status: Active Protocol: Document 08/25/22 08:17 [facility] (Rec: 08/25/22 09:05 [facility] [id number]) Hip Strength Hip Manual Muscle Testing Right Flexion (L2) 5 Normal Extension (S1) 4- Good- Abduction 3 Fair Adduction 4+ Good+ External Rotation 5 Normal Internal Rotation 5 Normal Left Flexion (L2) 5 Normal Extension (S1) 4+ Good+ Abduction 4- Good- Adduction 4+ Good+ External Rotation 5 Normal Internal Rotation 5 Normal Knee Strength Knee Manual Muscle Testing Right Flexion (S2) 4+ Good+ Extension (L3) 4+ Good+ Left Flexion (S2) 4+ Good+ Extension (L3) 5 Normal Ankle/Foot Strength Ankle and Foot Manual Muscle Testing Right Dorsiflexion (L4) 5 Normal Plantarflexion (S1) 5 Normal Inversion 5 Normal Eversion (S1) 5 Normal Comments PF tested steaded Left Dorsiflexion (L4) 3+ Fair+ Plantarflexion (S1) 3+ Fair+ Inversion 2+ Poor+ Eversion (S1) 3+ Fair+ Comments pain and swelling-dec inversion ROM PT-OP-Q Treatments Start: 08/21/22 16:02 Freq: Status: Active Protocol: Document 09/23/22 10:54 [facility] (Rec: 09/23/22 11:33 [facility] [id number]) Therapeutic Exercises Supine Exercises bridge Supine Exercise Name w/alt march Side bilateral Reps/Minutes 10 HS stretch Supine Exercise Name active Side bilateral Reps/Minutes 10 secx3 Sitting Exercises axial elongation Side bilateral Equipment Used orange band Reps/Minutes 3 sec x10 Standing Exercises wall posture Standing Exercise Name B UE ext Side bilateral Reps/Minutes 1 min Comments cues to keep neck on the wall Other Exercises cow position Other Exercise Name w/sit backs for thoracic ext Reps/Minutes 15 Manual Therapy Treatment Soft Tissue Mobilization cervical Body Location SO, ligamentum Nuchae & R UT & SCM & scalenes Comments w/chin tucks and L rot Joint Mobilizations lumbar Joint transverse glide R L4, L5, L2 Comments manual facilitation at end range innominate Joint abd FM L thoracic Comments Transverse L T9-11 FM PT-OP-T Assessment and Plan Start: 08/21/22 16:02 Freq: Status: Active Protocol: Document 09/23/22 10:54 [facility] (Rec: 09/23/22 11:33 [facility] [id number]) Physical Therapy Assessment Goals posture Short Term Goal (STG) Pt will score at least 2/5 on VCT to show irmpoved posture. STG Duration 10/04 Recoater Goal (LTG) Pt will score at least 4/5 on VCT to show irmpoved posture. LTG Duration 11/13/22 strength Short Term Goal (STG) Pt will be indep w/HEP STG Duration 10/04/22 Recoater Goal (LTG) Pt will score at least 5/5 on all BLE MMT and at least 3/5 on LPM & EFT to show imrpoved strength and stabiltiy in order for him to do his typical daily activities w/o inc pain. LTG Duration 11/13/22 ROM Recoater Goal (LTG) Pt will have full ROM of neck, L ankle and back w/o inc pain greater than 1/10. LTG Duration 11/16/22 activities Short Term Goal (STG) Pt will report no pain in back or ankle greater than 2/10 w/ walking to work. STG Duration 10/09/22 Detention Goal (LTG) Pt will report no pain in back , neck or ankle greater than 3 /10 after a shift for work. LTG Duration 11/17/22 Assessment Summary Assessment Pt tolerated all exercises well but does require cues for exercises performed today. encouraged to try HS stretches after a shift and to work on posture and axial elongation as his neck will cont to hurt if he keeps the same posture. Improved abilityt o get into neutral cervical position and ability to L SB lumbar spine w /manual Physical Therapy Plan Frequency and Duration Frequency of Treatment 1x/Week Duration of treatment (weeks) 12 Plan of Care Start Date 08/25/22 Plan of Care End Date 11/17/22 Next Visit Focus/Plan Next Note Type Treatment Note Next Visit Plan manul to HS, review HEP as needed; start some core exercises in clinic, work manual on HS, work on pelvis and sacral mobility & thoracic
--- NOTE | 2022-09-30 09:54 | PT.OTN ---
Current Diagnoses Other chronic pain (09/30/22) Spinal stenosis, cervical region (09/30/22) Low back pain, unspecified (09/30/22) Segmental and somatic dysfunction of lower extremity (09/30/22) Segmental and somatic dysfunction of abdomen and other regions (09/30/22) Paresthesia of skin (09/30/22) Difficulty in walking, not elsewhere classified (09/30/22) Abnormal posture (09/30/22) Weakness (09/30/22) Physical Therapy Treatment Note PT-OP-A Visit Information Start: 08/21/22 16:02 Freq: Status: Active Protocol: Document 09/30/22 09:38 [facility] (Rec: 09/30/22 09:54 [facility] [id number]) Out-Patient Physical Therapy Visit Information Visit Information Visit Type Treatment Note Visit Start Time 08:20 Visit Stop Time 09:00 Total Visit Minutes 40 Visit Number 5 Number of RIVER RAT Visits 0 PT-OP-B Current Condition Start: 08/21/22 16:02 Freq: Status: Active Protocol: Document 08/25/22 08:17 [facility] (Rec: 08/25/22 09:05 [facility] [id number]) Current Condition History of Current Condition Onset Date chornic back pain(mostly lumbar some thoaraic), neck pain; L ankle 1 week Current Complaints back pain, L ankle pain History of Current Condition Pt reports Wed he sprained his ankle L but he is unsure how. He went ot his shift and couldnt finish so went ot ER and they did Xrays and there was no breaks. Pt reports the week befoer he had dropped a cast iron skillet, but it went away and it was a week later that swelling and pain started . Back been really bad especially at work. 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 He works 28-34 hours a week and notes they have been understaffed recently so he has been working a lot. His ankle is doing better but still sore. Neck is painful but not as bad as the back. He tried to see Dr. Bearden but the provider had amedical emergency so he hasn't seen him again. He has been taking hydrocodone for a few months to a year. He takes it daily. He gets 21 pills a week and takes 3/day and that is what gets him through his day. Otherwise he feels like he just lays in bed d/t pain too much. Pt has not been able to skateboard in over a year to year and half at this point. Pt has to walk to work now, which is painful but not as bad as skateboarding. Pt denies dizziness and lightheadness and occ BEDOYA ( every couple weeks or so and not very intense) Prior Treatments and Tests PTs, MRIs of brain, cervical spine, thoraic spine; Xray of lumbar spine Treatment Goals Patient/Caregiver Goals feel better not as trashed; have better mobility, possibly get back to skateboarding PT-OP-C Subjective Start: 08/21/22 16:02 Freq: Status: Active Protocol: Document 09/30/22 09:38 [facility] (Rec: 09/30/22 09:54 [facility] [id number]) OP-PT Subjective Patient Comments Patient Comments Pt reports he has had to work 5 ten hour days at least d/t dec staffing. Has been keeping up w/neck tucks and open book exercises. PT-OP-D Balance Start: 08/21/22 16:02 Freq: Status: Active Protocol: Document 08/25/22 08:17 [facility] (Rec: 08/25/22 09:05 [facility] [id number]) Balance Tests Single Limb Standing Single Limb- Right 12 sec w/lat trunk lean R pain back Single Limb- Left 2 sec w/pain back and L ankle PT-OP-F Manual Assessment Start: 08/21/22 16:02 Freq: Status: Active Protocol: Document 08/25/22 08:17 [facility] (Rec: 08/25/22 09:05 [facility] [id number]) Manual Assessments Soft Tissue Assessment Soft Tissue Mobility Assessment tenderness neck and lumbar mm PT-OP-G Mobility & Gait Start: 08/21/22 16:02 Freq: Status: Active Protocol: Document 08/25/22 08:17 [facility] (Rec: 08/25/22 09:05 [facility] [id number]) OP Gait Assessment Comments Gait Comments dec LLE stance time and dec push off B; heavy R lat lean and hard foot slap on R d/t dec L stance time. PT-OP-J Posture/Palpation/Skin Start: 08/21/22 16:02 Freq: Status: Active Protocol: Document 08/25/22 08:17 [facility] (Rec: 08/25/22 09:05 [facility] [id number]) Posture Evaluation [facility] Postural Classification System [facility] Postural Classifications Posterior/Anterior Vertebral Compression Test 0 Elbow Flexion Test 1 Lumbar Protective Mechanism Left AP 0 Lumbar Protective Mechanism Right AP 0 Lumbar Protective Mechanism Left PA 0 Lumbar Protective Mechanism Right PA 1 Comments Posture Comments inc kyphosis, fwd head, fwd rounded shoulders; L foot ER in standing PT-OP-K Range of Motion Start: 08/21/22 16:02 Freq: Status: Active Protocol: Document 08/25/22 08:17 [facility] (Rec: 08/25/22 09:05 [facility] [id number]) Cervical Spine Range of Motion Cervical Spine Active Degrees Flexion 70 Extension 35 Rotation Left 51 Rotation Right 60 Lateral Flexion Left 24 Lateral Flexion Right 33 Comments pain ext; pain R neck w/B SB; pain contra w/rot Lumbar Spine Range of Motion Lumbar Spine Active Percentage Flexion 80 Extension 80 Rotation Left 50 Rotation Right 70 Lateral Flexion Left 75 Lateral Flexion Right 75 ROM Limitations Pain Comments pain w/flex-dec lower lumbar flex; mostly at TL w/ext-pain; pain around TL junciton W/B SB & rot Ankle and Foot Goniometric Range of Motion Ankle and Foot Right Active Dorsiflexion with Knee Flexed 10 Dorsiflexion with Knee Extended 7 Plantarflexion 40 Inversion 22 Eversion 10 Left Active Dorsiflexion with Knee Flexed 8 Dorsiflexion with Knee Extended 0 Plantarflexion 32 Inversion 10 Eversion 10 Comments pain all PT-OP-L Special Tests Start: 08/21/22 16:02 Freq: Status: Active Protocol: Document 08/25/22 08:17 [facility] (Rec: 08/25/22 09:05 [facility] [id number]) Special Tests Cervical Spine Special Tests Traction Test Results pain Vertebral Artery Test Results neg Comments B Spurling's Test Test Results pain positive Lumbar Spine Special Tests Straight Leg Raise Test Results about 40 deg pain B in HS and LB Slump Test Results post HS/calf tension-no change w/neck flex PT-OP-M Strength Start: 08/21/22 16:02 Freq: Status: Active Protocol: Document 08/25/22 08:17 [facility] (Rec: 08/25/22 09:05 [facility] [id number]) Hip Strength Hip Manual Muscle Testing Right Flexion (L2) 5 Normal Extension (S1) 4- Good- Abduction 3 Fair Adduction 4+ Good+ External Rotation 5 Normal Internal Rotation 5 Normal Left Flexion (L2) 5 Normal Extension (S1) 4+ Good+ Abduction 4- Good- Adduction 4+ Good+ External Rotation 5 Normal Internal Rotation 5 Normal Knee Strength Knee Manual Muscle Testing Right Flexion (S2) 4+ Good+ Extension (L3) 4+ Good+ Left Flexion (S2) 4+ Good+ Extension (L3) 5 Normal Ankle/Foot Strength Ankle and Foot Manual Muscle Testing Right Dorsiflexion (L4) 5 Normal Plantarflexion (S1) 5 Normal Inversion 5 Normal Eversion (S1) 5 Normal Comments PF tested steaded Left Dorsiflexion (L4) 3+ Fair+ Plantarflexion (S1) 3+ Fair+ Inversion 2+ Poor+ Eversion (S1) 3+ Fair+ Comments pain and swelling-dec inversion ROM PT-OP-Q Treatments Start: 08/21/22 16:02 Freq: Status: Active Protocol: Document 09/30/22 09:38 [facility] (Rec: 09/30/22 09:54 [facility] [id number]) Manual Therapy Treatment Soft Tissue Mobilization post Body Location B HS, add FM Comments w/knee ext and hip flex FM Joint Mobilizations hip Joint B inf glide FM Neuro Re-Education Treatment Other Activities prolonged holds Details R diagonal press Comments 3x prolonged holds HEP Comments self facilitation w/DL press x30sec (inc time to train) PT-OP-T Assessment and Plan Start: 08/21/22 16:02 Freq: Status: Active Protocol: Document 09/30/22 09:38 [facility] (Rec: 09/30/22 09:54 [facility] [id number]) Physical Therapy Assessment Goals posture Short Term Goal (STG) Pt will score at least 2/5 on VCT to show irmpoved posture. STG Duration 10/04 [employer] Goal (LTG) Pt will score at least 4/5 on VCT to show irmpoved posture. LTG Duration 11/13/22 strength Short Term Goal (STG) Pt will be indep w/HEP STG Duration 10/04/22 [employer] Goal (LTG) Pt will score at least 5/5 on all BLE MMT and at least 3/5 on LPM & EFT to show imrpoved strength and stabiltiy in order for him to do his typical daily activities w/o inc pain. LTG Duration 11/13/22 ROM [employer] Goal (LTG) Pt will have full ROM of neck, L ankle and back w/o inc pain greater than 1/10. LTG Duration 11/16/22 activities Short Term Goal (STG) Pt will report no pain in back or ankle greater than 2/10 w/ walking to work. STG Duration 10/09/22 [facility] Goal (LTG) Pt will report no pain in back , neck or ankle greater than 3 /10 after a shift for work. LTG Duration 11/17/22 Assessment Summary Assessment Pt had much dec pain and inc flex from mid thight o knees after manual treatment. He has weak core facilitation and will need more work on this. Physical Therapy Plan Frequency and Duration Frequency of Treatment 1x/Week Duration of treatment (weeks) 12 Plan of Care Start Date 08/25/22 Plan of Care End Date 11/17/22 Next Visit Focus/Plan Next Note Type Treatment Note Next Visit Plan cont to work on flex based treatment, PNF for core facilitation
--- NOTE | 2022-10-07 10:05 | PT.OTN ---
Current Diagnoses Other chronic pain (10/07/22) Spinal stenosis, cervical region (10/07/22) Low back pain, unspecified (10/07/22) Segmental and somatic dysfunction of lower extremity (10/07/22) Segmental and somatic dysfunction of abdomen and other regions (10/07/22) Paresthesia of skin (10/07/22) Difficulty in walking, not elsewhere classified (10/07/22) Abnormal posture (10/07/22) Weakness (10/07/22) Physical Therapy Treatment Note PT-OP-A Visit Information Start: 08/21/22 16:02 Freq: Status: Active Protocol: Document 10/07/22 09:05 [facility] (Rec: 10/07/22 10:05 [facility] [id number]) Out-Patient Physical Therapy Visit Information Visit Information Visit Type Treatment Note Visit Start Time 09:05 Visit Stop Time 09:45 Total Visit Minutes 40 Visit Number 6 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 He went ot his shift and couldnt finish so went ot ER and they did Xrays and there was no breaks. Pt reports the week befoer he had dropped a cast iron skillet, but it went away and it was a week later that swelling and pain started . Back been really bad especially at work. 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 He works 28-34 hours a week and notes they have been understaffed recently so he has been working a lot. His ankle is doing better but still sore. Neck is painful but not as bad as the back. He tried to see Dr. Bearden but the provider had amedical emergency so he hasn't seen him again. He has been taking hydrocodone for a few months to a year. He takes it daily. He gets 21 pills a week and takes 3/day and that is what gets him through his day. Otherwise he feels like he just lays in bed d/t pain too much. Pt has not been able to skateboard in over a year to year and half at this point. Pt has to walk to work now, which is painful but not as bad as skateboarding. Pt denies dizziness and lightheadness and occ BEDOYA ( every couple weeks or so and not very intense) Prior Treatments and Tests PTs, MRIs of brain, cervical spine, thoraic spine; Xray of lumbar spine Treatment Goals Patient/Caregiver Goals feel better not as trashed; have better mobility, possibly get back to skateboarding PT-OP-C Subjective Start: 08/21/22 16:02 Freq: Status: Active Protocol: Document 10/07/22 09:05 [facility] (Rec: 10/07/22 10:05 [facility] [id number]) OP-PT Subjective Patient Comments Patient Comments Pt reports work was very busy last week. He fell and [place] [employer] [place]. Thinks it is bruised. Skinned L elbow too. He has to do at least PT appts before they will do MRI. PT-OP-D Balance Start: 08/21/22 16:02 Freq: Status: Active Protocol: Document 08/25/22 08:17 [facility] (Rec: 08/25/22 09:05 [facility] [id number]) Balance Tests Single Limb Standing Single Limb- Right 12 sec w/lat trunk lean R pain back Single Limb- Left 2 sec w/pain back and L ankle PT-OP-F Manual Assessment Start: 08/21/22 16:02 Freq: Status: Active Protocol: Document 08/25/22 08:17 [facility] (Rec: 08/25/22 09:05 [facility] [id number]) Manual Assessments Soft Tissue Assessment Soft Tissue Mobility Assessment tenderness neck and lumbar mm PT-OP-G Mobility & Gait Start: 08/21/22 16:02 Freq: Status: Active Protocol: Document 08/25/22 08:17 [facility] (Rec: 08/25/22 09:05 [facility] [id number]) OP Gait Assessment Comments Gait Comments dec LLE stance time and dec push off B; heavy R lat lean and hard foot slap on R d/t dec L stance time. PT-OP-J Posture/Palpation/Skin Start: 08/21/22 16:02 Freq: Status: Active Protocol: Document 08/25/22 08:17 [facility] (Rec: 08/25/22 09:05 [facility] [id number]) Posture Evaluation [facility] Postural Classification System [facility] Postural Classifications Posterior/Anterior Vertebral Compression Test 0 Elbow Flexion Test 1 Lumbar Protective Mechanism Left AP 0 Lumbar Protective Mechanism Right AP 0 Lumbar Protective Mechanism Left PA 0 Lumbar Protective Mechanism Right PA 1 Comments Posture Comments inc kyphosis, fwd head, fwd rounded shoulders; L foot ER in standing PT-OP-K Range of Motion Start: 08/21/22 16:02 Freq: Status: Active Protocol: Document 08/25/22 08:17 [facility] (Rec: 08/25/22 09:05 [facility] [id number]) Cervical Spine Range of Motion Cervical Spine Active Degrees Flexion 70 Extension 35 Rotation Left 51 Rotation Right 60 Lateral Flexion Left 24 Lateral Flexion Right 33 Comments pain ext; pain R neck w/B SB; pain contra w/rot Lumbar Spine Range of Motion Lumbar Spine Active Percentage Flexion 80 Extension 80 Rotation Left 50 Rotation Right 70 Lateral Flexion Left 75 Lateral Flexion Right 75 ROM Limitations Pain Comments pain w/flex-dec lower lumbar flex; mostly at TL w/ext-pain; pain around TL junciton W/B SB & rot Ankle and Foot Goniometric Range of Motion Ankle and Foot Right Active Dorsiflexion with Knee Flexed 10 Dorsiflexion with Knee Extended 7 Plantarflexion 40 Inversion 22 Eversion 10 Left Active Dorsiflexion with Knee Flexed 8 Dorsiflexion with Knee Extended 0 Plantarflexion 32 Inversion 10 Eversion 10 Comments pain all PT-OP-L Special Tests Start: 08/21/22 16:02 Freq: Status: Active Protocol: Document 08/25/22 08:17 [facility] (Rec: 08/25/22 09:05 [facility] [id number]) Special Tests Cervical Spine Special Tests Traction Test Results pain Vertebral Artery Test Results neg Comments B Spurling's Test Test Results pain positive Lumbar Spine Special Tests Straight Leg Raise Test Results about 40 deg pain B in HS and LB Slump Test Results post HS/calf tension-no change w/neck flex PT-OP-M Strength Start: 08/21/22 16:02 Freq: Status: Active Protocol: Document 08/25/22 08:17 [facility] (Rec: 08/25/22 09:05 [facility] [id number]) Hip Strength Hip Manual Muscle Testing Right Flexion (L2) 5 Normal Extension (S1) 4- Good- Abduction 3 Fair Adduction 4+ Good+ External Rotation 5 Normal Internal Rotation 5 Normal Left Flexion (L2) 5 Normal Extension (S1) 4+ Good+ Abduction 4- Good- Adduction 4+ Good+ External Rotation 5 Normal Internal Rotation 5 Normal Knee Strength Knee Manual Muscle Testing Right Flexion (S2) 4+ Good+ Extension (L3) 4+ Good+ Left Flexion (S2) 4+ Good+ Extension (L3) 5 Normal Ankle/Foot Strength Ankle and Foot Manual Muscle Testing Right Dorsiflexion (L4) 5 Normal Plantarflexion (S1) 5 Normal Inversion 5 Normal Eversion (S1) 5 Normal Comments PF tested steaded Left Dorsiflexion (L4) 3+ Fair+ Plantarflexion (S1) 3+ Fair+ Inversion 2+ Poor+ Eversion (S1) 3+ Fair+ Comments pain and swelling-dec inversion ROM PT-OP-Q Treatments Start: 08/21/22 16:02 Freq: Status: Active Protocol: Document 10/07/22 09:05 [facility] (Rec: 10/07/22 10:05 [facility] [id number]) Manual Therapy Treatment Soft Tissue Mobilization post Body Location B HS, ITB FM Comments w/knee ext and hip flex FM Joint Mobilizations hip Joint B inf glide FM Comments attempted neuro re edu but pain in back so avoided PT-OP-T Assessment and Plan Start: 08/21/22 16:02 Freq: Status: Active Protocol: Document 10/07/22 09:05 [facility] (Rec: 10/07/22 10:05 [facility] [id number]) Physical Therapy Assessment Goals posture Short Term Goal (STG) Pt will score at least 2/5 on VCT to show irmpoved posture. STG Duration 10/04 Nurse Aide Goal (LTG) Pt will score at least 4/5 on VCT to show irmpoved posture. LTG Duration 11/13/22 strength Short Term Goal (STG) Pt will be indep w/HEP STG Duration 10/04/22 Nurse Aide Goal (LTG) Pt will score at least 5/5 on all BLE MMT and at least 3/5 on LPM & EFT to show imrpoved strength and stabiltiy in order for him to do his typical daily activities w/o inc pain. LTG Duration 11/13/22 ROM Correction Goal (LTG) Pt will have full ROM of neck, L ankle and back w/o inc pain greater than 1/10. LTG Duration 11/16/22 activities Short Term Goal (STG) Pt will report no pain in back or ankle greater than 2/10 w/ walking to work. STG Duration 10/09/22 Correction Goal (LTG) Pt will report no pain in back , neck or ankle greater than 3 /10 after a shift for work. LTG Duration 11/17/22 Assessment Summary Assessment Pt started w/ about 70deg hip flex B before isra HS and improved to at least 120 deg w /o inc pain. He is to call MD office today re: meeting 6 PT visits and follow up for potential MRI Physical Therapy Plan Frequency and Duration Frequency of Treatment 1x/Week Duration of treatment (weeks) 12 Plan of Care Start Date 08/25/22 Plan of Care End Date 11/17/22 Next Visit Focus/Plan Next Note Type Treatment Note Next Visit Plan cont to work on flex based treatment, PNF for core facilitation
--- NOTE | 2022-10-13 09:45 | PT.OTN ---
Current Diagnoses Other chronic pain (10/13/22) Spinal stenosis, cervical region (10/13/22) Low back pain, unspecified (10/13/22) Segmental and somatic dysfunction of lower extremity (10/13/22) Segmental and somatic dysfunction of abdomen and other regions (10/13/22) Paresthesia of skin (10/13/22) Difficulty in walking, not elsewhere classified (10/13/22) Abnormal posture (10/13/22) Weakness (10/13/22) Physical Therapy Treatment Note PT-OP-A Visit Information Start: 08/21/22 16:02 Freq: Status: Active Protocol: Document 10/13/22 09:02 [facility] (Rec: 10/13/22 09:53 [facility] [id number]) Out-Patient Physical Therapy Visit Information Visit Information Visit Type Treatment Note Visit Start Time 09:02 Visit Stop Time 09:45 Total Visit Minutes 43 Visit Number 7 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 (Rec: 08/25/22 09:05 [facility] [id number]) Current Condition History of Current Condition Onset Date chornic back pain(mostly lumbar some thoaraic), neck pain; L ankle 1 week Current Complaints back pain, L ankle pain History of Current Condition Pt reports Wed he sprained his ankle L but he is unsure how. He went ot his shift and couldnt finish so went ot ER and they did Xrays and there was no breaks. Pt reports the week befoer he had dropped a cast iron skillet, but it went away and it was a week later that swelling and pain started . Back been really bad especially at work. 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 He works 28-34 hours a week and notes they have been understaffed recently so he has been working a lot. His ankle is doing better but still sore. Neck is painful but not as bad as the back. He tried to see Dr. Bearden but the provider had amedical emergency so he hasn't seen him again. He has been taking hydrocodone for a few months to a year. He takes it daily. He gets 21 pills a week and takes 3/day and that is what gets him through his day. Otherwise he feels like he just lays in bed d/t pain too much. Pt has not been able to skateboard in over a year to year and half at this point. Pt has to walk to work now, which is painful but not as bad as skateboarding. Pt denies dizziness and lightheadness and occ BEDOYA ( every couple weeks or so and not very intense) Prior Treatments and Tests PTs, MRIs of brain, cervical spine, thoraic spine; Xray of lumbar spine Treatment Goals Patient/Caregiver Goals feel better not as trashed; have better mobility, possibly get back to skateboarding PT-OP-C Subjective Start: 08/21/22 16:02 Freq: Status: Active Protocol: Document 10/13/22 09:02 [facility] (Rec: 10/13/22 09:53 [facility] [id number]) OP-PT Subjective Patient Comments Patient Comments Pt reports backing hurting alot, having to work more hours with others calling out and covering. PT-OP-D Balance Start: 08/21/22 16:02 Freq: Status: Active Protocol: Document 08/25/22 08:17 [facility] (Rec: 08/25/22 09:05 [facility] [id number]) Balance Tests Single Limb Standing Single Limb- Right 12 sec w/lat trunk lean R pain back Single Limb- Left 2 sec w/pain back and L ankle PT-OP-F Manual Assessment Start: 08/21/22 16:02 Freq: Status: Active Protocol: Document 08/25/22 08:17 [facility] (Rec: 08/25/22 09:05 [facility] [id number]) Manual Assessments Soft Tissue Assessment Soft Tissue Mobility Assessment tenderness neck and lumbar mm PT-OP-G Mobility & Gait Start: 08/21/22 16:02 Freq: Status: Active Protocol: Document 08/25/22 08:17 [facility] (Rec: 08/25/22 09:05 [facility] [id number]) OP Gait Assessment Comments Gait Comments dec LLE stance time and dec push off B; heavy R lat lean and hard foot slap on R d/t dec L stance time. PT-OP-J Posture/Palpation/Skin Start: 08/21/22 16:02 Freq: Status: Active Protocol: Document 08/25/22 08:17 [facility] (Rec: 08/25/22 09:05 [facility] [id number]) Posture Evaluation [facility] Postural Classification System [facility] Postural Classifications Posterior/Anterior Vertebral Compression Test 0 Elbow Flexion Test 1 Lumbar Protective Mechanism Left AP 0 Lumbar Protective Mechanism Right AP 0 Lumbar Protective Mechanism Left PA 0 Lumbar Protective Mechanism Right PA 1 Comments Posture Comments inc kyphosis, fwd head, fwd rounded shoulders; L foot ER in standing PT-OP-K Range of Motion Start: 08/21/22 16:02 Freq: Status: Active Protocol: Document 08/25/22 08:17 [facility] (Rec: 08/25/22 09:05 [facility] [id number]) Cervical Spine Range of Motion Cervical Spine Active Degrees Flexion 70 Extension 35 Rotation Left 51 Rotation Right 60 Lateral Flexion Left 24 Lateral Flexion Right 33 Comments pain ext; pain R neck w/B SB; pain contra w/rot Lumbar Spine Range of Motion Lumbar Spine Active Percentage Flexion 80 Extension 80 Rotation Left 50 Rotation Right 70 Lateral Flexion Left 75 Lateral Flexion Right 75 ROM Limitations Pain Comments pain w/flex-dec lower lumbar flex; mostly at TL w/ext-pain; pain around TL junciton W/B SB & rot Ankle and Foot Goniometric Range of Motion Ankle and Foot Right Active Dorsiflexion with Knee Flexed 10 Dorsiflexion with Knee Extended 7 Plantarflexion 40 Inversion 22 Eversion 10 Left Active Dorsiflexion with Knee Flexed 8 Dorsiflexion with Knee Extended 0 Plantarflexion 32 Inversion 10 Eversion 10 Comments pain all PT-OP-L Special Tests Start: 08/21/22 16:02 Freq: Status: Active Protocol: Document 08/25/22 08:17 [facility] (Rec: 08/25/22 09:05 [facility] [id number]) Special Tests Cervical Spine Special Tests Traction Test Results pain Vertebral Artery Test Results neg Comments B Spurling's Test Test Results pain positive Lumbar Spine Special Tests Straight Leg Raise Test Results about 40 deg pain B in HS and LB Slump Test Results post HS/calf tension-no change w/neck flex PT-OP-M Strength Start: 08/21/22 16:02 Freq: Status: Active Protocol: Document 08/25/22 08:17 [facility] (Rec: 08/25/22 09:05 [facility] [id number]) Hip Strength Hip Manual Muscle Testing Right Flexion (L2) 5 Normal Extension (S1) 4- Good- Abduction 3 Fair Adduction 4+ Good+ External Rotation 5 Normal Internal Rotation 5 Normal Left Flexion (L2) 5 Normal Extension (S1) 4+ Good+ Abduction 4- Good- Adduction 4+ Good+ External Rotation 5 Normal Internal Rotation 5 Normal Knee Strength Knee Manual Muscle Testing Right Flexion (S2) 4+ Good+ Extension (L3) 4+ Good+ Left Flexion (S2) 4+ Good+ Extension (L3) 5 Normal Ankle/Foot Strength Ankle and Foot Manual Muscle Testing Right Dorsiflexion (L4) 5 Normal Plantarflexion (S1) 5 Normal Inversion 5 Normal Eversion (S1) 5 Normal Comments PF tested steaded Left Dorsiflexion (L4) 3+ Fair+ Plantarflexion (S1) 3+ Fair+ Inversion 2+ Poor+ Eversion (S1) 3+ Fair+ Comments pain and swelling-dec inversion ROM PT-OP-Q Treatments Start: 08/21/22 16:02 Freq: Status: Active Protocol: Document 10/13/22 09:02 [facility] (Rec: 10/13/22 09:53 [facility] [id number]) Therapeutic Exercises Supine Exercises LTR Supine Exercise Name added to HEP Side bilateral Equipment Used BLE over 65cm tball Reps/Minutes x5 reps, then hold 2 breath end feel for QL stretch Comments cued slow pacing movement, TA no ITB stretch Supine Exercise Name added to HEP Side bilateral Equipment Used w/ strap (sheet at home) Reps/Minutes 30 x2 Comments good feedback stretch HS stretch Supine Exercise Name 1. active (grasp behind thight w/ AP) 2. Stretch with strap Side bilateral Reps/Minutes 4 min total Comments good feedback HS stretch Sitting Exercises tball Sitting Exercise Name Ax elon. pelvic tilts 2. pec stretch w/ breath (cued bridge LS support) Reps/Minutes 4 min Comments max verbal/tactile cues pelvic tilt- best tailbone back, fwd , lateral Standing Exercises self STMs Standing Exercise Name ball wall: ES, glut Side bilateral Comments good feedback response Manual Therapy Treatment Soft Tissue Mobilization hip Body Location B piriformis, glut Mobilization Type Strumming,Sustained Pressure, Other Intensity/Depth Moderate Body Position Prone Comments manual and PROM hip IR/ER post Body Location B HS, ITB FM Comments w/knee ext and hip flex FM APs lumbar Body Location B QL, paraspinal Mobilization Type Strumming,Sustained Pressure, Other Intensity/Depth Moderate Body Position prone, hooklying Comments prone and hooklying: manual and paraspinal w/ LTR PT-OP-T Assessment and Plan Start: 08/21/22 16:02 Freq: Status: Active Protocol: Document 10/13/22 09:02 [facility] (Rec: 10/13/22 09:53 [facility] [id number]) Physical Therapy Assessment Goals posture Short Term Goal (STG) Pt will score at least 2/5 on VCT to show irmpoved posture. STG Duration 10/04 Halfway Goal (LTG) Pt will score at least 4/5 on VCT to show irmpoved posture. LTG Duration 11/13/22 strength Short Term Goal (STG) Pt will be indep w/HEP STG Duration 10/04/22 Nurse Reviewer Goal (LTG) Pt will score at least 5/5 on all BLE MMT and at least 3/5 on LPM & EFT to show imrpoved strength and stabiltiy in order for him to do his typical daily activities w/o inc pain. LTG Duration 11/13/22 ROM Halfway Goal (LTG) Pt will have full ROM of neck, L ankle and back w/o inc pain greater than 1/10. LTG Duration 11/16/22 activities Short Term Goal (STG) Pt will report no pain in back or ankle greater than 2/10 w/ walking to work. STG Duration 10/09/22 Halfway Goal (LTG) Pt will report no pain in back , neck or ankle greater than 3 /10 after a shift for work. LTG Duration 11/17/22 Assessment Summary Assessment Pt good feedback response to manual able to rotation LS with less pain MWM LTR. Challenged at first with initiated seated Tball pelvic tilts, improved w/ cues tail lift back then forward, tactile cues trunk stability to isolate core fac fwd/back/ lateral. Pt reports pain improved alot from 7>4/10 by end tx. Provided hand outs to continue at home along with review self STMs to assist him throught work shift pain reduction. Physical Therapy Plan Frequency and Duration Frequency of Treatment 1x/Week Duration of treatment (weeks) 12 Plan of Care Start Date 08/25/22 Plan of Care End Date 11/17/22 Therapeutic Interventions Therapeutic Interventions Balance Training,Gait Training ,Home Exercise Program,Joint Mobilizations,Manual Therapy, Neuromuscular Re-education, Orthotic/Prosthetic Management ,Patient/Caregiver Education, Self-Care/Home Management,Soft Tissue Mobilization,Taping, Therapeutic Activities, Therapeutic Exercises Modalities Cold Pack/Ice Massage,Electric Stimulation,Hot Packs, Infrared Therapy,Traction- Mechanical,Ultrasound Next Visit Focus/Plan Next Note Type Treatment Note Next Visit Plan Check tball and self STM carryover reviewed/instructed lasttx. POC: cont to work on flex based treatment, PNF for core facilitation
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
--- NOTE | 2022-10-27 10:32 | PT.OTN ---
Current Diagnoses Other chronic pain (10/27/22) Spinal stenosis, cervical region (10/27/22) Low back pain, unspecified (10/27/22) Segmental and somatic dysfunction of lower extremity (10/27/22) Segmental and somatic dysfunction of abdomen and other regions (10/27/22) Paresthesia of skin (10/27/22) Difficulty in walking, not elsewhere classified (10/27/22) Abnormal posture (10/27/22) Weakness (10/27/22) Physical Therapy Treatment Note PT-OP-A Visit Information Start: 08/21/22 16:02 Freq: Status: Active Protocol: Document 10/27/22 10:02 [facility] (Rec: 10/27/22 10:44 [facility] [id number]) Out-Patient Physical Therapy Visit Information Visit Information Visit Type Treatment Note Visit Note Pt needed leave early. Visit Start Time 10:02 Visit Stop Time 10:32 Total Visit Minutes 30 Visit Number 9 Number of MEDICAL RECEPTIONIST MEDICAL ASSISTANT Visits 1 PT-OP-B Current Condition Start: 08/21/22 16:02 Freq: Status: Active Protocol: Document 08/25/22 08:17 [facility] (Rec: 08/25/22 09:05 [facility] [id number]) Current Condition History of Current Condition Onset Date chornic back pain(mostly lumbar some thoaraic), neck pain; L ankle 1 week Current Complaints back pain, L ankle pain History of Current Condition Pt reports Wed he sprained his ankle L but he is unsure how. He went ot his shift and couldnt finish so went ot ER and they did Xrays and there was no breaks. Pt reports the week befoer he had dropped a cast iron skillet, but it went away and it was a week later that swelling and pain started . Back been really bad especially at work. 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 He works 28-34 hours a week and notes they have been understaffed recently so he has been working a lot. His ankle is doing better but still sore. Neck is painful but not as bad as the back. He tried to see Dr. Bearden but the provider had amedical emergency so he hasn't seen him again. He has been taking hydrocodone for a few months to a year. He takes it daily. He gets 21 pills a week and takes 3/day and that is what gets him through his day. Otherwise he feels like he just lays in bed d/t pain too much. Pt has not been able to skateboard in over a year to year and half at this point. Pt has to walk to work now, which is painful but not as bad as skateboarding. 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 He stated has been trying to incorporate ex/ stretching in day but long day gets tiring. Pt reports has to leave early 1030 to picker daughter. Pt arrived rounded flexed posture guarded /stiff through trunk walking to gym. PT-OP-D Balance Start: 08/21/22 16:02 Freq: Status: Active Protocol: Document 08/25/22 08:17 [facility] (Rec: 08/25/22 09:05 [facility] [id number]) Balance Tests Single Limb Standing Single Limb- Right 12 sec w/lat trunk lean R pain back Single Limb- Left 2 sec w/pain back and L ankle PT-OP-F Manual Assessment Start: 08/21/22 16:02 Freq: Status: Active Protocol: Document 08/25/22 08:17 [facility] (Rec: 08/25/22 09:05 [facility] [id number]) Manual Assessments Soft Tissue Assessment Soft Tissue Mobility Assessment tenderness neck and lumbar mm PT-OP-G Mobility & Gait Start: 08/21/22 16:02 Freq: Status: Active Protocol: Document 08/25/22 08:17 [facility] (Rec: 08/25/22 09:05 [facility] [id number]) OP Gait Assessment Comments Gait Comments dec LLE stance time and dec push off B; heavy R lat lean and hard foot slap on R d/t dec L stance time. PT-OP-J Posture/Palpation/Skin Start: 08/21/22 16:02 Freq: Status: Active Protocol: Document 08/25/22 08:17 [facility] (Rec: 08/25/22 09:05 [facility] [id number]) Posture Evaluation [facility] Postural Classification System [facility] Postural Classifications Posterior/Anterior Vertebral Compression Test 0 Elbow Flexion Test 1 Lumbar Protective Mechanism Left AP 0 Lumbar Protective Mechanism Right AP 0 Lumbar Protective Mechanism Left PA 0 Lumbar Protective Mechanism Right PA 1 Comments Posture Comments inc kyphosis, fwd head, fwd rounded shoulders; L foot ER in standing PT-OP-K Range of Motion Start: 08/21/22 16:02 Freq: Status: Active Protocol: Document 08/25/22 08:17 [facility] (Rec: 08/25/22 09:05 [facility] [id number]) Cervical Spine Range of Motion Cervical Spine Active Degrees Flexion 70 Extension 35 Rotation Left 51 Rotation Right 60 Lateral Flexion Left 24 Lateral Flexion Right 33 Comments pain ext; pain R neck w/B SB; pain contra w/rot Lumbar Spine Range of Motion Lumbar Spine Active Percentage Flexion 80 Extension 80 Rotation Left 50 Rotation Right 70 Lateral Flexion Left 75 Lateral Flexion Right 75 ROM Limitations Pain Comments pain w/flex-dec lower lumbar flex; mostly at TL w/ext-pain; pain around TL junciton W/B SB & rot Ankle and Foot Goniometric Range of Motion Ankle and Foot Right Active Dorsiflexion with Knee Flexed 10 Dorsiflexion with Knee Extended 7 Plantarflexion 40 Inversion 22 Eversion 10 Left Active Dorsiflexion with Knee Flexed 8 Dorsiflexion with Knee Extended 0 Plantarflexion 32 Inversion 10 Eversion 10 Comments pain all PT-OP-L Special Tests Start: 08/21/22 16:02 Freq: Status: Active Protocol: Document 08/25/22 08:17 [facility] (Rec: 08/25/22 09:05 [facility] [id number]) Special Tests Cervical Spine Special Tests Traction Test Results pain Vertebral Artery Test Results neg Comments B Spurling's Test Test Results pain positive Lumbar Spine Special Tests Straight Leg Raise Test Results about 40 deg pain B in HS and LB Slump Test Results post HS/calf tension-no change w/neck flex PT-OP-M Strength Start: 08/21/22 16:02 Freq: Status: Active Protocol: Document 08/25/22 08:17 [facility] (Rec: 08/25/22 09:05 [facility] [id number]) Hip Strength Hip Manual Muscle Testing Right Flexion (L2) 5 Normal Extension (S1) 4- Good- Abduction 3 Fair Adduction 4+ Good+ External Rotation 5 Normal Internal Rotation 5 Normal Left Flexion (L2) 5 Normal Extension (S1) 4+ Good+ Abduction 4- Good- Adduction 4+ Good+ External Rotation 5 Normal Internal Rotation 5 Normal Knee Strength Knee Manual Muscle Testing Right Flexion (S2) 4+ Good+ Extension (L3) 4+ Good+ Left Flexion (S2) 4+ Good+ Extension (L3) 5 Normal Ankle/Foot Strength Ankle and Foot Manual Muscle Testing Right Dorsiflexion (L4) 5 Normal Plantarflexion (S1) 5 Normal Inversion 5 Normal Eversion (S1) 5 Normal Comments PF tested steaded Left Dorsiflexion (L4) 3+ Fair+ Plantarflexion (S1) 3+ Fair+ Inversion 2+ Poor+ Eversion (S1) 3+ Fair+ Comments pain and swelling-dec inversion ROM PT-OP-Q Treatments Start: 08/21/22 16:02 Freq: Status: Active Protocol: Document 10/27/22 10:02 [facility] (Rec: 10/27/22 10:44 SP [id number]) Therapeutic Exercises Standing Exercises triangle/reverse triangle Standing Exercise Name added to HEP- ed incorporate into work shift for mobility relief Side bilateral Reps/Minutes x5 reps 3 breathes each direction Comments good feedback response self STMs Standing Exercise Name ball wall: ES, glut (10/27/22- not performed ed do at work relief) Side bilateral Equipment Used ball wall Comments pt understooding, will try knows helps Other Exercises cat into child's pose Reps/Minutes 5 breath hold x5 reps Comments good feedback LS stretch cow position Other Exercise Name w/sit backs for thoracic ext Reps/Minutes 5 breathes x5 reps Comments good feedback TS stretch Manual Therapy Treatment Soft Tissue Mobilization lumbar Body Location B QL, paraspinal Mobilization Type Strumming,Sustained Pressure, Other Intensity/Depth Moderate Body Position 5 Comments prone and in angry cat Joint Mobilizations lumbar Joint T4-L5 Grade II Reps/Duration 5 min Comments PA with breath Manual Traction LS traction Details manual Body Position Hooklying Comments strap at calves: sustained pressure and w/ FM: pelvic tilts, LTR Good feedback response- better stretch with movement PT-OP-T Assessment and Plan Start: 08/21/22 16:02 Freq: Status: Active Protocol: Document 10/27/22 10:02 [facility] (Rec: 10/27/22 10:44 SP [id number]) Physical Therapy Assessment Goals posture Short Term Goal (STG) Pt will score at least 2/5 on VCT to show irmpoved posture. STG Duration 10/04 Paste Mixing Supervisor Goal (LTG) Pt will score at least 4/5 on VCT to show irmpoved posture. LTG Duration 11/13/22 strength Short Term Goal (STG) Pt will be indep w/HEP STG Duration 10/04/22 Mcfp Goal (LTG) Pt will score at least 5/5 on all BLE MMT and at least 3/5 on LPM & EFT to show imrpoved strength and stabiltiy in order for him to do his typical daily activities w/o inc pain. LTG Duration 11/13/22 ROM Paste Mixing Supervisor Goal (LTG) Pt will have full ROM of neck, L ankle and back w/o inc pain greater than 1/10. LTG Duration 11/16/22 activities Short Term Goal (STG) Pt will report no pain in back or ankle greater than 2/10 w/ walking to work. STG Duration 10/09/22 Mcfp Goal (LTG) Pt will report no pain in back , neck or ankle greater than 3 /10 after a shift for work. LTG Duration 11/17/22 Assessment Summary Assessment Pt good response to manual and incorporation to FM improved ROM under tension. Pt good self elongated stretch with cat/cow> child's pose and initiated triangle/reverse triangle today with ed how use table support to incorporate at work for recovery back during long shifts with good understanding and reported it feels alot better with more upright posture and segmental trunk dissociation noted leaving. Physical Therapy Plan Frequency and Duration Frequency of Treatment 1x/Week Duration of treatment (weeks) 12 Plan of Care Start Date 08/25/22 Plan of Care End Date 11/17/22 Therapeutic Interventions Therapeutic Interventions Balance Training,Gait Training ,Home Exercise Program,Joint Mobilizations,Manual Therapy, Neuromuscular Re-education, Orthotic/Prosthetic Management ,Patient/Caregiver Education, Self-Care/Home Management,Soft Tissue Mobilization,Taping, Therapeutic Activities, Therapeutic Exercises Modalities Cold Pack/Ice Massage,Electric Stimulation,Hot Packs, Infrared Therapy,Traction- Mechanical,Ultrasound Next Visit Focus/Plan Next Note Type Treatment Note Next Visit Plan cont to work on flex based treatment, PNF for core facilitation
--- NOTE | 2022-11-03 10:36 | PT.OTN ---
Current Diagnoses Other chronic pain (11/03/22) Spinal stenosis, cervical region (11/03/22) Low back pain, unspecified (11/03/22) Segmental and somatic dysfunction of lower extremity (11/03/22) Segmental and somatic dysfunction of abdomen and other regions (11/03/22) Paresthesia of skin (11/03/22) Difficulty in walking, not elsewhere classified (11/03/22) Abnormal posture (11/03/22) Weakness (11/03/22) Physical Therapy Treatment Note PT-OP-A Visit Information Start: 08/21/22 16:02 Freq: Status: Active Protocol: Document 11/03/22 10:02 SP (Rec: 11/03/22 10:43 SP [id number]) Out-Patient Physical Therapy Visit Information Visit Information Visit Type Treatment Note Visit Note Pt needed leave early. 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 He went ot his shift and couldnt finish so went ot ER and they did Xrays and there was no breaks. Pt reports the week befoer he had dropped a cast iron skillet, but it went away and it was a week later that swelling and pain started . Back been really bad especially at work. 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 He works 28-34 hours a week and notes they have been understaffed recently so he has been working a lot. His ankle is doing better but still sore. Neck is painful but not as bad as the back. He tried to see Dr. Bearden but the provider had amedical emergency so he hasn't seen him again. He has been taking hydrocodone for a few months to a year. He takes it daily. He gets 21 pills a week and takes 3/day and that is what gets him through his day. Otherwise he feels like he just lays in bed d/t pain too much. Pt has not been able to skateboard in over a year to year and half at this point. Pt has to walk to work now, which is painful but not as bad as skateboarding. Pt denies dizziness and lightheadness and occ BEDOYA ( every couple weeks or so and not very intense) Prior Treatments and Tests PTs, MRIs of brain, cervical spine, thoraic spine; Xray of lumbar spine Treatment Goals Patient/Caregiver Goals feel better not as trashed; have better mobility, possibly get back to skateboarding PT-OP-C Subjective Start: 08/21/22 16:02 Freq: Status: Active Protocol: Document 11/03/22 10:02 SP (Rec: 11/03/22 10:43 SP [id number]) OP-PT Subjective Patient Comments Patient Comments Pt demontrates effort getting out chair with rounded posture and head dropped down, reports mid and low back in worse pain, has beening working past 5 consecutive days 10 + hr shifts. Has 2 days of now to recover. Hasn't been able do exercises, mostly catching up on sleep if can. PT-OP-D Balance Start: 08/21/22 16:02 Freq: Status: Active Protocol: Document 08/25/22 08:17 [facility] (Rec: 08/25/22 09:05 [facility] [id number]) Balance Tests Single Limb Standing Single Limb- Right 12 sec w/lat trunk lean R pain back Single Limb- Left 2 sec w/pain back and L ankle PT-OP-F Manual Assessment Start: 08/21/22 16:02 Freq: Status: Active Protocol: Document 08/25/22 08:17 [facility] (Rec: 08/25/22 09:05 [facility] [id number]) Manual Assessments Soft Tissue Assessment Soft Tissue Mobility Assessment tenderness neck and lumbar mm PT-OP-G Mobility & Gait Start: 08/21/22 16:02 Freq: Status: Active Protocol: Document 08/25/22 08:17 [facility] (Rec: 08/25/22 09:05 [facility] [id number]) OP Gait Assessment Comments Gait Comments dec LLE stance time and dec push off B; heavy R lat lean and hard foot slap on R d/t dec L stance time. PT-OP-J Posture/Palpation/Skin Start: 08/21/22 16:02 Freq: Status: Active Protocol: Document 08/25/22 08:17 [facility] (Rec: 08/25/22 09:05 [facility] [id number]) Posture Evaluation Ashley Postural Classification System Ashley Postural Classifications Posterior/Anterior Vertebral Compression Test 0 Elbow Flexion Test 1 Lumbar Protective Mechanism Left AP 0 Lumbar Protective Mechanism Right AP 0 Lumbar Protective Mechanism Left PA 0 Lumbar Protective Mechanism Right PA 1 Comments Posture Comments inc kyphosis, fwd head, fwd rounded shoulders; L foot ER in standing PT-OP-K Range of Motion Start: 08/21/22 16:02 Freq: Status: Active Protocol: Document 08/25/22 08:17 [facility] (Rec: 08/25/22 09:05 [facility] [id number]) Cervical Spine Range of Motion Cervical Spine Active Degrees Flexion 70 Extension 35 Rotation Left 51 Rotation Right 60 Lateral Flexion Left 24 Lateral Flexion Right 33 Comments pain ext; pain R neck w/B SB; pain contra w/rot Lumbar Spine Range of Motion Lumbar Spine Active Percentage Flexion 80 Extension 80 Rotation Left 50 Rotation Right 70 Lateral Flexion Left 75 Lateral Flexion Right 75 ROM Limitations Pain Comments pain w/flex-dec lower lumbar flex; mostly at TL w/ext-pain; pain around TL junciton W/B SB & rot Ankle and Foot Goniometric Range of Motion Ankle and Foot Right Active Dorsiflexion with Knee Flexed 10 Dorsiflexion with Knee Extended 7 Plantarflexion 40 Inversion 22 Eversion 10 Left Active Dorsiflexion with Knee Flexed 8 Dorsiflexion with Knee Extended 0 Plantarflexion 32 Inversion 10 Eversion 10 Comments pain all PT-OP-L Special Tests Start: 08/21/22 16:02 Freq: Status: Active Protocol: Document 08/25/22 08:17 [facility] (Rec: 08/25/22 09:05 [facility] [id number]) Special Tests Cervical Spine Special Tests Traction Test Results pain Vertebral Artery Test Results neg Comments B Spurling's Test Test Results pain positive Lumbar Spine Special Tests Straight Leg Raise Test Results about 40 deg pain B in HS and LB Slump Test Results post HS/calf tension-no change w/neck flex PT-OP-M Strength Start: 08/21/22 16:02 Freq: Status: Active Protocol: Document 08/25/22 08:17 [facility] (Rec: 08/25/22 09:05 [facility] [id number]) Hip Strength Hip Manual Muscle Testing Right Flexion (L2) 5 Normal Extension (S1) 4- Good- Abduction 3 Fair Adduction 4+ Good+ External Rotation 5 Normal Internal Rotation 5 Normal Left Flexion (L2) 5 Normal Extension (S1) 4+ Good+ Abduction 4- Good- Adduction 4+ Good+ External Rotation 5 Normal Internal Rotation 5 Normal Knee Strength Knee Manual Muscle Testing Right Flexion (S2) 4+ Good+ Extension (L3) 4+ Good+ Left Flexion (S2) 4+ Good+ Extension (L3) 5 Normal Ankle/Foot Strength Ankle and Foot Manual Muscle Testing Right Dorsiflexion (L4) 5 Normal Plantarflexion (S1) 5 Normal Inversion 5 Normal Eversion (S1) 5 Normal Comments PF tested steaded Left Dorsiflexion (L4) 3+ Fair+ Plantarflexion (S1) 3+ Fair+ Inversion 2+ Poor+ Eversion (S1) 3+ Fair+ Comments pain and swelling-dec inversion ROM PT-OP-Q Treatments Start: 08/21/22 16:02 Freq: Status: Active Protocol: Document 11/03/22 10:02 SP (Rec: 11/03/22 10:43 [id number]) Therapeutic Exercises Supine Exercises LTR Side bilateral Equipment Used TB 65cm Reps/Minutes 10 reps then 3 SH stretch x2 Comments work on segmental control bridge Supine Exercise Name w/alt june x2 reps- painful, modified segmantal LE lift/ lower Side bilateral Reps/Minutes 5 reps each side Comments cued TA Sitting Exercises tball Sitting Exercise Name Ax elon. pelvic tilts 2. pec stretch 3. prone Is& Ts Side bilateral Equipment Used tactile cues LE/ trunk still Reps/Minutes 4 min Comments max verbal/tactile cues pelvic tilt- best tailbone back, fwd , lateral Standing Exercises triangle/reverse triangle Standing Exercise Name reviewed HEP- ed incorporate into work shift for mobility relief Side bilateral Reps/Minutes x5 reps 3 breathes each direction Comments good feedback response Manual Therapy Treatment Soft Tissue Mobilization hip Body Location B piriformis, glut Mobilization Type Strumming,Sustained Pressure, Other Intensity/Depth Moderate Body Position Prone Comments manual and PROM hip IR/ER, ed review ball wall lumbar Body Location B T4-L5 paraspinal, QL Mobilization Type Strumming,Sustained Pressure, Other Intensity/Depth Moderate Body Position 5 Comments prone and in angry cat, ed reviewed ball wall. Manual Traction LS traction Details manual Body Position Hooklying Comments strap at calves: sustained pressure and w/ FM: pelvic tilts, LTR Good feedback response- better stretch with movement PT-OP-T Assessment and Plan Start: 08/21/22 16:02 Freq: Status: Active Protocol: Document 11/03/22 10:02 SP (Rec: 11/03/22 10:43 SP [id number]) Physical Therapy Assessment Goals posture Short Term Goal (STG) Pt will score at least 2/5 on VCT to show irmpoved posture. STG Duration 10/04 Assisted Goal (LTG) Pt will score at least 4/5 on VCT to show irmpoved posture. LTG Duration 11/13/22 strength Short Term Goal (STG) Pt will be indep w/HEP STG Duration 10/04/22 Assisted Goal (LTG) Pt will score at least 5/5 on all BLE MMT and at least 3/5 on LPM & EFT to show imrpoved strength and stabiltiy in order for him to do his typical daily activities w/o inc pain. LTG Duration 11/13/22 ROM Assisted Goal (LTG) Pt will have full ROM of neck, L ankle and back w/o inc pain greater than 1/10. LTG Duration 11/16/22 activities Short Term Goal (STG) Pt will report no pain in back or ankle greater than 2/10 w/ walking to work. STG Duration 10/09/22 Assisted Goal (LTG) Pt will report no pain in back , neck or ankle greater than 3 /10 after a shift for work. LTG Duration 11/17/22 Assessment Summary Assessment Pt good feedback response to manual, discussion self ball wall and stretching during shift with yoga. CUes for posture and continue HEP to support back. Pt stated felt alot better and more erect walking out tx. Physical Therapy Plan Frequency and Duration Frequency of Treatment 1x/Week Duration of treatment (weeks) 12 Plan of Care Start Date 08/25/22 Plan of Care End Date 11/17/22 Therapeutic Interventions Therapeutic Interventions Balance Training,Gait Training ,Home Exercise Program,Joint Mobilizations,Manual Therapy, Neuromuscular Re-education, Orthotic/Prosthetic Management ,Patient/Caregiver Education, Self-Care/Home Management,Soft Tissue Mobilization,Taping, Therapeutic Activities, Therapeutic Exercises Modalities Cold Pack/Ice Massage,Electric Stimulation,Hot Packs, Infrared Therapy,Traction- Mechanical,Ultrasound Next Visit Focus/Plan Next Note Type Progress Note Next Visit Plan PN and POC update in next 2 tx , pt aware Encouraged Tball and yoga during /post work shift for core/flexibility. And incorporate at POC: cont to work on flex based treatment, PNF for core facilitation
--- NOTE | 2022-11-10 10:48 | PT.OTN ---
Current Diagnoses Other chronic pain (11/10/22) Spinal stenosis, cervical region (11/10/22) Low back pain, unspecified (11/10/22) Segmental and somatic dysfunction of lower extremity (11/10/22) Segmental and somatic dysfunction of abdomen and other regions (11/10/22) Paresthesia of skin (11/10/22) Difficulty in walking, not elsewhere classified (11/10/22) Abnormal posture (11/10/22) Weakness (11/10/22) Physical Therapy Treatment Note PT-OP-A Visit Information Start: 08/21/22 16:02 Freq: Status: Active Protocol: Document 11/10/22 10:03 [facility] (Rec: 11/10/22 10:48 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 (Rec: 08/25/22 09:05 [facility] [id number]) Current Condition History of Current Condition Onset Date chornic back pain(mostly lumbar some thoaraic), neck pain; L ankle 1 week Current Complaints back pain, L ankle pain History of Current Condition Pt reports Wed he sprained his ankle L but he is unsure how. He went ot his shift and couldnt finish so went ot ER and they did Xrays and there was no breaks. Pt reports the week befoer he had dropped a cast iron skillet, but it went away and it was a week later that swelling and pain started . Back been really bad especially at work. 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 He works 28-34 hours a week and notes they have been understaffed recently so he has been working a lot. His ankle is doing better but still sore. Neck is painful but not as bad as the back. He tried to see Dr. Bearden but the provider had amedical emergency so he hasn't seen him again. He has been taking hydrocodone for a few months to a year. He takes it daily. He gets 21 pills a week and takes 3/day and that is what gets him through his day. Otherwise he feels like he just lays in bed d/t pain too much. Pt has not been able to skateboard in over a year to year and half at this point. Pt has to walk to work now, which is painful but not as bad as skateboarding. Pt denies dizziness and lightheadness and occ BEDOYA ( every couple weeks or so and not very intense) Prior Treatments and Tests PTs, MRIs of brain, cervical spine, thoraic spine; Xray of lumbar spine Treatment Goals Patient/Caregiver Goals feel better not as trashed; have better mobility, possibly get back to skateboarding PT-OP-C Subjective Start: 08/21/22 16:02 Freq: Status: Active Protocol: Document 11/10/22 10:03 [facility] (Rec: 11/10/22 10:48 [facility] [id number]) OP-PT Subjective Patient Comments Patient Comments Pt reports he has been tryin to do his exercises and the ones he has been doing are not giving him as much relief. He is limping d/t dropping a skillet on L ankle/foot. neck and back both really hurting. He has worked about 50-60 hours the past week which isn' t helping PT-OP-D Balance Start: 08/21/22 16:02 Freq: Status: Active Protocol: Document 08/25/22 08:17 [facility] (Rec: 08/25/22 09:05 [facility] [id number]) Balance Tests Single Limb Standing Single Limb- Right 12 sec w/lat trunk lean R pain back Single Limb- Left 2 sec w/pain back and L ankle PT-OP-F Manual Assessment Start: 08/21/22 16:02 Freq: Status: Active Protocol: Document 08/25/22 08:17 [facility] (Rec: 08/25/22 09:05 [facility] [id number]) Manual Assessments Soft Tissue Assessment Soft Tissue Mobility Assessment tenderness neck and lumbar mm PT-OP-G Mobility & Gait Start: 08/21/22 16:02 Freq: Status: Active Protocol: Document 08/25/22 08:17 [facility] (Rec: 08/25/22 09:05 [facility] [id number]) OP Gait Assessment Comments Gait Comments dec LLE stance time and dec push off B; heavy R lat lean and hard foot slap on R d/t dec L stance time. PT-OP-J Posture/Palpation/Skin Start: 08/21/22 16:02 Freq: Status: Active Protocol: Document 11/10/22 10:03 [facility] (Rec: 11/10/22 10:48 [facility] [id number]) Posture Evaluation [facility] Postural Classification System Ashley Postural Classifications Posterior/Anterior Vertebral Compression Test 0 Elbow Flexion Test 2 Lumbar Protective Mechanism Left AP 1 Lumbar Protective Mechanism Right AP 0 Lumbar Protective Mechanism Left PA 1 Lumbar Protective Mechanism Right PA 2 PT-OP-K Range of Motion Start: 08/21/22 16:02 Freq: Status: Active Protocol: Document 11/10/22 10:03 [facility] (Rec: 11/10/22 10:48 [facility] [id number]) Cervical Spine Range of Motion Cervical Spine Active Degrees Flexion 71 Extension 29 Rotation Left 58 Rotation Right 56 Lateral Flexion Left 30 Lateral Flexion Right 36 Comments pain ext; pain R neck w/ flex, pain L w/SB R; pain post w/L SB; pain ipsi w/rot Lumbar Spine Range of Motion Lumbar Spine Active Percentage Flexion 80 Extension 90 Rotation Left 70 Rotation Right 80 Lateral Flexion Left 90 Lateral Flexion Right 90 ROM Limitations Pain Comments Contra pain w/SB, mid lumbar pain ext; pain w/flex; pain B w/rot Ankle and Foot Goniometric Range of Motion Ankle and Foot Left Active Comments pain w/inverion & eversion and limited range-otherwise good ROM PT-OP-L Special Tests Start: 08/21/22 16:02 Freq: Status: Active Protocol: Document 08/25/22 08:17 [facility] (Rec: 08/25/22 09:05 [facility] [id number]) Special Tests Cervical Spine Special Tests Traction Test Results pain Vertebral Artery Test Results neg Comments B Spurling's Test Test Results pain positive Lumbar Spine Special Tests Straight Leg Raise Test Results about 40 deg pain B in HS and LB Slump Test Results post HS/calf tension-no change w/neck flex PT-OP-M Strength Start: 08/21/22 16:02 Freq: Status: Active Protocol: Document 11/10/22 10:03 [facility] (Rec: 11/10/22 10:48 [facility] [id number]) Hip Strength Hip Manual Muscle Testing Right Flexion (L2) 4 Good Extension (S1) 5 Normal Abduction 4 Good Adduction 4- Good- External Rotation 4 Good Internal Rotation 4 Good Left Flexion (L2) 4- Good- Extension (S1) 5 Normal Abduction 4+ Good+ Adduction 3+ Fair+ External Rotation 4 Good Internal Rotation 5 Normal Knee Strength Knee Manual Muscle Testing Right Flexion (S2) 4+ Good+ Extension (L3) 4+ Good+ Left Flexion (S2) 4+ Good+ Extension (L3) 5 Normal Ankle/Foot Strength Ankle and Foot Manual Muscle Testing Right Dorsiflexion (L4) 5 Normal Plantarflexion (S1) 5 Normal Inversion 5 Normal Eversion (S1) 5 Normal Comments PF tested steaded B Left Dorsiflexion (L4) 4 Good Plantarflexion (S1) 4 Good Inversion 3+ Fair+ Eversion (S1) 3+ Fair+ Comments pain and swelling-dec inversion ROM PT-OP-Q Treatments Start: 08/21/22 16:02 Freq: Status: Active Protocol: Document 11/10/22 10:03 [facility] (Rec: 11/10/22 10:48 [facility] [id number]) Therapeutic Activity Therapeutic Activity posture Reps/Minutes 8 min Comments reset in standing for improved posture and working on scap and cervical set. abdle ot get vertical vertical alignment w /o much difficulty but has still very fwd head d/t limitations in cervical region . Manual Therapy Treatment Soft Tissue Mobilization cervical Body Location ligamentum nucha & SO Mobilization Type Strumming,Sustained Pressure Intensity/Depth Moderate Body Position Hooklying Comments w/chin tucks and rot Joint Mobilizations cervical Joint AP C6 and 7 B FM (indivualy done )/ W/CHIN TUCK PT-OP-T Assessment and Plan Start: 08/21/22 16:02 Freq: Status: Active Protocol: Document 11/10/22 10:03 [facility] (Rec: 11/10/22 10:48 [facility] [id number]) Physical Therapy Assessment Goals posture Short Term Goal (STG) Pt will score at least 2/5 on VCT to show irmpoved posture. 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 LTG Duration 01/05 strength Short Term Goal (STG) Pt will be indep w/HEP STG Duration achieved advancing as able Letterpress Printing Machinist Goal (LTG) Pt will score at least 5/5 on all BLE MMT and at least 3/5 on LPM & EFT to show imrpoved strength and stabiltiy in order for him to do his typical daily activities w/o inc pain. 11/10-some improvement in directions and others worse. LTG Duration 01/05 ROM Fpc Goal (LTG) Pt will have full ROM of neck, L ankle and back w/o inc pain greater than 1/10. 11/10-ROM improved but still painful LTG Duration 01/05 activities Short Term Goal (STG) Pt will report no pain in back or ankle greater than 2/10 w/ walking to work. 11/10-3-4/10 at best; worst 10 STG Duration 12/04 Fpc Goal (LTG) Pt will report no pain in back , neck or ankle greater than 3 /10 after a shift for work. 11/10-typical shift w/meds- worst 11/03; 10/10 on a long shift day LTG Duration 01/05 Assessment Summary Assessment Pt was progressing with therapy, but the last couple weeks has worked double time and has had an inc of pain relating to this. He has been compliant w/HEP for relief but it is recently providing less relief w/inc working. Pt had another injury where he dropped a francois on L ankle again , which is affecting his gait nd likely contributing to his back pain during gait. He would benefti from skilled PT to try to work on retruning to relief that PT helped w/in past weeks and getting core engagement again. Improved posture after manual with less difficulty getting neck in better alignment. Physical Therapy Plan Frequency and Duration Frequency of Treatment 1x/Week Duration of treatment (weeks) 8 Plan of Care Start Date 11/10/22 Plan of Care End Date 01/05/23 Therapeutic Interventions Therapeutic Interventions Balance Training,Gait Training ,Home Exercise Program,Joint Mobilizations,Manual Therapy, Neuromuscular Re-education, Orthotic/Prosthetic Management ,Patient/Caregiver Education, Self-Care/Home Management,Soft Tissue Mobilization,Taping, Therapeutic Activities, Therapeutic Exercises Modalities Cold Pack/Ice Massage,Electric Stimulation,Hot Packs, Infrared Therapy,Traction- Mechanical,Ultrasound Next Visit Focus/Plan Next Note Type Treatment Note Next Visit Plan work on postural positioning & cervical positioning, core stability w/postural training
--- NOTE | 2022-11-10 10:49 | PT.OPPOC ---
Physical, Occupational & Speech Therapy At [facility] Current Diagnoses Other chronic pain (11/10/22) Spinal stenosis, cervical region (11/10/22) Low back pain, unspecified (11/10/22) Segmental and somatic dysfunction of lower extremity (11/10/22) Segmental and somatic dysfunction of abdomen and other regions (11/10/22) Paresthesia of skin (11/10/22) Difficulty in walking, not elsewhere classified (11/10/22) Abnormal posture (11/10/22) Weakness (11/10/22) Visit Care Team Role Provider Type Ewa Barrow DO Primary Care Provider Physician Specialty: Family Practice Address: [address] [place] [address], [address], [address] Email: [email or web address] Provider Physician Family Provider Referring Provider Specialty: Internal Medicine Address: [address] [place] [address], [facility] [address], [address] Email: [email or web address] Plan Of Care PT-OP-T Assessment and Plan Start: 08/21/22 16:02 Freq: Status: Active Protocol: Document 11/10/22 10:03 [facility] (Rec: 11/10/22 10:48 [facility] [id number]) Physical Therapy Assessment Goals posture Short Term Goal (STG) Pt will score at least 2/5 on VCT to show irmpoved posture. 11/10-no improvment but able to improve to 4/5 after PT positioning STG Duration 12/05 Long-Term Goal (LTG) Pt will score at least 4/5 on VCT to show irmpoved posture. LTG Duration 01/05 strength Short Term Goal (STG) Pt will be indep w/HEP STG Duration achieved advancing as able Long-Term Goal (LTG) Pt will score at least 5/5 on all BLE MMT and at least 3/5 on LPM & EFT to show imrpoved strength and stabiltiy in order for him to do his typical daily activities w/o inc pain. 11/10-some improvement in directions and others worse. LTG Duration 01/05 ROM Long-Term Goal (LTG) Pt will have full ROM of neck, L ankle and back w/o inc pain greater than 1/10. 11/10-ROM improved but still painful LTG Duration 01/05 activities Short Term Goal (STG) Pt will report no pain in back or ankle greater than 2/10 w/ walking to work. 11/10-3-4/10 at best; worst 9/ 10 STG Duration 8 [employer] Goal (LTG) Pt will report no pain in back , neck or ankle greater than 3 /10 after a shift for work. 11/10-typical shift w/meds- worst 11/03; 10/10 on a long shift day LTG Duration 01/05 Assessment Summary Assessment Pt was progressing with therapy, but the last couple weeks has worked double time and has had an inc of pain relating to this. He has been compliant w/HEP for relief but it is recently providing less relief w/inc working. Pt had another injury where he dropped a francois on L ankle again , which is affecting his gait nd likely contributing to his back pain during gait. He would benefti from skilled PT to try to work on retruning to relief that PT helped w/in past weeks and getting core engagement again. Improved posture after manual with less difficulty getting neck in better alignment. Physical Therapy Plan Frequency and Duration Frequency of Treatment 1x/Week Duration of treatment (weeks) 8 Plan of Care Start Date 11/10/22 Plan of Care End Date 01/05/23 Therapeutic Interventions Therapeutic Interventions Balance Training,Gait Training ,Home Exercise Program,Joint Mobilizations,Manual Therapy, Neuromuscular Re-education, Orthotic/Prosthetic Management ,Patient/Caregiver Education, Self-Care/Home Management,Soft Tissue Mobilization,Taping, Therapeutic Activities, Therapeutic Exercises Modalities Cold Pack/Ice Massage,Electric Stimulation,Hot Packs, Infrared Therapy,Traction- Mechanical,Ultrasound Next Visit Focus/Plan Next Note Type Treatment Note Next Visit Plan work on postural positioning & cervical positioning, core stability w/postural training Plan of Care Dates Plan of Care Start Date 11/10/22 Plan of Care End Date 01/05/23 Electronically Signed by: Nathaly Mancilla, PT 11/10/22 1499 If you are in agreement with this Plan of Care, please return a signed and dated copy. I have reviewed this Plan of Care and certify that the skilled therapy services above are required to meet the patient?s needs. Physician Signature Date Printed Name and Credentials Clinical Instructor Signature Printed Name and Credentials
--- NOTE | 2022-11-17 10:50 | PT.OTN ---
Current Diagnoses Other chronic pain (11/17/22) Spinal stenosis, cervical region (11/17/22) Low back pain, unspecified (11/17/22) Segmental and somatic dysfunction of lower extremity (11/17/22) Segmental and somatic dysfunction of abdomen and other regions (11/17/22) Paresthesia of skin (11/17/22) Difficulty in walking, not elsewhere classified (11/17/22) Abnormal posture (11/17/22) Weakness (11/17/22) Physical Therapy Treatment Note PT-OP-A Visit Information Start: 08/21/22 16:02 Freq: Status: Active Protocol: Document 11/17/22 10:00 [facility] (Rec: 11/17/22 10:50 [facility] [id number]) Out-Patient Physical Therapy Visit Information Visit Information Visit Type Treatment Note Visit Start Time 10:00 Visit Stop Time 10:44 Total Visit Minutes 44 Visit Number 12 Number of FOOD SERVICE Visits 0 PT-OP-B Current Condition Start: 08/21/22 16:02 Freq: Status: Active Protocol: Document 08/25/22 08:17 [facility] (Rec: 08/25/22 09:05 [facility] [id number]) Current Condition History of Current Condition Onset Date chornic back pain(mostly lumbar some thoaraic), neck pain; L ankle 1 week Current Complaints back pain, L ankle pain History of Current Condition Pt reports Wed he sprained his ankle L but he is unsure how. He went ot his shift and couldnt finish so went ot ER and they did Xrays and there was no breaks. Pt reports the week befoer he had dropped a cast iron skillet, but it went away and it was a week later that swelling and pain started . Back been really bad especially at work. 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 He works 28-34 hours a week and notes they have been understaffed recently so he has been working a lot. His ankle is doing better but still sore. Neck is painful but not as bad as the back. He tried to see Dr. Bearden but the provider had amedical emergency so he hasn't seen him again. He has been taking hydrocodone for a few months to a year. He takes it daily. He gets 21 pills a week and takes 3/day and that is what gets him through his day. Otherwise he feels like he just lays in bed d/t pain too much. Pt has not been able to skateboard in over a year to year and half at this point. Pt has to walk to work now, which is painful but not as bad as skateboarding. Pt denies dizziness and lightheadness and occ BEDOYA ( every couple weeks or so and not very intense) Prior Treatments and Tests PTs, MRIs of brain, cervical spine, thoraic spine; Xray of lumbar spine Treatment Goals Patient/Caregiver Goals feel better not as trashed; have better mobility, possibly get back to skateboarding PT-OP-C Subjective Start: 08/21/22 16:02 Freq: Status: Active Protocol: Document 11/17/22 10:00 [facility] (Rec: 11/17/22 10:50 [facility] [id number]) OP-PT Subjective Patient Comments Patient Comments Pt reports he went to the ER and had double ear infection ( swimmers ear L and R infection ). Started R ear drops. he had to miss a day of work d/t pain. He hasn't been able to do his exercises d/t feeling bad w/ear infection. He went to the walk in after the spine clinic then ER also d/t feeling slow and his BP was low. They think d/t ear infections. Drinking a lot of water. Reports the past week has noticed some discomfot in abdomen when lean fwd sitting annie. no inc pain w/eating, drinking etc PT-OP-D Balance Start: 08/21/22 16:02 Freq: Status: Active Protocol: Document 08/25/22 08:17 [facility] (Rec: 08/25/22 09:05 [facility] [id number]) Balance Tests Single Limb Standing Single Limb- Right 12 sec w/lat trunk lean R pain back Single Limb- Left 2 sec w/pain back and L ankle PT-OP-F Manual Assessment Start: 08/21/22 16:02 Freq: Status: Active Protocol: Document 08/25/22 08:17 [facility] (Rec: 08/25/22 09:05 [facility] [id number]) Manual Assessments Soft Tissue Assessment Soft Tissue Mobility Assessment tenderness neck and lumbar mm PT-OP-G Mobility & Gait Start: 08/21/22 16:02 Freq: Status: Active Protocol: Document 08/25/22 08:17 [facility] (Rec: 08/25/22 09:05 [facility] [id number]) OP Gait Assessment Comments Gait Comments dec LLE stance time and dec push off B; heavy R lat lean and hard foot slap on R d/t dec L stance time. PT-OP-J Posture/Palpation/Skin Start: 08/21/22 16:02 Freq: Status: Active Protocol: Document 11/10/22 10:03 [facility] (Rec: 11/10/22 10:48 [facility] [id number]) Posture Evaluation [facility] Postural Classification System [facility] Postural Classifications Posterior/Anterior Vertebral Compression Test 0 Elbow Flexion Test 2 Lumbar Protective Mechanism Left AP 1 Lumbar Protective Mechanism Right AP 0 Lumbar Protective Mechanism Left PA 1 Lumbar Protective Mechanism Right PA 2 PT-OP-K Range of Motion Start: 08/21/22 16:02 Freq: Status: Active Protocol: Document 11/10/22 10:03 [facility] (Rec: 11/10/22 10:48 [facility] [id number]) Cervical Spine Range of Motion Cervical Spine Active Degrees Flexion 71 Extension 29 Rotation Left 58 Rotation Right 56 Lateral Flexion Left 30 Lateral Flexion Right 36 Comments pain ext; pain R neck w/ flex, pain L w/SB R; pain post w/L SB; pain ipsi w/rot Lumbar Spine Range of Motion Lumbar Spine Active Percentage Flexion 80 Extension 90 Rotation Left 70 Rotation Right 80 Lateral Flexion Left 90 Lateral Flexion Right 90 ROM Limitations Pain Comments Contra pain w/SB, mid lumbar pain ext; pain w/flex; pain B w/rot Ankle and Foot Goniometric Range of Motion Ankle and Foot Left Active Comments pain w/inverion & eversion and limited range-otherwise good ROM PT-OP-L Special Tests Start: 08/21/22 16:02 Freq: Status: Active Protocol: Document 08/25/22 08:17 [facility] (Rec: 08/25/22 09:05 [facility] [id number]) Special Tests Cervical Spine Special Tests Traction Test Results pain Vertebral Artery Test Results neg Comments B Spurling's Test Test Results pain positive Lumbar Spine Special Tests Straight Leg Raise Test Results about 40 deg pain B in HS and LB Slump Test Results post HS/calf tension-no change w/neck flex PT-OP-M Strength Start: 08/21/22 16:02 Freq: Status: Active Protocol: Document 11/10/22 10:03 [facility] (Rec: 11/10/22 10:48 [facility] [id number]) Hip Strength Hip Manual Muscle Testing Right Flexion (L2) 4 Good Extension (S1) 5 Normal Abduction 4 Good Adduction 4- Good- External Rotation 4 Good Internal Rotation 4 Good Left Flexion (L2) 4- Good- Extension (S1) 5 Normal Abduction 4+ Good+ Adduction 3+ Fair+ External Rotation 4 Good Internal Rotation 5 Normal Knee Strength Knee Manual Muscle Testing Right Flexion (S2) 4+ Good+ Extension (L3) 4+ Good+ Left Flexion (S2) 4+ Good+ Extension (L3) 5 Normal Ankle/Foot Strength Ankle and Foot Manual Muscle Testing Right Dorsiflexion (L4) 5 Normal Plantarflexion (S1) 5 Normal Inversion 5 Normal Eversion (S1) 5 Normal Comments PF tested steaded B Left Dorsiflexion (L4) 4 Good Plantarflexion (S1) 4 Good Inversion 3+ Fair+ Eversion (S1) 3+ Fair+ Comments pain and swelling-dec inversion ROM PT-OP-Q Treatments Start: 08/21/22 16:02 Freq: Status: Active Protocol: Document 11/17/22 10:00 [facility] (Rec: 11/17/22 10:50 [facility] [id number]) Therapeutic Exercises Supine Exercises HS stretch Supine Exercise Name active Side bilateral Reps/Minutes 5 sec x4 Manual Therapy Treatment Soft Tissue Mobilization hip flexor Body Location R Mobilization Type Sustained Pressure Intensity/Depth Moderate hip Body Location B HS Mobilization Type Strumming,Sustained Pressure, Other Intensity/Depth Moderate Comments w/active HS stretch and during inf mob lumbar Body Location paraspinals Mobilization Type Strumming,Sustained Pressure, Other Comments in cat/cow Joint Mobilizations hip Joint B inf FM lumbar Comments L1 and 2 R down glide; L4-5 upglide L ; UPA R L4 and 5 seated FM innominate Comments L ext prone FM and PA L FM seated sacrum Comments UPA L FM prone and seated FM PT-OP-T Assessment and Plan Start: 08/21/22 16:02 Freq: Status: Active Protocol: Document 11/17/22 10:00 [facility] (Rec: 11/17/22 10:50 [facility] [id number]) Physical Therapy Assessment Goals posture Short Term Goal (STG) Pt will score at least 2/5 on VCT to show irmpoved posture. 11/10-no improvment but able to improve to 4/5 after PT positioning STG Duration 12/05 Correction Goal (LTG) Pt will score at least 4/5 on VCT to show irmpoved posture. LTG Duration 01/05 strength Short Term Goal (STG) Pt will be indep w/HEP STG Duration achieved advancing as able Correction Goal (LTG) Pt will score at least 5/5 on all BLE MMT and at least 3/5 on LPM & EFT to show imrpoved strength and stabiltiy in order for him to do his typical daily activities w/o inc pain. 11/10-some improvement in directions and others worse. LTG Duration 01/05 ROM Correction Goal (LTG) Pt will have full ROM of neck, L ankle and back w/o inc pain greater than 1/10. 11/10-ROM improved but still painful LTG Duration 01/05 activities Short Term Goal (STG) Pt will report no pain in back or ankle greater than 2/10 w/ walking to work. 11/10-3-4/10 at best; worst STG Duration 12/04 Correction Goal (LTG) Pt will report no pain in back , neck or ankle greater than 3 /10 after a shift for work. 11/10-typical shift w/meds- worst 11/03; 10/10 on a long shift day LTG Duration 01/05 Assessment Summary Assessment Pt had improved ability to sit up after manual treatment and was able to sit in more neutral seated position prior to this pt was unable to ant tilt enough to be bella to sit more fwd on pelvic floor. Abdomenal aorta palpation WNL & superficial cutaneus abdomen reflex WNL. He was told to go to walk in or call MD if has pain w/eating or drinking or pain gets worse in abdomen Physical Therapy Plan Frequency and Duration Frequency of Treatment 1x/Week Duration of treatment (weeks) 8 Plan of Care Start Date 11/10/22 Plan of Care End Date 01/05/23 Next Visit Focus/Plan Next Note Type Treatment Note Next Visit Plan work on postural positioning & cervical positioning, core stability w/postural training
--- NOTE | 2022-12-01 12:32 | PT.OTN ---
Current Diagnoses Other chronic pain (12/01/22) Spinal stenosis, cervical region (12/01/22) Low back pain, unspecified (12/01/22) Segmental and somatic dysfunction of lower extremity (12/01/22) Segmental and somatic dysfunction of abdomen and other regions (12/01/22) Paresthesia of skin (12/01/22) Difficulty in walking, not elsewhere classified (12/01/22) Abnormal posture (12/01/22) Weakness (12/01/22) Physical Therapy Treatment Note PT-OP-A Visit Information Start: 08/21/22 16:02 Freq: Status: Active Protocol: Document 12/01/22 12:00 SP (Rec: 12/01/22 12:42 SP [id number]) Out-Patient Physical Therapy Visit Information Visit Information Visit Type Treatment Note Visit Note Girlfriend attends with pt today, observed and gave feedback how has been helping pt with pain. Visit Start Time 12:00 Visit Stop Time 12:32 Total Visit Minutes 32 Visit Number 13 Number of RECRUITMENT COORDINATOR Visits 1 PT-OP-B Current Condition Start: 08/21/22 16:02 Freq: Status: Active Protocol: Document 08/25/22 08:17 [facility] (Rec: 08/25/22 09:05 [facility] [id number]) Current Condition History of Current Condition Onset Date chornic back pain(mostly lumbar some thoaraic), neck pain; L ankle 1 week Current Complaints back pain, L ankle pain History of Current Condition Pt reports Wed he sprained his ankle L but he is unsure how. He went ot his shift and couldnt finish so went ot ER and they did Xrays and there was no breaks. Pt reports the week befoer he had dropped a cast iron skillet, but it went away and it was a week later that swelling and pain started . Back been really bad especially at work. 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 He works 28-34 hours a week and notes they have been understaffed recently so he has been working a lot. His ankle is doing better but still sore. Neck is painful but not as bad as the back. He tried to see Dr. Bearden but the provider had amedical emergency so he hasn't seen him again. He has been taking hydrocodone for a few months to a year. He takes it daily. He gets 21 pills a week and takes 3/day and that is what gets him through his day. Otherwise he feels like he just lays in bed d/t pain too much. Pt has not been able to skateboard in over a year to year and half at this point. Pt has to walk to work now, which is painful but not as bad as skateboarding. Pt denies dizziness and lightheadness and occ BEDOYA ( every couple weeks or so and not very intense) Prior Treatments and Tests PTs, MRIs of brain, cervical spine, thoraic spine; Xray of lumbar spine Treatment Goals Patient/Caregiver Goals feel better not as trashed; have better mobility, possibly get back to skateboarding PT-OP-C Subjective Start: 08/21/22 16:02 Freq: Status: Active Protocol: Document 12/01/22 12:00 SP (Rec: 12/01/22 12:42 SP [id number]) OP-PT Subjective Patient Comments Patient Comments Pt reports alot back pain mid and lower with little swelling . Did 10 hr days over the weekend at [facility]. His girlfriend tried massage to his back for relief with ointment, she noticed sweling in low back. Pt has Dr garay with Dr Michelle at 1245 today for back injection. PT-OP-D Balance Start: 08/21/22 16:02 Freq: Status: Active Protocol: Document 08/25/22 08:17 [facility] (Rec: 08/25/22 09:05 [facility] [id number]) Balance Tests Single Limb Standing Single Limb- Right 12 sec w/lat trunk lean R pain back Single Limb- Left 2 sec w/pain back and L ankle PT-OP-F Manual Assessment Start: 08/21/22 16:02 Freq: Status: Active Protocol: Document 08/25/22 08:17 [facility] (Rec: 08/25/22 09:05 [facility] [id number]) Manual Assessments Soft Tissue Assessment Soft Tissue Mobility Assessment tenderness neck and lumbar mm PT-OP-G Mobility & Gait Start: 08/21/22 16:02 Freq: Status: Active Protocol: Document 08/25/22 08:17 [facility] (Rec: 08/25/22 09:05 [facility] [id number]) OP Gait Assessment Comments Gait Comments dec LLE stance time and dec push off B; heavy R lat lean and hard foot slap on R d/t dec L stance time. PT-OP-J Posture/Palpation/Skin Start: 08/21/22 16:02 Freq: Status: Active Protocol: Document 11/10/22 10:03 [facility] (Rec: 11/10/22 10:48 [facility] [id number]) Posture Evaluation [facility] Postural Classification System Ashley Postural Classifications Posterior/Anterior Vertebral Compression Test 0 Elbow Flexion Test 2 Lumbar Protective Mechanism Left AP 1 Lumbar Protective Mechanism Right AP 0 Lumbar Protective Mechanism Left PA 1 Lumbar Protective Mechanism Right PA 2 PT-OP-K Range of Motion Start: 08/21/22 16:02 Freq: Status: Active Protocol: Document 11/10/22 10:03 [facility] (Rec: 11/10/22 10:48 [facility] [id number]) Cervical Spine Range of Motion Cervical Spine Active Degrees Flexion 71 Extension 29 Rotation Left 58 Rotation Right 56 Lateral Flexion Left 30 Lateral Flexion Right 36 Comments pain ext; pain R neck w/ flex, pain L w/SB R; pain post w/L SB; pain ipsi w/rot Lumbar Spine Range of Motion Lumbar Spine Active Percentage Flexion 80 Extension 90 Rotation Left 70 Rotation Right 80 Lateral Flexion Left 90 Lateral Flexion Right 90 ROM Limitations Pain Comments Contra pain w/SB, mid lumbar pain ext; pain w/flex; pain B w/rot Ankle and Foot Goniometric Range of Motion Ankle and Foot Left Active Comments pain w/inverion & eversion and limited range-otherwise good ROM PT-OP-L Special Tests Start: 08/21/22 16:02 Freq: Status: Active Protocol: Document 08/25/22 08:17 [facility] (Rec: 08/25/22 09:05 [facility] [id number]) Special Tests Cervical Spine Special Tests Traction Test Results pain Vertebral Artery Test Results neg Comments B Spurling's Test Test Results pain positive Lumbar Spine Special Tests Straight Leg Raise Test Results about 40 deg pain B in HS and LB Slump Test Results post HS/calf tension-no change w/neck flex PT-OP-M Strength Start: 08/21/22 16:02 Freq: Status: Active Protocol: Document 11/10/22 10:03 [facility] (Rec: 11/10/22 10:48 [facility] [id number]) Hip Strength Hip Manual Muscle Testing Right Flexion (L2) 4 Good Extension (S1) 5 Normal Abduction 4 Good Adduction 4- Good- External Rotation 4 Good Internal Rotation 4 Good Left Flexion (L2) 4- Good- Extension (S1) 5 Normal Abduction 4+ Good+ Adduction 3+ Fair+ External Rotation 4 Good Internal Rotation 5 Normal Knee Strength Knee Manual Muscle Testing Right Flexion (S2) 4+ Good+ Extension (L3) 4+ Good+ Left Flexion (S2) 4+ Good+ Extension (L3) 5 Normal Ankle/Foot Strength Ankle and Foot Manual Muscle Testing Right Dorsiflexion (L4) 5 Normal Plantarflexion (S1) 5 Normal Inversion 5 Normal Eversion (S1) 5 Normal Comments PF tested steaded B Left Dorsiflexion (L4) 4 Good Plantarflexion (S1) 4 Good Inversion 3+ Fair+ Eversion (S1) 3+ Fair+ Comments pain and swelling-dec inversion ROM PT-OP-Q Treatments Start: 08/21/22 16:02 Freq: Status: Active Protocol: Document 12/01/22 12:00 SP (Rec: 12/01/22 12:42 SP [id number]) Therapeutic Exercises Supine Exercises LTR Side bilateral Equipment Used LEs over 55cm tball Reps/Minutes 10 reps then 3 SH stretch x2 Comments cued slow range, segmental control Sidelying Exercises open book Side bilateral Reps/Minutes 10 ea Comments cues for head turn with arm, slow scapular glides- improved mob Sitting Exercises tball Sitting Exercise Name pec stretch (arms various angles) Side bilateral Resistance 65cm tball Equipment Used tactile cues LE bridge, head rested on ball Reps/Minutes 4 min Comments cues for neutral pelvis bridge spinal stabilization Standing Exercises triangle/reverse triangle Standing Exercise Name review: triangle only 12/01 Side bilateral Reps/Minutes 3 reps Comments reports R more movement than L - soreness/tight rows Standing Exercise Name rows and extension Side bilateral Equipment Used ramona> orange band Reps/Minutes 10 reps Comments min cues for elongated posture Other Exercises cat into child's pose Other Exercise Name 12/01 child's pose stretch w/SB Side bilateral Equipment Used UEs on 65 cm tball Reps/Minutes 3 breath hold x5 reps Comments good feedback QL stretch Manual Therapy Treatment Soft Tissue Mobilization lumbar Body Location TS, LS paraspinals Mobilization Type Strumming,Sustained Pressure, Other Body Position Prone Manual Traction LS traction Details manual Body Position Hooklying Comments strap at calves: sustained pressure and w/ FM: pelvic tilts A/P, cued slow Good feedback response- better stretch with movement PT-OP-T Assessment and Plan Start: 08/21/22 16:02 Freq: Status: Active Protocol: Document 12/01/22 12:00 SP (Rec: 12/01/22 12:42 SP [id number]) Physical Therapy Assessment Goals posture Short Term Goal (STG) Pt will score at least 2/5 on VCT to show irmpoved posture. 11/10-no improvment but able to improve to 4/5 after PT positioning STG Duration 12/05 Spring Clipper Goal (LTG) Pt will score at least 4/5 on VCT to show irmpoved posture. LTG Duration 01/05 strength Short Term Goal (STG) Pt will be indep w/HEP STG Duration achieved advancing as able Spring Clipper Goal (LTG) Pt will score at least 5/5 on all BLE MMT and at least 3/5 on LPM & EFT to show imrpoved strength and stabiltiy in order for him to do his typical daily activities w/o inc pain. 11/10-some improvement in directions and others worse. LTG Duration 01/05 ROM Spring Clipper Goal (LTG) Pt will have full ROM of neck, L ankle and back w/o inc pain greater than 1/10. 11/10-ROM improved but still painful LTG Duration 01/05 activities Short Term Goal (STG) Pt will report no pain in back or ankle greater than 2/10 w/ walking to work. 11/10-3-4/10 at best; worst 9/ 10 STG Duration 8 Spring Clipper Goal (LTG) Pt will report no pain in back , neck or ankle greater than 3 /10 after a shift for work. 11/10-typical shift w/meds- worst 7/10; 10/10 on a long shift day LTG Duration 01/05 Assessment Summary Assessment Pt reported decrease in back pain from 8-9/10 to 6-7/10 post manual, stretching/ AROM. Pt improved more elongated tall posture leaving. Encouraged pt to continue to perform ROM and self STMs during day and HEP to allow back support during long shifts at work. Physical Therapy Plan Frequency and Duration Frequency of Treatment 1x/Week Duration of treatment (weeks) 8 Plan of Care Start Date 11/10/22 Plan of Care End Date 01/05/23 Therapeutic Interventions Therapeutic Interventions Balance Training,Gait Training ,Home Exercise Program,Joint Mobilizations,Manual Therapy, Neuromuscular Re-education, Orthotic/Prosthetic Management ,Patient/Caregiver Education, Self-Care/Home Management,Soft Tissue Mobilization,Taping, Therapeutic Activities, Therapeutic Exercises Modalities Cold Pack/Ice Massage,Electric Stimulation,Hot Packs, Infrared Therapy,Traction- Mechanical,Ultrasound Next Visit Focus/Plan Next Note Type Treatment Note Next Visit Plan Ask how Dr Michelle appt injections went after last tx. POC: work on postural positioning & cervical positioning, core stability w/ postural training
--- NOTE | 2022-12-08 10:49 | PT.OTN ---
Current Diagnoses Other chronic pain (12/08/22) Spinal stenosis, cervical region (12/08/22) Low back pain, unspecified (12/08/22) Segmental and somatic dysfunction of lower extremity (12/08/22) Segmental and somatic dysfunction of abdomen and other regions (12/08/22) Paresthesia of skin (12/08/22) Difficulty in walking, not elsewhere classified (12/08/22) Abnormal posture (12/08/22) Weakness (12/08/22) Physical Therapy Treatment Note PT-OP-A Visit Information Start: 08/21/22 16:02 Freq: Status: Active Protocol: Document 12/08/22 10:04 [facility] (Rec: 12/08/22 10:49 [facility] [id number]) Out-Patient Physical Therapy Visit Information Visit Information Visit Type Treatment Note Visit Start Time 10:05 Visit Stop Time 10:45 Total Visit Minutes 40 Visit Number 14 Number of CASTING ASSISTANT Visits 0 PT-OP-B Current Condition Start: 08/21/22 16:02 Freq: Status: Active Protocol: Document 08/25/22 08:17 [facility] (Rec: 08/25/22 09:05 [facility] [id number]) Current Condition History of Current Condition Onset Date chornic back pain(mostly lumbar some thoaraic), neck pain; L ankle 1 week Current Complaints back pain, L ankle pain History of Current Condition Pt reports Wed he sprained his ankle L but he is unsure how. He went ot his shift and couldnt finish so went ot ER and they did Xrays and there was no breaks. Pt reports the week befoer he had dropped a cast iron skillet, but it went away and it was a week later that swelling and pain started . Back been really bad especially at work. 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 He works 28-34 hours a week and notes they have been understaffed recently so he has been working a lot. His ankle is doing better but still sore. Neck is painful but not as bad as the back. He tried to see Dr. Bearden but the provider had amedical emergency so he hasn't seen him again. He has been taking hydrocodone for a few months to a year. He takes it daily. He gets 21 pills a week and takes 3/day and that is what gets him through his day. Otherwise he feels like he just lays in bed d/t pain too much. Pt has not been able to skateboard in over a year to year and half at this point. Pt has to walk to work now, which is painful but not as bad as skateboarding. Pt denies dizziness and lightheadness and occ BEDOYA ( every couple weeks or so and not very intense) Prior Treatments and Tests PTs, MRIs of brain, cervical spine, thoraic spine; Xray of lumbar spine Treatment Goals Patient/Caregiver Goals feel better not as trashed; have better mobility, possibly get back to skateboarding PT-OP-C Subjective Start: 08/21/22 16:02 Freq: Status: Active Protocol: Document 12/08/22 10:04 [facility] (Rec: 12/08/22 10:49 [facility] [id number]) OP-PT Subjective Patient Comments Patient Comments Pt reports he hasn't had his pain meds for about 2 weeks now and there have been a lot of call offs recently so has been working over 50 hours each week. Pt reports mostly LBP. There are points when he lifts something then it radiates the length of R side back. PT-OP-D Balance Start: 08/21/22 16:02 Freq: Status: Active Protocol: Document 08/25/22 08:17 [facility] (Rec: 08/25/22 09:05 [facility] [id number]) Balance Tests Single Limb Standing Single Limb- Right 12 sec w/lat trunk lean R pain back Single Limb- Left 2 sec w/pain back and L ankle PT-OP-F Manual Assessment Start: 08/21/22 16:02 Freq: Status: Active Protocol: Document 08/25/22 08:17 [facility] (Rec: 08/25/22 09:05 [facility] [id number]) Manual Assessments Soft Tissue Assessment Soft Tissue Mobility Assessment tenderness neck and lumbar mm PT-OP-G Mobility & Gait Start: 08/21/22 16:02 Freq: Status: Active Protocol: Document 08/25/22 08:17 [facility] (Rec: 08/25/22 09:05 [facility] [id number]) OP Gait Assessment Comments Gait Comments dec LLE stance time and dec push off B; heavy R lat lean and hard foot slap on R d/t dec L stance time. PT-OP-J Posture/Palpation/Skin Start: 08/21/22 16:02 Freq: Status: Active Protocol: Document 11/10/22 10:03 [facility] (Rec: 11/10/22 10:48 [facility] [id number]) Posture Evaluation [facility] Postural Classification System Ashley Postural Classifications Posterior/Anterior Vertebral Compression Test 0 Elbow Flexion Test 2 Lumbar Protective Mechanism Left AP 1 Lumbar Protective Mechanism Right AP 0 Lumbar Protective Mechanism Left PA 1 Lumbar Protective Mechanism Right PA 2 PT-OP-K Range of Motion Start: 08/21/22 16:02 Freq: Status: Active Protocol: Document 11/10/22 10:03 [facility] (Rec: 11/10/22 10:48 [facility] [id number]) Cervical Spine Range of Motion Cervical Spine Active Degrees Flexion 71 Extension 29 Rotation Left 58 Rotation Right 56 Lateral Flexion Left 30 Lateral Flexion Right 36 Comments pain ext; pain R neck w/ flex, pain L w/SB R; pain post w/L SB; pain ipsi w/rot Lumbar Spine Range of Motion Lumbar Spine Active Percentage Flexion 80 Extension 90 Rotation Left 70 Rotation Right 80 Lateral Flexion Left 90 Lateral Flexion Right 90 ROM Limitations Pain Comments Contra pain w/SB, mid lumbar pain ext; pain w/flex; pain B w/rot Ankle and Foot Goniometric Range of Motion Ankle and Foot Left Active Comments pain w/inverion & eversion and limited range-otherwise good ROM PT-OP-L Special Tests Start: 08/21/22 16:02 Freq: Status: Active Protocol: Document 08/25/22 08:17 [facility] (Rec: 08/25/22 09:05 [facility] [id number]) Special Tests Cervical Spine Special Tests Traction Test Results pain Vertebral Artery Test Results neg Comments B Spurling's Test Test Results pain positive Lumbar Spine Special Tests Straight Leg Raise Test Results about 40 deg pain B in HS and LB Slump Test Results post HS/calf tension-no change w/neck flex PT-OP-M Strength Start: 08/21/22 16:02 Freq: Status: Active Protocol: Document 11/10/22 10:03 [facility] (Rec: 11/10/22 10:48 [facility] [id number]) Hip Strength Hip Manual Muscle Testing Right Flexion (L2) 4 Good Extension (S1) 5 Normal Abduction 4 Good Adduction 4- Good- External Rotation 4 Good Internal Rotation 4 Good Left Flexion (L2) 4- Good- Extension (S1) 5 Normal Abduction 4+ Good+ Adduction 3+ Fair+ External Rotation 4 Good Internal Rotation 5 Normal Knee Strength Knee Manual Muscle Testing Right Flexion (S2) 4+ Good+ Extension (L3) 4+ Good+ Left Flexion (S2) 4+ Good+ Extension (L3) 5 Normal Ankle/Foot Strength Ankle and Foot Manual Muscle Testing Right Dorsiflexion (L4) 5 Normal Plantarflexion (S1) 5 Normal Inversion 5 Normal Eversion (S1) 5 Normal Comments PF tested steaded B Left Dorsiflexion (L4) 4 Good Plantarflexion (S1) 4 Good Inversion 3+ Fair+ Eversion (S1) 3+ Fair+ Comments pain and swelling-dec inversion ROM PT-OP-Q Treatments Start: 08/21/22 16:02 Freq: Status: Active Protocol: Document 12/08/22 10:04 [facility] (Rec: 12/08/22 10:49 [facility] [id number]) Therapeutic Exercises Supine Exercises HS stretch Supine Exercise Name active Side bilateral Reps/Minutes 5 sec x4 Sitting Exercises hip hinges Sitting Exercise Name w/dowel on back Reps/Minutes 10 Standing Exercises squat Standing Exercise Name dowel on back Side bilateral Reps/Minutes 15 Comments cues heels down hip hinge Standing Exercise Name dowel at back Reps/Minutes 15 Comments cues to keep dowel on and hinge only at hips Manual Therapy Treatment Soft Tissue Mobilization hip Body Location B HS Mobilization Type Strumming,Sustained Pressure, Other Intensity/Depth Moderate Comments w/active HS stretch and during inf mob lumbar Body Location TS, LS paraspinals Mobilization Type Strumming,Sustained Pressure Joint Mobilizations hip Joint B inf FM lumbar Comments PA in cat/cow FM T5-7 innominate Comments R caudal, B ER FM sacrum Comments UPA R & caudal FM w/percussion and FM Other Other Manual Treatments consent given for all manual treatment PT-OP-T Assessment and Plan Start: 08/21/22 16:02 Freq: Status: Active Protocol: Document 12/08/22 10:04 [facility] (Rec: 12/08/22 10:49 [facility] [id number]) Physical Therapy Assessment Goals posture Short Term Goal (STG) Pt will score at least 2/5 on VCT to show irmpoved posture. 11/10-no improvment but able to improve to 4/5 after PT positioning STG Duration 12/05 Halfway Goal (LTG) Pt will score at least 4/5 on VCT to show irmpoved posture. LTG Duration 01/05 strength Short Term Goal (STG) Pt will be indep w/HEP STG Duration achieved advancing as able Halfway Goal (LTG) Pt will score at least 5/5 on all BLE MMT and at least 3/5 on LPM & EFT to show imrpoved strength and stabiltiy in order for him to do his typical daily activities w/o inc pain. 11/10-some improvement in directions and others worse. LTG Duration 01/05 ROM Core Oven Tender Goal (LTG) Pt will have full ROM of neck, L ankle and back w/o inc pain greater than 1/10. 11/10-ROM improved but still painful LTG Duration 01/05 activities Short Term Goal (STG) Pt will report no pain in back or ankle greater than 2/10 w/ walking to work. 11/10-3-4/10 at best; worst STG Duration 12/04 Halfway Goal (LTG) Pt will report no pain in back , neck or ankle greater than 3 /10 after a shift for work. 11/10-typical shift w/meds- worst 11/03; 10/10 on a long shift day LTG Duration 01/05 Assessment Summary Assessment Pt had more level pelvis after manual and improved ability to use HS and bend furter w/ more hip motion after manaul. Pt took cues but was able to do better w/hip hinging and squatting w/dowel and edcuated on improtance of this for his back at work Physical Therapy Plan Frequency and Duration Frequency of Treatment 1x/Week Duration of treatment (weeks) 8 Plan of Care Start Date 11/10/22 Plan of Care End Date 01/05/23 Next Visit Focus/Plan Next Note Type Treatment Note Next Visit Plan review hip hinges and squats, cont to work on getting pelvis level and core stability
--- NOTE | 2023-01-12 15:00 | PT.OPDS ---
Current Diagnoses Other chronic pain (12/08/22) Spinal stenosis, cervical region (12/08/22) Low back pain, unspecified (12/08/22) Segmental and somatic dysfunction of lower extremity (12/08/22) Segmental and somatic dysfunction of abdomen and other regions (12/08/22) Paresthesia of skin (12/08/22) Difficulty in walking, not elsewhere classified (12/08/22) Abnormal posture (12/08/22) Weakness (12/08/22) Visit Care Team Role Provider Type Ephraim Platt MD Attending Provider Physician Family Provider Primary Care Provider Referring Provider Specialty: Internal Medicine Address: [address] [place] [address], [address], [facility] Email: [email or web address] Visit Number Visit Number [id number] Discharge Summary PT-OP-B Current Condition Start: 08/21/22 16:02 Freq: Status: Active Protocol: Document 08/25/22 08:17 [facility] (Rec: 08/25/22 09:05 [facility] [id number]) Current Condition History of Current Condition Onset Date chornic back pain(mostly lumbar some thoaraic), neck pain; L ankle 1 week Current Complaints back pain, L ankle pain History of Current Condition Pt reports Wed he sprained his ankle L but he is unsure how. He went ot his shift and couldnt finish so went ot ER and they did Xrays and there was no breaks. Pt reports the week befoer he had dropped a cast iron skillet, but it went away and it was a week later that swelling and pain started . Back been really bad especially at work. 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 He works 28-34 hours a week and notes they have been understaffed recently so he has been working a lot. His ankle is doing better but still sore. Neck is painful but not as bad as the back. He tried to see Dr. Bearden but the provider had amedical emergency so he hasn't seen him again. He has been taking hydrocodone for a few months to a year. He takes it daily. He gets 21 pills a week and takes 3/day and that is what gets him through his day. Otherwise he feels like he just lays in bed d/t pain too much. Pt has not been able to skateboard in over a year to year and half at this point. Pt has to walk to work now, which is painful but not as bad as skateboarding. Pt denies dizziness and lightheadness and occ BEDOYA ( every couple weeks or so and not very intense) Prior Treatments and Tests PTs, MRIs of brain, cervical spine, thoraic spine; Xray of lumbar spine Treatment Goals Patient/Caregiver Goals feel better not as trashed; have better mobility, possibly get back to skateboarding PT-OP-C Subjective Start: 08/21/22 16:02 Freq: Status: Active Protocol: Document 12/08/22 10:04 [facility] (Rec: 12/08/22 10:49 [facility] [id number]) OP-PT Subjective Patient Comments Patient Comments Pt reports he hasn't had his pain meds for about 2 weeks now and there have been a lot of call offs recently so has been working over 50 hours each week. Pt reports mostly LBP. There are points when he lifts something then it radiates the length of R side back. PT-OP-D Balance Start: 08/21/22 16:02 Freq: Status: Active Protocol: Document 08/25/22 08:17 [facility] (Rec: 08/25/22 09:05 [facility] [id number]) Balance Tests Single Limb Standing Single Limb- Right 12 sec w/lat trunk lean R pain back Single Limb- Left 2 sec w/pain back and L ankle PT-OP-F Manual Assessment Start: 08/21/22 16:02 Freq: Status: Active Protocol: Document 08/25/22 08:17 [facility] (Rec: 08/25/22 09:05 [facility] [id number]) Manual Assessments Soft Tissue Assessment Soft Tissue Mobility Assessment tenderness neck and lumbar mm PT-OP-G Mobility & Gait Start: 08/21/22 16:02 Freq: Status: Active Protocol: Document 08/25/22 08:17 [facility] (Rec: 08/25/22 09:05 [facility] [id number]) OP Gait Assessment Comments Gait Comments dec LLE stance time and dec push off B; heavy R lat lean and hard foot slap on R d/t dec L stance time. PT-OP-J Posture/Palpation/Skin Start: 08/21/22 16:02 Freq: Status: Active Protocol: Document 11/10/22 10:03 [facility] (Rec: 11/10/22 10:48 [facility] [id number]) Posture Evaluation [facility] Postural Classification System Ashley Postural Classifications Posterior/Anterior Vertebral Compression Test 0 Elbow Flexion Test 2 Lumbar Protective Mechanism Left AP 1 Lumbar Protective Mechanism Right AP 0 Lumbar Protective Mechanism Left PA 1 Lumbar Protective Mechanism Right PA 2 PT-OP-K Range of Motion Start: 08/21/22 16:02 Freq: Status: Active Protocol: Document 11/10/22 10:03 [facility] (Rec: 11/10/22 10:48 [facility] [id number]) Cervical Spine Range of Motion Cervical Spine Active Degrees Flexion 71 Extension 29 Rotation Left 58 Rotation Right 56 Lateral Flexion Left 30 Lateral Flexion Right 36 Comments pain ext; pain R neck w/ flex, pain L w/SB R; pain post w/L SB; pain ipsi w/rot Lumbar Spine Range of Motion Lumbar Spine Active Percentage Flexion 80 Extension 90 Rotation Left 70 Rotation Right 80 Lateral Flexion Left 90 Lateral Flexion Right 90 ROM Limitations Pain Comments Contra pain w/SB, mid lumbar pain ext; pain w/flex; pain B w/rot Ankle and Foot Goniometric Range of Motion Ankle and Foot Left Active Comments pain w/inverion & eversion and limited range-otherwise good ROM PT-OP-L Special Tests Start: 08/21/22 16:02 Freq: Status: Active Protocol: Document 08/25/22 08:17 [facility] (Rec: 08/25/22 09:05 [facility] [id number]) Special Tests Cervical Spine Special Tests Traction Test Results pain Vertebral Artery Test Results neg Comments B Spurling's Test Test Results pain positive Lumbar Spine Special Tests Straight Leg Raise Test Results about 40 deg pain B in HS and LB Slump Test Results post HS/calf tension-no change w/neck flex PT-OP-M Strength Start: 08/21/22 16:02 Freq: Status: Active Protocol: Document 11/10/22 10:03 [facility] (Rec: 11/10/22 10:48 [facility] [id number]) Hip Strength Hip Manual Muscle Testing Right Flexion (L2) 4 Good Extension (S1) 5 Normal Abduction 4 Good Adduction 4- Good- External Rotation 4 Good Internal Rotation 4 Good Left Flexion (L2) 4- Good- Extension (S1) 5 Normal Abduction 4+ Good+ Adduction 3+ Fair+ External Rotation 4 Good Internal Rotation 5 Normal Knee Strength Knee Manual Muscle Testing Right Flexion (S2) 4+ Good+ Extension (L3) 4+ Good+ Left Flexion (S2) 4+ Good+ Extension (L3) 5 Normal Ankle/Foot Strength Ankle and Foot Manual Muscle Testing Right Dorsiflexion (L4) 5 Normal Plantarflexion (S1) 5 Normal Inversion 5 Normal Eversion (S1) 5 Normal Comments PF tested steaded B Left Dorsiflexion (L4) 4 Good Plantarflexion (S1) 4 Good Inversion 3+ Fair+ Eversion (S1) 3+ Fair+ Comments pain and swelling-dec inversion ROM PT-OP-T Assessment and Plan Start: 08/21/22 16:02 Freq: Status: Active Protocol: Document 01/12/23 14:59 [facility] (Rec: 01/12/23 15:00 [facility] [id number]) Physical Therapy Assessment Goals posture Short Term Goal (STG) Pt will score at least 2/5 [address] to show irmpoved posture. 11/10-no improvment but able to improve to 4/5 after PT positioning STG Duration 12/05 Fpc Goal (LTG) Pt will score at least 4/5 on VCT to show irmpoved posture. LTG Duration 01/05 strength Short Term Goal (STG) Pt will be indep w/HEP STG Duration achieved advancing as able Riveter Helper Goal (LTG) Pt will score at least 5/5 on all BLE MMT and at least 3/5 on LPM & EFT to show imrpoved strength and stabiltiy in order for him to do his typical daily activities w/o inc pain. 11/10-some improvement in directions and others worse. LTG Duration 01/05 ROM Riveter Helper Goal (LTG) Pt will have full ROM of neck, L ankle and back w/o inc pain greater than 1/10. 11/10-ROM improved but still painful LTG Duration 01/05 activities Short Term Goal (STG) Pt will report no pain in back or ankle greater than 2/10 w/ walking to work. 11/10-3-4/10 at best; worst 9/ 10 STG Duration 8 Fpc Goal (LTG) Pt will report no pain in back , neck or ankle greater than 3 /10 after a shift for work. 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 Pt has not been seen in just over a month and POC is . DC d/t pt no longer attending PT. Physical Therapy Plan Discharge Physical Therapy Discharge Reasons No Longer Attending PT
== END 2023-01-12 16:05 | disposition home or self-care (01) ==
LOC: PHYS 10:00
PROVIDERS: Family Provider Student in an Organized Health Care Education/Training Program; PCP Student in an Organized Health Care Education/Training Program; Referring Provider Student in an Organized Health Care Education/Training Program; Visit Provider Student in an Organized Health Care Education/Training Program
DX: M99.06 Segmental and somatic dysfunction of lower extremity (principal); M99.09 Segmental and somatic dysfunction of abdomen and other regions; M54.50 Low back pain, unspecified; G89.29 Other chronic pain; M48.02 Spinal stenosis, cervical region; R20.2 Paresthesia of skin; R29.3 Abnormal posture; R53.1 Weakness; R26.2 Difficulty in walking, not elsewhere classified
CPT/HCPCS: 97110; 97112; 97140; 97162; 97530

== ENCOUNTER 2023-02-16 13:43 | Outpatient (CLI) | payer OTHER, MEDICAID, SELFPAY ==
[2023-02-16] VITALS (8 sets, daily range): BP systolic 99–129; BP diastolic 54–72; PULSE 78–86; RESP 9–24; TEMP 36.4; O2SAT 96–100
--- NOTE | 2023-02-16 13:45 | DI.RAD.S_ITS ---
PROCEDURE: PAIN L INTERLAMINAR/CAUDAL INJ INDICATIONS: SPONDYLOSIS COMPARISON: MR, MR LUMBAR SPINE WO CON, 11/05/2022, 9:22. FINDINGS: Fluoroscopic spot filming was performed to verify placement of spinal needles at the L4-5 level(s), as labeled on the films. Appropriate location(s) of the needle tip(s) was confirmed by injection of iodinated contrast. IMPRESSION: Fluoroscopy for pain management. Dictated by: Tomasa Sullivan M.D. on 02/16/2023 at 16:49 Approved by: Tomasa Sullivan M.D. on 02/16/2023 at 16:50
[2023-02-16] MEDS: MIDAZOLAM 2 MG/2 ML VIAL IV (14:36)
[2023-02-16] MEDS: iopamidoL 15 ML VIAL 3 ML INJ (14:42)
[2023-02-16] MEDS: DEXAMETHASONE 10 MG/ML VIAL INJ (14:42)
--- NOTE | 2023-02-16 16:58 | P.PCN_ITS ---
Date/Time/Diagnoses Date of procedure: 02/16/23 Time of procedure: 14:30 Procedure Notes Physician: Ferny Michelle Total Fluoroscopy time (seconds): 10 Total sedation minutes: 10 Procedure in detail & Post-procedure care: L4-5 Interlaminar Epidural Steroid Injection Indications: Harley is presenting for treatment of lumbar radiculopathy with low back and leg pain. Preoperative diagnosis: Lumbar radiculopathy Postoperative diagnosis: Same Focused Examination: Ax3 Mood and affect are normal Vital Signs: VSS ASA: 2 Consent: Following review of allergies and potential side effects/complications, including, but not necessarily limited to, infection, allergic reaction, local tissue breakdown, stroke, temporary or permanent nerve injury, paralysis, and possible , the patient indicated that they understood and agreed to p roceed.? An informed consent document was signed by the patient, witnessed by a nurse and placed in the patient's chart.? Additionally, other treatment options including medications and physical therapy were reviewed with the patient. All questions were answered. Site was then marked. Anesthesia: After review of previous anesthetic history and IV conscious sedation, the patient was deemed safe to proceed with today's procedure with IV conscious sedation. IV sedation was accomplished with midazolam 2 mg administered by the RN after order by Dr. Michelle. Sedation was titrated to patient comfort during the course of the procedure. Patient remained responsive to all verbal commands. Position: Prone Monitoring: NIBP, Pulse oximetry, 3 lead EKG Needle used: 18 G 3.5? Tuohy Contrast: Isovue 300M Injectate: Dexamethasone 10 mg with 1% lidocaine 2 mL Technique: The skin was prepped with chloraprep and then draped in a sterile fashion. Time out was performed as per protocol. Oxygen applied via NC. Skin and subcutaneous structures of the needle entry site was then infiltrated with 3 mL of lidocaine 1%. Under AP, lateral and contralateral oblique fluoroscopic control, the Tuohy needle was guided into the L4-5 epidural space. The space was accessed with loss of resistance technique. Isovue 300M was then injected and the spread was consistent with the epidural space. There was no evidence for intravascular or intrathecal uptake. After negative aspiration, the above- mentioned injectate was then slowly administered and the needle withdrawn. The patient expressed no unusual discomfort or paresthesias during the injection. Band-Aids applied to injection sites. EBL: less than 1 ml Complications: None Post Procedure: Patient was taken to the recovery and monitored. The patient was provided a Pain Log to continue to record the patient's response to the target- specific procedure prior to the patient's follow-up visit with the referring physician. Patient was stable upon discharge. Detailed post procedure instructions were provided. Patient was asked to call in the event of worsening pain, fever, weakness, numbness or bladder or bowel incontinence.
== END 2023-02-16 15:12 | disposition home or self-care (01) ==
PROVIDERS: Family Provider Student in an Organized Health Care Education/Training Program; PCP Student in an Organized Health Care Education/Training Program; Referring Provider Anesthesiology; Visit Provider Anesthesiology
DX: M54.16 Radiculopathy, lumbar region (principal)
CPT/HCPCS: 62323; 99152; J1100; J2250

== ENCOUNTER 2023-05-25 05:27 | Emergency (ER) | payer OTHER, MEDICAID, SELFPAY ==
[2023-05-25 05:36] VITALS: BP 139/88; PULSE 71; RESP 18; TEMP 36.9; O2SAT 98; BMI 22.3
--- NOTE | 2023-05-25 05:37 | ED.ABDPAIN ---
HPI - Abdominal Pain <Candi Can DO - Last Filed: 05/26/23 00:54> General Chief Complaint: Nausea/Vomiting/Diarrhea Stated Complaint: vomiting, dehydrate, abd pain Time Seen by Provider: 05/25/23 05:34 History of Present Illness HPI narrative: Patient is a 27-year-old male with chronic pain on chronic opiates, marijuana use presenting today with nausea vomiting. He reports that he has been feeling well for the last couple of days has not been able to take his hydrocodone. Started vomiting yesterday around 11:00 a.m. has not really been able to stop. He is severe all over abdominal pain. Some diarrhea. No dizziness or lightheadedness. Vitals are currently stable. Related Data Previous Rx's Medication Instructions Recorded hydrocodone 10 mg-acetaminophen 1 tab PO Q8H PRN pain #84 tabs 04/21/23 325 mg tablet hydrocodone 10 mg-acetaminophen 1 tab PO Q8H PRN pain #84 tabs 04/21/23 325 mg tablet hydrocodone 10 mg-acetaminophen 1 tab PO Q8H PRN pain #84 tabs 04/21/23 325 mg tablet naloxone 8 mg/actuation nasal spray 1 spray intranasal Q3M PRN opioid 04/21/23 overdose #2 ea fluoxetine 20 mg capsule 60 mg (3 x 20 mg) PO DAILY #270 05/14/23 caps trazodone 50 mg tablet 50 - 100 mg (1 - 2 x 50 mg) PO 05/14/23 BEDTIME #90 tabs ondansetron 4 mg disintegrating 4 mg PO QID PRN nausea and 05/25/23 tablet vomiting #10 tabs Allergies Allergy/AdvReac Type Severity Reaction Status Date / Time metoclopramide AdvReac Mild LEG Verified 04/21/23 09:20 PROBLEMS Patient History <Candi Can DO - Last Filed: 05/26/23 00:54> Medical History (Updated 05/25/23 @ 08:39 by Lauren Sesay DO) Marijuana abuse Myofascial pain Cervicalgia Lumbar radiculopathy Somatic dysfunction of lower extremity Segmental and somatic dysfunction of abdomen and other regions Pelvic somatic dysfunction Lumbar region somatic dysfunction Chronic bilateral low back pain without sciatica Psoriasis Acne Migraines (~2004) 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 Social History Smoking Status: Current some day smoker second hand exposure: No alcohol intake: never substance use type: marijuana (DAILY) Smoking Status: Current some day smoker tobacco type: vaping alcohol intake frequency: 0-2 drinks per day Substance Use Type: marijuana Exam <DO Regis Weaver Last Filed: 05/26/23 00:54> Initial Vital Signs Initial Vital Signs: Vital Signs Temperature 98.4 F 05/25/23 05:36 Pulse Rate 71 05/25/23 05:36 Respiratory Rate 18 05/25/23 05:36 Blood Pressure 139/88 05/25/23 05:36 Pulse Oximetry 98 05/25/23 05:36 Oxygen Delivery Method Room Air 05/25/23 05:36 GENERAL: Alert 27-year-old male appears to not feel and in no acute distress. HEENT: Head atraumatic,EOMI, pupils reactive, face symmetric, moist mucous membranes CARDIOVASCULAR: Regular rate and rhythm without murmurs, rubs or gallops. RESPIRATORY: Breath sounds equal bilaterally, no wheezes rales or rhonchi. ABDOMEN: Soft, nontender. Normoactive bowel sounds all 4 quadrants. No guarding or rebound. EXTREMITIES: Normal range of motion, no clubbing or edema. Neurovascularly intact NEUROLOGICAL: Alert and oriented x4. SKIN: Warm, dry, no laceration, no petechiae, no rashes or lesions. <Lauren Sesay DO - Last Filed: 05/25/23 09:24> Initial Vital Signs Initial Vital Signs: Vital Signs Temperature 98.4 F 05/25/23 05:36 Pulse Rate 71 05/25/23 05:36 Respiratory Rate 18 05/25/23 05:36 Blood Pressure 139/88 05/25/23 05:36 Pulse Oximetry 98 05/25/23 05:36 Oxygen Delivery Method Room Air 05/25/23 05:36 Course <Candi Can DO - Last Filed: 05/26/23 00:54> Orders Ordered: Discontinued Medications Hydrocodone Bitart/Acetaminophen (Hydrocodone/Acet 5/325 Tablet) 2 tab PO NOW ONE Stop: 05/25/23 08:26 Last Admin: 05/25/23 08:30 Dose: 2 tab Documented By: AUNG Hydromorphone HCl (Hydromorphone 1 Mg Inj) 1 mg IV NOW ONE Stop: 05/25/23 06:05 Last Admin: 05/25/23 06:22 Dose: 1 mg Documented By: TWAN Sodium Chloride (Normal Saline 0.9%) 1,000 mls @ 1,000 mls/hr IV BOLUS ONE Stop: 05/25/23 06:57 Last Infusion: 05/25/23 07:51 Dose: Infused Documented By: Admin: 05/25/23 06:18 Dose: 1,000 mls/hr Documented By: TWAN Ondansetron HCl (Ondansetron 4 Mg/2 Ml Inj) 4 mg IV NOW ONE Stop: 05/25/23 05:59 Last Admin: 05/25/23 06:20 Dose: 4 mg Documented By: TWAN Ondansetron HCl (Ondansetron 4 Mg/2 Ml Inj) 4 mg IV NOW ONE Stop: 05/25/23 07:08 Last Admin: 05/25/23 07:10 Dose: 4 mg Documented By: TWAN Pantoprazole Sodium (Pantoprazole 40 Mg Vial) 40 mg IV NOW ONE Stop: 05/25/23 05:59 Last Admin: 05/25/23 06:25 Dose: 40 mg Documented By: TWAN Vital Signs Vital signs: Vital Signs - 8 hr 05/25/23 05:36 05/25/23 06:30 05/25/23 06:32 Temperature 98.4 F Pulse Rate 71 59 L Respiratory Rate 18 Blood Pressure 139/88 125/68 Pulse Oximetry 98 97 Oxygen Delivery Method Room Air Room Air 05/25/23 06:32 05/25/23 07:00 05/25/23 07:00 Temperature Pulse Rate 61 60 Respiratory Rate 24 Blood Pressure 156/96 H Pulse Oximetry 97 97 Oxygen Delivery Method Room Air Room Air 05/25/23 08:58 Temperature 98.6 F Pulse Rate 78 Respiratory Rate 20 Blood Pressure 101/59 L Pulse Oximetry 98 Oxygen Delivery Method Room Air <Lauren Sesay DO - Last Filed: 05/25/23 09:24> Orders Ordered: Discontinued Medications Hydrocodone Bitart/Acetaminophen (Hydrocodone/Acet 5/325 Tablet) 2 tab PO NOW ONE Stop: 05/25/23 08:26 Last Admin: 05/25/23 08:30 Dose: 2 tab Documented By: AUNG Hydromorphone HCl (Hydromorphone 1 Mg Inj) 1 mg IV NOW ONE Stop: 05/25/23 06:05 Last Admin: 05/25/23 06:22 Dose: 1 mg Documented By: TWAN Sodium Chloride (Normal Saline 0.9%) 1,000 mls @ 1,000 mls/hr IV BOLUS ONE Stop: 05/25/23 06:57 Last Infusion: 05/25/23 07:51 Dose: Infused Documented By: Admin: 05/25/23 06:18 Dose: 1,000 mls/hr Documented By: TWAN Ondansetron HCl (Ondansetron 4 Mg/2 Ml Inj) 4 mg IV NOW ONE Stop: 05/25/23 05:59 Last Admin: 05/25/23 06:20 Dose: 4 mg Documented By: TWAN Ondansetron HCl (Ondansetron 4 Mg/2 Ml Inj) 4 mg IV NOW ONE Stop: 05/25/23 07:08 Last Admin: 05/25/23 07:10 Dose: 4 mg Documented By: TWAN Pantoprazole Sodium (Pantoprazole 40 Mg Vial) 40 mg IV NOW ONE Stop: 05/25/23 05:59 Last Admin: 05/25/23 06:25 Dose: 40 mg Documented By: TWAN Vital Signs Vital signs: Vital Signs - 8 hr 05/25/23 05:36 05/25/23 06:30 05/25/23 06:32 Temperature 98.4 F Pulse Rate 71 59 L Respiratory Rate 18 Blood Pressure 139/88 125/68 Pulse Oximetry 98 97 Oxygen Delivery Method Room Air Room Air 05/25/23 06:32 05/25/23 07:00 05/25/23 07:00 Temperature Pulse Rate 61 60 Respiratory Rate 24 Blood Pressure 156/96 H Pulse Oximetry 97 97 Oxygen Delivery Method Room Air Room Air 05/25/23 08:58 Temperature 98.6 F Pulse Rate 78 Respiratory Rate 20 Blood Pressure 101/59 L Pulse Oximetry 98 Oxygen Delivery Method Room Air [facility] Abdominal Pain <Candi Pamella, DO - Last Filed: 05/26/23 00:54> Lab Data 05/25/23 05:38 05/25/23 05:38 Labs: Lab Results 05/25/23 05/25/23 05/25/23 Range/Units 05:38 06:55 07:27 WBC 15.0 H (4.5-11.0) X10^3/uL RBC 5.25 (4.5-5.9) X10^6/uL Hgb 15.5 (13.5-17.5) g/dL Hct 45.2 (41-53) % MCV 86.0 (80-100) fL MCH 29.6 (26-34) PG MCHC 34.4 (30-36) % RDW 12.9 (11.6-14.8) % Plt Count 414 H (150-400) X10^3/uL Neut % (Auto) 90.7 H (50-75) % Lymph % (Auto) 5.9 L (25-40) % [place] % (Auto) 3.0 (3-14) % Eos % (Auto) 0.0 L (2-4) % Baso % (Auto) 0.4 (0-2) % Neut # (Auto) 34138 H (8601-4388) /uL Lymph # (Auto) 900 L (0514-8457) /uL [place] # (Auto) 500 (0-900) /uL Eos # (Auto) 0 (0-450) /uL Baso # (Auto) 100 (0-100) /uL Sodium 135 L (137-145) mmol/L Potassium 3.6 (3.4-5.1) mmol/L Chloride 95 L (98-107) mmol/L Carbon Dioxide 25 (22-32) mmol/L BUN 11 (9-20) mg/dL Creatinine 0.60 L (0.66-1.25) mg/dL Estimated GFR > 60 (>60) mL/min BUN/Creatinine Ratio 18.3 (6-22) Glucose 168 H (70-100) mg/dL Lactate 0.8 (0.7-2.1) mmol/L Calcium 10.2 (8.4-10.2) mg/dL Total Bilirubin 1.5 H (0.2-1.3) mg/dL AST 54 (17-59) IU/L ALT 39 (<50) IU/L Alkaline Phosphatase 103 (38-126) U/L Total Protein 9.5 H (6.3-8.2) g/dL Albumin 5.0 (3.5-5.0) g/dL Globulin 4.5 H (1.7-4.1) g/dL Albumin/Globulin Ratio 1.1 (1.0-2.8) Lipase 68 (23-300) U/L Urine RBC 1-5/hpf D (0-5/HPF) Urine WBC None seen (0-5/HPF) Ur Squamous Epith Cells 0-1 /hpf (0-5/HPF) Urine Bacteria None seen (None) Ur Culture Indicated? Cult not indicated Vol Urine Centrifuged 10ml (spun) Point of care testing: Urine Dip Bedside Urine Glucose Negative Bedside Urine Bilirubin - Negative Bedside Urine Ketone +++ 80 Urine Specific [place] 1.010 Bedside Urine Occult Blood +/- Bedside Urine pH 8.0 Bedside Urine Protein ++ 100 Bedside Urine Urobilinogen - Negative Bedside Urine Nitrite - Negative Bedside Urine Leukocytes - Negative Esterase MDM Narrative Medical decision making narrative: Patient 27-year-old male presents today with nausea vomiting. According to records I do think he may have some hyperemesis secondary to marijuana use however he has not had opiates for the past few days may also be some withdrawal. Blood work has been reviewed he has a leukocytosis of 15, sodium 135, potassium 3.6, chloride 95 bicarb 25 BUN 11 creatinine 0.6, glucose 168 bilirubin 1.5 Patient is getting IV fluids Zofran and Dilaudid Protonix. He is feeling a bit better. Patient signed out to Dr. Sesay <Lauren Sesay, - Last Filed: 05/25/23 09:24> Lab Data Labs: Lab Results 05/25/23 05/25/23 05/25/23 Range/Units 05:38 06:55 07:27 WBC 15.0 H (4.5-11.0) X10^3/uL RBC 5.25 (4.5-5.9) X10^6/uL Hgb 15.5 (13.5-17.5) g/dL Hct 45.2 (41-53) % MCV 86.0 (80-100) fL MCH 29.6 (26-34) PG MCHC 34.4 (30-36) % RDW 12.9 (11.6-14.8) % Plt Count 414 H (150-400) X10^3/uL Neut % (Auto) 90.7 H (50-75) % Lymph % (Auto) 5.9 L (25-40) % [place] % (Auto) 3.0 (3-14) % Eos % (Auto) 0.0 L (2-4) % Baso % (Auto) 0.4 (0-2) % Neut # (Auto) 80219 H (8694-2152) /uL Lymph # (Auto) 900 L (3574-6213) /uL [place] # (Auto) 500 (0-900) /uL Eos # (Auto) 0 (0-450) /uL Baso # (Auto) 100 (0-100) /uL Sodium 135 L (137-145) mmol/L Potassium 3.6 (3.4-5.1) mmol/L Chloride 95 L (98-107) mmol/L Carbon Dioxide 25 (22-32) mmol/L BUN 11 (9-20) mg/dL Creatinine 0.60 L (0.66-1.25) mg/dL Estimated GFR > 60 (>60) mL/min BUN/Creatinine Ratio 18.3 (6-22) Glucose 168 H (70-100) mg/dL Lactate 0.8 (0.7-2.1) mmol/L Calcium 10.2 (8.4-10.2) mg/dL Total Bilirubin 1.5 H (0.2-1.3) mg/dL AST 54 (17-59) IU/L ALT 39 (<50) IU/L Alkaline Phosphatase 103 (38-126) U/L Total Protein 9.5 H (6.3-8.2) g/dL Albumin 5.0 (3.5-5.0) g/dL Globulin 4.5 H (1.7-4.1) g/dL Albumin/Globulin Ratio 1.1 (1.0-2.8) Lipase 68 (23-300) U/L Urine RBC 1-5/hpf D (0-5/HPF) Urine WBC None seen (0-5/HPF) Ur Squamous Epith Cells 0-1 /hpf (0-5/HPF) Urine Bacteria None seen (None) Ur Culture Indicated? Cult not indicated Vol Urine Centrifuged 10ml (spun) Point of care testing: Urine Dip Bedside Urine Glucose Negative Bedside Urine Bilirubin - Negative Bedside Urine Ketone +++ 80 Urine Specific [place] 1.010 Bedside Urine Occult Blood +/- Bedside Urine pH 8.0 Bedside Urine Protein ++ 100 Bedside Urine Urobilinogen - Negative Bedside Urine Nitrite - Negative Bedside Urine Leukocytes - Negative Esterase MDM Narrative Medical decision making narrative: Patient 27-year-old male presents today with nausea vomiting. According to records I do think he may have some hyperemesis secondary to marijuana use however he has not had opiates for the past few days may also be some withdrawal. Blood work has been reviewed he has a leukocytosis of 15, sodium 135, potassium 3.6, chloride 95 bicarb 25 BUN 11 creatinine 0.6, glucose 168 bilirubin 1.5 Patient is getting IV fluids Zofran and Dilaudid Protonix. He is feeling a bit better. Patient signed out to Dr. Sesay Patient signed out to myself by Dr. Can. Patient seen and evaluated independently by myself. Labs and workup thus far has been reviewed. Repeat lactate has resulted at 0.8. Patient does have a CT abdomen pelvis from 11/11/2022 which showed entero colitis when he was here with similar symptoms. Patient tolerated oral challenge, no additional vomiting so far but has some persistent abdominal pain. Patient states he is feeling significantly improved and would like to return home. Was given dose of of home oral pain medication. Discussed with patient about possibly pursuing repeat imaging in the department versus following up for scope in the future. Patient is comfortable returning home we will give contact for follow up for EGD/colonoscopy. Did discuss with patient if he stops his oral narcotic suddenly this can also contributed to nausea and vomiting which he was unaware As well as hyperemesis from cannabis. Did discuss if he has persistent abdominal pain or much worse than typical he should have further workup. Discharge Plan Departure Patient Disposition: Home Clinical Impression: Nausea & vomiting Activity Restrictions/Additional Instructions: Follow up as needed. Your imaging in October did show some thickening of the bowel, if you are having persistent or frequent abdominal pain it would be worthwhile to follow up to have a EGD and/or colonoscopy. Contact information is included below. You may take Zofran 1 tablet every 6 hours as needed for nausea. Prescription was sent to [facility] in [place]. Continue your other home medications as prescribed. Please return for fevers, persistent vomiting, new or worsening abdominal back or flank pain, black or bloody stools, lightheadedness or passing out or other new or concerning changes Prescriptions: New ondansetron 4 mg tablet,disintegrating 4 mg PO QID PRN (Reason: nausea and vomiting) Qty: 10 0RF No Action fluoxetine 20 mg capsule 60 mg PO DAILY Qty: 270 0RF trazodone 50 mg tablet 50 - 100 mg PO BEDTIME Qty: 90 0RF hydrocodone-acetaminophen 10-325 mg tablet 1 tab PO Q8H PRN (Reason: pain) Qty: 84 0RF Rx Instructions: rx 1/3 hydrocodone-acetaminophen 10-325 mg tablet 1 tab PO Q8H PRN (Reason: pain) Qty: 84 0RF Rx Instructions: rx 2/3 hydrocodone-acetaminophen 10-325 mg tablet 1 tab PO Q8H PRN (Reason: pain) Qty: 84 0RF Rx Instructions: rx 3/3 naloxone 8 mg/actuation spray,non-aerosol 1 spray intranasal Q3M PRN (Reason: opioid overdose) Qty: 2 5RF Rx Instructions: spray 1 dose into ONE nostril; alternate nostrils w each dose until help arrives Referrals: Felix Ricks MD [Physician] - Ewa Barrow DO [Primary Care Provider] - Alexi Becker MD [Physician] - Stand Alone Forms: Patient Portal/API
[2023-05-25 05:54] LABS: Add Manual Diff / Slide Review NO; Basophils Absolute Auto 100 /uL (0-100); Basophils Percent Auto 0.4 % (0-2); Eosinophils Absolute Auto 0 /uL (0-450); Hematocrit 45.2 % (41-53); Hemoglobin 15.5 g/dL (13.5-17.5); Lymphocytes Absolute Auto 900 /uL (1100-4500); Lymphocytes Percent Auto 5.9 % (25-40); Mean Corpuscular HGB Conc 34.4 % (30-36); Mean Corpuscular Hemoglobin 29.6 PG (26-34); Monocytes Absolute Auto 500 /uL (0-900); Neutrophils Absolute Auto 13600 /uL (1500-7000); Neutrophils Percent Auto 90.7 % (50-75); Platelet Count 414 X10^3/uL (150-400); Red Blood Cell Count 5.25 X10^6/uL (4.5-5.9); Red Cell Distribution Width 12.9 % (11.6-14.8)
[2023-05-25 06:01] LABS: Alanine Aminotransferase 39 IU/L (<50); Albumin Globulin Ratio 1.1 (1.0-2.8); Alkaline Phosphatase 103 U/L (38-126); Aspartate Aminotransferase 54 IU/L (17-59); BUN Creatinine Ratio 18.3 (6-22); Bilirubin Total 1.5 mg/dL (0.2-1.3); Blood Urea Nitrogen 11 mg/dL (9-20); Calcium 10.2 mg/dL (8.4-10.2); Carbon Dioxide 25 mmol/L (22-32); Chloride 95 mmol/L (98-107); Estimated Glomerular Filt Rate > 60 mL/min (>60); Globulin 4.5 g/dL (1.7-4.1); Glucose 168 mg/dL (70-100); HEMOLYSIS 31 (0-50); Lipase 68 U/L (23-300); Potassium 3.6 mmol/L (3.4-5.1); Sodium 135 mmol/L (137-145); Total Protein 9.5 g/dL (6.3-8.2)
[2023-05-25] MEDS: SODIUM CHLORIDE 0.9% 1,000 ML 1000 ML IV (06:18)
[2023-05-25] MEDS: ONDANSETRON 4 MG/2 ML INJ IV ×2 (06:20→07:10)
[2023-05-25] MEDS: HYDROMORPHONE 1 MG INJ IV (06:22)
[2023-05-25] MEDS: PANTOPRAZOLE 40 MG VIAL IV (06:25)
[2023-05-25 06:30] VITALS: PULSE 59; O2SAT 97
[2023-05-25 06:32] VITALS: BP 125/68; PULSE 61; O2SAT 97
[2023-05-25 07:00] VITALS: BP 156/96; PULSE 60; RESP 24; O2SAT 97
[2023-05-25 07:21] LABS: Bacteria Urine None Seen; Culture Indicated Urine Cult Not Indicated; RBC Urine 1-5/HPF (0-5/HPF); Squamous Epithelial Cell Urine 0-1 /HPF (0-5/HPF); Urine Volume 10mL (spun); WBC Urine None Seen (0-5/HPF)
[2023-05-25 08:14] LABS: Lactate (Lactic Acid) 0.8 mmol/L (0.7-2.1)
[2023-05-25] MEDS: HYDROCODONE/ACET 5/325 TABLET 2 TAB PO (08:30)
[2023-05-25 08:58] VITALS: BP 101/59; PULSE 78; RESP 20; TEMP 37; O2SAT 98
== END 2023-05-25 08:59 | disposition home or self-care (01) ==
PROVIDERS: Emergency Medicine; Emergency Provider Emergency Medicine; Family Provider Student in an Organized Health Care Education/Training Program; PCP Family Medicine
DX: R11.2 Nausea with vomiting, unspecified (principal)
CPT/HCPCS: 36415; 80053; 81003; 81015; 83605; 83690; 85025; 96361; 96374; 96375; 96376; 99284; C9113; J1170; J2405

== ENCOUNTER 2023-06-30 12:56 | Day surgery (SDC) | payer OTHER, MEDICAID, SELFPAY ==
[2023-06-30] VITALS (8 sets, daily range): BP systolic 106–146; BP diastolic 71–89; PULSE 54–92; RESP 14–26; TEMP 36.5–37.2; O2SAT 94–99
--- NOTE | 2023-06-30 12:45 | PM.PREOP ---
Pre-operative Note Interval Note History & Physical reviewed/Exam performed by Physician: Yes Changes to H&P: No
--- NOTE | 2023-06-30 13:10 | PM.OP.EC ---
Operative Date/Time/Diagnoses Date of procedure: 06/30/23 Time of procedure: 14:28 Pre-op diagnosis: Abdominal pain Procedure & Clinicians Study performed: Esophagogastroduodenoscopy and colonoscopy Same procedure as scheduled: Yes Indications: Chronic abdominal pain Procedure Notes Procedure in detail: The history and physical was performed/updated and the patient is ASA class is 3. The procedure was discussed in detail with the patient. Potential risks complications including infection, bleeding, missed diagnosis, perforation, need for surgery, and were explained. Their questions were answered and informed consent was obtained. Patient placed in left lateral decubitus position. Time out was performed. Procedural sedation was administered by Anesthesia. A bite block was placed. the scope was inserted into the mouth and advanced through the esophagus and into the stomach. the pylorus was intubated and the duodenum was examined to the 2nd portion.. The scope was retroflexed within the stomach. The stomach was then decompressed and scope pulled back to the GE junction. The scope was then removed Examination began with a thorough inspection of the perianal area there was no evidence of fissures, fistulae, external hemorrhoids or cutaneous malignancy. The colonoscopy scope was then placed into the anal canal and was advanced to the cecum, which was identified by the ileocecal valve, the appendiceal orifice and the confluence of the taenia. The scope was then slowly withdrawn examining colon thoroughly in all directions, irrigating it of any residual stool. FINDINGS Unremarkable Esophagogastroduodenoscopy and colonoscopy. Normal healthy mucosa without inflammation, masses or polyps. The patient tolerated the procedure well. They will be discharged once criteria are met. The prep was of good/excellent quality. The withdrawl time was 6 minutes. Specimen(s): none sent Impression: Normal EGD and colonoscopy Post-procedure Disposition: same day surgery
[2023-06-30] MEDS: LACTATED RINGERS 1,000 ML 42 ML IV ×2 (13:19→15:42)
[2023-06-30] MEDS: ONDANSETRON 4 MG/2 ML INJ IV (15:00)
--- NOTE | 2023-06-30 15:06 | SUR.PHASEII ---
Dr Jacob to bedside. See new order for zofran and if effecive repeat and/or compazine.
--- NOTE | 2023-06-30 15:35 | SUR.PHASEII ---
Pt continues with emesis. Compazine held for HR 52. See new order for Haldol. Dr Jacob at bedside for update and orders.
[2023-06-30] MEDS: HALOPERIDOL 5 MG/ML VIAL IV (15:37)
--- NOTE | 2023-06-30 16:24 | SUR.PHASEII ---
Pt discharged to home with dad, spouse will be at home with patient. Emesis stopped. Slight nausea but requested to go home and go to bed. VSS. Ambulated to BR, voided.
== END 2023-06-30 16:15 | disposition home or self-care (01) ==
PROVIDERS: Family Provider Student in an Organized Health Care Education/Training Program; PCP Family Medicine; Referring Provider Surgery; Visit Provider Surgery
PROC: 0DJ08ZZ Inspection of Upper Intestinal Tract, Via Natural or Artificial Opening Endoscopic (ICD-10-PCS; CPT 43235; principal; 2023-06-30 14:00)
PROC: 0DJD8ZZ Inspection of Lower Intestinal Tract, Via Natural or Artificial Opening Endoscopic (ICD-10-PCS; CPT 45378; 2023-06-30 14:00)
DX: R10.9 Unspecified abdominal pain (principal)
CPT/HCPCS: 45378; 43235; J1630; J2250; J2405; J2704

== ENCOUNTER 2023-11-11 10:54 | Outpatient (CLI) | payer OTHER, MEDICAID, SELFPAY ==
[2023-11-11] VITALS (8 sets, daily range): BP systolic 102–121; BP diastolic 55–80; PULSE 61–71; RESP 12–18; TEMP 36.7; O2SAT 96–99
--- NOTE | 2023-11-11 11:30 | DI.RAD.S_ITS ---
PROCEDURE: PAIN L INTERLAMINAR/CAUDAL INJ INDICATIONS: L5-S1 interlaminar FIGUEROA COMPARISON: [facility], , PAIN L INTERLAMINAR/CAUDAL INJ, 02/16/2023, 14:39. FINDINGS: Fluoroscopic spot filming was performed to verify placement of spinal needles at the L5-S1 level(s), as labeled on the films. Appropriate location(s) of the needle tip(s) was confirmed by injection of iodinated contrast. IMPRESSION: L5-S1 injection. Please see operative note for full details. Dictated by: Arsalan Barahona M.D. on 11/11/2023 at 16:39 Approved by: Arsalan Barahona M.D. on 11/11/2023 at 16:40
[2023-11-11] MEDS: MIDAZOLAM 2 MG/2 ML VIAL 1 MG IV (11:44)
[2023-11-11] MEDS: LIDOCAINE 1% (PF) 5 ML INJ (11:47)
[2023-11-11] MEDS: DEXAMETHASONE 10 MG/ML VIAL INJ (11:48)
[2023-11-11] MEDS: iopamidoL 15 ML VIAL 3 ML INJ (11:48)
--- NOTE | 2023-11-11 12:00 | P.PCN_ITS ---
Date/Time/Diagnoses Date of procedure: 11/11/23 Time of procedure: 11:30 Procedure Notes Physician: Ferny Michelle Total Fluoroscopy time (seconds): 10 Total sedation minutes: 10 Procedure in detail & Post-procedure care: L5-S1 Interlaminar Epidural Steroid Injection Indications: Harley is presenting for treatment of lumbar radiculopathy with low back and leg pain. Preoperative diagnosis: Lumbar radiculopathy Postoperative diagnosis: Same Focused Examination: Ax3 Mood and affect are normal Vital Signs: VSS ASA: 2 Consent: Following review of allergies and potential side effects/complications, including, but not necessarily limited to, infection, allergic reaction, local tissue breakdown, stroke, temporary or permanent nerve injury, paralysis, and possible , the patient indicated that they understood and agreed to proceed.? An informed consent document was signed by the patient, witnessed by a nurse and placed in the patient's chart.? Additionally, other treatment options including medications and physical therapy were reviewed with the patient. All questions were answered. Site was then marked. Anesthesia: After review of previous anesthetic history and IV conscious sedation, the patient was deemed safe to proceed with today's procedure with IV conscious sedation. IV sedation was accomplished with midazolam 1 mg administered by the RN after order by Dr. Michelle. Sedation was titrated to patient comfort during the course of the procedure. Patient remained responsive to all verbal commands. Position: Prone Monitoring: NIBP, Pulse oximetry, 3 lead EKG Needle used: 18 G 3.5? Tuohy Contrast: Isovue 300M Injectate: Dexamethasone 10 mg with 1% lidocaine 2 mL Technique: The skin was prepped with chloraprep and then draped in a sterile fashion. Time out was performed as per protocol. Oxygen applied via NC. Skin and subcutaneous structures of the needle entry site was then infiltrated with 3 mL of lidocaine 1%. Under AP, lateral and contralateral oblique fluoroscopic control, the Tuohy needle was guided into the L5-S1 epidural space. The space was accessed with loss of resistance technique. Isovue 300M was then injected and the spread was consistent with the epidural space. There was no evidence for intravascular or intrathecal uptake. After negative aspiration, the above- mentioned injectate was then slowly administered and the needle withdrawn. The patient expressed no unusual discomfort or paresthesias during the injection. Band-Aids applied to injection sites. EBL: less than 1 ml Complications: None Post Procedure: Patient was taken to the recovery and monitored. The patient was provided a Pain Log to continue to record the patient's response to the target- specific procedure prior to the patient's follow-up visit with the referring physician. Patient was stable upon discharge. Detailed post procedure instructions were provided. Patient was asked to call in the event of worsening pain, fever, weakness, numbness or bladder or bowel incontinence.
== END 2023-11-11 12:14 | disposition home or self-care (01) ==
LOC: RAD 10:55
PROVIDERS: Family Provider Student in an Organized Health Care Education/Training Program; PCP Family Medicine; Referring Provider Anesthesiology; Visit Provider Anesthesiology
DX: M54.16 Radiculopathy, lumbar region (principal)
CPT/HCPCS: 62323; 99152; J1100; J2250